=== PATIENT | male | born 1955 | race Caucasian/White ===

== ENCOUNTER 2016-08-18 16:07 | Inpatient (IN) | payer OTHER ==
[~2016-08-18] VITALS: Ht 177.8 cm; Wt 95.8 kg
[~2016-08-18 16:07] MED LIST: ASPCH81 PO; ATEN-175 PO; CTPTP3 TD; ENAL10TA88 PO; FELO10TA2 PO; GLC500 PO; GLCSUNK; POTA-335 PO; SERT-234 PO; SIMV20TA2 PO; SPIR25TA PO; VGR50 PO
[2016-08-18] MEDS ORDERED: ONDANSETRON INJ 2 MG/ML 2 ML VIAL IV STA (16:25)
[2016-08-18] MEDS ORDERED: SODIUM CHLORIDE 0.9% 1000ML 2,000 ML IV STA (16:25)
[2016-08-18] MEDS ORDERED: OPTIRAY 320 IV PRN (16:30)
[2016-08-18 16:31] LABS: HEMATOCRIT 41.2 % (42-52); MEAN CELL VOLUME 88.8 fL (80-100); MEAN CORPUSCULAR HEMOGLOBIN 30.4 pg (25-34); MEAN CORPUSCULAR HGB CONC 34.2 g/dl (32-36); MEAN PLATELET VOLUME 9.5 fL (7.4-10.4); PLATELET COUNT 414 K/uL (130-400); RED BLOOD COUNT 4.64 M/uL (4.7-6.1); WHITE BLOOD COUNT 9.11 K/uL (4.8-10.8)
[2016-08-18] MEDS ORDERED: CLON0.3D4 TD (17:06)
[2016-08-18] MEDS ORDERED: MISC1TAB85 PO (17:07)
[2016-08-18] MEDS ORDERED: MCRK20 PO (17:07)
[2016-08-18] MEDS ORDERED: ASPI-461 PO (17:07)
[2016-08-18] MEDS ORDERED: HYG/25 PO (17:07)
[2016-08-18] MEDS ORDERED: MISCTAB29 PO (17:07)
[2016-08-18] MEDS ORDERED: ATOR-24 PO (17:07)
[2016-08-18] MEDS ORDERED: GLIM1TAB2 PO (17:07)
[2016-08-18] MEDS ORDERED: ADAL1KIT SC (17:07)
[2016-08-18] MEDS ORDERED: METF500T PO (17:07)
[2016-08-18] MEDS ORDERED: MESA1.2T PO (17:07)
[2016-08-18 17:13] LABS: URINE APPEARANCE CLOUDY (CLEAR); URINE COLOR DK YELLOW; URINE EPITHELIAL CELL AUTO >30 /lpf (0-5); URINE NITRITE NEG (NEG); URINE PH 5.5 (4.5-7.5); URINE SPECIFIC GRAVITY 1.031 (1.000-1.030); UROBILINOGEN NEG (NEG); ZZUR CULT IF INDIC CLEAN CATCH NO
--- NOTE | 2016-08-18 17:13 | EMERGENCY ROOM VISIT NOTE ---
History Report prepared by Gumaro: Jvaier Morrison Under the Supervision of: Dr. Dangelo Lee D.O. First contact with patient: 16:25 Chief Complaint: DEHYDRATION Stated Complaint: DEHYDRATION;DOC SENT TO ER Nursing Triage Summary: triage note; pt reports "dr rodriguez told me to come to the ed because i am dehydrated." pt reports diarrhea for "a couple weeks it started after taking antibiotics for my diverticulties the end of july." pt denies any nausea and vomitting. History of Present Illness The patient is a 61 year old male who presents to the Emergency Room with complaints of constant lower abdominal pain beginning three weeks ago. The patient states that he was treated for diverticulitis three weeks ago. He reports that he finished his antibiotics and still has pain and diarrhea. He notes that he has lost his appetite and does not want to drink anything, he has headaches, and intermittent blood in his stool because of a hemorrhoid. The patient states he was at Dr. Rodriguez's office this morning ans was told to come to the ER because of his low blood pressure. The patient states that the this morning was the last time his stool had blood in it. He reports that his normal creatine is 1.0-1.2, last time it was measured it was 1.5. The patient notes that he also has a history of Crohn's disease. Pt denies headache, change in vision, fevers, chest pain, shortness of breath, nausea, vomiting, pain with urination, melena, backpacking, recent travel, and drinking from streams. Source of History: patient Onset: three weeks ago Position: abdomen (lower) Timing: constant Associated Symptoms: + headache, + diarrhea Note: Associated symptoms: decreased appetite Review of Systems See HPI for pertinent positives & negatives. A total of 10 systems reviewed and were otherwise negative. Past Medical & Surgical Medical Problems: (1) SIERRA (acute kidney injury) (2) Diabetes mellitus (3) HTN (hypertension) (4) Pancolitis Family History Diabetes mellitus FH: heart disease Hypertension Social History Smoking Status: Never Smoker Smokeless Tobacco Use: No Alcohol Use: none Marital Status: Housing Status: lives with significant other Occupation Status: employed Current/Historical Medications Scheduled Adalimumab (Humira), 40 MG SC EVERY OTHER WEEK Aspirin (Aspirin), 81 MG PO QAM Atenolol (Tenormin), 100 MG PO DAILY Atorvastatin (Lipitor), 40 MG PO HS Chlorthalidone (Hygroton), 25 MG PO QAM Clonidine Hcl (Gxhebxwk-Pzz-1), 1 PATCH TD WK Enalapril (Vasotec), 20 MG PO BID Felodipine (Plendil), 10 MG PO DAILY Glimepiride (Glimepiride), 1 TAB PO DAILY Mesalamine (Lialda), 2 TAB PO DAILY Metformin Hcl (Glucophage), 500 MG PO BID Misc Natural Products (Glucosamine Chondroitin T), 1 TAB PO BID Misc Natural Products (Osteo Bi-Flex Advanced Tr), 1 TAB PO BID Potassium Chloride (Klor-Con M20), 20 MEQ PO BID Spironolactone (Aldactone), 25 MG PO QAM Allergies Coded Allergies: No Known Allergies (Unverified , 08/18/16) Physical Exam Vital Signs Date Time Temp Pulse Resp B/P (MAP) Pulse Ox O2 Delivery O2 Flow Rate FiO2 08/18/16 18:08 66 16 103/59 100 08/18/16 16:12 36.8 64 18 101/69 98 Room Air Physical Exam GENERAL: Sitting up in bed, disheveled, non-toxic EYE EXAM: normal conjunctiva OROPHARYNX: no exudate, no erythema, lips, buccal mucosa, and tongue normal and mucous membranes are moist NECK: supple, no nuchal rigidity, no adenopathy, non-tender LUNGS: Clear to auscultation. Normal chest wall mechanics HEART: no murmurs, S1 normal and S2 normal ABDOMEN: abdomen soft, non-tender, normo-active bowel sounds, no masses, no rebound or guarding. BACK: Back is symmetrical on inspection and there is no deformity, no midline tenderness, no CVA tenderness. SKIN: no rashes and no bruising UPPER EXTREMITIES: upper extremities are grossly normal. LOWER EXTREMITIES: No pitting edema. NEURO EXAM: Normal sensorium, cranial nerves II-XII intact, normal speech, no weakness of arms, no weakness of legs. Medical Decision & Procedures ER Provider Diagnostic Interpretation: CT:Per my review, radiologist interpretation. ABDOMEN AND PELVIS CT WITHOUT CONTRAST CT DOSE: 830.24 mGy.cm HISTORY: abd pain and diarrhea TECHNIQUE: Multiaxial CT images of the abdomen and pelvis were performed without contrast. COMPARISON STUDY: None. FINDINGS: The lung bases are clear. No pneumoperitoneum. No pneumatosis. Small stone within the gallbladder. The unenhanced liver, spleen, adrenal glands, and pancreas are unremarkable. No renal stones or hydronephrosis. Bladder is not well-distended. Mild thickening and mild pericolonic fat stranding throughout the colon. There are multiple tiny pericolonic lymph nodes also seen throughout the colon. These measure subcentimeter in short axis diameter with the largest lymph node measuring up to 6 mm. Normal appendix. No dilated loops of bowel to suggest obstruction. A few colonic diverticula. No retroperitoneal lymphadenopathy. IMPRESSION: 1. Mild thickening and pericolonic fat stranding seen throughout the colon. This is consistent with a pancolitis. This is likely due to an infectious or inflammatory process. 2. There are also multiple subcentimeter pericolonic lymph nodes which are likely reactive. However, recommend 2-3 month abdomen and pelvis CT follow-up to ensure resolution. 3. Colonic diverticulosis. 4. Cholelithiasis. Electronically signed by: Minor Garcia M.D. 08/18/2016 6:09 PM Dictated Date/Time: 08/18/2016 6:04 PM Laboratory Results 08/18/16 16:22 Red Blood Count 4.64, Mean Corpuscular Volume 88.8, Mean Corpuscular Hemoglobin 30.4, Mean Corpuscular Hemoglobin Concent 34.2, Mean Platelet Volume 9.5, Neutrophils (%) (Auto) 55.8, Lymphocytes (%) (Auto) 22.5, Monocytes (%) (Auto) 17.9, Eosinophils (%) (Auto) 3.2, Basophils (%) (Auto) 0.3, Neutrophils # (Auto ) 5.08, Lymphocytes # (Auto) 2.05, Monocytes # (Auto) 1.63, Eosinophils # (Auto ) 0.29, Basophils # (Auto) 0.03 08/18/16 16:22 08/18/16 17:37 Test 08/18/16 16:22 08/18/16 16:45 08/18/16 17:37 White Blood Count 9.11 K/uL (4.8-10.8) Red Blood Count 4.64 M/uL (4.7-6.1) Hemoglobin 14.1 g/dL (14.0-18.0) Hematocrit 41.2 % (42-52) Mean Corpuscular Volume 88.8 fL (80-100) Mean Corpuscular Hemoglobin 30.4 pg (25-34) Mean Corpuscular Hemoglobin Concent 34.2 g/dl (32-36) Platelet Count 414 K/uL (130-400) Mean Platelet Volume 9.5 fL (7.4-10.4) Neutrophils (%) (Auto) 55.8 % Lymphocytes (%) (Auto) 22.5 % Monocytes (%) (Auto) 17.9 % Eosinophils (%) (Auto) 3.2 % Basophils (%) (Auto) 0.3 % Neutrophils # (Auto) 5.08 K/uL (1.4-6.5) Lymphocytes # (Auto) 2.05 K/uL (1.2-3.4) Monocytes # (Auto) 1.63 K/uL (0.11-0.59) Eosinophils # (Auto) 0.29 K/uL (0-0.5) Basophils # (Auto) 0.03 K/uL (0-0.2) RDW Standard Deviation 45.6 fL (36.4-46.3) RDW Coefficient of Variation 13.9 % (11.5-14.5) Immature Granulocyte % (Auto) 0.3 % Immature Granulocyte # (Auto) 0.03 K/uL (0.00-0.02) Anion Gap 9.0 mmol/L (3-11) Est Creatinine Clear Calc Drug Dose 37.5 ml/min Estimated GFR () 32.5 Estimated GFR (Non- 28.1 BUN/Creatinine Ratio 10.9 (10-20) Calcium Level 9.0 mg/dl (8.5-10.1) Total Bilirubin 0.4 mg/dl (0.2-1) Alanine Aminotransferase (ALT/SGPT) 22 U/L (12-78) Alkaline Phosphatase 62 U/L (45-117) Total Protein 7.4 gm/dl (6.4-8.2) Albumin 3.2 gm/dl (3.4-5.0) Lipase 1097 U/L (73-393) Urine Color DK YELLOW Urine Appearance CLOUDY (CLEAR) Urine pH 5.5 (4.5-7.5) Urine Specific [place] 1.031 (1.000-1.030) Urine Protein 2+ (NEG) Urine Glucose (UA) NEG (NEG) Urine Ketones TRACE (NEG) Urine Occult Blood NEG (NEG) Urine Nitrite NEG (NEG) Urine Bilirubin NEG (NEG) Urine Urobilinogen NEG (NEG) Urine Leukocyte Esterase TRACE (NEG) Urine WBC (Auto) 1-5 /hpf (0-5) Urine RBC (Auto) 0-4 /hpf (0-4) Urine Hyaline Casts (Auto) 10-30 /lpf (0-5) Urine Epithelial Cells (Auto) >30 /lpf (0-5) Urine Bacteria (Auto) NEG (NEG) Urine Renal Epithelial Cells /lpf (0-5) Urine Pathogenic Casts 1-5 GRANULAR CASTS /lpf (0) Direct Bilirubin < 0.1 mg/dl (0-0.2) Aspartate Amino Transf (AST/SGOT) 8 U/L (15-37) Date/Time Source Procedure Growth Status 08/18/16 16:45 Stool C.difficile Toxin B Gene (PCR) - Final No C. difficile toxin B gene detected Complete Laboratory results per my review. Medications Administered Medications (Trade) Dose Ordered Sig/Nakul Route Start Time Stop Time Status Last Admin Dose Admin Sodium Chloride 2,000 ml @ 999 mls/hr Q2H1M STAT IV 08/18/16 16:25 08/18/16 18:25 DC 08/18/16 16:32 999 MLS/HR ED Course ED COURSE: Vital signs were reviewed and showed normal signs. The patients medical record was reviewed The above diagnostic studies were performed and reviewed. ED treatments and interventions as stated above. 1625: Ordered Sodium Chloride 2000 ml @ 999 mls/hr IV 1638: The patient was evaluated in room C07. A complete history and physical examination was performed. 1810: Upon reevaluation, the patient is resting.I discussed my findings with the patient and he understands and agrees with the treatment plan. 1823: I discussed the patient's case with Dr. Espinosa, [facility] Hospitalist. The patient will be evaluated for further treatment. Based on the patients age, coexisting illnesses, exam and lab findings the decision to treat as an inpatient was made. The patient remained stable while under my care. The patient will be evaluated for further management. Medical Decision Differential Diagnosis includes but is not limited to dehydration, stroke, anemia, hypoglycemia, hyponatremia, hypernatremia, urinary tract infection, pneumonia, bronchitis, sepsis, gastroenteritis, additional abdominal pathology, metabolic abnormalities and infections. Medication Reconciliation: I attest that I have personally reviewed the patient' s current medication list. Blood pressure screening: Patient was found to have normal blood pressure on screening and does not require follow-up. Patient is a 61-year-old male who presents the ER referred in by GI. He was recently treated for diverticulitis with antibiotics which ended around August 08. He saw GI today. He was found to be slightly hypotensive and referred in. He has had persistent diarrhea. GI recommended a CT of the abdomen and pelvis for evaluation of his Crohn's disease which showed a diffuse pancolitis. Creatinine has doubled from a baseline of 1.1-1.2 to 2.4. Lipase is elevated at 1000. CT was unremarkable with the exception of the pancolitis. Patient rest comfortably in the ER. He was given 2 L normal saline as I believe his SIERRA is secondary to prerenal. He was admitted to internal medicine for further workup of his SIERRA which is likely secondary to dehydration with the elevated BUN. C. difficile was negative. Consults Time Called: 1818 Consulting Physician: Natividad Marie Hospitalist Returned Call: 1822 I discussed the [facility] The patient will be evaluated for further treatment. Impression Primary Impression: SIERRA (acute kidney injury) Additional Impressions: Pancreatitis Colitis Scribe Attestation The scribe's documentation has been prepared under my direction and personally reviewed by me in its entirety. I confirm that the note above accurately reflects all work, treatment, procedures, and medical decision making performed by me. Departure Information Dispostion Being Evaluated By Hospitalist Referrals Ruben Cardenas M.D. (PCP) Patient Instructions My [facility] Problem Qualifiers Additional Impressions: Pancreatitis Chronicity: acute Pancreatitis type: unspecified pancreatitis type Acute pancreatitis complication: unspecified Qualified Codes: K85.90 - Acute pancreatitis without necrosis or infection, unspecified
[2016-08-18 17:14] LABS: ALKALINE PHOSPHATASE 62 U/L (45-117); ALT/SGPT 22 U/L (12-78); BLOOD UREA NITROGEN 26 mg/dl (7-18); BUN/CREATININE RATIO 10.9 (10-20); CARBON DIOXIDE 14 mmol/L (21-32); CHLORIDE 116 mmol/L (98-107); GLUCOSE 86 mg/dl (70-99); SODIUM 139 mmol/L (136-145)
[2016-08-18 17:15] LABS: MANUAL MICROSCOPIC REQUIRED? NO; REVIEW REQ? YES
[2016-08-18 17:16] LABS: URINE BILIRUBIN NEG (NEG)
[2016-08-18 17:25] LABS: BASO % 0.3 %; BASO ABS # 0.03 K/uL (0-0.2); COMPLETE YES; EOS % 3.2 %; IG% 0.3 %; LYMPH % 22.5 %; LYMPH ABS # 2.05 K/uL (1.2-3.4); MONO % 17.9 %; NEUT % 55.8 %
[2016-08-18 17:34] LABS: URINE PATH CASTS 1-5 GRANULAR CASTS /lpf (0)
[2016-08-18 17:57] LABS: POTASSIUM 4.3 mmol/L (3.5-5.1)
[2016-08-18 18:02] LABS: AST/SGOT 8 U/L (15-37)
[2016-08-18 18:08] VITALS: O2SAT 100
--- NOTE | 2016-08-18 18:10 | DIAGNOSTIC IMAGING REPORT ---
ABDOMEN AND PELVIS CT WITHOUT CONTRAST CT DOSE: 830.24 mGy.cm HISTORY: abd pain and diarrhea TECHNIQUE: Multiaxial CT images of the abdomen and pelvis were performed without contrast. COMPARISON STUDY: None. FINDINGS: The lung bases are clear. No pneumoperitoneum. No pneumatosis. Small stone within the gallbladder. The unenhanced liver, spleen, adrenal glands, and pancreas are unremarkable. No renal stones or hydronephrosis. Bladder is not well-distended. Mild thickening and mild pericolonic fat stranding throughout the colon. There are multiple tiny pericolonic lymph nodes also seen throughout the colon. These measure subcentimeter in short axis diameter with the largest lymph node measuring up to 6 mm. Normal appendix. No dilated loops of bowel to suggest obstruction. A few colonic diverticula. No retroperitoneal lymphadenopathy. IMPRESSION: 1. Mild thickening and pericolonic fat stranding seen throughout the colon. This is consistent with a pancolitis. This is likely due to an infectious or inflammatory process. 2. There are also multiple subcentimeter pericolonic lymph nodes which are likely reactive. However, recommend 2-3 month abdomen and pelvis CT follow-up to ensure resolution. 3. Colonic diverticulosis. 4. Cholelithiasis. Electronically signed by: Minor Garcia M.D. 08/18/2016 6:09 PM Dictated Date/Time: 08/18/2016 6:04 PM
[2016-08-18] MEDS ORDERED: CIPROFLOXACIN / D5W 400 MG in PREMIXED IN D5W 200 ML IV ONE (18:59)
[2016-08-18] MEDS ORDERED: ONDANSETRON INJ 2 MG/ML 2 ML VIAL IV PRN (19:00)
[2016-08-18] MEDS ORDERED: HYDROmorphone INJ 0.5 MG/0.5 ML SYR IV PRN (19:15)
--- NOTE | 2016-08-18 19:42 | HISTORY & PHYSICAL EXAMINATION ---
DATE OF ADMISSION: 08/18/2016 PRIMARY CARE PHYSICIAN: Dr. Cardenas. CHIEF COMPLAINT: Abdominal pain with diarrhea since of this month. HISTORY OF PRESENT COMPLAINT: He is a 61-year-old male with significant past medical history including diabetes type 2, Crohn's disease of both small and large intestine without complications, hyperlipidemia and hypertension, apparently has had colitis on and got Cipro, Flagyl, which he finished on of this month. Since then, he has been having diarrhea off and on and this morning from -, he had 5 times of diarrhea. He is getting weak and tired and he saw Dr. Rodriguez who sent the patient to the hospital. He denies to have any fever, chills or rigors. He denies to have any nausea, no vomiting and no abdominal distention and no problem with urine. He does not have any other extra intestinal features of the disease. PAST MEDICAL HISTORY: Significant for type 2 diabetes, Crohn's disease involving both small and large intestine without complications, hypertension, hyperlipidemia, adjustment disorder and depression. PAST SURGICAL HISTORY: Significant for colonoscopy with a biopsy. FAMILY HISTORY: Significant in that mother had diabetes. Father had heart disease, and hypertension and mother had high blood pressure too. SOCIAL HISTORY: He is . He quit smoking in 1997. He has couple of drinks a day. ALLERGIES: NKDA. MEDICATIONS: He has been on aspirin 81 mg daily, atenolol 100 mg daily, Lipitor 40 mg daily, Hygroton 25 mg daily, clonidine 0.3 mg one patch every week, enalapril 20 mg twice daily, felodipine 10 mg daily, metformin 500 twice a day, potassium chloride 20 mEq b.i.d., spironolactone 25 mg daily, Humira 40 mg subQ every other week, glimepiride 1 mg daily, Lialda 1.2 gram tablet two tab p.o. daily, glucosamine 1 tablet b.i.d. and Osteo Bi-Flex 1 tablet b.i.d. REVIEW OF SYSTEMS: Total 10 point review of systems with pertinent negatives, positives as in history of present complaint. PHYSICAL EXAMINATION: GENERAL: On examination in the Emergency Room, he was not having any acute distress. VITAL SIGNS: Temperature 36.8, pulse of 62, blood pressure 103/59, saturation 100% on room air. HEENT: Unremarkable. NECK: Supple. No JVD, no bruit. CHEST: Clear to auscultate bilaterally. HEART: S1, S2 regular. ABDOMEN: Soft, benign, mildly tender in the lower quadrant. No guarding, rigidity. Bowel sounds present. EXTREMITIES: Negative for any edema. MUSCULOSKELETAL: Did not show any acute arthritis involving any joint. CENTRAL NERVOUS SYSTEM: He was alert, awake, oriented x3. No focal sensory and/or motor deficit appreciated. LABORATORY DATA: Noted today white count was 9.11, H&H 14.41/41.2, platelet was 414. Sodium 139, potassium 4.3, chloride 116, carbon dioxide 14, BUN is 26, creatinine 2.40. There is significant change in creatinine compared with before. Lipase was 1097. UA examination unremarkable. IMAGING DATA: CT of the abdomen and pelvis did show mild thickening and pericolonic fat stranding throughout the colon consistent with pancolitis. There are also multiple subcentimeter pericolonic lymph nodes which are likely reactive; however, recommend 2-3 months abdomen and pelvis CT followup. Colonic diverticulosis and he has cholelithiasis. IMPRESSION AND PLAN: 1. Abdominal pain with diarrhea, likely secondary to pancolitis. Negative for any C. diff, even though he had antibiotic for diverticulitis finished on 6th of this month. We will start with Cipro, Flagyl and also a small dose of steroid for probable Crohn's flareup. A gastroenterology consultation while in the hospital. Continue with his other medications. 2. Acute kidney injury, most likely secondary to dehydration from diarrhea and not been eating or drinking. We will give IV fluids and monitor kidney function while in the hospital. 3. Hypertension. Blood pressure was stable. Continue current medications. Hold diuretics for now. 4. Diabetes type 2. Hold metformin, continue the other medications and we will put him on sliding scale coverage while in the hospital. 5. Hyperlipidemia. Continue with statin. 6. GI prophylaxis with proton pump inhibitor. 7. Deep vein thrombosis prophylaxis with SCDs. He has bleeding per rectum. We will not give any pharmacological anticoagulation. 8. Code status. He will be a full code. In my clinical judgment, the beneficiary meets criteria as per CMS for 2 midnight stay in the hospital. MEGHNA
[2016-08-18 20:09] VITALS: BP 117/77; PULSE 66; TEMP 36.4; Ht 177.8 cm; Wt 95.8 kg
[2016-08-18] MEDS ORDERED: NON-FORMULARY MEDICATION (Misc Natural Products (Osteo Bi-Flex Advanced Tr) 1 TAB) PO SCH (21:00)
[2016-08-18] MEDS: SODIUM CHLORIDE 0.9% 1000ML 1,000 ML IV SCH (21:05)
[2016-08-18] MEDS: CIPROFLOXACIN / D5W 400 MG in PREMIXED IN D5W 200 ML IV SCH (21:06)
[2016-08-18] MEDS: METHYLPREDNISOLONE IV 20 MG in SYRINGE 0 ML IV SCH (22:55)
[2016-08-18] MEDS: METRONIDAZOLE / NSS 500 MG in PREMIXED NSS 100 ML IV SCH (22:55)
[2016-08-18 23:29] VITALS: BP 124/79; PULSE 69; TEMP 36.7; O2SAT 98
[2016-08-19] MEDS: CHECK CLONIDINE PATCH PLACEMENT SCH ×4 (00:09→23:02)
[2016-08-19] MEDS: SODIUM CHLORIDE 0.9% 1000ML 1,000 ML IV SCH ×4 (04:11→23:02)
[2016-08-19] MEDS: METRONIDAZOLE / NSS 500 MG in PREMIXED NSS 100 ML IV SCH ×3 (06:04→21:49)
[2016-08-19] MEDS: METHYLPREDNISOLONE IV 20 MG in SYRINGE 0 ML IV SCH ×3 (06:04→21:04)
[2016-08-19 06:37] LABS: MEAN CELL VOLUME 88.8 fL (80-100); MEAN CORPUSCULAR HEMOGLOBIN 29.5 pg (25-34); MEAN CORPUSCULAR HGB CONC 33.2 g/dl (32-36); MEAN PLATELET VOLUME 9.1 fL (7.4-10.4); PLATELET COUNT 323 K/uL (130-400); RED BLOOD COUNT 3.83 M/uL (4.7-6.1); WHITE BLOOD COUNT 5.28 K/uL (4.8-10.8)
[2016-08-19 07:24] LABS: ALKALINE PHOSPHATASE 56 U/L (45-117); ALT/SGPT 17 U/L (12-78); AST/SGOT 9 U/L (15-37); BLOOD UREA NITROGEN 22 mg/dl (7-18); BUN/CREATININE RATIO 14.8 (10-20); CARBON DIOXIDE 14 mmol/L (21-32); CHLORIDE 118 mmol/L (98-107); GLUCOSE 127 mg/dl (70-99); MAGNESIUM 1.5 mg/dl (1.8-2.4); PHOSPHORUS 3.1 mg/dl (2.5-4.9); POTASSIUM 4.7 mmol/L (3.5-5.1); SODIUM 141 mmol/L (136-145)
[2016-08-19 08:01] VITALS: BP 111/67; PULSE 72
[2016-08-19] MEDS: ASPIRIN 81 MG ECTAB PO SCH (08:03)
[2016-08-19] MEDS: GLIMEPIRIDE 2 MG TAB PO SCH (08:03)
[2016-08-19] MEDS: FELODIPINE 5 MG TABCR PO SCH (08:03)
[2016-08-19 08:21] VITALS: BP 117/73; PULSE 72; TEMP 36.7; O2SAT 99
[2016-08-19] MEDS ORDERED: MAGNESIUM SULFATE 1GM / D5W 1 GM in PREMIXED IN D5W 100 ML IV ONE (09:00)
[2016-08-19] MEDS: CIPROFLOXACIN / D5W 400 MG in PREMIXED IN D5W 200 ML IV SCH ×2 (10:03→21:04)
--- NOTE | 2016-08-19 12:46 | Progress Note ---
Internal Med Progress Note Date of Service: Aug 19, 2016. Provider Documentation: SUBJECTIVE: The patient was seen and examined Symptomatically much better Abdominal pain and diarrhea improved No fever,chills OBJECTIVE: Vital Signs-as noted below Exam: General-No distress at rest Eyes-normal ENT-Normal Neck-Supple Lungs-Clear to ausucltate bilaterally Heart-Regular,no murmur Abdomen-Benign,nontender,bowel sound present Extremities-No edema Neuro-AAox3 Lab data as noted below. ASSESSMENT & PLAN: Pancolitis -infective versus Crohns flare up Presented with Abdominal pain with diarrhea, likely secondary to pancolitis. Negative for any C. diff, even though he had antibiotic for diverticulitis finished on 6th of this month. Started on Cipro, Flagyl and a small dose of steroid for probable Crohn's flareup. GI consulted Clinically better Acute kidney injury, Most likely secondary to dehydration from diarrhea and not been eating or drinking. IVF and increase oral intake Renal function is better Hypertension. Blood pressure was stable. Continue current medications. Hold diuretics for now. Diabetes type 2. Hold metformin, continue the other medications and we will put him on sliding scale coverage while in the hospital. Hyperlipidemia. Continue with statin. GI prophylaxis with proton pump inhibitor. Deep vein thrombosis prophylaxis with SCDs. He has bleeding per rectum. We will not give any pharmacological anticoagulation. Code status. He will be a full code. DISPOSITION Awaited Vital Signs: Date Time Temp Pulse Resp B/P (MAP) Pulse Ox O2 Delivery O2 Flow Rate FiO2 08/19/16 08:21 36.7 72 16 117/73 (88) 99 08/19/16 08:01 72 111/67 (82) 08/19/16 08:00 Room Air 08/18/16 23:29 36.7 69 18 124/79 (94) 98 Room Air 08/18/16 20:09 36.4 66 16 117/77 Room Air 100 08/18/16 18:08 66 16 103/59 100 08/18/16 16:12 36.8 64 18 101/69 98 Room Air Lab Results: Results Past 24 Hours Test 08/18/16 16:22 08/18/16 16:45 08/18/16 17:37 08/19/16 06:10 Range/Units White Blood Count 9.11 5.28 4.8-10.8 K/uL Red Blood Count 4.64 3.83 4.7-6.1 M/uL Hemoglobin 14.1 11.3 14.0-18.0 g/dL Hematocrit 41.2 34.0 42-52 % Mean Corpuscular Volume 88.8 88.8 80-100 fL Mean Corpuscular Hemoglobin 30.4 29.5 25-34 pg Mean Corpuscular Hemoglobin Concent 34.2 33.2 32-36 g/dl Platelet Count 414 323 130-400 K/uL Mean Platelet Volume 9.5 9.1 7.4-10.4 fL Neutrophils (%) (Auto) 55.8 % Lymphocytes (%) (Auto) 22.5 % Monocytes (%) (Auto) 17.9 % Eosinophils (%) (Auto) 3.2 % Basophils (%) (Auto) 0.3 % Neutrophils # (Auto) 5.08 1.4-6.5 K/uL Lymphocytes # (Auto) 2.05 1.2-3.4 K/uL Monocytes # (Auto) 1.63 0.11-0.59 K/uL Eosinophils # (Auto) 0.29 0-0.5 K/uL Basophils # (Auto) 0.03 0-0.2 K/uL RDW Standard Deviation 45.6 45.0 36.4-46.3 fL RDW Coefficient of Variation 13.9 13.8 11.5-14.5 % Immature Granulocyte % (Auto) 0.3 % Immature Granulocyte # (Auto) 0.03 0.00-0.02 K/uL Blood Smear Review Sodium Level 139 141 136-145 mmol/L Potassium Level 4.3 4.7 3.5-5.1 mmol/L Chloride Level 116 118 98-107 mmol/L Carbon Dioxide Level 14 14 21-32 mmol/L Anion Gap 9.0 9.0 3-11 mmol/L Blood Urea Nitrogen 26 22 7-18 mg/dl Creatinine 2.40 1.50 0.60-1.40 mg/dl Est Creatinine Clear Calc Drug Dose 37.5 60.1 ml/min Estimated GFR () 32.5 57.4 Estimated GFR (Non- 28.1 49.5 BUN/Creatinine Ratio 10.9 14.8 10-20 Random Glucose 86 127 70-99 mg/dl Calcium Level 9.0 8.0 8.5-10.1 mg/dl Total Bilirubin 0.4 0.5 0.2-1 mg/dl Direct Bilirubin < 0.1 < 0.1 0-0.2 mg/dl Aspartate Amino Transf (AST/SGOT) 8 9 15-37 U/L Alanine Aminotransferase (ALT/SGPT) 22 17 12-78 U/L Alkaline Phosphatase 62 56 45-117 U/L Total Protein 7.4 5.7 6.4-8.2 gm/dl Albumin 3.2 2.6 3.4-5.0 gm/dl Lipase 1097 73-393 U/L Urine Color DK YELLOW Urine Appearance CLOUDY CLEAR Urine pH 5.5 4.5-7.5 Urine Specific [place] 1.031 1.000-1.030 Urine Protein 2+ NEG Urine Glucose (UA) NEG NEG Urine Ketones TRACE NEG Urine Occult Blood NEG NEG Urine Nitrite NEG NEG Urine Bilirubin NEG NEG Urine Urobilinogen NEG NEG Urine Leukocyte Esterase TRACE NEG Urine WBC (Auto) 1-5 0-5 /hpf Urine RBC (Auto) 0-4 0-4 /hpf Urine Hyaline Casts (Auto) 10-30 0-5 /lpf Urine Epithelial Cells (Auto) >30 0-5 /lpf Urine Bacteria (Auto) NEG NEG Urine Renal Epithelial Cells 0-5 /lpf Urine Pathogenic Casts 1-5 GRANULAR CASTS 0 /lpf Phosphorus Level 3.1 2.5-4.9 mg/dl Magnesium Level 1.5 1.8-2.4 mg/dl Test 08/19/16 07:26 08/19/16 11:33 Range/Units Bedside Glucose 113 204 70-99 mg/dl Microbiology Results 08/18/16 C.difficile Toxin B Gene (PCR) - Final, Complete No C. difficile toxin B gene detected 08/18/16 Shiga Toxin Test, Received Pending 08/18/16 Stool Culture, Received Pending
--- NOTE | 2016-08-19 13:48 | Gastrointestinal Consultation ---
Gastrointestinal Consultation Date of Consultation: Aug 19, 2016 Attending Physician: Dr. Espinosa Consulting Physician: Dr. Serrato Reason for Consultation: abd pain and diarrhea; ?Crohns flare History of Present Illness Patient is a 61 year old male who was diagnosed wqith IBD approx [address] Rodriguez when he presented for a colonoscopy for diarrhea. He was initially managed with oral mesalamine, however, a colonoscopy 6 months ago revealed on-going active inflammation and he was started on humira in April. Pravin tells me that once he started the Humira his diarrhea did improve for a few months. Over weekend he started to have worsening LLQ abdominal pain and was having copious watery diarrhea. He was seen by his PCP and started on a course of cipro and flagyl for presumed diverticulitis. He does not think he had a CT scan done. His pain completely resolved and the diarrhea improved somewhat. He finished the antibiotics on 08/08 and shortly thereafter started to have worsening diarrhea. No blood or mucus. He was seen urgently in the office by Dr. Bhatt on Sunday and sent to the ER secondary to concern for dehydration. Labs in the ER were significant for evidence of hemoconcentration and acute kidney injury. Lipase was noted to be 1000. No nausea or vomiting. No prior history of pancreatitis. He was restarted on Cipro and Flagyl and given IVF hydration. He was also started on IV steroids. He does not think he has ever been on prednisone in the past. Today, he is feeling much better. His renal function is improving nicely. He is tolerating a regular diet. He reports 3 loose stools since 3AM - not as watery as prior to admission. C diff testing is negative. CT showed mild diffuse colonic wall thickening and fat stranding as well as diverticulosis, no evidence of diverticulitis. Past Medical/Surgical History Medical Problems: (1) Colitis Status: Acute (2) Pancreatitis Status: Acute Past Medical History: Crohn's disease Past Surgical History: none Family History Diabetes mellitus FH: heart disease Hypertension non-contributory Social History Smoking Status: Former Smoker Alcohol Use: none Drug Use: none Marital Status: Housing Status: lives with significant other Occupation Status: employed Allergies Coded Allergies: No Known Allergies (Unverified , 08/18/16) Current Medications Home Meds and Scripts Medications Dose Route/Sig Max Daily Dose Days Date Category Dose Instructions Hygroton (Chlorthalidone) 25 Mg Tab 25 Mg PO QAM 08/18/16 Reported Osteo Bi-Flex Advanced Tr ([facility] [facility]) 1 Tab Tab 1 Tab PO BID 08/18/16 Reported Lialda (Mesalamine) 1.2 Gm Tab 2 Tab PO DAILY 90 08/18/16 Reported Glimepiride 1 Mg Tab 1 Tab PO DAILY 90 08/18/16 Reported Humira (Adalimumab) 40 Mg/0.8 Ml Kit 40 Mg SC EVERY OTHER WEEK 08/18/16 Reported Lipitor (Atorvastatin Calcium) 40 Mg Tab 40 Mg PO HS 08/18/16 Reported Klor-Con M20 (Potassium Chloride) 20 Meq Tabcr 20 Meq PO BID 08/18/16 Reported Aspirin 81 Mg Tab 81 Mg PO QAM 08/18/16 Reported Glucosamine Chondroitin T ([facility] [facility]) 1 Tab Tab 1 Tab PO BID 08/18/16 Reported Glucophage (Metformin Hcl) 500 Mg Tab 500 Mg PO BID 08/18/16 Reported Gewbucnw-[id number]-9 (Clonidine Hcl) 0.3 Mg/24 Hr Dis 1 Patch TD WK 08/18/16 Reported CHANGE ON SUNDAYS. Aldactone (Spironolactone) 25 Mg Tab 25 Mg PO QAM 03/16/10 Reported Vasotec (Enalapril Maleate) 10 Mg Tab 20 Mg PO BID 03/14/10 Reported Plendil (Felodipine) 10 Mg Tabcr 10 Mg PO DAILY 03/14/10 Reported Tenormin (Atenolol) 100 Mg Tab 100 Mg PO DAILY 03/14/10 Reported Review of Systems 12 systems reviewed and negative except as noted Physical Exam Date Time Temp Pulse Resp B/P (MAP) Pulse Ox O2 Delivery O2 Flow Rate FiO2 08/19/16 08:21 36.7 72 16 117/73 (88) 99 08/19/16 08:01 72 111/67 (82) 08/19/16 08:00 Room Air 08/18/16 23:29 36.7 69 18 124/79 (94) 98 Room Air 08/18/16 20:09 36.4 66 16 117/77 Room Air 100 08/18/16 18:08 66 16 103/59 100 08/18/16 16:12 36.8 64 18 101/69 98 Room Air General Appearance: WD/WN, no apparent distress Eyes: normal inspection, PERRL, EOMI ENT: normal ENT inspection, hearing grossly normal, pharynx normal Neck: supple, no adenopathy, no JVD Respiratory/Chest: chest non-tender, lungs clear, normal breath sounds, no accessory muscle use Cardiovascular: regular rate, rhythm, no murmur Abdomen: normal bowel sounds, non tender, soft Extremities: normal range of motion, non-tender, normal inspection, no pedal edema, no calf tenderness 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, no motor/sensory deficits, alert, oriented x 3 Skin: normal color, no jaundice, warm/dry, no rash Laboratory Results Last 24 Hours Test 08/18/16 16:22 08/18/16 16:45 08/18/16 17:37 08/19/16 06:10 White Blood Count 9.11 K/uL 5.28 K/uL Red Blood Count 4.64 M/uL 3.83 M/uL Hemoglobin 14.1 g/dL 11.3 g/dL Hematocrit 41.2 % 34.0 % Mean Corpuscular Volume 88.8 fL 88.8 fL Mean Corpuscular Hemoglobin 30.4 pg 29.5 pg Mean Corpuscular Hemoglobin Concent 34.2 g/dl 33.2 g/dl Platelet Count 414 K/uL 323 K/uL Mean Platelet Volume 9.5 fL 9.1 fL Neutrophils (%) (Auto) 55.8 % Lymphocytes (%) (Auto) 22.5 % Monocytes (%) (Auto) 17.9 % Eosinophils (%) (Auto) 3.2 % Basophils (%) (Auto) 0.3 % Neutrophils # (Auto) 5.08 K/uL Lymphocytes # (Auto) 2.05 K/uL Monocytes # (Auto) 1.63 K/uL Eosinophils # (Auto) 0.29 K/uL Basophils # (Auto) 0.03 K/uL RDW Standard Deviation 45.6 fL 45.0 fL RDW Coefficient of Variation 13.9 % 13.8 % Immature Granulocyte % (Auto) 0.3 % Immature Granulocyte # (Auto) 0.03 K/uL Blood Smear Review Sodium Level 139 mmol/L 141 mmol/L Potassium Level mmol/L 4.3 mmol/L 4.7 mmol/L Chloride Level 116 mmol/L 118 mmol/L Carbon Dioxide Level 14 mmol/L 14 mmol/L Anion Gap 9.0 mmol/L 9.0 mmol/L Blood Urea Nitrogen 26 mg/dl 22 mg/dl Creatinine 2.40 mg/dl 1.50 mg/dl Est Creatinine Clear Calc Drug Dose 37.5 ml/min 60.1 ml/min Estimated GFR () 32.5 57.4 Estimated GFR (Non- 28.1 49.5 BUN/Creatinine Ratio 10.9 14.8 Random Glucose 86 mg/dl 127 mg/dl Calcium Level 9.0 mg/dl 8.0 mg/dl Total Bilirubin 0.4 mg/dl 0.5 mg/dl Direct Bilirubin mg/dl < 0.1 mg/dl < 0.1 mg/dl Aspartate Amino Transf (AST/SGOT) U/L 8 U/L 9 U/L Alanine Aminotransferase (ALT/SGPT) 22 U/L 17 U/L Alkaline Phosphatase 62 U/L 56 U/L Total Protein 7.4 gm/dl 5.7 gm/dl Albumin 3.2 gm/dl 2.6 gm/dl Lipase 1097 U/L Urine Color DK YELLOW Urine Appearance CLOUDY Urine pH 5.5 Urine Specific [place] 1.031 Urine Protein 2+ Urine Glucose (UA) NEG Urine Ketones TRACE Urine Occult Blood NEG Urine Nitrite NEG Urine Bilirubin NEG Urine Urobilinogen NEG Urine Leukocyte Esterase TRACE Urine WBC (Auto) 1-5 /hpf Urine RBC (Auto) 0-4 /hpf Urine Hyaline Casts (Auto) 10-30 /lpf Urine Epithelial Cells (Auto) >30 /lpf Urine Bacteria (Auto) NEG Urine Renal Epithelial Cells /lpf Urine Pathogenic Casts 1-5 GRANULAR CASTS /lpf Phosphorus Level 3.1 mg/dl Magnesium Level 1.5 mg/dl Test 08/19/16 07:26 08/19/16 11:33 Bedside Glucose 113 mg/dl 204 mg/dl Impression Patient is a 61 year old male with inflammatory Crohn;s disease managed on Humira and mesalamine admitted with worsening diarrhea and dehydration. Imaging suggestive of on-going colonic inflammation. C diff is negative (in the setting of recent abx for ??diverticulitis). His presentation are consistent with a Crohn's flare. Plan - Agree with IVF hydration. - IV steroids. Would transition to an oral steroid taper at the time of discharge (pred 40 mg x 1 week, 30 mg x 1 week, 20 mg x 1 week then 10mg x 1 week then stop). OK to finish course of antibiotics. - He will need outpatient follow up with Dr. Rodriguez 2-3 weeks after discharge. - Check comp stool culture and giardia please.
[2016-08-19 15:10] VITALS: BP 124/77; PULSE 66; TEMP 36.8; O2SAT 99
[2016-08-19] MEDS ORDERED: ATORVASTATIN 20 MG TAB PO SCH (21:00)
[2016-08-19 23:08] VITALS: BP 121/71; PULSE 74; TEMP 36.2; O2SAT 96
[2016-08-20] MEDS: METHYLPREDNISOLONE IV 20 MG in SYRINGE 0 ML IV SCH ×2 (05:24→14:02)
[2016-08-20] MEDS: SODIUM CHLORIDE 0.9% 1000ML 1,000 ML IV SCH ×2 (05:24→12:19)
[2016-08-20] MEDS: METRONIDAZOLE / NSS 500 MG in PREMIXED NSS 100 ML IV SCH (05:24)
[2016-08-20 06:46] VITALS: BP 130/76; PULSE 58; TEMP 36.3; O2SAT 96
[2016-08-20 06:54] LABS: MEAN CELL VOLUME 86.8 fL (80-100); MEAN CORPUSCULAR HEMOGLOBIN 28.9 pg (25-34); MEAN CORPUSCULAR HGB CONC 33.3 g/dl (32-36); MEAN PLATELET VOLUME 9.4 fL (7.4-10.4); PLATELET COUNT 332 K/uL (130-400); WHITE BLOOD COUNT 6.75 K/uL (4.8-10.8)
[2016-08-20 07:30] LABS: BUN/CREATININE RATIO 12.7 (10-20); CALCIUM 7.6 mg/dl (8.5-10.1); CREATININE 1.3 mg/dl (0.60-1.40); MAGNESIUM 1.8 mg/dl (1.8-2.4)
[2016-08-20 07:31] LABS: PHOSPHORUS 2.1 mg/dl (2.5-4.9)
[2016-08-20 07:58] VITALS: BP 158/88; PULSE 64; PULSE 88; O2SAT 96
[2016-08-20] MEDS: CIPROFLOXACIN / D5W 400 MG in PREMIXED IN D5W 200 ML IV SCH (07:59)
[2016-08-20] MEDS: ASPIRIN 81 MG ECTAB PO SCH (08:00)
[2016-08-20] MEDS: CHECK CLONIDINE PATCH PLACEMENT SCH (08:00)
[2016-08-20] MEDS: FELODIPINE 5 MG TABCR PO SCH (08:01)
[2016-08-20] MEDS: GLIMEPIRIDE 2 MG TAB PO SCH (08:02)
[2016-08-20] MEDS ORDERED: SODIUM PHOSPHATE 3 MMOL/1 ML INFUSION IV STA (08:30)
[2016-08-20] MEDS ORDERED: CLONIDINE HCL 0.3 MG/24 HR TRANSDERM SYS TD SCH (09:00)
[2016-08-20] MEDS ORDERED: SODIUM PHOSPHATE INJ 24 MMOL in SODIUM CHLORIDE 0.9% 500ML 500 ML IV ONE ×2 (09:00→10:00)
--- NOTE | 2016-08-20 10:46 | Progress Note ---
Internal Med Progress Note Date of Service: Aug 20, 2016. Provider Documentation: SUBJECTIVE: The patient was seen and examined Symptomatically much better Abdominal pain and diarrhea improved No fever,chills No more diarrhea and or abdominal p[ain OBJECTIVE: Vital Signs-as noted below Exam: General-No distress at rest Eyes-normal ENT-Normal Neck-Supple Lungs-Clear to ausucltate bilaterally Heart-Regular,no murmur Abdomen-Benign,nontender,bowel sound present Extremities-No edema Neuro-AAox3 Lab data as noted below. ASSESSMENT & PLAN: Pancolitis -infective versus Crohns flare up Presented with Abdominal pain with diarrhea, likely secondary to pancolitis. Negative for any C. diff, even though he had antibiotic for diverticulitis finished on of this month. Started on Cipro, Flagyl and a small dose of steroid for probable Crohn's flareup. GI consulted-appreciate Input Clinically much better Tapering dose of Steroid and Antibiotics Acute kidney injury, Most likely secondary to dehydration from diarrhea and not been eating or drinking. IVF and increase oral intake Renal function is better Resolved Hypertension. Blood pressure was stable. Continue current medications. Hold diuretics for now. Diabetes type 2. Hold metformin, continue the other medications and we will put him on sliding scale coverage while in the hospital. Metformin stopped Hyperlipidemia. Continue with statin. GI prophylaxis with proton pump inhibitor. Deep vein thrombosis prophylaxis with SCDs. He has bleeding per rectum. We will not give any pharmacological anticoagulation. Code status. He will be a full code. DISPOSITION Discharge home today Vital Signs: Date Time Temp Pulse Resp B/P (MAP) Pulse Ox O2 Delivery O2 Flow Rate FiO2 08/20/16 11:02 36.3 64 18 96 Room Air 08/20/16 08:00 Room Air 08/20/16 07:58 64 158/88 (111) 96 Room Air 08/20/16 06:46 36.3 58 18 130/76 (94) 96 Room Air 08/20/16 00:00 Room Air 08/19/16 23:08 36.2 74 18 121/71 (88) 96 Room Air 08/19/16 20:00 Room Air 08/19/16 16:00 Room Air 08/19/16 15:10 36.8 66 16 124/77 (93) 99 Lab Results: Results Past 24 Hours Test 08/19/16 16:40 08/20/16 06:20 08/20/16 07:56 Range/Units Bedside Glucose 120 132 70-99 mg/dl White Blood Count 6.75 4.8-10.8 K/uL Red Blood Count 3.80 4.7-6.1 M/uL Hemoglobin 11.0 14.0-18.0 g/dL Hematocrit 33.0 42-52 % Mean Corpuscular Volume 86.8 80-100 fL Mean Corpuscular Hemoglobin 28.9 25-34 pg Mean Corpuscular Hemoglobin Concent 33.3 32-36 g/dl RDW Standard Deviation 43.5 36.4-46.3 fL RDW Coefficient of Variation 13.6 11.5-14.5 % Platelet Count 332 130-400 K/uL Mean Platelet Volume 9.4 7.4-10.4 fL Sodium Level 143 136-145 mmol/L Potassium Level 4.0 3.5-5.1 mmol/L Chloride Level 118 98-107 mmol/L Carbon Dioxide Level 17 21-32 mmol/L Anion Gap 8.0 3-11 mmol/L Blood Urea Nitrogen 17 7-18 mg/dl Creatinine 1.30 0.60-1.40 mg/dl Est Creatinine Clear Calc Drug Dose 69.3 ml/min Estimated GFR () 68.3 Estimated GFR (Non- 58.9 BUN/Creatinine Ratio 12.7 10-20 Random Glucose 159 70-99 mg/dl Calcium Level 7.6 8.5-10.1 mg/dl Phosphorus Level 2.1 2.5-4.9 mg/dl Magnesium Level 1.8 1.8-2.4 mg/dl
[2016-08-20] MEDS ORDERED: METR-163 PO (10:53)
[2016-08-20] MEDS ORDERED: LCTX PO (10:53)
[2016-08-20] MEDS ORDERED: CPR500 PO (10:53)
[2016-08-20] MEDS ORDERED: PRD10 PO (10:53)
--- NOTE | 2016-08-20 10:55 | Discharge Instructions ---
Discharge Instructions Date of Service Aug 20, 2016. Admission Reason for Admission: Jesse (Acute Kidney Injury), Pancolitis Discharge Discharge Diagnosis / Problem: Crohn's Flare,Pancolitis Discharge Goals Goal(s): Prevent Disease Progression Activity Recommendations Activity Limitations: resume your previous activity . Instructions / Follow-Up Instructions / Follow-Up Dr Cardenas on 08/22/16 at 12:45 PM Current Hospital Diet Patient's current hospital diet: Diabetes Type 2 Diet Discharge Diet Recommended Diet: Diabetes Type 2 Diet Pending Studies Studies pending at discharge: no Medical Emergencies . Who to Call and When: Medical Emergencies: If at any time you feel your situation is an emergency, please call 911 immediately. . Non-Emergent Contact Non-Emergency issues call your: Primary Care Provider . Past History Medical & Surgical History: (1) Crohn's disease (regional enteritis) (2) Pancolitis (3) HTN (hypertension) (4) Diabetes mellitus (5) JESSE (acute kidney injury) . "Provider Documentation" section prepared by Toi Espinosa. . VTE Core Measure Inpt VTE Proph given/why not?: SCD's
[2016-08-20 11:02] VITALS: BP 158/88; PULSE 64; TEMP 36.3; O2SAT 96
--- NOTE | 2016-08-21 07:42 | Discharge Summary ---
Discharge Summary Date of Service Aug 21, 2016. Discharge Summary Admission Date: Aug 18, 2016 at 18:58 Discharge Date: Aug 20, 2016 Discharge Disposition: Home Principal Diagnosis: Crohn's Flare,Pancolitis Secondary Diagnoses/Problems: Please see H&P and Hospital Progress note Consultations: GI Medication Reconciliation New Medications: Ciprofloxacin (Ciprofloxacin HCl) 500 Mg Tab 500 MG PO BID, #10 Lactobacillus Acidophilus (Lactinex) Tab 2 TAB PO BID, #30 TAB Metronidazole (Flagyl) 500 Mg Tab 500 MG PO BID, #10 TAB Prednisone (Prednisone) 10 Mg Tab 10 MG PO UD for 28 Days, #70 4 tabs PO daily for 7 days,3 tabs PO daily for 7 days,2 PO daily for 17 days and then 1 po daily for 1 week. Continued Medications: Adalimumab (Humira) 40 Mg/0.8 Ml Kit 40 MG SC EVERY OTHER WEEK Aspirin (Aspirin) 81 Mg Tab 81 MG PO QAM Atenolol (Tenormin) 100 Mg Tab 100 MG PO DAILY, 0 Refills Atorvastatin (Lipitor) 40 Mg Tab 40 MG PO HS, TAB Chlorthalidone (Hygroton) 25 Mg Tab 25 MG PO QAM, TAB Clonidine Hcl (Nkpwmjdi-Ixn-5) 0.3 Mg/24 Hr Dis 1 PATCH TD WK CHANGE ON SUNDAYS. Enalapril (Vasotec) 10 Mg Tab 20 MG PO BID, 0 Refills Felodipine (Plendil) 10 Mg Tabcr 10 MG PO DAILY, 0 Refills Glimepiride (Glimepiride) 1 Mg Tab 1 TAB PO DAILY for 90 Days, #90 TAB 3 Refills Mesalamine (Lialda) 1.2 Gm Tab 2 TAB PO DAILY for 90 Days, #180 TAB 3 Refills Metformin Hcl (Glucophage) 500 Mg Tab 500 MG PO BID, TAB Misc Natural Products (Glucosamine Chondroitin T) 1 Tab Tab 1 TAB PO BID Misc Natural Products (Osteo Bi-Flex Advanced Tr) 1 Tab Tab 1 TAB PO BID Potassium Chloride (Klor-Con M20) 20 Meq Tabcr 20 MEQ PO BID Spironolactone (Aldactone) 25 Mg Tab 25 MG PO QAM Admission Information HPI (per Admitting provider): DATE OF ADMISSION: 08/18/2016 PRIMARY CARE PHYSICIAN: Dr. Cardenas. CHIEF COMPLAINT: Abdominal pain with diarrhea since 6th of this month. HISTORY OF PRESENT COMPLAINT: He is a 61-year-old male with significant past medical history including diabetes type 2, Crohn's disease of both small and large intestine without complications, hyperlipidemia and hypertension, apparently has had colitis on and got Cipro, Flagyl, which he finished on of this month. Since then, he has been having diarrhea off and on and this morning from 6-8, he had 5 times of diarrhea. He is getting weak and tired and he saw Dr. Rodriguez who sent the patient to the hospital. He denies to have any fever, chills or rigors. He denies to have any nausea, no vomiting and no abdominal distention and no problem with urine. He does not have any other extra intestinal features of the disease. PAST MEDICAL HISTORY: Significant for type 2 diabetes, Crohn's disease involving both small and large intestine without complications, hypertension, hyperlipidemia, adjustment disorder and depression. PAST SURGICAL HISTORY: Significant for colonoscopy with a biopsy. FAMILY HISTORY: Significant in that mother had diabetes. Father had heart disease, and hypertension and mother had high blood pressure too. SOCIAL HISTORY: He is . He quit smoking in 1997. He has couple of drinks a day. ALLERGIES: NKDA. MEDICATIONS: He has been on aspirin 81 mg daily, atenolol 100 mg daily, Lipitor 40 mg daily, Hygroton 25 mg daily, clonidine 0.3 mg one patch every week, enalapril 20 mg twice daily, felodipine 10 mg daily, metformin 500 twice a day, potassium chloride 20 mEq b.i.d., spironolactone 25 mg daily, Humira 40 mg subQ every other week, glimepiride 1 mg daily, Lialda 1.2 gram tablet two tab p.o. daily, glucosamine 1 tablet b.i.d. and Osteo Bi-Flex 1 tablet b.i.d. REVIEW OF SYSTEMS: Total 10 point review of systems with pertinent negatives, positives as in history of present complaint. PHYSICAL EXAMINATION: GENERAL: On examination in the Emergency Room, he was not having any acute distress. VITAL SIGNS: Temperature 36.8, pulse of 62, blood pressure 103/59, saturation 100% on room air. HEENT: Unremarkable. NECK: Supple. No JVD, no bruit. CHEST: Clear to auscultate bilaterally. HEART: S1, S2 regular. ABDOMEN: Soft, benign, mildly tender in the lower quadrant. No guarding, rigidity. Bowel sounds present. EXTREMITIES: Negative for any edema. MUSCULOSKELETAL: Did not show any acute arthritis involving any joint. CENTRAL NERVOUS SYSTEM: He was alert, awake, oriented x3. No focal sensory and/or motor deficit appreciated. LABORATORY DATA: Noted today white count was 9.11, H&H 14.41/41.2, platelet was 414. Sodium 139, potassium 4.3, chloride 116, carbon dioxide 14, BUN is 26, creatinine 2.40. There is significant change in creatinine compared with before. Lipase was 1097. UA examination unremarkable. IMAGING DATA: CT of the abdomen and pelvis did show mild thickening and pericolonic fat stranding throughout the colon consistent with pancolitis. There are also multiple subcentimeter pericolonic lymph nodes which are likely reactive; however, recommend 2-3 months abdomen and pelvis CT followup. Colonic diverticulosis and he has cholelithiasis. IMPRESSION AND PLAN: 1. Abdominal pain with diarrhea, likely secondary to pancolitis. Negative for any C. diff, even though he had antibiotic for diverticulitis finished on of this month. We will start with Cipro, Flagyl and also a small dose of steroid for probable Crohn's flareup. A gastroenterology consultation while in the hospital. Continue with his other medications. 2. Acute kidney injury, most likely secondary to dehydration from diarrhea and not been eating or drinking. We will give IV fluids and monitor kidney function while in the hospital. 3. Hypertension. Blood pressure was stable. Continue current medications. Hold diuretics for now. 4. Diabetes type 2. Hold metformin, continue the other medications and we will put him on sliding scale coverage while in the hospital. 5. Hyperlipidemia. Continue with statin. 6. GI prophylaxis with proton pump inhibitor. 7. Deep vein thrombosis prophylaxis with SCDs. He has bleeding per rectum. We will not give any pharmacological anticoagulation. 8. Code status. He will be a full code. In my clinical judgment, the beneficiary meets criteria as per CMS for 2 midnight stay in the hospital. Hospital Course Pancolitis -infective versus Crohns flare up Presented with Abdominal pain with diarrhea, likely secondary to pancolitis. Negative for any C. diff, even though he had antibiotic for diverticulitis finished on of this month. Started on Cipro, Flagyl and a small dose of steroid for probable Crohn's flareup. GI consulted-appreciate Input Clinically much better Tapering dose of Steroid and Antibiotics Acute kidney injury, Most likely secondary to dehydration from diarrhea and not been eating or drinking. IVF and increase oral intake Renal function is better Resolved Hypertension. Blood pressure was stable. Continue current medications. Hold diuretics for now. Diabetes type 2. Hold metformin, continue the other medications and we will put him on sliding scale coverage while in the hospital. Metformin stopped Hyperlipidemia. Continue with statin. GI prophylaxis with proton pump inhibitor. Deep vein thrombosis prophylaxis with SCDs. He has bleeding per rectum. We will not give any pharmacological anticoagulation. Code status. He will be a full code. DISPOSITION Discharge home today Total time spent on discharge = 35 minutes This includes examination of the patient, discharge planning, medication reconciliation, and communication with other providers. Discharge Instructions Date of Service Aug 20, 2016. Admission Reason for Admission: Jesse (Acute Kidney Injury), Pancolitis Discharge Discharge Diagnosis / Problem: Crohn's Flare,Pancolitis Discharge Goals Goal(s): Prevent Disease Progression Activity Recommendations Activity Limitations: resume your previous activity . Instructions / Follow-Up Instructions / Follow-Up Dr Cardenas on 08/22/16 at 12:45 PM Current Hospital Diet Patient's current hospital diet: Diabetes Type 2 Diet Discharge Diet Recommended Diet: Diabetes Type 2 Diet Pending Studies Studies pending at discharge: no Medical Emergencies . Who to Call and When: Medical Emergencies: If at any time you feel your situation is an emergency, please call 911 immediately. . Non-Emergent Contact Non-Emergency issues call your: Primary Care Provider . Past History Medical & Surgical History: (1) Crohn's disease (regional enteritis) (2) Pancolitis (3) HTN (hypertension) (4) Diabetes mellitus (5) JESSE (acute kidney injury) . "Provider Documentation" section prepared by Toi Espinosa. . VTE Core Measure Inpt VTE Proph given/why not?: SCD's <Electronically signed by Toi Espinosa M.D.> Additional Copies To Ruben Cardenas M.D.
== END 2016-08-20 14:39 | disposition home or self-care (01) | DRG 386 ==
LOC: C.EDB 16:09 → C.MED 18:58 → ENRESERV 19:22
PROVIDERS: ADMIT Internal Medicine; ATTEND Internal Medicine
DX: K50.80 Crohn's disease of both small and large intestine without complications (principal); N17.9 Acute kidney failure, unspecified; E11.9 Type 2 diabetes mellitus without complications; E86.0 Dehydration; I10 Essential (primary) hypertension; Z83.3 Family history of diabetes mellitus; E78.5 Hyperlipidemia, unspecified; F43.21 Adjustment disorder with depressed mood; Z87.891 Personal history of nicotine dependence

== ENCOUNTER 2024-04-26 14:23 | Inpatient (IN) ==
--- OUTSIDE RECORDS SUMMARY | 2024-04-26 14:31 | External Medical Summary | Summary of Care ---
Author Name Unknown Organization [facility] Address [address] [place] [address] Phone [phone] Care Team Providers Care University Administrator Name Role Phone Joy Hope MD Primary Care Provider + Reason for Visit * Reason Onset Date Comments Order Request 04/04/2024 Encounter Details Date Type Department Care Team (Late st Contact Info) Description 04/04/2024 Telephone Hematology/Oncology Treatment, [place] [address] [place] [phone] Chauncey Rodriguez MD [address] [place] [address] Order Request Allergies No known active allergiesdocumented as of this encounter (statuses as of 04/08/2024) Medications ASPIRIN 81 MG PO TABSIndications:ta kes in the evening Take by mouth. Indications: takes in the evening 34 5 6 Active GLUCOSAMINE COMPLEX PO TABS Take 1 Tablet by mouth 2 times a day. Active Cholecalciferol (VITAMIN D) 1000 units TabletIndications: takes in the evening Take 2 Tablets by mouth in the morning. 8 Active omeprazole (PRILOSEC) 20 MG CPDR Take 1 Cap by mouth daily. 90 Cap 1 8 Active Vedolizumab 300 MG Intravenous Solution Reconstituted (Entyvio) 300 mg every month 1 Each 12 1 Active Ferrous Sulfate 325 (65 Fe) MG Oral Tablet Take 1 Tablet by mouth every other day. Active Terazosin HCl 10 MG Oral CapsuleIndications :HTN, goal below 140/90 TAKE ONE CAPSULE BY MOUTH AT BEDTIME 90 Capsule 3 01/15/2024 6:29 PM EST 4 07/25/19 25 Active Chlorthalidone 25 MG Oral Tablet (Hygroton)Indicati ons:HTN, goal below 140/90 TAKE ONE-HALF TABLET BY MOUTH DAILY 45 Tablet 3 02/13/2024 7:53 AM EST 4 08/21/19 25 Active Atenolol 100 MG Oral Tablet (Tenormin)Indicati ons:HTN, goal below 140/90 Take 1 Tablet by mouth in the morning. 90 Tablet 3 02/26/2024 12:11 PM EST 4 Active Atorvastatin Calcium 40 MG Oral Tablet (Lipitor)Indicatio ns:Dyslipidemia, goal LDL below 100 Take 1 Tablet by mouth every evening. 90 Tablet 3 02/26/2024 12:11 PM EST 4 Active Felodipine ER 10 MG Oral Tablet Extended Release 24 Hour (Plendil)Indicatio ns:HTN, goal below 140/90 Take 1 Tablet by mouth in the morning. 90 Tablet 3 03/12/2024 9:22 AM EST 4 Active Furosemide 40 MG Oral Tablet (Lasix)Indications :Generalized edema TAKE ONE TABLET BY MOUTH DAILY NEEDED FOR FLUID RETENTION. 90 Tablet 3 09/27/2023 2:27 PM EDT 4 Active Potassium Chloride Eulalia ER 20 MEQ Oral Tablet Extended ReleaseIndications :HTN, goal below 140/90 Take 1 Tablet by mouth in the morning and 1 Tablet at noon and 1 Tablet in the evening. 270 Tablet 3 03/12/2024 9:22 AM EST 4 Active glipiZIDE 5 MG Oral Tablet (Glucotrol)Indicat ions:Type 2 diabetes mellitus with hemoglobin A1c goal of less than 7.0% (HCC) TAKE ONE TABLET BY MOUTH IN THE MORNING 30 MINUTES BEFORE A MEAL. 90 Tablet 3 02/26/2024 12:11 PM EST 4 11/28/19 25 Active Spironolactone 25 MG Oral Tablet (Aldactone)Indicat ions:HTN, goal below 140/90 TAKE TWO TABLETS BY MOUTH EVERY DAY 180 Tablet 1 04/02/2024 5:10 PM EST 4 Active metFORMIN HCl 500 MG Oral Tablet (Glucophage)Indica tions:Type 2 diabetes mellitus with hemoglobin A1c goal of less than 7.0% (HCC) TAKE TWO TABLETS BY MOUTH TWICE A DAY WITH MORNING AND EVENING MEALS. 400 Tablet 1 03/27/2024 11:34 AM EST 5 Active Enalapril Maleate 20 MG Oral Tablet (Vasotec)Indicatio ns:HTN, goal below 140/90 Take 1 Tablet by mouth in the morning and 1 Tablet before bedtime. 180 Tablet 3 5 Active OneTouch Ultra In Vitro Strip (Glucose Blood)Indications: Type 2 diabetes mellitus with hemoglobin A1c goal of less than 7.0% (HCC) USE UP TO 4 TIMES DAILY FOR TESTING BLOOD SUGAR 100 Strip 5 04/07/2024 11:59 AM EST 5 04/04/19 26 Active documented as of this encounter (statuses as of 04/08/2024) Active Problems Problem Noted Date Diagnosed Date Gastroesophageal reflux disease without esophagi tis 09/20/2022 Type 2 diabetes mellitus with diabetic polyneuro dipak 03/23/2022 Type 2 diabetes mellitus wit h diabetic peripheral angiopathy without gangrene 03/23/2022 Crohn's disease of both smal l and large intestine without complication 10/21/2015 HTN, goal below 140/90 05/10/2015 Overview: Per HTN Protocol #27. Severe obesity with body mas s index (BMI) of 35.0 to 39.9 with serious comorbidity 05/31/2009 Overview (12/19/2017): Per Obesity Taxonomy ICD-10 update of inactive diagnosis DYSLIPIDEMIA, GOAL LDL BELOW 100 02/15/2009 Overview (02/15/2009): Per Lipid Taxonomy. Type 2 diabetes mellitus wit h hemoglobin A1c goal of less than 7.0% 12/31/2008 Overview (06/29/2015): Per Diabetes Taxonomy. ICD-10 update of inactive term Adjustment disorder with depressed mood 04/02/19 09 documented as of this encounter (statuses as of 04/08/2024) Resolved Problems Problem Noted Date Diagnosed Date Resolved Date Edema 11/07/2011 01/05/2017 HTN, GOAL BELOW 140/80 10/23/201106/09 Overview: Per HTN Protocol #27. Acute sinusitis 12/18/2010 08/01/2011 Cellulitis of leg 07/27/2010 08/01/2011 Cellulitis of leg 07/25/2010 08/01/2011 HTN, GOAL BELOW 130/80 03/31/200910/25 Overview (03/31/2009): Per HTN Taxonomy. Type 2 diabetes mellitus wit h hemoglobin A1c goal of less than 7.0% 01/09/2008 04/02/2008 Overview (06/29/2015): Resolved per Duplicate Protocol #2. ICD-10 update of inactive term ADVANCE DIRECTIVE INFORMATION 10/05/2007 01/05/2017 Overview (12/20/2006): Pt declines booklet. States he has one, will need to provide copy Type 2 diabetes mellitus wit h hemoglobin A1c goal of less than 7.0% 03/13/2007 12/31/2008 Overview (06/29/2015): Per Diabetes Taxonomy. ICD-10 update of inactive term Benign neoplasm of colon 04/13/2006 Overview (04/17/2006): Dx on colonoscopy Bx-repeat colonoscopy in 3 years Benign neoplasm of colon 04/13/200605/2016 Overview (04/17/2006): Dx on colonoscopy Bx-repeat colonoscopy in 3 years OBESITY, UNSPECIFIED 04/15/2004 010 Overview (05/31/2009): Per Obesity Taxonomy HTN, goal below 140/90 01/13/199903/31 Overview (03/31/2009): Per HTN Taxonomy. PURE HYPERCHOLESTEROLEM 01/13/199902/02 Overview (02/15/2009): Per Lipid Taxonomy. documented as of this encounter (statuses as of 04/08/2024) Immunizations Name Administration Dates Next Due COVID-19 mRNA, LNP-s, No Pre serve, 2-Dose Series (FetchBack) 01/14/2021,05/17/2020,04/19/2020 COVID-19, LNP-s, No Preserve , Dylan-sucrose, Ages 12+ (FetchBack) 09/27/2021 COVID-19, MRNA-LNP, 24-25, P R, 30MCG/0.3ML, IM, 12YRS AND ABOVE (SysomosKG Funding) 01/02/2024 COVID-19, MRNA-LNP, PF, 30 M CG/0.3 mL, 12 YRS AND ABOVE, IM (MyQuoteApp) 01/30/2023 Covid-19, Mrna, Lnp-s, Pf, B ivalent, 30 Mcg, IM, 12 yrs and above (FetchBack) 01/17/2022 Diptheria/Tetanus (Adult) 06/15/1998,03/05/1989 06/15/2008 Hepatitis B, 20+ yrs 09/04/2016,05/13/2016,04/14 PPD 04/07/2016 Pneumococcal Conjugate Vacc, 13 Valent (Prevnar) 07/27/2016 Pneumococcal Conjugate Vacci ne, 20-valent ([id number]) 09/25/2023 Pneumococcal Polysaccharide PPV23 (Pneumovax) 07/18/2018,05/26/2008,04/02/2008(Defe rred: Patient Refused) RSV Vac., Bivalent, Perfusio n F, Pf,0.5 Ml (Abrysvo) 01/30/2023 Seasonal Influenza Vac., MDV , IM, 0.5 mL (Fluzone) 12/12/2013,02/06/2013,11/07/2011,01/04,12/31/2009,12/10/2008,01/09/20,01/31/2007,01/13/2006,01/19/2005,1 03/15/2002,12/24/2001,01/03/2001,01/1301/14/2004 Seasonal Influenza, High Dos e, Trivalent, PF, IM (Fluzone HD) 12/31/2023 Seasonal Influenza, PF, 6 M & above, IM , (FluLaval or Fluzone) 12/05/2019,11/28/2018,12/08/2017,12/03 Seasonal Influenza, Quadriva lent Hd (Fluzone Hd) 12/31/2023,01/02/2023,12/20/2021,11/04 Seasonal Influenza, Quadriva lent, No Preserve, IM 12/17/2015,12/22/2014 TD, Preservative Free 01/18/2018 TDAP, Age 7 and older, IM (Adacel) 01/09/2008 Varicella Zoster Vaccine (Adult) 10/21/2015 Zoster Vaccine Recombinant (Shingrix) 10/24/2019 ,07/18/2019 documented as of this encounter Social History Tobacco Use Types Packs/Day Years Used Date Smoking Tobacco: Former Cigars Smokeless Tobacco: Never Alcohol Use Standard Drinks/Week Comments Yes 0 (1 standard drink = 0.6 oz pur e alcohol) social PHQ-2 Answer Date Recorded PHQ Adult Total Score 0 04/03/2024 Hunger Vital Sign Answer Date Recorded Worried About Running Out of Food in the Last Ye ar Never true 08/01/2019 Ran Out of Food in the Last Year Never true 08/01/2019 Sex and Gender Information Value Date Recorded Sex Assigned at Male 07/18/2018 8:49 AM EDT Legal Sex Male 4:59 AM EST Gender Identity Male 07/18/2018 8:49 AM EDT Sexual Orientation Straight 07/18/2018 8: 49 AM EDT 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 * Addendum Note - Nolan Castillo RP - 04/07/2024 11:49 AM ESTAddended by: NOLAN CASTILLO on: 04/07/2024 11:49 AM Modules accepted: Orders * Telephone Encounter - Nolan Castillo RP - 04/07/2024 11:48 AM EST Per provider visit, "Cont monthly Entyvio." The latest alteration of treatment plan has also specifically requested monthly. SCP placed. * Telephone Encounter - Tova Resendez RN - 04/04/2024 4:04 PM EST Patient currently receives entyvio 300mg every 4 weeks. Next infusion schedule 04/24/24. Gastro: please place new order for continuation of infusions. Thanks! documented in this encounter Plan of Treatment Upcoming Encounters Date Type Department Care Team (Latest Contact Info) Description 04/08/2024 9:30 AM EST [facility] [place] [address] Batsheva Rutledge CRNP [address] [facility] [place] [address] 04/24/2024 8:45 AM EST Hem/Onc Treatment Hematology[address] [phone] Kimberley Chair 2 Hem Onc [facility] [place] [address] 05/21/2024 8:45 AM EDT Hem/Onc Treatment Hematology/[address], [address] [phone] Kimberley, Chair 2 Hem Onc [address] [place] [address] 07/23/2024 3:20 PM EDT Office Visit Gastroenterology, [facility] [address] [place] [address] Chauncey Rodriguez MD [address] [place] [address] 09/03/2024 9:30 AM EDT Hospital Encounter ENDO OSSC, Endoscopy Room [facility] [address] [place] [phone] Chauncey Rodriguez MD [address] [place] [address] 09/03/2024 9:30 AM EDT - 09/03/2024 10:00 AM EDT Surgery ENDO OSSC, Endoscopy Room [facility] [address] [place] [phone] Chauncey Rodriguez MD [address] [place] [address] COLONOSCOPY FLEXIBLE PROXIMAL DIAGNOSTIC 10/22/2024 8:00 AM EDT Office Visit General Internal Medicine [facility] [address] [place] [address] Joy Hope MD [address] [place] [address] Scheduled Procedures Name Priority Associated Diagnoses Date/Ti me COLONOSCOPY FLEXIBLE PROXIMAL DIAGNOSTIC Recall IBD (inflammatory bowel disease) 09/03/2024 9:30 AM EDT Health Maintenance Due Date Last Done Comments Cologuard 06/30/2000 Fecal Occult Blood Test 06/30/2000 Sigmoidoscopy 06/30/2000 Adult Wellness Visit 06/30/2021 COVID-19 Vaccine ( season) 2024 01/02/2024, 01/30/2023, 01/17/2022, Additional history exists Diabetic Foot Exam 05/02/2024 03/27/2023, 0 03/23/2022, 03/22/2021, Additional history exists Postponed from 03/27/2024 (Other) Colonoscopy 08/21/2024 08/22/2023, 08/03, 07/14/2022, Additional history exists Colorectal Cancer Screening 08/21/2024 Albumin/Creatinine Ratio 09/12/2024 024, 07/11/2022, 03/22/2021, Additional history exists B-12 09/12/2024 09/13/2023, 03/05, 03/22/2021, Additional history exists HbA1c 10/01/2024 04/03/2024, 09/02, 03/08/2023, Additional history exists Diabetic Eye Exam 01/06/2025 01/07/2024, , 01/07/2024, Additional history exists Depression Screening 04/03/2025 04/03/2024 GFR 04/03/2025 04/03/2024, 09/02, 03/08/2023, Additional history exists DTap/Tdap Vaccines (3 - Td or Tdap) 01/19/2028 01/18/2018, 01/09/2008, 06/15/1998, Additional history exists Lipid Panel 09/12/2028 09/13/2023, 0511/2022, 09/20/2021, Additional history exists Hepatitis B Vaccine Completed 09/04/2016, 05/13/2016, 04/14/2016 Zoster Vaccines Completed 10/24/2019, 07/03, 10/21/2015 AAA Screening Completed 08/16/2020 RETIRED - COLONOSCOPY-EVERY 5 YRS AGES 18-100 Discontinued 08/22/2023, 08/22/2023, 07/14/2022, Additional history exists Pneumococcal Vaccine: 50+ Years Completed 09/25/2023, 07/18/2018, 07/27/2016, Additional history exists Influenza Vaccine (FLU shot) Completed 12/31/2023, 12/31/2023, 01/02/2023, Additional history exists HPV (Gardasil) Vaccine Aged Out No lo nger eligible based on patient's age to complete this topic MENINGOCOCCAL (MENACTRA/MENVEO) Aged Out No longer eligible based on patient's age to complete this topic documented as of this encounter Medical Devices Implanted Type Area Wood Tile Installation Helper Device Identifier Shelf Expiration Date Model / Serial / Lot Clip Quick 2.8mm 230cm - [id number] Implanted:Qty: 1 on 02/23/2020 by Chauncey Rodriguez MD at ENDOSCOPY [facility] Colon [employer] [id number] / / documented as of this encounter Visit Diagnoses Diagnosis Crohn's disease of both small and large intestine without complication (HCC)- Primary Regional enteritis of small intestine with large intestine HTN, goal below 140/90- Primary Unspecified essential hypertension DYSLIPIDEMIA, GOAL LDL BELOW 100 Other and unspecified hyperlipidemia IBD (inflammatory bowel disease) Other and unspecified noninfectious gastroenteritis and colitis documented in this encounter Care Teams University Administrator Relationship Specialty Start Date End Date Joy Hope MD [address] [place] [address] PCP - General Internal Medicine 01/05/17 documented as of this encounter
--- OUTSIDE RECORDS SUMMARY | 2024-04-26 14:31 | External Medical Summary | Summary of Care ---
Author Name Unknown Organization [facility] Address [address] [place] [address] Phone [phone] Care Team Providers Care Hog Sticker Name Role Phone Joy Hope MD Primary Care Provider + Reason for Visit * Reason Comments IV Therapy Entyvio * Episode Based Medications (Routine) - Authorized Specialty Diagnoses / Procedures Referred By Rasheed husain Referred To Contact Diagnoses Crohn's disease of both small and large intestine without complication (HCC) Procedures VEDOLIZUMAB, PER 1 MG, INJ Chauncey Rodriguez MD [address] [place] [address] Phone: tel: fax: Hematology/Oncology Treatment, [place] DEPT CLOSED - 01/16/23 [address] [place] [phone] Phone: tel: fax: Referral ID Status Reason Start Date Expiration Date V isits Requested Visits Authorized [id number] Authorized 03/27/2024 03/27/2025 99 99 Encounter Details Date Type Department Care Team (Latest Contact Info) Description 04/24/2024 12:30 PM EST Hem/Onc Treatment Hematology/Oncology Treatment, [place] [address] [place] [phone] Kimberley, Chair 8 Hem Onc [facility] [address] [place] [address] Crohn's disease of both small and large intestine without complication (HCC)* Allergies No known active allergiesdocumented as of this encounter (statuses as of 04/25/2024) Medications ASPIRIN 81 MG PO TABSIndications:ta kes [...] 1 Tablet by mouth every other day. 45mg 3 times per week Active Terazosin HCl 10 MG Oral CapsuleIndications :HTN, goal below 140/90 TAKE ONE CAPSULE BY MOUTH AT BEDTIME 90 Capsule 3 04/16/2024 11:05 AM EST 4 07/25/19 25 Active Chlorthalidone 25 [...] 11:59 AM EST 5 04/04/19 26 Active Vitamin D (Ergocalciferol) 1.25 MG (48706 UT) Oral Capsule (Drisdol) Take 1 Capsule by mouth once a week. 12 Capsule 04/08/2024 9:50 AM EST 02/03/202 5 Active Vitamin B-12 500 MCG Oral Tablet (vitamin B-12) Take 1 Tablet by mouth once a week. 3 times per week Active documented as of this encounter (statuses as of 04/25/2024) Active Problems Problem Noted Date Diagnosed Date [...] as of this encounter (statuses as of 04/25/2024) Resolved Problems Problem Noted Date Diagnosed Date [...] as of this encounter (statuses as of 04/25/2024) Immunizations Name Administration Dates Next Due COVID-19 mRNA, LNP-s, No Pre serve, 2-Dose Series (Moxsie) 01/14/2021,05/17/2020,04/19/2020 COVID-19, LNP-s, No Preserve , Dylan-sucrose, Ages 12+ (Pfizer) 09/27/2021 COVID-19, MRNA-LNP, 24-25, P R, 30MCG/0.3ML, IM, 12YRS AND ABOVE ([facility] 01/02/2024 COVID-19, MRNA-LNP, PF, 30 M CG/0.3 mL, 12 YRS AND ABOVE, IM (PFIZER-Comirnaty) 01/30/2023 Covid-19, Mrna, Lnp-s, Pf, B ivalent, 30 Mcg, IM, 12 yrs and above (Pfizer) 01/17/2022 Hepatitis B, 20+ yrs 09/04/2016,05/13/2016,04/14 PPD 04/07/2016 Pneumococcal Conjugate Vacc, 13 Valent (Prevnar) 07/27/2016 Pneumococcal Conjugate Vacci ne, 20-valent ([id number]) 09/25/2023 Pneumococcal Polysaccharide PPV23 (Pneumovax) 07/18/2018,05/26/2008 RSV Vac., Bivalent, Perfusio n F, Pf,0.5 Ml (Abrysvo) 01/30/2023 Seasonal Influenza Vac., MDV , IM, 0.5 mL (Fluzone) 12/12/2013,02/06/2013,11/07/2011,01/31,12/31/2009,12/10/2008,01/09/2008 ,01/31/2007,01/13/2006 Seasonal Influenza, High Dos e, Trivalent, PF, IM (Fluzone HD) 12/31/2023 Seasonal Influenza, PF, 6 M & above, IM , (FluLaval or Fluzone) 12/05/2019,11/28/2018,12/08/2017,12/19 Seasonal Influenza, Quadriva lent Hd (Fluzone Hd) 12/31/2023,01/02/2023,12/20/2021,11/26 Seasonal Influenza, Quadriva lent, No Preserve, IM [...] 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 Not on file Not on file documented as of this encounter Last Filed Vital Signs Vital Sign Reading Time Taken Comments Blood Pressure 134/89 04/24/2024 12:40 PM EST Pulse 75 04/24/2024 12:40 PM EST Temperature 36.9 C (98.4 F) 04/24/2024 1 2:40 PM EST Respiratory Rate 16 04/24/2024 12:4 0 PM EST Oxygen Saturation 96% 04/24/2024 12: 40 PM EST Inhaled Oxygen Concentration - - Weight 117.3 kg (258 lb 9.6 oz) 025 12:40 PM EST Height - - Body Mass Index 37.11 04/03/2024 9:27 AM EST documented in this encounter Nursing Notes * Ela Cartagena LPN - 04/24/2024 12:37 PM EST Patient arrived Chair 6 for IV therapy [facility]. Vital signs are stable. IV access successful at theright metacarpal vein; positive blood return; IV line flushed with ease; IV fluids connected and infusing. Call gonzalez within reach. Patient instructed on use of heat and massage functions where applicable. Patient shown how to operate the heat function of the chair and to alert nursing staff if the chair feels too warm. Patient instructed on the risk of potential savage while using the heat function. 1350 Patient completed IV therapy. IV access discontinued; site cleaned and bandaged. Patient instructed to remove Coban wrap after 20-30 minutes. Patient understood and agreed. Patient discharged instable condition and will return in 1 month. documented in this encounter Plan of Treatment Upcoming Encounters Date Type Department Care Team (Latest Contact Info) Description 05/21/2024 8:45 AM EDT Hem/Onc Treatment Hematology/Oncolog y Treatment, [place] [address] [place] [phone] Kimberley, Chair 2 Hem Onc Scen[address] [place] [address] 07/02/2024 9:00 AM EDT Laboratory Laboratory [facility] [place] [address] [place] [phone] Kimberley, Lab Scenery [address] [facility] [place] [address] 07/23/2024 3:20 PM EDT Office Visit Gastroenterology, [facility] [address] [address] Chauncey Rodriguez MD [address] [place] [address] 09/03/2024 9:30 AM EDT Hospital Encounter ENDO OSSC, Endoscopy Room [facility] [address] [place] [phone] Chaunecy Rodriguez MD [address] [place] [address] 09/03/2024 9:30 AM EDT - 09/03/2024 10:00 AM EDT Surgery ENDO OSSC, Endoscopy Room [facility] [address] [place] [phone] Chauncey Rodriguez MD [address] [place] [address] COLONOSCOPY FLEXIBLE PROXIMAL DIAGNOSTIC 10/07/2024 9:30 AM EDT Office Visit Cardiology, [facility] [address] [place] [address] Batsheva Rutledge CRNP [address] [place] [address] 10/22/2024 8:00 AM EDT Office Visit General Internal Medicine [place] [address] [place] [address] Joy Hope MD [address] [facility] [place] [address] Scheduled Procedures Name Priority Associated Diagnoses Date/Ti [...] exists Colorectal Cancer Screening 08/21/2024 Albumin/Creatinine Ratio 09/12/20242 024, 07/11/2022, 03/22/2021, Additional history exists B-12 [...] on patient's age to complete this topic Meningitis B Vaccine (Bexsero/Trumemba) Aged Out No longer eligible based on patient's age to complete this topic documented as of this encounter Medical Devices Implanted Type Area Fashion Styling Intern Device Identifier Shelf Expiration Date Model / Serial / Lot Clip Quick 2.8mm 230cm - [id number] Implanted:Qty: 1 on 02/23/2020 by Chauncey Rodriguez MD at ENDOSCOPY [facility] [employer] [facility] [id number] / / documented as of this encounter Visit Diagnoses Diagnosis Crohn's disease of both small and large intestine without complication (HCC)- Primary Regional enteritis of small intestine with large intestine IBD (inflammatory bowel disease) Other and unspecified noninfectious gastroenteritis and colitis documented in this encounter Administered Medications Inactive Administered Medications - up to 3 most recent administrations Medication Order MAR Action Action Date Dose Rate Site NSS infusion 500 mL, Intravenous, at 50 mL/hr, CONTINUOUS, Starting on Virginie 04/24/24 at 1330, Until Virginie 04/24/24 at 1754Indications:Crohn's disease of both small and large intestine without complication (HCC) Start Infusion 04/24/2024 12:34 PM EST 500 mL 50 mL/hr Vedolizumab (Entyvio) 300 mg in NSS 250 mL infusion 300 mg, IV Piggyback, ONCE, 1 dose, On Virginie 04/24/24 at 1400, Administer over 30 Minutes, Flush with 30 mL of NSS after infusion.Indications:Crohn' s disease of both small and large intestine without complication (HCC) Start Infusion 04/24/2024 1:14 PM EST 300 mg 520 mL/hr documented in this encounter Care Teams [place] Sticker Relationship Specialty Start Date End Date Joy Hope MD [address] [place] [address] PCP - General Internal Medicine 01/05/17 documented as of this encounter
--- OUTSIDE RECORDS SUMMARY | 2024-04-26 14:31 | External Medical Summary | Summary of Care ---
Author Name Unknown Organization [facility] Address [address] [place] [address] Phone [phone] Care Team Providers Care Auditing Control Clerk Name Role Phone Joy Hope MD Primary Care Provider + Reason for Visit * Reason Comments Infusion Entyvio * Episode Based Medications (Routine) - Authorized Specialty Diagnoses / Procedures Referred By Rasheed t Referred To Contact Diagnoses Crohn's disease of both small and large intestine without complication (HCC) Procedures VEDOLIZUMAB, PER 1 MG, INJ Chauncey Rodriguez MD [address] [place] [address] Phone: tel: fax: Hematology/Oncology Treatment, [place] DEPT CLOSED - 01/16/23 [address] [place] [address] Phone: tel: fax: Referral ID Status Reason Start Date Expiration Date V isits Requested Visits Authorized [id number] Authorized 03/27/2024 03/27/2025 99 99 Encounter Details Date Type Department Care Team (Latest Contact Info) Description 03/26/2024 8:45 AM EST Hem/Onc Treatment Hematology/Oncology Treatment, [place] [address] [place] [address] Kimberley, Chair 2 Hem Onc Scenery [address] [place] [address] Crohn's disease of both small and large intestine without complication (HCC)* Allergies No known active allergiesdocumented as of this encounter (statuses as of 04/13/2024) Medications ASPIRIN 81 MG PO TABSIndications:t akes in the evening Take by mouth. Indications : takes in the evening 34 5 6 Active GLUCOSAMINE COMPLEX PO TABS Take 1 Tablet by mouth 2 times a day. Active Cholecalciferol (VITAMIN D) 1000 units TabletIndications :takes in the evening Take 2 Tablets by [...] week Active Terazosin HCl 10 MG Oral CapsuleIndication s:HTN, goal below 140/90 TAKE ONE CAPSULE BY MOUTH AT BEDTIME 90 Capsule 3 01/15/2024 6:29 PM EST 4 07/25/19 25 Active Chlorthalidone 25 MG Oral Tablet (Hygroton)Indicat ions:HTN, goal below 140/90 TAKE ONE-HALF TABLET BY MOUTH DAILY 45 Tablet 3 02/13/2024 7:53 AM EST 4 08/21/19 25 Active Atenolol 100 MG Oral Tablet (Tenormin)Indicat ions:HTN, goal below 140/90 Take 1 Tablet by mouth in the morning. 90 Tablet 3 02/26/2024 12:11 PM EST 4 Active Atorvastatin Calcium 40 MG Oral Tablet (Lipitor)Indicati ons:Dyslipidemia, goal LDL below 100 Take 1 Tablet by mouth every evening. 90 Tablet 3 02/26/2024 12:11 PM EST 4 Active Felodipine ER 10 MG Oral Tablet Extended Release 24 Hour (Plendil)Indicati ons:HTN, goal below 140/90 Take 1 Tablet by mouth in the morning. 90 Tablet 3 03/12/2024 9:22 AM EST 4 Active Furosemide 40 MG Oral Tablet (Lasix)Indication s:Generalized edema TAKE ONE TABLET BY MOUTH DAILY NEEDED FOR FLUID RETENTION. 90 Tablet 3 09/27/2023 2:27 PM EDT 4 Active Potassium Chloride Eulalia ER 20 MEQ Oral Tablet Extended ReleaseIndication s:HTN, goal below 140/90 Take 1 Tablet by mouth in the morning and 1 Tablet at noon and 1 Tablet in the evening. 270 Tablet 3 03/12/2024 9:22 AM EST 4 Active glipiZIDE 5 MG Oral Tablet (Glucotrol)Indica tions:Type 2 diabetes mellitus with hemoglobin A1c goal of less than 7.0% (HCC) TAKE ONE TABLET BY MOUTH IN THE MORNING 30 MINUTES BEFORE A MEAL. 90 Tablet 3 02/26/2024 12:11 PM EST 4 11/28/19 25 Active Spironolactone 25 MG Oral Tablet (Aldactone)Indica tions:HTN, goal below 140/90 TAKE TWO TABLETS BY MOUTH EVERY DAY 180 Tablet 1 04/02/2024 5:10 PM EST 4 Active OneTouch Ultra In Vitro Strip (Glucose Blood)Indications :Type 2 diabetes mellitus with hemoglobin A1c goal of less than 7.0% (HCC) USE UP TO 4 TIMES DAILY FOR TESTING BLOOD SUGAR 100 Strip 5 10/26/2022 11:41 AM EDT 3 04/04/19 25 Discontinu ed(Refill) documented as of this encounter (statuses as of 04/13/2024) Active Problems Problem Noted Date Diagnosed Date [...] as of this encounter (statuses as of 04/13/2024) Resolved Problems Problem Noted Date Diagnosed Date [...] as of this encounter (statuses as of 04/13/2024) Immunizations Name Administration Dates Next Due COVID-19 mRNA, LNP-s, No Pre serve, 2-Dose Series ([employer]) 01/14/2021,05/17/2020,04/19/2020 COVID-19, LNP-s, No Preserve , Dylan-sucrose, Ages 12+ (Pfizer) 09/27/2021 COVID-19, MRNA-LNP, 24-25, P R, 30MCG/0.3ML, IM, 12YRS AND ABOVE ([employer]-Zenith Epigeneticsirnatcrossvertise) 01/02/2024 COVID-19, MRNA-LNP, PF, 30 M CG/0.3 mL, 12 YRS AND ABOVE, IM (DivvyHQ-Zenith Epigeneticsirnatcrossvertise) 01/30/2023 Covid-19, Mrna, Lnp-s, Pf, B ivalent, 30 Mcg, IM, 12 yrs and above ([employer]) 01/17/2022 Hepatitis B, 20+ yrs 09/04/2016,05/13/2016,04/14 PPD 04/07/2016 Pneumococcal Conjugate Vacc, 13 Valent (Prevnar) 07/27/2016 Pneumococcal Conjugate Vacci ne, 20-valent ([id number]) 09/25/2023 Pneumococcal Polysaccharide PPV23 (Pneumovax) 07/18/2018,05/26/2008 RSV [...] Tobacco: Never Alcohol Use Standard Drinks/Week Comments No 0 (1 standard drink = 0.6 oz pur e alcohol) no drinks in 6 months PHQ-2 Answer Date Recorded PHQ Adult Total Score 0 03/23/2022 Hunger Vital Sign Answer Date Recorded Worried [...] 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 PIV removed intact. Pt to return in 4 weeks. Discharged in stable condition. * Haleigh Ann LPN - 03/26/2024 8:46 AM EST 0840: Pt arrived for Entyvio infusion. PIV in L metacarpal. Pt tolerated well. VSS. Pt has no complaints at this time. Patient instructed on use of heat and massage functions where applicable. Patient shown how to operate the heat function of the chair and to alert nursing staff if the chair feels too warm. Patient instructed on the risk of potential savage while using the heat function. documented in this encounter Plan of Treatment Upcoming Encounters Date Type Department Care Team (Latest Contact Info) Description 04/24/2024 8:45 AM EST Hem/Onc Treatment Hematology/[address]olog [address], [address] [phone] Kimberley Chair 2 Hem On[address] [place] [address] 05/21/2024 8:45 AM EDT Hem/Onc Treatment Hematology/Oncolog y Treatment, [address] [phone] Kimberley Chair 2 Hem Onc [facility] [address] [place] [address] [place] [address] 07/02/2024 9:00 AM EDT Laboratory Laboratory [facility] [address] [place], [place] [address] [facility] Scene [address] [facility] [place] [address] 07/23/2024 3:20 PM EDT Office Visit Gastroenterology, [facility] [address] [place] [address] Chauncey Rodriguez MD [address] [place] [address] 09/03/2024 9:30 AM EDT Hospital Encounter ENDO OSSC, Endoscopy Room [facility] [address] [place] [phone] Chauncey Rodriguez MD [address] [place] [address] 09/03/2024 9:30 AM EDT - 09/03/2024 10:00 AM EDT Surgery ENDO [facility], Endoscopy Room [facility] [address] [place] [phone] Chauncey Rodriguez MD [address] [place] [address] COLONOSCOPY FLEXIBLE PROXIMAL DIAGNOSTIC 10/07/2024 9:30 AM EDT Office Visit Cardiology, [facility] [address] [place] [address] Batsheva Rutledge CRNP [address] [place] [address] 10/22/2024 8:00 AM EDT Office Visit General Internal Medicine [facility] [address] [place] [address] Joy Hope MD [address] [place] [address] Scheduled Procedures Name Priority Associated Diagnoses Date/Ti [...] this encounter Medical Devices Implanted Type Area Custodial Engineer Device Identifier Shelf Expiration Date Model / Serial / Lot Clip Quick 2.8mm 230cm - [id number] Implanted:Qty: 1 on 02/23/2020 by Chauncey Rodriguez MD at ENDOSCOPY [facility] Colon [email or web address] [id number] / / documented as of [...] Intravenous, at 50 mL/hr, CONTINUOUS, Starting on Sun03/26/24 at 0930, Until Sun03/26/24 at 1408Indications:Crohn's disease of both small and large intestine without complication (HCC) Start Infusion 03/26/2024 8:42 AM EST 500 mL 50 mL/hr Vedolizumab (Entyvio) 300 mg in NSS 250 mL infusion 300 mg, IV Piggyback, ONCE, 1 dose, On Sun03/26/24 at 0915, Administer over 30 Minutes, Flush with 30 mL of NSS after infusion.Indications:Crohn' s disease of both small and large intestine without complication (HCC) Start Infusion 03/26/2024 9:02 AM EST 300 mg 520 mL/hr documented in this encounter Care Teams Auditing Control Clerk Relationship Specialty Start Date End Date Joy Hope MD 200 [facility] [place] [address] PCP - General Internal Medicine 01/05/17 documented as of this encounter
--- OUTSIDE RECORDS SUMMARY | 2024-04-26 14:31 | External Medical Summary | Summary of Care ---
Author Name Unknown Organization [facility] Address [address] [place] [address] Phone [phone] Care Team Providers Care Health Care Marketing Specialist Name Role Phone Joy Hope MD Primary Care Provider + Reason for Visit * Reason Onset Date Comments Order Request 04/04/2024 Encounter Details Date Type Department Care Team (Late st Contact Info) Description 04/04/2024 Telephone Hematology/Oncology Treatment, [place] [address] [place] [phone] Chauncey Rodriguez MD [address] [place] [address] Order Request Allergies No known active allergiesdocumented as of this encounter (statuses as of 04/07/2024) Medications ASPIRIN 81 MG PO TABSIndications:ta kes [...] as of this encounter (statuses as of 04/07/2024) Active Problems Problem Noted Date Diagnosed Date [...] as of this encounter (statuses as of 04/07/2024) Resolved Problems Problem Noted Date Diagnosed Date [...] as of this encounter (statuses as of 04/07/2024) Immunizations Name Administration Dates Next Due COVID-19 mRNA, LNP-s, No Pre serve, 2-Dose Series ([employer]) 01/14/2021,05/17/2020,04/19/2020 COVID-19, LNP-s, No Preserve , Dylan-sucrose, Ages 12+ ([employer]) 09/27/2021 COVID-19, MRNA-LNP, 24-25, P R, 30MCG/0.3ML, IM, 12YRS AND ABOVE ([employer] N[employer] Song[employer]day) 01/02/2024 COVID-19, MRNA-LNP, PF, 30 M CG/0.3 mL, 12 YRS AND ABOVE, IM (BO.LT) 01/30/2023 Covid-19, Mrna, Lnp-s, Pf, B ivalent, 30 Mcg, IM, 12 yrs and above ([employer]) 01/17/2022 Diptheria/Tetanus (Adult) 06/15/1998,03/05/1989 06/15/2008 Hepatitis B, 20+ yrs 09/04/2016,05/13/2016,04/14 PPD 04/07/2016 Pneumococcal Conjugate Vacc, 13 Valent (Prevnar) 07/27/2016 Pneumococcal Conjugate Vacci ne, 20-valent ([id number]) 09/25/2023 Pneumococcal Polysaccharide PPV23 (Pneumovax) 07/18/2018,05/26/2008,04/02/2008(Defe rred: [...] 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 * Addendum Note - Nolan Castillo [...] 04/08/2024 9:30 AM EST Office Visit Cardiology, [facility] [place] [address] Batsheva Rutledge CRNP 132 [facility] [place] [address] 04/24/2024 8:45 AM EST Hem/Onc Treatment Hematology/[address], [address] [phone] Kimberley Chair 2 Hem Onc [facility] [place] [address] 05/21/2024 8:45 AM EDT Hem/Onc Treatment Hematology/Oncology [address], [address] [phone] Kimberley, Chair 2 Hem Onc [address] [place] [address] 07/23/2024 3:20 PM EDT Office Visit Gastroenterology, [facility] [address] [place] [address] Chauncey Rodriguez MD [address] [place] [address] 09/03/2024 9:30 AM EDT Hospital Encounter ENDO OSSC, Endoscopy Room [facility] [address] [place] [phone] Chauncey Rodriguez MD [address] [place] [address] 09/03/2024 9:30 AM EDT - 09/03/2024 10:00 AM EDT Surgery ENDO [facility], Endoscopy Room [facility] [address] [place] [phone] Chauncey Rodriguez MD [address] [place] [address] COLONOSCOPY FLEXIBLE PROXIMAL DIAGNOSTIC 10/22/2024 8:00 AM EDT Office Visit General Internal Medicine [facility] [address] [place] [address] Joy Hope MD [address] [place] [address] Scheduled Procedures Name Priority Associated Diagnoses Date/Ti [...] this encounter Medical Devices Implanted Type Area Dictating Machine Mechanic Device Identifier Shelf Expiration Date Model / Serial / Lot Clip Quick 2.8mm 230cm - [id number] Implanted:Qty: 1 on 02/23/2020 by Chauncey Rodriguez MD at ENDOSCOPY [facility] Colon [employer] [id number] / / documented as of [...] colitis documented in this encounter Care Teams Health Care Marketing Specialist Relationship Specialty Start Date End Date Joy Hope MD 200 [facility] [place] [address] PCP - General Internal Medicine 01/05/17 documented as of this encounter
--- OUTSIDE RECORDS SUMMARY | 2024-04-26 14:31 | External Medical Summary | Summary of Care ---
Author Name Unknown Organization [facility] Address [address] [place] [address] Phone [phone] Care Team Providers Care Die Caster Name Role Phone Joy Hope MD Primary Care Provider + Encounter Details Date Type Department Care Team (Late st Contact Info) Description 04/21/2024 Orders Only Gastroenterology, [facility] [address] [place] [address] Chauncey Rodriguez MD 132 [facility] [place] [address] Allergies No known active allergiesdocumented as of this encounter (statuses as of 04/22/2024) Medications ASPIRIN 81 MG PO TABSIndications:ta kes [...] 26 Active Vitamin D (Ergocalciferol) 1.25 MG (01154 UT) Oral Capsule (Drisdol) Take 1 Capsule by mouth once a week. 12 Capsule 04/08/2024 9:50 AM EST 5 Active Vitamin B-12 500 MCG Oral Tablet (vitamin B-12) Take 1 Tablet by mouth once a week. 3 times per week Active documented as of this encounter (statuses as of 04/22/2024) Active Problems Problem Noted Date Diagnosed Date [...] as of this encounter (statuses as of 04/22/2024) Resolved Problems Problem Noted Date Diagnosed Date [...] as of this encounter (statuses as of 04/22/2024) Immunizations Name Administration Dates Next Due COVID-19 mRNA, LNP-s, No Pre serve, 2-Dose Series ([employer]) 01/14/2021,05/17/2020,04/19/2020 COVID-19, LNP-s, No Preserve , Dylan-sucrose, Ages 12+ ([employer]) 09/27/2021 COVID-19, MRNA-LNP, 24-25, P R, 30MCG/0.3ML, IM, 12YRS AND ABOVE ([employer]-ComirnatCloudBees) 01/02/2024 COVID-19, MRNA-LNP, PF, 30 M CG/0.3 mL, 12 YRS AND ABOVE, IM (Diurnal-ComirnatCloudBees) 01/30/2023 Covid-19, Mrna, Lnp-s, Pf, B ivalent, 30 Mcg, IM, 12 yrs and above ([employer]) 01/17/2022 Hepatitis B, 20+ yrs 09/04/2016,05/13/2016,04/14 PPD 04/07/2016 Pneumococcal Conjugate Vacc, 13 Valent (Prevnar) 07/27/2016 Pneumococcal Conjugate Vacci ne, 20-valent ([id number]) 09/25/2023 Pneumococcal Polysaccharide PPV23 (Pneumovax) 07/18/2018,05/26/2008 RSV [...] 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 on file Not on file documented as of this encounter Plan of Treatment Upcoming Encounters Date Type Department Care Team (Latest Contact Info) Description 04/24/2024 11:30 AM EST Hem/Onc Treatment Hematology/Oncolog y Treatment, [place] [address] [place] [address] Kimberley, Chair 10 Hem Onc [place] [address] [place] [address] 05/21/2024 8:45 AM EDT Hem/Onc Treatment Hematology/Oncolog y Treatment, [place] [address] [place], [place] [phone] Kimberley, Chair 2 Hem Onc [address] [place], [place] [address] 07/02/2024 9:00 AM EDT Laboratory Laboratory Scenery [place] [address] [place] [phone] Kimberley, Lab Scenery [address] [facility] [place] [place] [address] 07/23/2024 3:20 PM EDT Office Visit Gastroenterology, [facility] [address] [place] [address] Chauncey Rodriguez MD [address] [place] [address] 09/03/2024 9:30 AM EDT Hospital Encounter ENDO OSSC, Endoscopy Room [facility] [address] [place] [phone] Chauncey Rodriguez MD [address] [place] [address] 09/03/2024 9:30 AM EDT - 09/03/2024 10:00 AM EDT Surgery ENDO [facility], Endoscopy Room [facility] [address] [place] [phone] Chauncey Rodriguez MD [address] [place] [address] COLONOSCOPY FLEXIBLE PROXIMAL DIAGNOSTIC 10/07/2024 9:30 AM EDT Office Visit Cardiology, [facility] [address] [place] [address] Batsheva Rutledge CRNP [address] [place] [address] 10/22/2024 8:00 AM EDT Office Visit General Internal Medicine [place] [address] [place] [address] Joy Hope MD 200 [facility] [place] [address] Scheduled Procedures Name Priority Associated Diagnoses Date/Ti [...] Additional history exists Lipid Panel 09/12/2028 09/13/2023, 11/2022, 09/20/2021, Additional history exists Hepatitis B Vaccine [...] this encounter Medical Devices Implanted Type Area Electrical Sign Wirer Device Identifier Shelf Expiration Date Model / Serial / Lot Clip Quick 2.8mm 230cm - [id number] Implanted:Qty: 1 on 02/23/2020 by Chauncey Rodriguez MD at ENDOSCOPY [facility] Colon [employer] [id number] / / documented as of this encounter Care Teams Die Caster Relationship Specialty Start Date End Date Joy Hope MD [address] [place] [address], [place] [address] PCP - General Internal Medicine 01/05/17 documented as of this encounter
--- OUTSIDE RECORDS SUMMARY | 2024-04-26 14:31 | External Medical Summary | Summary of Care ---
Author Name Unknown Organization [facility] Address [address] [place] [address] Phone [phone] Care Team Providers Care Power Generation Turbine Room Operator Name Role Phone Joy Hope MD Primary Care Provider + Encounter Details Date Type Department Care Team (Late st Contact Info) Description 04/09/2024 Orders Only PATIENT PORTAL DO NOT DELETE THIS DEPT USED BY [place] [address] Allergies No known active allergiesdocumented as of this encounter (statuses as of 04/09/2024) Medications ASPIRIN 81 MG PO TABSIndications:ta kes [...] 26 Active Vitamin D (Ergocalciferol) 1.25 MG (98767 UT) Oral Capsule (Drisdol) Take 1 Capsule by mouth once a week. 12 Capsule 04/08/2024 9:50 AM EST 5 Active Vitamin B-12 500 MCG Oral Tablet (vitamin B-12) Take 1 Tablet by mouth once a week. 3 times per week Active documented as of this encounter (statuses as of 04/09/2024) Active Problems Problem Noted Date Diagnosed Date [...] as of this encounter (statuses as of 04/09/2024) Resolved Problems Problem Noted Date Diagnosed Date [...] as of this encounter (statuses as of 04/09/2024) Immunizations Name Administration Dates Next Due COVID-19 mRNA, LNP-s, No Pre serve, 2-Dose Series (Cards Off) 01/14/2021,05/17/2020,04/19/2020 COVID-19, LNP-s, No Preserve , Dylan-sucrose, Ages 12+ (Cards Off) 09/27/2021 COVID-19, MRNA-LNP, 24-25, P R, 30MCG/0.3ML, IM, 12YRS AND ABOVE (TierPMirVigilix) 01/02/2024 COVID-19, MRNA-LNP, PF, 30 M CG/0.3 mL, 12 YRS AND ABOVE, IM (DropletirnatCodarica) 01/30/2023 Covid-19, Mrna, Lnp-s, Pf, B ivalent, 30 Mcg, IM, 12 yrs and above (Cards Off) 01/17/2022 Hepatitis B, 20+ yrs 09/04/2016,05/13/2016,04/14 PPD 04/07/2016 Pneumococcal Conjugate Vacc, 13 Valent (Prevnar) 07/27/2016 Pneumococcal Conjugate Vacci ne, 20-valent ([id number]) 09/25/2023 Pneumococcal Polysaccharide PPV23 (Pneumovax) 07/18/2018,05/26/2008 RSV [...] 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 file Not on file documented as of this encounter Plan of Treatment Upcoming Encounters Date Type Department Care Team (Latest Contact Info) Description 04/24/2024 8:45 AM EST Hem/Onc Treatment Hematology/Oncology Treatment, [address] [place] [phone] Kimberley, Chair 2 Hem Onc [address] [address] 05/21/2024 8:45 AM EDT Hem/Onc Treatment Hematology/Oncology Treatment, [address] [place] [phone] Kimberley, Chair 2 Hem Onc [address]en[address] [place] [address] 07/23/2024 3:20 PM EDT Office Visit Gastroenterology, [facility] [address] [place] [address] Chauncey Rodriguez MD [address] [place] [address] 09/03/2024 9:30 AM EDT Hospital Encounter ENDO OSSC, Endoscopy Room [facility] [address] [place] [phone] Chauncey Rodriguez MD [address] [place] [address] 09/03/2024 9:30 AM EDT - 09/03/2024 10:00 AM EDT Surgery ENDO [facility], Endoscopy Room [facility] [address] [place] [phone] Chauncey Rodriguez MD [address] [place] [address] COLONOSCOPY FLEXIBLE PROXIMAL DIAGNOSTIC 10/07/2024 9:30 AM EDT Office Visit Cardiology, [facility] [address] [place] [address] Batsheva Rutledge CRNP [address] [place] [address] 10/22/2024 8:00 AM EDT Office Visit General Internal Medicine [facility] [address] [place] [address] Joy Hope MD [address] [place] [address] Scheduled Procedures Name Priority Associated Diagnoses Date/Ti [...] this encounter Medical Devices Implanted Type Area Composing Room Machinist Apprentice Device Identifier Shelf Expiration Date Model / Serial / Lot Clip Quick 2.8mm 230cm - [id number] Implanted:Qty: 1 on 02/23/2020 by Chauncey Rodriguez MD at ENDOSCOPY [facility] [employer] [facility]-202.A / / documented as of this encounter Care Teams Power Generation Turbine Room Operator Relationship Specialty Start Date End Date Joy Hope MD 200 [facility] [place] [address] PCP - General Internal Medicine 01/05/17 documented as of this encounter
--- OUTSIDE RECORDS SUMMARY | 2024-04-26 14:31 | External Medical Summary | Summary of Care ---
Author Name Unknown Organization [facility] Address [address] [place] [address] Phone [phone] Care Team Providers Care Agricultural Engineering Teacher Name Role Phone Joy Hope MD Primary Care Provider + Reason for Visit * Reason Comments Follow Up Encounter Details Date Type Department Care Team (Late st Contact Info) Description 04/08/2024 9:30 AM EST [facility] Visit [facility] [address] Batsheva Rutledge CRNP [address] [facility] [place] [address] HTN, goal below 140/90*; DYSLIPIDEMIA, GOAL LDL BELOW 100 Allergies No known active allergiesdocumented as of [...] 26 Active Vitamin D (Ergocalciferol) 1.25 MG (62018 UT) Oral Capsule (Drisdol) Take 1 Capsule [...] mRNA, LNP-s, No Pre serve, 2-Dose Series (NephroPlus) 01/14/2021,05/17/2020,04/19/2020 COVID-19, LNP-s, No Preserve , Dylan-sucrose, Ages 12+ (NephroPlus) 09/27/2021 COVID-19, MRNA-LNP, 24-25, P R, 30MCG/0.3ML, IM, 12YRS AND ABOVE ([employer]) 01/02/2024 COVID-19, MRNA-LNP, PF, 30 M CG/0.3 mL, 12 YRS AND ABOVE, IM (Ovonyx) 01/30/2023 Covid-19, Mrna, Lnp-s, Pf, B ivalent, 30 Mcg, IM, 12 yrs and above (NephroPlus) 01/17/2022 Hepatitis B, 20+ yrs 09/04/2016,05/13/2016,04/14 PPD 04/07/2016 Pneumococcal Conjugate Vacc, 13 Valent (Prevnar) 07/27/2016 Pneumococcal Conjugate Vacci ne, 20-valent ([id number]) 09/25/2023 Pneumococcal Polysaccharide PPV23 (Pneumovax) 07/18/2018,05/26/2008 RSV [...] 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 Mujica/Luis Newman PA-c Cardiac Problems: 1. Essential hypertension. 2. Crohn disease. 3. Dyslipidemia. 4. Diabetes. 5. Recurrent C. diff infections HPI: Jesse Hill Sr. is a 68 year old male presents for routine cardiology follow up Last seen in our office by the undersigned 09/2023 doing well from a cardiac perspective. Presents today feeling well. Offers no acute cardiac concerns. Denies any change or decline in his functional capacity. No Chest pain, pressure or palpitations. No shortness of breath, no lower extremity edema. No pre-syncopal or syncopal symptoms. Patient's spouse has accompanied him to appointment today. Denies any acute concerns. He has his son and 3 grandsons residing with them, which has been good, but an adjustment. BP high end of target today. Compliant on all medication therapies with no untoward effects. REVIEW OF SYSTEMS: See HPI for pertinent positives. All others negative other than those noted in the HPI. CONSTITUTIONAL: No change in weight, No weakness, No fatigue and No fevers, No sweats or chills. PULMONARY: No cough, sputum, or hemoptysis, No wheezing, No shortness or breath and No recent change in breathing. CARDIOVASCULAR: No chest pain, No dyspnea on exertion, No edema, No palpitations and No syncope. GASTROINTESTINAL: No abdominal pain, No change in bowel habits, No significant heartburn, No nausea, No vomiting, No diarrhea, No constipation, No blood in stools or black tarry stools. No dysphagia. HEMATOLOGIC: No abnormal bleeding and No bruising. NEUROLOGICAL: Normal balance, No headaches and No weakness. Review of patient's allergies indicates: No Known Allergies Current Outpatient Medications Medication Sig Dispense Refill ASPIRIN 81 MG PO TABS Take by mouth. Indications: takes in the evening 34 5 GLUCOSAMINE COMPLEX PO TABS Take 1 Tablet by mouth 2 times a day. omeprazole (PRILOSEC) 20 MG CPDR Take 1 Cap by mouth daily. 90 Cap 1 Vedolizumab 300 MG Intravenous Solution Reconstituted (Entyvio) 300 mg every month 1 Each 12 Ferrous Sulfate 325 (65 Fe) MG Oral Tablet Take 1 Tablet by mouth every other day. 45mg 3 times perweek Terazosin HCl 10 MG Oral Capsule TAKE ONE CAPSULE BY MOUTH AT BEDTIME 90 Capsule 3 Chlorthalidone 25 MG Oral Tablet (Hygroton) TAKE ONE-HALF TABLET BY MOUTH DAILY 45 Tablet 3 Atenolol 100 MG Oral Tablet (Tenormin) Take 1 Tablet by mouth in the morning. 90 Tablet 3 Atorvastatin Calcium 40 MG Oral Tablet (Lipitor) Take 1 Tablet by mouth every evening. 90 Tablet 3 Felodipine ER 10 MG Oral Tablet Extended Release 24 Hour (Plendil) Take 1 Tablet by mouth in the morning. 90 Tablet 3 Furosemide 40 MG Oral Tablet (Lasix) TAKE ONE TABLET BY MOUTH DAILY NEEDED FOR FLUID RETENTION. 90 Tablet 3 Potassium Chloride Eulalia ER 20 MEQ Oral Tablet Extended Release Take 1 Tablet by mouth in the morning and 1 Tablet at noon and 1 Tablet in the evening. 270 Tablet 3 glipiZIDE 5 MG Oral Tablet (Glucotrol) TAKE ONE TABLET BY MOUTH IN THE MORNING 30 MINUTES BEFORE A MEAL. 90 Tablet 3 Spironolactone 25 MG Oral Tablet (Aldactone) TAKE TWO TABLETS BY MOUTH EVERY DAY 180 Tablet 1 metFORMIN HCl 500 MG Oral Tablet (Glucophage) TAKE TWO TABLETS BY MOUTH TWICE A DAY WITH MORNING AND EVENING MEALS. 400 Tablet 1 Enalapril Maleate 20 MG Oral Tablet (Vasotec) Take 1 Tablet by mouth in the morning and 1 Tablet before bedtime. 180 Tablet 3 OneTouch Ultra In Vitro Strip (Glucose Blood) USE UP TO 4 TIMES DAILY FOR TESTING BLOOD SUGAR 100 Strip 5 Vitamin D (Ergocalciferol) 1.25 MG (35047 UT) Oral Capsule (Drisdol) Take 1 Capsule by mouth once aweek. 12 Capsule 0 Vitamin B-12 500 MCG Oral Tablet (vitamin B-12) Take 1 Tablet by mouth once a week. 3 times per week Cholecalciferol (VITAMIN D) 1000 units Tablet Take 2 Tablets by mouth in the morning. (Patient not taking: Reported on 04/08/2024) COVID-19 mRNA Vac-Dylan(Pfizer) 30 MCG/0.3ML Intramuscular Suspension Prefilled Syringe (Instapage) Inject into a large muscle. 0.3 mL 0 No current facility-administered medications for this visit. 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 A+Ox3. HEENT: Normocephalic. Atraumatic. PERRL. EOMI. Conjunctiva and sclera clear. NECK: No carotid bruits. No JVD. Carotid upstrokes are brisk. Heart: RRR. S1 and S2 noted. No murmur. No rubs or gallops. PMI non displaced. Lungs: Clear to auscultation. No wheezes.No rhonchi. No rales. Abdomen: Normal bowel sounds. Soft. Nontender. No masses or organomegaly. No abdominal bruits. Extremities: No edema. No clubbing or cyanosis. Pulses: radial=2/4, posterior tibial=2/4, dorsalis pedis = 2/4. NEURO: No focal deficits. PSYCH: Appropriate affect and insight. DATA Labs & Imaging Reviewed Below: EKG 05/24/22 Sinus bradycardia T wave abnormality, consider inferior ischemia Abnormal ECG When compared with ECG of 20-MAR-2019 08:12, No significant change was found Ventricular Rate: 56 ASSESSMENT/PLAN: 68 year old year old male 1. HTN, goal below 140/90 -High end of target today. Known resistant HTN on multiple agents -Continue current medication regimen with Atenolol, Chlorthalidone, Enalapril, Felodipine, Furosemide, Spironolactone and Terazosin. -Continue to monitor closely. 2. DYSLIPIDEMIA, GOAL LDL BELOW 100 -Recommend yearly lipid panel -Continue Atorvastatin and ASA 81mg DISPOSITION: Follow up 6months or if symptoms worsen/fail to improve. All questions were answered to the patients satisfaction. Patient advised to report to ED with any and all emergencies. The patient agrees to the above plan and will call with additional questions or concerns. KENNY Melo Cardiology, [facility] [address] [facility] [address] I spent a total of 31 minutes on the date of service in preparation, delivery, and documentation ofthe care provided to Jesse Hill Sr. excluding any time spent in the performance of separately billed services. This chart was completed in part utilizing [employer] Speech Voice Recognition Software. Grammatical errors, random word insertions, pronoun errors, and incomplete sentences are an occasional consequence of this system due to software limitations, ambient noise, and hardware issues. Any formal questions or concerns about the content, text, or information contained within the body of this dictation should be directly addressed to the provider for clarification. documented in this encounter Nursing Notes * Dona Gurrola CMA - 04/08/2024 9:25 AM EST Examination Room: 4 Name: Jesse Hill Sr. Date of : (1955) Reason for Visit: 6m Interim Hospitalization(s): none Problems/Concerns: denied Chest Pain/SOB: denied My [facility] is a way you can talk to your provider online through e-mail. Would you like to sign up? I can activate it for you? ALREADY ACTIVE Patient was instructed to not get up on the exam table until directed and assisted by their provider; patient is to remain seated in the chair/ wheelchair/ exam table for fall prevention and safety reasons. Patient is aware to have assistance to step down off exam table with personnel. Patient voiced full comprehension of instructions. documented in this encounter Plan of Treatment Upcoming Encounters Date Type Department Care Team (Latest Contact Info) Description 04/24/2024 8:45 AM EST Hem/Onc Treatment Hematology/Oncology Treatment, [place] [address] [facility], [place] [phone] Kimberley, Chair 2 Hem Onc [address]en[address] [place] [address] 05/21/2024 8:45 AM EDT Hem/Onc Treatment Hematology/Oncology Treatment, [place] [address] [facility], [place] [phone] Kimberley, Chair 2 Hem Onc [facility] [address] [facility] [place] [address] 07/23/2024 3:20 PM EDT Office Visit Gastroenterology, [facility] [address] [place] [address] Chauncey Rodriguez MD [address] [place] [address] 09/03/2024 9:30 AM EDT Hospital Encounter ENDO OSSC, Endoscopy Room [facility] [address] [place] [phone] Chauncey Rodriguez MD [address] [place] [address] 09/03/2024 9:30 AM EDT - 09/03/2024 10:00 AM EDT Surgery ENDO OSSC, Endoscopy Room [facility] [address] [place] [phone] Chauncey Rodriguez MD [address] [place] [address] COLONOSCOPY FLEXIBLE PROXIMAL DIAGNOSTIC 10/07/2024 9:30 AM EDT Office Visit Cardiology, [facility] [address] [place] [address] Batsheva Rutledge CRNP [address] [place] [address] 10/22/2024 8:00 AM EDT Office Visit General Internal Medicine [facility] Kimberley [place] [address] [facility] [place] [address] Joy Hope MD [address] [facility] [place] [address] Scheduled Procedures Name Priority Associated Diagnoses Date/Ti [...] this encounter Medical Devices Implanted Type Area Reception Agent Device Identifier Shelf Expiration Date Model / Serial / Lot Clip Quick 2.8mm 230cm - [id number] Implanted:Qty: 1 on 02/23/2020 by Chauncey Rodriguez MD at ENDOSCOPY [facility] [employer] [facility] [id number] / / documented as of this encounter Visit Diagnoses Diagnosis HTN, goal below 140/90- Primary Unspecified essential hypertension DYSLIPIDEMIA, GOAL LDL BELOW 100 Other and unspecified hyperlipidemia IBD (inflammatory bowel disease) Other and unspecified noninfectious gastroenteritis and colitis documented in this encounter Care Teams Agricultural Engineering Teacher Relationship Specialty Start Date End Date Joy Hope MD [address] [facility] [place] [address] PCP - General Internal Medicine 01/05/17 documented as of this encounter"
--- OUTSIDE RECORDS SUMMARY | 2024-04-26 14:31 | External Medical Summary | Summary of Care ---
Author Name Unknown Organization [facility] Address [address] [place] [address] Phone [phone] Care Team Providers Care Membership Director Name Role Phone Joy Hope MD Primary Care Provider + Reason for Visit * Reason Comments IV Therapy Entyvio * Episode Based Medications (Routine) - Authorized Specialty Diagnoses / Procedures Referred By Rasheed husain Referred To Contact Diagnoses Crohn's disease of both small and large intestine without complication (HCC) Procedures VEDOLIZUMAB, PER 1 MG, INJ Chauncey Rodriguez MD [address] [place] [address] Phone: tel: fax: Hematology/Oncology Treatment, [place] DEPT CLOSED - 01/16/23 [address] [place] [address] Phone: tel: fax: Referral ID Status Reason Start Date Expiration Date V isits Requested Visits Authorized [id number] Authorized 03/27/2024 03/27/2025 99 99 Encounter Details Date Type Department Care Team (Latest Contact Info) Description 04/24/2024 12:30 PM EST Hem/Onc Treatment Hematology/Oncology Treatment, [place] [address] [place] [address] Kimberley, Chair 8 Hem Onc Scenery [address] [place] [address] Crohn's disease of both small and large intestine without complication (HCC)* Allergies No known active allergiesdocumented as of this encounter (statuses as of 04/24/2024) Medications ASPIRIN 81 MG PO TABSIndications:ta kes [...] 26 Active Vitamin D (Ergocalciferol) 1.25 MG (66980 UT) Oral Capsule (Drisdol) Take 1 Capsule by mouth once a week. 12 Capsule 04/08/2024 9:50 AM EST 02/03/202 5 Active Vitamin B-12 500 MCG Oral Tablet (vitamin B-12) Take 1 Tablet by mouth once a week. 3 times per week Active documented as of this encounter (statuses as of 04/24/2024) Active Problems Problem Noted Date Diagnosed Date [...] as of this encounter (statuses as of 04/24/2024) Resolved Problems Problem Noted Date Diagnosed Date [...] as of this encounter (statuses as of 04/24/2024) Immunizations Name Administration Dates Next Due COVID-19 mRNA, LNP-s, No Pre serve, 2-Dose Series (Mbite) 01/14/2021,05/17/2020,04/19/2020 COVID-19, LNP-s, No Preserve , Dylan-sucrose, Ages 12+ (Pfizer) 09/27/2021 COVID-19, MRNA-LNP, 24-25, P R, 30MCG/0.3ML, IM, 12YRS AND ABOVE ([facility]) 01/02/2024 COVID-19, MRNA-LNP, PF, 30 M CG/0.3 mL, 12 YRS AND ABOVE, IM (PFIZER-Comirnaty) 01/30/2023 Covid-19, Mrna, Lnp-s, Pf, B ivalent, 30 Mcg, IM, 12 yrs and above (Pfizer) 01/17/2022 Hepatitis B, 20+ yrs 09/04/2016,05/13/2016,04/14 PPD 04/07/2016 Pneumococcal Conjugate Vacc, 13 Valent (Prevnar) 07/27/2016 Pneumococcal Conjugate Vacci ne, 20-valent ([id number]) 09/25/2023 Pneumococcal Polysaccharide PPV23 (Pneumovax) 07/18/2018,05/26/2008 RSV [...] 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 Vital signs are stable. IV access successful [...] AM EDT Hem/Onc Treatment Hematology/Oncolog y Treatment, [place] [address] [place] [phone] Kimberley, Chair 2 Hem Onc Scenery [address] [place] [address] 07/02/2024 9:00 AM EDT Laboratory Laboratory [facility] Kimberley [place] [address] [place] [phone] Kimberley, Lab Scenery [address] [facility] [place] [address] 07/23/2024 3:20 PM EDT Office Visit Gastroenterology, [facility] [address] [place] [address] Chauncey Rodriguez MD [address] [place] [address] 09/03/2024 9:30 AM EDT Hospital Encounter ENDO OSSC, Endoscopy Room [facility] [address] [place] [phone] Chauncey Rodriguez MD [address] [place] [address] 09/03/2024 9:30 AM EDT - 09/03/2024 10:00 AM EDT Surgery ENDO OSSC, Endoscopy Room [facility] [address] [place] [phone] Chauncey Rodriguez MD [address] [place] [address] COLONOSCOPY FLEXIBLE PROXIMAL DIAGNOSTIC 10/07/2024 9:30 AM EDT Office Visit Cardiology, [facility] [address] [place] [address] Batsheva Rutledge CRNP [address] [place] [address] 10/22/2024 8:00 AM EDT Office Visit General Internal Medicine [place] [address] [place] [address] Joy Hope MD 200 [facility] [place] [address] Scheduled Procedures Name Priority Associated Diagnoses Date/Ti [...] this encounter Medical Devices Implanted Type Area Content Assistant Device Identifier Shelf Expiration Date Model / Serial / Lot Clip Quick 2.8mm 230cm - [id number] Implanted:Qty: 1 on 02/23/2020 by Chauncey Rodriguez MD at ENDOSCOPY [facility] [employer] [facility] [id number]-.[id number] / / documented as [...] mL/hr documented in this encounter Care Teams Membership Director Relationship Specialty Start Date End Date Jyo Hope MD [address] [place] [address] PCP - General Internal Medicine 01/05/17 documented as of this encounter
--- OUTSIDE RECORDS SUMMARY | 2024-04-26 14:31 | External Medical Summary | Summary of Care ---
Author Name Unknown Organization [facility] Address [address] [place] [address] Phone [phone] Care Team Providers Care Mold Maker Helper Name Role Phone Joy Hope MD Primary Care Provider + Encounter Details Date Type Department Care Team (Late st Contact Info) Description 04/21/2024 Orders Only Gastroenterology, [facility] [address] [place] [address] Chauncey Rodriguez MD 132 [facility] [place] [address] Allergies No known active allergiesdocumented as of [...] 26 Active Vitamin D (Ergocalciferol) 1.25 MG (76601 UT) Oral Capsule (Drisdol) Take 1 Capsule [...] mRNA, LNP-s, No Pre serve, 2-Dose Series (Arthena) 01/14/2021,05/17/2020,04/19/2020 COVID-19, LNP-s, No Preserve , Dylan-sucrose, Ages 12+ (Arthena) 09/27/2021 COVID-19, MRNA-LNP, 24-25, P R, 30MCG/0.3ML, IM, 12YRS AND ABOVE (Arthena-ComirnatVistaar) 01/02/2024 COVID-19, MRNA-LNP, PF, 30 M CG/0.3 mL, 12 YRS AND ABOVE, IM (Stratio-ComirnatVistaar) 01/30/2023 Covid-19, Mrna, Lnp-s, Pf, B ivalent, 30 Mcg, IM, 12 yrs and above (Arthena) 01/17/2022 Hepatitis B, 20+ yrs 09/04/2016,05/13/2016,04/14 PPD 04/07/2016 Pneumococcal Conjugate Vacc, 13 Valent (Prevnar) 07/27/2016 Pneumococcal Conjugate Vacci ne, 20-valent ([id number]) 09/25/2023 Pneumococcal Polysaccharide PPV23 (Pneumovax) 07/18/2018,05/26/2008 RSV [...] 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 Not on file documented as of this encounter Plan of Treatment Upcoming Encounters Date Type Department Care Team (Latest Contact Info) Description 04/24/2024 11:30 AM EST Hem/Onc Treatment Hematology/Oncolog y Treatment, [place] [address] [place] [address] Kimberley, Chair 10 Hem Onc Scenery [address] [place] [address] 05/21/2024 8:45 AM EDT Hem/Onc Treatment Hematology/Oncolog y Treatment, [place] [address] [place], [place] [phone] Kimberley, Chair 2 Hem Onc Scenery [address] [place], [place] [address] 07/02/2024 9:00 AM EDT Laboratory Laboratory Scenery [place] [address] [place] [phone] Kimberley, Lab Scenery [address] [facility] [place], [place] [address] 07/23/2024 3:20 PM EDT Office Visit Gastroenterology, [facility] [address] [place] [address] Chauncey Rodriguez MD [address] [place] [address] 09/03/2024 9:30 AM EDT Hospital Encounter ENDO OSSC, Endoscopy Room [facility] [address] [place] [phone] Chauncey Rodriguez MD [address] [place] [address] 09/03/2024 9:30 AM EDT - 09/03/2024 10:00 AM EDT Surgery ENDO OSSC, Endoscopy Room [facility] [address] [place] [phone] Chauncey Rodriguez MD [address] [place] [address] COLONOSCOPY FLEXIBLE PROXIMAL DIAGNOSTIC 10/07/2024 9:30 AM EDT Office Visit Cardiology, [facility] [address] [place] [address] Batsheva Rutledge CRNP [address] [place] [address] 10/22/2024 8:00 AM EDT Office Visit General Internal Medicine [place] [address] [place] [address] Joy Hope MD 200 [facility] [place] [address] Scheduled Procedures Name Priority Associated Diagnoses Date/Ti [...] this encounter Medical Devices Implanted Type Area Pot Fisher Device Identifier Shelf Expiration Date Model / Serial / Lot Clip Quick 2.8mm 230cm - [id number] Implanted:Qty: 1 on 02/23/2020 by Chauncey Rodriguez MD at ENDOSCOPY [facility] [employer] [id number] / / documented as of this encounter Care Teams Mold Maker Helper Relationship Specialty Start Date End Date Joy Hope MD [address] [place] [address], [place] [address] PCP - General Internal Medicine 01/05/17 documented as of this encounter
--- OUTSIDE RECORDS SUMMARY | 2024-04-26 14:32 | External Medical Summary | Summary of Care ---
Author Name Unknown Organization [facility] Address [address] [place] [address] Phone [phone] Care Team Providers Care Front Desk Name Role Phone Joy Hope MD Primary Care Provider + Reason for Visit * Reason Comments Outpatient Testing Encounter Details Date Type Department Care Team (Late st Contact Info) Description 04/03/2024 8:50 AM EST Laboratory Laboratory [facility] [place] [address] [place] [phone] [place], Lab Scenery [address] [place] [address] Crohn's disease of both small and large intestine without complication (HCC) Allergies No known active allergiesdocumented as of this encounter (statuses as of 04/03/2024) Medications ASPIRIN 81 MG PO TABSIndications:ta kes [...] Tablet by mouth every other day. Active OneTouch Ultra In Vitro Strip (Glucose Blood)Indications: Type 2 diabetes mellitus with hemoglobin A1c goal of less than 7.0% ([facility]) USE UP TO 4 TIMES DAILY FOR TESTING BLOOD SUGAR 100 Strip 5 10/26/2022 11:41 AM EDT 3 Active Terazosin HCl 10 MG Oral CapsuleIndications [...] before bedtime. 180 Tablet 3 5 Active documented as of this encounter (statuses as of 04/03/2024) Active Problems Problem Noted Date Diagnosed Date [...] as of this encounter (statuses as of 04/03/2024) Resolved Problems Problem Noted Date Diagnosed Date [...] as of this encounter (statuses as of 04/03/2024) Immunizations Name Administration Dates Next Due COVID-19 mRNA, LNP-s, No Pre serve, 2-Dose Series (Apontador) 01/14/2021,05/17/2020,04/19/2020 COVID-19, LNP-s, No Preserve , Dylan-sucrose, Ages 12+ (Pfizer) 09/27/2021 COVID-19, MRNA-LNP, 24-25, P R, 30MCG/0.3ML, IM, 12YRS AND ABOVE (Fast PCR [email or web address]) 01/02/2024 COVID-19, MRNA-LNP, PF, 30 M CG/0.3 mL, 12 YRS AND ABOVE, IM (Applied Identity) 01/30/2023 Covid-19, Mrna, Lnp-s, Pf, B ivalent, 30 Mcg, IM, 12 yrs and above (Apontador) 01/17/2022 Hepatitis B, 20+ yrs 09/04/2016,05/13/2016,04/14 PPD 04/07/2016 Pneumococcal Conjugate Vacc, 13 Valent (Prevnar) 07/27/2016 Pneumococcal Conjugate Vacci ne, 20-valent ([id number]) 09/25/2023 Pneumococcal Polysaccharide PPV23 (Pneumovax) 07/18/2018,05/26/2008 RSV [...] in the Last Year Never true 08/01/2019 Utilities Answer Date Recorded Do you have trouble paying y our heating, water, or electric bill? (Adult - for ages 18 years and over) Not on file 08/21/2023 Is your family able to pay t he heat, water, or electric bill? (Household - for ages 0-17 years) Not on file 08/21/2023 Does your family have access to good internet? (Household - for ages 0-17 years) Not on file 08/21/2023 Social Connections Answer Date Recorded How often do you feel lonely or isolated from those around you? 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 [address] 05/21/2024 8:45 AM EDT Hem/Onc Treatment Hematology/Oncology Treatment, [place] [address] [place] [phone] Kimberley, Chair 2 Hem Onc Scenery [address] [facility] [place] [address] 07/23/2024 3:20 PM EDT Office Visit Gastroenterology, [facility] [address] [place] [address] Chauncey Rodriguez MD [address] [place] [address] 09/03/2024 9:30 AM EDT Hospital Encounter ENDO OSSC, Endoscopy Room [facility] [address] [place] [phone] Chauncey Rodriguez MD [address] [place] [address] 09/03/2024 9:30 AM EDT - 09/03/2024 10:00 AM EDT Surgery ENDO OSSC, Endoscopy Room [facility] [address] [place] [phone] Chauncey Rodriguez MD [address] [place] [address] COLONOSCOPY FLEXIBLE PROXIMAL DIAGNOSTIC Pending Results Name Type Priority Associated Diagnoses Date /Time COMPREHENSIVE METABOLIC PANEL Lab Routine Crohn's disease of both small and large intestine without complication (HCC) 04/03/2024 8:38 AM EST 1,25-DIHYDROXY VITAMIN D Lab Routine Crohn's disease of both small and large intestine without complication (HCC) 04/03/2024 8:38 AM EST CRP (INFLAMMATORY MARKER) Lab Routine Crohn's disease of both small and large intestine without complication (HCC) 04/03/2024 8:38 AM EST FERRITIN Lab Routine Crohn's disease of both small and large intestine without complication (HCC) 04/03/2024 8:38 AM EST Scheduled Procedures Name Priority Associated Diagnoses Date/Ti co COLONOSCOPY FLEXIBLE PROXIMAL DIAGNOSTIC Recall IBD (inflammatory bowel disease) 09/03/2024 9:30 AM EDT Health Maintenance Due Date Last Done Comments Cologuard 06/30/2000 Fecal Occult Blood Test 06/30/2000 Sigmoidoscopy 06/30/2000 Adult Wellness Visit 06/30/2021 COVID-19 Vaccine ( season) 2024 01/02/2024, 01/30/2023, 01/17/2022, Additional history exists HbA1c 03/15/2024 09/13/2023, 0 06/2023, 07/11/2022, Additional history exists Diabetic Foot Exam 05/02/2024 03/27/2023, 0 03/23/2022, 03/22/2021, Additional history exists Postponed from 03/27/2024 (Other) Colonoscopy 08/21/2024 08/22/2023, 08/03, 07/14/2022, Additional history exists Colorectal Cancer Screening 08/21/2024 Albumin/Creatinine Ratio 09/12/2024 024, 07/11/2022, 03/22/2021, Additional history exists B-12 09/12/2024 09/13/2023, 03/05, 03/22/2021, Additional history exists GFR 09/12/2024 09/13/2023, 0 06/2023, 08/15/2022, Additional history exists Diabetic Eye Exam 01/06/2025 01/07/2024, , 01/07/2024, Additional history exists Depression Screening 04/03/2025 04/03/2024, 03/23/19 23 DTap/Tdap Vaccines (3 - Td or Tdap) 01/19/2028 01/18/2018, 01/09/2008, 06/15/1998, Additional history exists Lipid Panel 09/12/2028 09/13/2023, 05/0 11/2022, 09/20/2021, Additional history exists Hepatitis B [...] this encounter Medical Devices Implanted Type Area Cook Mayonnaise Device Identifier Shelf Expiration Date Model / Serial / Lot Clip Quick 2.8mm 230cm - [id number] Implanted:Qty: 1 on 02/23/2020 by Chauncey Rodriguez MD at ENDOSCOPY [facility] Colon Dropifi [facility] [id number] / / documented as of this encounter Procedures Procedure Name Priority Date/Time Associated Diagnosis Comments DIFFERENTIAL, AUTOMATED Routine 04/03/2024 8:38 AM EST Crohn's disease of both small and large intestine without complication (HCC) CBC Routine 04/03/2024 8:38 AM EST Crohn's disease of both small and large intestine without complication (HCC) CBC Routine 04/03/2024 8:38 AM EST Crohn's disease of both small and large intestine without complication (HCC) documented in this encounter Results * DIFFERENTIAL, AUTOMATED (04/03/2024 8:38 AM EST) WBC 9.50 4.00 - 10.80 K/uL 04/03/2024 8:51 AM EST [facility]02 Neutrophils % 56.1 40.0 - 75.0 % 04/03/2024 8:51 AM EST [facility]02 Lymphocytes % 32.2 18.0 - 42.0 % 04/03/2024 8:51 AM EST [facility] 56-02 Monocytes % 8.3 1.0 - 11.0 % 04/03/2024 8:51 AM EST [facility] 56[facility]02 Eosinophils % 3.1 0.0 - 6.0 % 04/03/2024 8:51 AM EST [facility] 56[facility]02 Basophils % 0.3 0.0 - 2.0 % 04/03/2024 8:51 AM EST [facility] 56-02 Absolute Neutrophils 5.33 1.80 - 7.70 K/uL 04/03/2024 8:51 AM EST [facility] 56-02 Absolute Lymphocytes 3.06 1.00 - 4.80 K/ul 04/03/2024 8:51 AM EST [facility] 56-02 Absolute Monocytes 0.79 0.00 - 1.10 K/uL 04/03/2024 8:51 AM EST [facility] 56-02 Absolute Eosinophils 0.29 0.00 - 0.70 K/uL 04/03/2024 8:51 AM EST [facility] 56-02 Absolute Basophils 0.03 0.00 - 0.20 K/uL 04/03/2024 8:51 AM EST [facility] 56-02 Blood Venous blood specimen / Unknown Venipuncture / Unknown 04/03/2024 8:38 AM EST 04/03/2024 8:38 AM EST us Chauncey Rodriguez MD LAB BLOOD ORDERABLES Fi nal Result [facility] [address] [place] [address] * (ABNORMAL) CBC (04/03/2024 8:38 AM EST) WBC 9.50 4.00 - 10.80 K/uL 04/03/2024 8:51 AM EST [facility] 56- RBC 4.61 4.50 - 5.25 M/uL 04/03/2024 8:51 AM EST [facility] 56- HGB 13.9(L) 14.0 - 16.8 g/dL 04/03/2024 8:51 AM EST [facility] 56- HCT 42.4 40.0 - 48.4 % 04/03/2024 8:51 AM EST [facility] 56- MCV 92.0 82.0 - 99.5 fL 04/03/2024 8:51 AM EST [facility] 56- MCH 30.2 27.0 - 34.0 pg 04/03/2024 8:51 AM EST [facility] 56- MCHC 32.8 32.0 - 36.0 g/dL 04/03/2024 8:51 AM [facility] 56- RDW 13.1 11.5 - 15.5 % 04/03/2024 8:51 AM EST [facility] 56-02 PLT 240 140 - 400 K/uL 04/03/2024 8:51 AM [facility] 56- MPV 11.1 6.6 - 11.1 fL 04/03/2024 8:51 AM [facility] 56- Blood Venous blood specimen / Unknown Venipuncture / Unknown 04/03/2024 8:38 AM EST 04/03/2024 8:38 AM EST Chauncey Rodriguez MD LAB BLOOD ORDERABLES nal Result [facility] [address] [place] [address] documented in this encounter Visit Diagnoses Diagnosis Crohn's disease of both small and large intestine without complication (HCC) Regional enteritis of small intestine with large intestine IBD (inflammatory bowel disease) Other and unspecified noninfectious gastroenteritis and colitis documented in this encounter Care Teams Front Desk Relationship Specialty Start Date End Date Joy Hope MD [address] [facility] [place] [address] PCP - General Internal Medicine 01/05/17 documented as of this encounter
--- OUTSIDE RECORDS SUMMARY | 2024-04-26 14:32 | External Medical Summary | Summary of Care ---
Author Name Unknown Organization [facility] Address [address] [place] [address] Phone [phone] Care Team Providers Care Penetration Tester Name Role Phone Joy Hope MD Primary Care Provider + Encounter Details Date Type Department Care Team (Late st Contact Info) Description 03/26/2024 Telephone Hematology/Oncology [facility] [address] [place] [address] Chauncey Rodriguez MD [address] [place] [address] Allergies No known active allergiesdocumented as of this encounter (statuses as of 03/26/2024) Medications ASPIRIN 81 MG PO TABSIndications:ta kes [...] hemoglobin A1c goal of less than 7.0% ([facility]) USE UP TO 4 [...] hemoglobin A1c goal of less than 7.0% ([facility]) TAKE ONE TABLET BY MOUTH IN THE MORNING 30 MINUTES BEFORE A MEAL. 90 Tablet 3 02/26/2024 12:11 PM EST 4 11/28/19 25 Active Spironolactone 25 MG Oral Tablet (Aldactone)Indicat ions:HTN, goal below 140/90 TAKE TWO TABLETS BY MOUTH EVERY DAY 180 Tablet 1 01/09/2024 6:38 PM EST 4 Active metFORMIN HCl 500 MG Oral Tablet (Glucophage)Indica tions:Type 2 diabetes mellitus with hemoglobin A1c goal of less than 7.0% (HCC) TAKE TWO TABLETS BY MOUTH TWICE A DAY WITH MORNING AND EVENING MEALS. 400 Tablet 1 5 Active Enalapril Maleate 20 MG Oral Tablet (Vasotec)Indicatio ns:HTN, goal below 140/90 Take 1 Tablet by mouth in the morning and 1 Tablet before bedtime. 180 Tablet 3 5 Active documented as of this encounter (statuses as of 03/26/2024) Active Problems Problem Noted Date Diagnosed Date [...] as of this encounter (statuses as of 03/26/2024) Resolved Problems Problem Noted Date Diagnosed Date [...] as of this encounter (statuses as of 03/26/2024) Immunizations Name Administration Dates Next Due COVID-19 mRNA, LNP-s, No Pre serve, 2-Dose Series (Codewars) 01/14/2021,05/17/2020,04/19/2020 COVID-19, LNP-s, No Preserve , Dylan-sucrose, Ages 12+ (Codewars) 09/27/2021 COVID-19, MRNA-LNP, 24-25, P R, 30MCG/0.3ML, IM, 12YRS AND ABOVE (BugglAccumulate) 01/02/2024 COVID-19, MRNA-LNP, PF, 30 M CG/0.3 mL, 12 YRS AND ABOVE, IM (FAD ? IO) 01/30/2023 Covid-19, Mrna, Lnp-s, Pf, B ivalent, 30 Mcg, IM, 12 yrs and above (Codewars) 01/17/2022 Diptheria/Tetanus (Adult) 06/15/1998,03/05/1989 06/15/2008 Hepatitis B, 20+ yrs 09/04/2016,05/13/2016,04/14 PPD 04/07/2016 Pneumococcal Conjugate Vacc, 13 Valent (Prevnar) 07/27/2016 Pneumococcal Conjugate Vacci ne, 20-valent ([id number]) 09/25/2023 Pneumococcal Polysaccharide PPV23 (Pneumovax) 07/18/2018,05/26/2008,04/02/2008(Defe rred: Patient Refused) RSV Vac., Bivalent, Perfusio n F, Pf,0.5 Ml (Abrysvo) 01/30/2023 Seasonal Influenza Vac., MDV , IM, 0.5 mL (Fluzone) 12/12/2013,02/06/2013,11/07/2011,01/04,12/31/2009,12/10/2008,01/09/20 08,01/31/2007,01/13/2006,01/19/2005,1 03/15/2002,12/24/2001,01/03/2001,01/1301/14/2004 Seasonal Influenza, High Dos e, Trivalent, PF, IM (Fluzone HD) 12/31/2023 Seasonal Influenza, PF, 6 M & above, IM , (FluLaval or Fluzone) 12/05/2019,11/28/2018,12/08/2017,12/03 Seasonal Influenza, Quadriva lent Hd (Fluzone Hd) 01/02/2023,12/20/2021,11/26/2020 Seasonal Influenza, Quadriva lent, No Preserve, IM [...] 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 Patient is not scheduled for follow up with your office until July. * Telephone Encounter - Bella Bacon LPN - 03/26/2024 10:13 AM EST Teodoro Castillo [facility] 03/24/24 1:42 PM Note The patient's next infusion is during the current valid auth dates. The pre-cert team works a queueand will work the re-authorization prior to the infusion due in April. * Telephone Encounter - Minor Bolaños RN - 03/26/2024 9:30 AM EST Gastro/Dr. Isaac SERRANO regarding Entyvio auth. "Patient has not been seen in over a year. We will need updated clinicals in order to obtain a new auth. Routing to ,[facility],Provider. " Pt is scheduled 04/24 for next Entyvio. documented in this encounter Plan of Treatment Upcoming Encounters Date Type Department Care Team (Late st Contact Info) Description 04/03/2024 9:20 AM EST Office Visit General Internal Medicine [facility] [place] [address] [place] [address] Joy Hope MD [address] [place] [address] 04/08/2024 9:30 AM EST Office Visit Cardiology, [facility] [address] [facility] [place] [address] Batsheva Rutledge CRNP [address] [place] [address] 04/24/2024 8:45 AM EST Hem/Onc Treatment Hematology/Oncology Treatment, [place] [address] [place], [place] [phone] Kimberley, Chair 2 Hem Onc [facility] [address] [facility] [place] [address] 05/21/2024 8:45 AM EDT Hem/Onc Treatment Hematology/Oncology Treatment, [place] [address] [facility] [phone] Kimber[place], Chair 2 Hem Onc [facility] [address] [facility] [place] [address] 07/23/2024 3:20 PM EDT Office Visit Gastroenterology, [facility] [address] [place] [address] Chauncey Rodriguez MD [address] [place] [address] Scheduled Procedures Name Priority Associated Diagnoses Date/Ti me COLONOSCOPY FLEXIBLE PROXIMA L DIAGNOSTIC Recall IBD (inflammatory bowel disease) Health Maintenance Due Date Last Done Comments Cologuard 06/30/2000 Fecal Occult Blood Test 06/30/2000 Sigmoidoscopy 06/30/2000 Adult Wellness Visit 06/30/2021 Depression Screening 03/23/2023 03/23/2022 COVID-19 Vaccine ( season) 2024 01/02/2024, 01/30/2023, 01/17/2022, Additional history exists HbA1c 03/15/2024 09/13/2023, 06/2023, 07/11/2022, Additional history exists Diabetic Foot Exam 03/27/2024 03/27/2023, 0 03/23/2022, 03/22/2021, Additional history exists Colonoscopy 08/21/2024 08/22/2023, 08/03, 07/14/2022, Additional history exists Colorectal Cancer Screening 08/21/2024 Albumin/Creatinine Ratio 09/12/2024 024, 07/11/2022, 03/22/2021, Additional history exists B-12 09/12/2024 09/13/2023, 03/05, 03/22/2021, Additional history exists GFR 09/12/2024 09/13/2023, 06/2023, 08/15/2022, Additional history exists Diabetic Eye Exam 01/06/2025 01/07/2024, , 01/07/2024, Additional history exists DTap/Tdap Vaccines (3 - [...] this encounter Medical Devices Implanted Type Area Community Engagement Representative Device Identifier Shelf Expiration Date Model / Serial / Lot Clip Quick 2.8mm 230cm - [id number] Implanted:Qty: 1 on 02/23/2020 by Chauncey Rodriguez MD at ENDOSCOPY [facility] Colon [employer] [id number] / / documented as of this encounter Care Teams Penetration Tester Relationship Specialty Start Date End Date Joy Hope MD [address] [place] [address] PCP - General Internal Medicine 01/05/17 documented as of this encounter
--- OUTSIDE RECORDS SUMMARY | 2024-04-26 14:32 | External Medical Summary ---
Author Name Unknown Address Unknown Organization K09:[facility] [place] [address] Laboratory Report Ordering Provider Test Date Status RICHARD OTERO 04/03/2024 08:38:51 Final Observation Date Value Abnormality Reference (Units ) Status WBC, Total 04/03/2024 08:38:51 9.50 4.00-10.8 0 (K/uL) Final RBC 04/03/2024 08:38:51 4.61 4.50-5.25 (M/uL) Final Hemoglobin 04/03/2024 08:38:51 13.9 Below low normal 14 .0-16.8 (g/dL) Final HCT 04/03/2024 08:38:51 42.4 40.0-48.4 (%) Final MCV 04/03/2024 08:38:51 92.0 82.0-99.5 (fL) Final MCH 04/03/2024 08:38:51 30.2 27.0-34.0 (pg) Final MCHC 04/03/2024 08:38:51 32.8 32.0-36.0 (g/dL) Final RDW 04/03/2024 08:38:51 13.1 11.5-15.5 (%) Final Platelets 04/03/2024 08:38:51 240 140-400 (K /uL) Final MPV 04/03/2024 08:38:51 11.1 6.6-11.1 ( fL) Final Performing Location [facility] [place] [address]
--- OUTSIDE RECORDS SUMMARY | 2024-04-26 14:32 | External Medical Summary | Summary of Care ---
Author Name Unknown Organization [facility] Address [address] [place] [address] Phone [phone] Care Team Providers Care Sports Commentator Name Role Phone Joy Hope MD Primary Care Provider + Reason for Visit * Reason Onset Date Comments Order Request 04/04/2024 Encounter Details Date Type Department Care Team (Late st Contact Info) Description 04/04/2024 Telephone Hematology/Oncology Treatment, [place] [address] [place] [phone] Chauncey Rodriguez MD [address] [place] [address] Order Request Allergies No known active allergiesdocumented [...] FOR TESTING BLOOD SUGAR 100 Strip 5 5 04/04/19 26 Active documented as of [...] mRNA, LNP-s, No Pre serve, 2-Dose Series (Flux) 01/14/2021,05/17/2020,04/19/2020 COVID-19, LNP-s, No Preserve , Dylan-sucrose, Ages 12+ (Flux) 09/27/2021 COVID-19, MRNA-LNP, 24-25, P R, 30MCG/0.3ML, IM, 12YRS AND ABOVE ([email or web address]) 01/02/2024 COVID-19, MRNA-LNP, PF, 30 M CG/0.3 mL, 12 YRS AND ABOVE, IM (Mailpile) 01/30/2023 Covid-19, Mrna, Lnp-s, Pf, B ivalent, 30 Mcg, IM, 12 yrs and above (Flux) 01/17/2022 Hepatitis B, 20+ yrs 09/04/2016,05/13/2016,04/14 PPD 04/07/2016 Pneumococcal Conjugate Vacc, 13 Valent (Prevnar) 07/27/2016 Pneumococcal Conjugate Vacci ne, 20-valent ([id number]) 09/25/2023 Pneumococcal Polysaccharide PPV23 (Pneumovax) 07/18/2018,05/26/2008 RSV [...] 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 [...] 04/08/2024 9:30 AM EST Office Visit Cardiology, [address] [place] [address] Batsheva Rutledge CRNP [address] [place] [address] 04/24/2024 8:45 AM EST Hem/Onc Treatment Hematology/Oncology Treatment, [place] [address] [place] [phone] [place], Chair 2 Hem Onc [address] [place], [place] [address] 05/21/2024 8:45 AM EDT Hem/Onc Treatment Hematology/Oncology Treatment, [place] [address] [place] [phone] Kimberley, Chair 2 Hem Onc [address] [facility] [place] [address] 07/23/2024 3:20 PM EDT Office Visit Gastroenterology, [facility] [address] [place] [address] Chauncey Rodriguez MD [address] [place] [address] 09/03/2024 9:30 AM EDT Hospital Encounter ENDO OSSC, Endoscopy Room [facility] [address] [place] [phone] Chauncey Rodriguez MD [address] [place] [address] 09/03/2024 9:30 AM EDT - 09/03/2024 10:00 AM EDT Surgery ENDO OSS, Endoscopy Room [facility] [address] [place] [phone] Chauncey Rodriguez MD [address] [place] [address] COLONOSCOPY FLEXIBLE PROXIMAL DIAGNOSTIC 10/22/2024 8:00 AM EDT Office Visit General Internal Medicine [facility] [place] [address] [place] [address] Joy Hope MD [address] [facility] [place] [address] Scheduled Procedures Name Priority Associated Diagnoses Date/Ti [...] this encounter Medical Devices Implanted Type Area Motor Vehicles Supervisor Device Identifier Shelf Expiration Date Model / Serial / Lot Clip Quick 2.8mm 230cm - [id number] Implanted:Qty: 1 on 02/23/2020 by Chauncey Rodriguez MD at ENDOSCOPY [facility] xAd [facility] [id number] / / documented as of this encounter Care Teams Sports Commentator Relationship Specialty Start Date End Date Joy Hope MD 200 [place] [address] PCP - General Internal Medicine 01/05/17 documented as of this encounter
--- OUTSIDE RECORDS SUMMARY | 2024-04-26 14:32 | External Medical Summary | Summary of Care ---
Author Name Unknown Organization [facility] Address [address] [place] [address] Phone [phone] Care Team Providers Care Slackman Name Role Phone Swapna Hope MD Primary Care Provider + Reason for Visit * Reason Comments Medication Refill Encounter Details Date Type Department Care Team (Late st Contact Info) Description 04/04/2024 Refill General Internal Medicine [facility] [place] [address] [facility] [place] [address] Swapna Hope MD [address] [place] [address] Type 2 diabetes mellitus with hemoglobin A1c goal of less than 7.0% ([facility]) Allergies No known active allergiesdocumented as of this encounter (statuses as of 04/04/2024) Medications ASPIRIN 81 MG PO TABSIndications:t akes [...] day. Active Terazosin HCl 10 MG Oral CapsuleIndication [...] Active metFORMIN HCl 500 MG Oral Tablet (Glucophage)Indic ations:Type 2 diabetes mellitus with hemoglobin A1c goal of less than 7.0% (HCC) TAKE TWO TABLETS BY MOUTH TWICE A DAY WITH MORNING AND EVENING MEALS. 400 Tablet 1 03/27/2024 11:34 AM EST 5 Active Enalapril Maleate 20 MG Oral Tablet (Vasotec)Indicati ons:HTN, goal below 140/90 Take 1 Tablet by mouth in the morning and 1 Tablet before bedtime. 180 Tablet 3 5 Active OneTouch Ultra In Vitro Strip (Glucose Blood)Indications :Type 2 diabetes mellitus with hemoglobin A1c goal of less than 7.0% (HCC) USE UP TO 4 TIMES DAILY FOR TESTING BLOOD SUGAR 100 Strip 5 5 04/04/19 26 Active OneTouch Ultra In Vitro Strip (Glucose Blood)Indications :Type 2 diabetes mellitus with hemoglobin A1c goal of less than 7.0% (HCC) USE UP TO 4 TIMES DAILY FOR TESTING BLOOD SUGAR 100 Strip 5 10/26/2022 11:41 AM EDT 3 04/04/19 25 Discontinu ed(Refill) documented as of this encounter (statuses as of 04/04/2024) Active Problems Problem Noted Date Diagnosed Date [...] as of this encounter (statuses as of 04/04/2024) Resolved Problems Problem Noted Date Diagnosed Date [...] as of this encounter (statuses as of 04/04/2024) Immunizations Name Administration Dates Next Due COVID-19 mRNA, LNP-s, No Pre serve, 2-Dose Series (KLab) 01/14/2021,05/17/2020,04/19/2020 COVID-19, LNP-s, No Preserve , Dylan-sucrose, Ages 12+ (KLab) 09/27/2021 COVID-19, MRNA-LNP, 24-25, P R, 30MCG/0.3ML, IM, 12YRS AND ABOVE (K[facility]-ComirnatENDYMION) 01/02/2024 COVID-19, MRNA-LNP, PF, 30 M CG/0.3 mL, 12 YRS AND ABOVE, IM (L[employer]-airpimirnatENDYMION) 01/30/2023 Covid-19, Mrna, Lnp-s, Pf, B ivalent, 30 Mcg, IM, 12 yrs and above (K[facility]) 01/17/2022 Hepatitis B, 20+ yrs 09/04/2016,05/13/2016,04/14 PPD 04/07/2016 Pneumococcal Conjugate Vacc, 13 Valent (Prevnar) 07/27/2016 Pneumococcal Conjugate Vacci ne, 20-valent ([id number]) 09/25/2023 Pneumococcal Polysaccharide PPV23 (Pneumovax) 07/18/2018,05/26/2008 RSV [...] 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 Not on file Not on file documented as of this encounter Miscellaneous Notes * Telephone Encounter - Gurjit Cuenca [facility] - 04/04/2024 2:40 PM ESTSigned Prescriptions: Disp Refills OneTouch Ultra In Vitro Strip (Glucose Blo*100 St*5 Sig: USE UP TO 4 TIMES DAILY FOR TESTING BLOOD SUGARAuthorizing Provider: SWAPNA HOPE User: GURJIT CUENCA documented in this encounter Plan of Treatment Upcoming Encounters Date Type Department Care Team (Latest Contact Info) Description 04/08/2024 9:30 AM EST Office Visit Cardiology, [facility] [address] [place] [address] Batsheva Rutledge CRNP [address] [place] [address] 04/24/2024 8:45 AM EST Hem/Onc Treatment Hematology/Oncology Treatment, [address] [place] [phone] Kimberley, Chair 2 Hem Onc [address] [place] [address] 05/21/2024 8:45 AM EDT Hem/Onc Treatment Hematology/Oncology Treatment, [address] [place] [phone] Kimberley, Chair 2 Hem Onc [facility] [place] [address] [place] [address], [place] [address] 07/23/2024 3:20 PM EDT Office Visit Gastroenterology, [facility] [address] [place] [address] Chauncey Rodriguez MD [address] [place] [address] 09/03/2024 9:30 AM EDT Hospital Encounter ENDO [facility], Endoscopy Room [facility] [address] [place] [phone] Chauncey Rodriguez MD [address] [place] [address] 09/03/2024 9:30 AM EDT - 09/03/2024 10:00 AM EDT Surgery ENDO [facility], Endoscopy Room [facility] [address] [place] [phone] Chauncey Rodriguez MD [address] [place] [address] COLONOSCOPY FLEXIBLE PROXIMAL DIAGNOSTIC 10/22/2024 8:00 AM EDT Office Visit General Internal Medicine [facility] [place] [address] [facility] [place] [address] Swapna Hope MD [address] [facility] [place] [address] Scheduled Procedures Name Priority Associated Diagnoses Date/Ti [...] this encounter Medical Devices Implanted Type Area Cradle Slide Maker Device Identifier Shelf Expiration Date Model / Serial / Lot Clip Quick 2.8mm 230cm - [id number] Implanted:Qty: 1 on 02/23/2020 by Chauncey Rodriguez MD at ENDOSCOPY [facility] [employer] [facility] [id number] / / documented as of this encounter Visit Diagnoses Diagnosis Type 2 diabetes mellitus with hemoglobin A1c goal of less than 7.0% (HCC) IBD (inflammatory bowel disease) Other and unspecified noninfectious gastroenteritis and colitis documented in this encounter Care Teams Slackman Relationship Specialty Start Date End Date Swapna Hope MD [address] [facility] [place] [address] PCP - General Internal Medicine 01/05/17 documented as of this encounter
--- OUTSIDE RECORDS SUMMARY | 2024-04-26 14:32 | External Medical Summary | Summary of Care ---
Author Name Unknown Organization [facility] Address [address] [place] [address] Phone [phone] Care Team Providers Care Child Care Nurse Name Role Phone Joy Hope MD Primary Care Provider + Reason for Visit * Reason Onset Date Comments Advice 03/26/2024 Encounter Details Date Type Department Care Team (Late st Contact Info) Description 03/26/2024 Telephone Hematology/Oncology [facility] 200 [facility] [place] [phone] Chauncey Rodriguez MD [address] [facility] [place] [address] Advice Allergies No known active allergiesdocumented as of [...] hemoglobin A1c goal of less than 7.0% ([facility]) USE UP TO 4 TIMES DAILY FOR [...] mRNA, LNP-s, No Pre serve, 2-Dose Series (CICCWORLD) 01/14/2021,05/17/2020,04/19/2020 COVID-19, LNP-s, No Preserve , Dylan-sucrose, Ages 12+ (CICCWORLD) 09/27/2021 COVID-19, MRNA-LNP, 24-25, P R, 30MCG/0.3ML, IM, 12YRS AND ABOVE (EvcarcoH.BLOOM) 01/02/2024 COVID-19, MRNA-LNP, PF, 30 M CG/0.3 mL, 12 YRS AND ABOVE, IM (FreshDigitalGroup) 01/30/2023 Covid-19, Mrna, Lnp-s, Pf, B ivalent, 30 Mcg, IM, 12 yrs and above (CICCWORLD) 01/17/2022 Diptheria/Tetanus (Adult) 06/15/1998,03/05/1989 06/15/2008 Hepatitis B, 20+ yrs 09/04/2016,05/13/2016,04/14 PPD 04/07/2016 Pneumococcal Conjugate Vacc, 13 Valent (Prevnar) 07/27/2016 Pneumococcal Conjugate Vacci ne, 20-valent ([id number]) 09/25/2023 Pneumococcal Polysaccharide PPV23 (Pneumovax) 07/18/2018,05/26/2008,04/02/2008(Defe rred: Patient Refused) RSV Vac., Bivalent, Perfusio n F, Pf,0.5 Ml (Abrysvo) 01/30/2023 Seasonal Influenza Vac., MDV , IM, 0.5 mL (Fluzone) 12/12/2013,02/06/2013,11/07/2011,01/04,12/31/2009,12/10/2008,01/09/20,01/31/2007,01/13/2006,01/19/2005,03/15/2002,12/24/2001,01/03/2001,01/1301/14/2004 Seasonal Influenza, High Dos e, Trivalent, PF, [...] 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 Bhatt at 2pm today. Confirmed with pt. * Telephone Encounter - Minor Bolaños RN - 03/26/2024 11:14 AM EST I understand that auth is valid for infusion today. Patient is not scheduled for follow up with your office until July. * Telephone Encounter - Bella Bacon LPN - 03/26/2024 10:13 AM EST Teodoro Castillo [facility] 03/24/24 1:42 PM Note The patient's next [...] to obtain a new auth. Routing to TOMMY,[facility],Provider. " Pt is scheduled 04/24 for next Entyvio. documented in this encounter Plan of Treatment Upcoming Encounters Date Type Department Care Team (Late st Contact Info) Description 04/03/2024 9:20 AM EST Office Visit General Internal Medicine [facility] 200 [facility] [place], [place] [address] Joy Hope MD 200 [facility] [place] [address] 04/08/2024 9:30 AM EST Office Visit Cardiology, [facility] [address] [place] [address] Batsheva Rutledge CRNP 132 [facility] [place] [address] 04/24/2024 8:45 AM EST Hem/Onc Treatment Hematology/Oncology Treatment, [place] 200 [facility], [place] [phone] Kimberley, Chair 2 Hem Onc [address] [place] [address] 05/21/2024 8:45 AM EDT Hem/Onc Treatment Hematology/Oncology Treatment, [address], [place] [phone] Kimberley, Chair 2 Hem Onc [address] [place] [address] 07/23/2024 3:20 PM EDT Office Visit Gastroenterology, [facility] [address] [place] [address] Chauncey Rodriguez MD 132 [facility] [place] [address] Scheduled Procedures Name Priority Associated Diagnoses Date/Ti [...] this encounter Medical Devices Implanted Type Area Concrete Buildings Assembler Device Identifier Shelf Expiration Date Model / Serial / Lot Clip Quick 2.8mm 230cm - [id number] Implanted:Qty: 1 on 02/23/2020 by Chauncey Rodriguez MD at ENDOSCOPY [facility] [employer] [facility] [id number] / / documented as of this encounter Care Teams Child Care Nurse Relationship Specialty Start Date End Date Joy Hope MD 200 [facility] [place], [place] [phone] PCP - General Internal Medicine 01/05/17 documented as of this encounter
--- OUTSIDE RECORDS SUMMARY | 2024-04-26 14:32 | External Medical Summary | Summary of Care ---
Author Name Unknown Organization [facility] Address [address] [place] [address] Phone [phone] Care Team Providers Care Salesperson [employer] Name Role Phone Joy Hope MD Primary Care Provider + Encounter Details Date Type Department Care Team (Late st Contact Info) Description 03/26/2024 2:45 PM EST Telemedicine Gastroenterology, [facility] [address] [place] [address] Chauncey Rodriguez MD [address] [facility] [address] Crohn's disease of both small and large [...] Cap by mouth daily. 90 Cap 1 05/11/201 8 Active Vedolizumab 300 MG Intravenous Solution Reconstituted (Entyvio) 300 mg every month 1 Each 12 1 Active Ferrous Sulfate 325 (65 Fe) MG Oral Tablet Take 1 Tablet by mouth every other day. Active OneTouch Ultra In Vitro Strip (Glucose Blood)Indications: Type 2 diabetes mellitus with hemoglobin A1c goal of less than 7.0% ([facility]) USE UP TO 4 TIMES DAILY [...] mRNA, LNP-s, No Pre serve, 2-Dose Series (CellTran) 01/14/2021,05/17/2020,04/19/2020 COVID-19, LNP-s, No Preserve , Dylan-sucrose, Ages 12+ (CellTran) 09/27/2021 COVID-19, MRNA-LNP, 24-25, P R, 30MCG/0.3ML, IM, 12YRS AND ABOVE ([facility]) 01/02/2024 COVID-19, MRNA-LNP, PF, 30 M CG/0.3 mL, 12 YRS AND ABOVE, IM (Superbac) 01/30/2023 Covid-19, Mrna, Lnp-s, Pf, B ivalent, 30 Mcg, IM, 12 yrs and above (CellTran) 01/17/2022 Hepatitis B, 20+ yrs 09/04/2016,05/13/2016,04/14 PPD 04/07/2016 Pneumococcal Conjugate Vacc, 13 Valent (Prevnar) 07/27/2016 Pneumococcal Conjugate Vacci ne, 20-valent ([id number]) 09/25/2023 Pneumococcal Polysaccharide PPV23 (Pneumovax) 07/18/2018,05/26/2008 RSV [...] 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 The patient was informed this was a phone call only visit and was identified by name and date of . The patient agreed to participate. Total call duration was 15 minutes. HPI: IBD Face Sheet Diagnosis: Crohn's disease Age at Diagnosis: 60 Hospitalizations: None Disease Location: [place] colonic, senait anal IBD surgical history: none Extra-Intestinal manifestations: NOne Current meds specific for IBD: Lialda since 03/2015; Current Biologic meds: Humira 04/2016 to present with adequate levels/no ab in Nov 2016, d/c'd Dec 2016. Began Entyvio 01/2017, increased to monthly in 02/2019 due to low levels and mild/mod endoscopic recurrence Last Pred use: september 2016; Dec 2016 Currently smoking? No TPMT activity level: Hep B status: Immune Pneumovax: YES Vaccination: Hep B completed 2016; VZV completed 2015 DEXA scan: 04/2017 Cscopy 01/2019 show mild focal patchy granularity, bx = mild/mod colitis. Vedo level 7.6 with undetectable ab; dosing increased To monthly in February 2019. Cscopy 02/21 No evidence of active disease, mult HP polyps. Cscopy 07/24 No evidence of active disease, mult HP plyps. Cscopy 07/25 No evdience of disease, mult HP polyps. Cscopy 08/26 - no evidence of disease by histology/endoscopy, HP polyp x6 Over the past year, he has been doing well - denies abd pain, has 1 formed BM's daily. Past Medical History: Past Medical History: Diagnosis Date Crohn disease (HCC) DM type 2, goal A1c below 7 Diabetes Type II, Controlled Dyslipidemia, goal LDL below 160 Hypercholesterolemia HTN, goal below 140/90 Hypertension, benign Past Surgical History: Past Surgical History: Procedure Laterality Date COLONOSCOPY THRU STOMA, W/BIOPSY 04/13/2006 path-adenomatous tissue - repeat 3y COLONOSCOPY, DIAGNOSTIC (RECTUM) 03/19/2015 bx show IBD/COLONOSCOPY FLEXIBLE PROXIMAL DIAGNOSTIC performed by Chauncey Rodriguez MD at ENDOSCOPY [facility] COLONOSCOPY, DIAGNOSTIC (RECTUM) 03/31/2016 pancolitis/COLONOSCOPY FLEXIBLE PROXIMAL DIAGNOSTIC performed by Chauncey Rodriguez MD at ENDOSCOPY [facility] COLONOSCOPY, DIAGNOSTIC (RECTUM) 12/05/2016 active inflammation, + Cdiff/COLONOSCOPY FLEXIBLE PROXIMAL DIAGNOSTIC performed by Chauncey Rodriguez MD at ENDOSCOPY [facility] COLONOSCOPY, DIAGNOSTIC (RECTUM) 02/22/2018 diverticulosis, fair prep, repeat 1-2 yrs/COLONOSCOPY FLEXIBLE PROXIMAL DIAGNOSTIC performed by Chauncey Rodriguez MD at ENDOSCOPY [facility] COLONOSCOPY, DIAGNOSTIC (RECTUM) 02/21/2019 Crohns, benign polyps/COLONOSCOPY FLEXIBLE PROXIMAL DIAGNOSTIC performed by Chauncey Rodriguez MD at ENDOSCOPY [facility] COLONOSCOPY, DIAGNOSTIC (RECTUM) 02/23/2020 hyperplastic polyps, diverticulosis / COLONOSCOPY FLEXIBLE PROXIMAL DIAGNOSTIC performed by Chaucney Rodriguez MD at ENDOSCOPY [facility] COLONOSCOPY, DIAGNOSTIC (RECTUM) 07/05/2021 hyperplastic polyps, diverticulosis, fair prep / COLONOSCOPY FLEXIBLE PROXIMAL DIAGNOSTIC performedby Chauncey Rodriguez MD at ENDOSCOPY [facility] COLONOSCOPY, DIAGNOSTIC (RECTUM) 07/14/2022 large elephant ear hemorrhoids/multiple polyps/biopsies show polypoid colonic mucosa/COLONOSCOPY FLEXIBLE PROXIMAL DIAGNOSTIC performed by Chauncey Rodriguez MD at ENDOSCOPY [facility] COLONOSCOPY, DIAGNOSTIC (RECTUM) N/A 08/22/2023 biopsies normal/recall 1 year/COLONOSCOPY FLEXIBLE PROXIMAL DIAGNOSTIC performed by Chauncey Rodriguez MD at [facility] COLORECTAL CANCER SCREEN; COLON 08/09/2009 done non thrombosed external hemorrhoids, diverticulosis,repeat in 5 years fair prep EGD, FLEXIBLE, DIAGNOSTIC 07/14/2022 biopsies show mild reactive changes/ESOPHAGOGASTRODUODENOSCOPY (EGD), FLEXIBLE, TRANSORAL, DIAGNOSTIC performed by Chauncey Rodriguez MD at ENDOSCOPY [facility] Current Med List: Current Outpatient Medications Medication Sig Dispense Refill ASPIRIN 81 MG PO TABS Take by mouth. Indications: takes in the evening 34 5 GLUCOSAMINE COMPLEX PO TABS Take 1 Tablet by mouth 2 times a day. Cholecalciferol (VITAMIN D) 1000 units Tablet Take 2 Tablets by mouth in the morning. omeprazole (PRILOSEC) 20 MG CPDR Take 1 Cap by mouth daily. 90 Cap 1 Vedolizumab 300 MG Intravenous Solution Reconstituted (Entyvio) 300 mg every month 1 Each 12 Ferrous Sulfate 325 (65 Fe) MG Oral Tablet Take 1 Tablet by mouth every other day. xaitmentuch Ultra In Vitro Strip (Glucose Blood) USE UP TO 4 TIMES DAILY FOR TESTING BLOOD SUGAR 100 Strip 5 Terazosin HCl 10 MG Oral Capsule TAKE [...] MINUTES BEFORE A MEAL. 90 Tablet 3 COVID-19 mRNA Vac-Dylan(CellTran) 30 MCG/0.3ML Intramuscular Suspension Prefilled Syringe (Paddle (Mobile Payments)) Inject into a large muscle. 0.3 mL 0 Spironolactone 25 MG Oral Tablet (Aldactone) TAKE TWO TABLETS BY MOUTH EVERY DAY 180 Tablet 1 metFORMIN HCl 500 MG Oral Tablet (Glucophage) TAKE TWO TABLETS BY MOUTH TWICE A DAY WITH MORNING AND EVENING MEALS. 400 Tablet 1 Enalapril Maleate 20 MG Oral Tablet (Vasotec) Take 1 Tablet by mouth in the morning and 1 Tablet before bedtime. 180 Tablet 3 No current facility-administered medications for this visit. ROS: Constitutional: No report of fever, chills, night sweats. There have been no non-intentional weightchanges. GI: Per HPI, otherwise negative. Physical Exam: Constitutional: There were no vitals taken for this visit. CV: Heart is regular without murmur, rub or gallop. Pulm: Clear to percussion and auscultation. GI: Abdomen is soft, non-tender, with normo-active bowel sounds in all four quadrants. No hepatosplenomegaly is appreciated. No masses are palpated. No guarding or rebound is noted. Mohit Orta Index: (Score these items for previous day's symptoms) General wellbeing: (0) very well Abdominal pain: (0) none No. Liquid stools/day: 0 Abdominal mass: (0) none Complications (score 1 per item): (0) none Total Score: 0 (Remission = score less than 5) Patient Response to Therapy: How is the patient doing on the current therapy? Well. Has the patient had a flare or hospitalization for IBD since the last visit? No Steroid Use: How many weeks has the patient required steroids in the last 12 months? Has not required steroids in the last 12 months. Health Maintenance: Does the patient have chronic colitis? No Is the patient immunocompromised? No, patient is not immunocompromised. Vaccination: Immunization History Administered Date(s) Administered Diptheria/Tetanus (Adult) 03/05/1989, 06/15/1998 Hepatitis B, 20+ yrs 04/14/2016, 05/13/2016, 09/04/2016 PPD 04/07/2016 Pneumococcal Conjugate Vacc, 13 Valent (Prevnar) 07/27/2016 Pneumococcal Polysaccharide PPV23 (Pneumovax) 05/26/2008, 07/18/2018 Seasonal Influenza, Quadrivalent, No Preserve, 6 Mons & Above, IM 12/19/2016, 12/08/2017, 11/28/2018 Seasonal Influenza, Quadrivalent, No Preserve, IM 12/22/2014, 12/17/2015 Seasonal Influenza, Trivalent, with Preserve, 3yr & Above, Split 01/13/1999, 01/03/2001, 12/24/2001, 01/13/2003, 01/19/2005, 01/13/2006, 01/31/2007, 01/09/2008, 12/10/2008, 12/31/2009, 01/31/2011, 11/07/2011, 02/06/2013, 12/12/2013 TD, Preservative Free 01/18/2018 TDAP (age 11 and older)(Adacel) 01/09/2008 Varicella Zoster Vaccine (Adult) 10/21/2015 DEXA scan required and ordered? no Provider's interpretation or documentation of mucosal healing 9 to 12 months after starting immunosuppressant and/or biologic therapy: Remission (inactive) Labs - recent labs reviewed Assessment: Crohn's disease Iron deficiency anemia Treatment Plan: He is currently in symptomatic and endoscopic/histologic remission. Cont monthly Entyvio. Defer checking Entyvio levels unless disease recurrence. Labs now - CRP, CBC, ferritin B12, LFT Cscopy JUune Follow iron levels periodically; d/c ferritin If hgb ok. RTC 12 nmos documented in this encounter Plan of Treatment Upcoming Encounters Date Type Department Care Team (Late st Contact Info) Description 04/03/2024 9:20 AM EST Office Visit General Internal Medicine [facility] [place] 200 [facility] [place] [address] Joy Hope MD 200 [facility] [place] [address] 04/08/2024 9:30 AM EST Office Visit Cardiology, [facility] [address] [place] [address] Batsheva Rutledge CRNP 132 [facility] [place] [address] 04/24/2024 8:45 AM EST Hem/Onc Treatment Hematology/Oncology Treatment, [place] 200 [facility], [place] [phone] Kimberley, Chair 2 Hem Onc [address] [place], [place] [address] 05/21/2024 8:45 AM EDT Hem/Onc Treatment Hematology/Oncology Treatment, [address], [place] [phone] Kimberley, Chair 2 Hem Onc [address] [place] [address] 07/23/2024 3:20 PM EDT Office Visit Gastroenterology, [facility] [address] [place] [address] Chauncey Rodriguez MD [address] [place] [address] Scheduled Orders Name Type Priority Associated Diagnoses Orde r Schedule COMPREHENSIVE METABOLIC PANEL Lab Routine Crohn's disease of both small and large intestine without complication (HCC) Expected: 03/26/2024, Expires: 03/26/2025 CBC WITH WBC DIFFERENTIAL Lab Routine Crohn's disease of both small and large intestine without complication (HCC) Expected: 03/26/2024, Expires: 03/26/2025 1,25-DIHYDROXY VITAMIN D Lab Routine Crohn's disease of both small and large intestine without complication (HCC) Expected: 03/26/2024, Expires: 03/26/2025 CRP (INFLAMMATORY MARKER) Lab Routine Crohn's disease of both small and large intestine without complication (HCC) Expected: 03/26/2024, Expires: 03/26/2025 COLONOSCOPY Gastro Lower Routine Crohn's disease of both small and large intestine without complication (HCC) Ordered: 03/26/2024 FERRITIN Lab Routine Crohn's disease of both small and large intestine without complication (HCC) Expected: 03/26/2024, Expires: 03/26/2025 Scheduled Procedures Name Priority Associated Diagnoses Date/Ti [...] Colorectal Cancer Screening 08/21/2024 Albumin/Creatinine Ratio 09/12/2024 072 024, 07/11/2022, 03/22/2021, Additional history exists B-12 [...] this encounter Medical Devices Implanted Type Area Silvering Department Supervisor Device Identifier Shelf Expiration Date Model / Serial / Lot Clip Quick 2.8mm 230cm - [id number] Implanted:Qty: 1 on 02/23/2020 by Chauncey Rodriguez MD at ENDOSCOPY [facility] [employer] [id number] / / documented as of this encounter Visit Diagnoses Diagnosis Crohn's disease of both small and large intestine without complication (HCC)- Primary Regional enteritis of small intestine with large intestine documented in this encounter Care Teams Salesperson [employer] Accessories Relationship Specialty Start Date End Date Joy Hope MD [address] [place] [address] PCP - General Internal Medicine 01/05/17 documented as of this encounter
--- OUTSIDE RECORDS SUMMARY | 2024-04-26 14:32 | External Medical Summary ---
Author Name Unknown Address Unknown Organization K01:LABORATORY [facility] - [address] [facility] [address] [place] [address] Laboratory Report Ordering Provider Test Date Status RICHARD OTERO 04/03/2024 08:38:51 Final Observation Date Value Abnormality Reference (Units ) Status Ferritin 04/03/2024 08:38:51 52 30-400 (ng /mL) Final Performing Location [facility] - [address] [facility] [address] [place] [address]
--- OUTSIDE RECORDS SUMMARY | 2024-04-26 14:32 | External Medical Summary | Summary of Care ---
Author Name Unknown Organization [facility] Address [address] [place] [address] Phone [phone] Care Team Providers Care Scrap Piler Name Role Phone Joy Hope MD Primary Care Provider + Reason for Visit * Reason Onset Date Comments Order Request 04/04/2024 Encounter Details Date Type Department Care Team (Late st Contact Info) Description 04/04/2024 Telephone Hematology/Oncology Treatment, [place] [address] [place] [phone] Chauncey Rodriguez MD [address] [place] [address] Order Request Allergies No known active allergiesdocumented as of this encounter (statuses as of 04/04/2024) Medications ASPIRIN 81 MG PO TABSIndications:ta kes [...] mRNA, LNP-s, No Pre serve, 2-Dose Series ([employer]) 01/14/2021,05/17/2020,04/19/2020 COVID-19, LNP-s, No Preserve , Dylan-sucrose, Ages 12+ ([employer]) 09/27/2021 COVID-19, MRNA-LNP, 24-25, P R, 30MCG/0.3ML, IM, 12YRS AND ABOVE ([employer]) 01/02/2024 COVID-19, MRNA-LNP, PF, 30 M CG/0.3 mL, 12 YRS AND ABOVE, IM ([email or web address]) 01/30/2023 Covid-19, Mrna, Lnp-s, Pf, B ivalent, 30 Mcg, IM, 12 yrs and above ([employer]) 01/17/2022 Hepatitis B, 20+ yrs 09/04/2016,05/13/2016,04/14 PPD 04/07/2016 Pneumococcal Conjugate Vacc, 13 Valent (Prevnar) 07/27/2016 Pneumococcal Conjugate Vacci ne, 20-valent ([id number]) 09/25/2023 Pneumococcal Polysaccharide PPV23 (Pneumovax) 07/18/2018,05/26/2008 RSV [...] 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 on file Not on file Not [...] 04/08/2024 9:30 AM EST Office Visit Cardiology, [address] [place] [address] Batsheva Rutledge CRNP [address] [place] [address] 04/24/2024 8:45 AM EST Hem/Onc Treatment Hematology/Oncology Treatment, [place] [address] [place] [phone] Park, Chair 2 Hem Onc Scenery [address] [place], [place] [address] 05/21/2024 8:45 AM EDT Hem/Onc Treatment Hematology/Oncology Treatment, [place] [address] [place] [phone] Kimberley, Chair 2 Hem Onc Scenery 200 [facility] [place] [address] 07/23/2024 3:20 PM EDT Office Visit Gastroenterology, [facility] [address] [place] [address] Chauncey Rodriguez MD [address] [place] [address] 09/03/2024 9:30 AM EDT Hospital Encounter ENDO OSSC, Endoscopy Room [facility] [address] [place] [phone] Chauncey Rodriguez MD [address] [place] [address] 09/03/2024 9:30 AM EDT - 09/03/2024 10:00 AM EDT Surgery ENDO OSS, Endoscopy Room [facility] [address] [place] [phone] Chauncey Rodriguez MD [address] [place] [address] COLONOSCOPY FLEXIBLE PROXIMAL DIAGNOSTIC 10/22/2024 8:00 AM EDT Office Visit General Internal Medicine [place] [address] [place] [address] Joy Hope MD [address] [facility] [place] [address] Scheduled Procedures Name Priority Associated Diagnoses Date/Ti [...] this encounter Medical Devices Implanted Type Area Heater Operator Device Identifier Shelf Expiration Date Model / Serial / Lot Clip Quick 2.8mm 230cm - [id number] Implanted:Qty: 1 on 02/23/2020 by Chauncey Rodriguez MD at ENDOSCOPY [facility] [employer] [facility] [id number] / / documented as of this encounter Care Teams Scrap Piler Relationship Specialty Start Date End Date Joy Hope MD [address] [place] [address] PCP - General Internal Medicine 01/05/17 documented as of this encounter
--- OUTSIDE RECORDS SUMMARY | 2024-04-26 14:32 | External Medical Summary ---
Author Name Unknown Address Unknown Organization : Laboratory Report Ordering Provider Test Date Status RICHARD OTERO 04/03/2024 08:38:51 Final Observation Date Value Abnormality Reference (Units ) Status 1,25-Dihydroxyvitamin D [Mass/volume] in Serum or Plasma 04/03/2024 08:38:51 19 18-72 (pg/mL) Final Calcitriol [Mass/volume] in Serum or Plasma 04/03/2024 08:38:51 19 (pg/mL) Final 1,25-Dihydroxyvitamin D2 [Mass/volume] in Serum or Plasma 04/03/2024 08:38:51 <8 (pg/mL) Final Vitamin D3, 1,25(OH)2 indica jolene both endogenous
production and supplementation. Vitamin D2, 1,25(OH)2
is an indicator of exogenous sources, such as diet or
supplementation. Interpretation and therapy are based
on measurement of Vitamin D,1,25(OH)2, Total.
This test was developed and its analytical
performance characteristics have been determined
by [facility], [place], [place].
It has not been cleared or approved by the FDA. This
assay has been validated pursuant to the CLIA
regulations and is used for clinical purposes.

Test Performed at:
[facility]
[address] [facility] [place] [address]
Minor Romero M.D., Ph.D.,Director of Laboratories Performing Location
--- OUTSIDE RECORDS SUMMARY | 2024-04-26 14:32 | External Medical Summary | Summary of Care ---
Author Name Unknown Organization [facility] Address [address] [place] [address] Phone [phone] Care Team Providers Care Caustic Strength Inspector Name Role Phone Joy Hope MD Primary Care Provider + Reason for Visit * Reason Comments Re-Check Encounter Details Date Type Department Care Team (Late st Contact Info) Description 04/03/2024 9:20 AM EST Office Visit General Internal Medicine [facility] Kimberley Wagoner [address] [place] [address] Joy Hope MD 200 [facility] [place] [address] Type 2 diabetes mellitus with hemoglobin A1c goal of less than 7.0% (HCC)*; Screening for depression; Severe obesity with body mass index (BMI) of 35.0 to 39.9 with serious comorbidity (HCC); Type 2 diabetes mellitus with diabetic polyneuropathy, without long-term current use of insulin (HCC); Adjustment disorder with depressed mood; HTN, goal below 140/90; Dyslipidemia, goal LDL below 100; Crohn's disease of both small and large [...] hemoglobin A1c goal of less than 7.0% ([facility]) USE UP TO 4 TIMES DAILY FOR [...] mRNA, LNP-s, No Pre serve, 2-Dose Series ([employer]) 01/14/2021,05/17/2020,04/19/2020 COVID-19, LNP-s, No Preserve , Dylan-sucrose, Ages 12+ ([employer]) 09/27/2021 COVID-19, MRNA-LNP, 24-25, P R, 30MCG/0.3ML, IM, 12YRS AND ABOVE ([employer]) 01/02/2024 COVID-19, MRNA-LNP, PF, 30 M CG/0.3 mL, 12 YRS AND ABOVE, IM ([employer]) 01/30/2023 Covid-19, Mrna, Lnp-s, Pf, B ivalent, 30 Mcg, IM, 12 yrs and above ([employer]) 01/17/2022 Hepatitis B, 20+ yrs 09/04/2016,05/13/2016,04/14 PPD 04/07/2016 Pneumococcal Conjugate Vacc, 13 Valent (Prevnar) 07/27/2016 Pneumococcal Conjugate Vacci ne, 20-valent ([id number]) 09/25/2023 Pneumococcal Polysaccharide PPV23 (Pneumovax) 07/18/2018,05/26/2008 RSV [...] 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 on file Not on file Not on file documented as of this encounter Last Filed Vital Signs Vital Sign Reading Time Taken Comments Blood Pressure 132/74 04/03/2024 9:27 AM EST Pulse 49 04/03/2024 9:27 AM EST Temperature 36 C (96.8 F) 04/03/2024 9:27 AM EST Respiratory Rate - - Oxygen Saturation 96% 04/03/2024 9:27 AM EST Inhaled Oxygen Concentration - - Weight 115.8 kg (255 lb 3.2 oz) 04/03/2024 9:27 AM EST Height 177.8 cm (5' 10") 04/03/2024 9:27 AM EST Body Mass Index 36.62 04/03/2024 9:27 AM EST documented in this encounter Progress Notes * Joy Hope MD - 04/03/2024 9:32 AM EST HPI: Pravin Hill Sr. is a 68 year old male with a history of type 2 diabetes mellitus, hyperlipidemia,Crohn's disease, essential hypertension, recurrent C diff infections, follows with GI and Cardiology regularly, history of depression, overall clinically stable at this time, who presents with: Chief Complaint Patient presents with Re-Check Patient is here for the recheck. Chart reviewed with the patient including current meds, last labs and HM. No acute event since we saw patient last time including no recent fall or injuries. Hemoglobin AIC Results: Lab Results Component Value Date/Time HEMOGLOBIN A1C - [facility] 6.3 (H) 09/13/2023 09:50 AM HEMOGLOBIN A1C - [facility] 6.5 (H) 03/08/2023 11:32 AM HEMOGLOBIN A1C - [facility] 6.2 (H) 07/11/2022 10:30 AM HEMOGLOBIN A1C - [facility] 8.1 (H) 02/03/2020 09:01 AM HEMOGLOBIN A1C - [facility] 6.4 (H) 08/01/2019 10:22 AM HEMOGLOBIN A1C - [facility] 6.2 (H) 07/18/2018 09:41 AM Reviewed recent GI note. Overall stable GI point of view while on Entyvio. No GI s/s at this time. Denies any chestpain/sob/palpitation/swealling in the legs. Follows with cardiology. Patient states he feels fine emotionally at this time. Patient Active Problem List Diagnosis Adjustment disorder with depressed mood Type 2 diabetes mellitus with hemoglobin A1c goal of less than 7.0% (HCC) DYSLIPIDEMIA, GOAL LDL BELOW 100 Severe obesity with body mass index (BMI) of 35.0 to 39.9 with serious comorbidity (HCC) HTN, goal below 140/90 Crohn's disease of both small and large intestine without complication (HCC) Type 2 diabetes mellitus with diabetic polyneuropathy (HCC) Type 2 diabetes mellitus with diabetic peripheral angiopathy without gangrene (HCC) Gastroesophageal reflux disease without esophagitis Current Outpatient Medications Medication Sig Dispense Refill [...] 1 Tablet by mouth every other day. Terazosin HCl 10 MG Oral Capsule TAKE [...] 1 Tablet before bedtime. 180 Tablet 3 [employer]end[employer] Ultra In Vitro Strip (Glucose Blood) USE UP TO 4 TIMES DAILY FOR TESTING BLOOD SUGAR 100 Strip 5 COVID-19 mRNA Vac-Dylan([employer]) 30 MCG/0.3ML Intramuscular Suspension Prefilled Syringe ([email or web address]) Inject into a large muscle. 0.3 mL 0 No current facility-administered medications for this visit. The patient's medication list was reviewed and updated as needed. 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 OBJECTIVE: BP 132/74 (BP Site: Left Arm, BP Position: Sitting, BP Cuff Size: Regular) | Pulse 49 | Temp 96.8 F (36 C) (Tympanic) | Ht 5' 10" (1.778 m) | Wt 255 lb 3.2 oz (115.8 kg) | SpO2 96% | BMI 36.62 kg/m | BSA 2.39 m PHYSICAL EXAM: HEENT: PERRLA, EOMI, anicteric sclera, b/l tympanic membrane is pearly white, no erythema, no pharyngeal erythema, no lymphadenopathy, neck supple CVS: RRR, no murmurs, rubs or gallops, s1 s 2normal. RESP: clear to auscultation, no wheezing or crackles ABD: soft, NT/ND EXT: no edema, cyanosis, peripheral pulses palpable bilaterally No large joint swelling, no redness, range of motion normal. Skin normal. Gait normal. Mood stable No focal weakness ASSESSMENT AND PLAN: Type 2 diabetes mellitus with hemoglobin A1c goal of less than 7.0% ([facility]) (Primary) - HEMOGLOBIN A1C; Future; Expected date: 04/03/2024 Continue current medications including metformin. Advised B12 1 mg orally once a day. Screening for depression - DEPRESSION SCREENING PERFORMED Severe obesity with body mass index (BMI) of 35.0 to 39.9 with serious comorbidity (HCC) Type 2 diabetes mellitus with diabetic polyneuropathy, without long-term current use of insulin (HCC) Adjustment disorder with depressed mood Stable and off any medications. HTN, goal below 140/90 Continue current dose of atenolol, chlorthalidone, enalapril, felodipine, Aldactone, terazosin. Dyslipidemia, goal LDL below 100 Continue current dose of statin. Last LDL in September of 2023 was well controlled under 70. Crohn's disease of both small and large intestine without complication (HCC) GI symptoms well controlled. Reviewed recent GI note. Continue Entyvio once a month current dosage. Joy Hope MD documented in this encounter Nursing Notes * Loren Gomez CMA - 04/03/2024 9:27 AM EST Pravin Hill Sr. presents for 6 month recheck. He denies any new concerns at this time. Medications & HM reviewed. documented in this encounter Plan of Treatment Upcoming Encounters Date Type Department Care Team (Latest Contact Info) Description 04/08/2024 9:30 AM EST Office Visit Cardiology, [facility] [address] [place] [address] Batsheva Rutledge CRNP [address] [place] [address] 04/24/2024 8:45 AM EST Hem/Onc Treatment Hematology/[address], [address] [phone] Kimberley, Chair 2 Hem [address] [address] 05/21/2024 8:45 AM EDT Hem/Onc Treatment Hematology/Oncology Treatment, [address] [place], [place] [address] Kimberley, Chair 2 Hem Onc [facility] [address] [facility] [place] [address] 07/23/2024 3:20 PM EDT Office Visit Gastroenterology, [facility] [address] [place] [address] Chauncey Rodriguez MD [address] [place] [address] 09/03/2024 9:30 AM EDT Hospital Encounter ENDO OSSC, Endoscopy Room [facility] [address] [place] [phone] Chauncey Rodriguez MD [address] [place] [address] 09/03/2024 9:30 AM EDT - 09/03/2024 10:00 AM EDT Surgery ENDO OSSC, Endoscopy Room [facility] [address] [place] [phone] Chauncey Rodriguez MD [address] [place] [address] COLONOSCOPY FLEXIBLE PROXIMAL DIAGNOSTIC 10/22/2024 8:00 AM EDT Office Visit General Internal Medicine [facility] Kimberley [place]er [address] [place] [address] Joy Hope MD [address] [facility] [place] [address] Pending Results Name Type Priority Associated Diagnoses Date /Time HEMOGLOBIN A1C Lab Routine Type 2 diabetes mellitus with hemoglobin A1c goal of less than 7.0% (HCC) 04/03/2024 8:38 AM EST Scheduled Orders Name Type Priority Associated Diagnoses Orde r Schedule HEMOGLOBIN A1C Lab Routine Type 2 diabetes mellitus with hemoglobin A1c goal of less than 7.0% (HCC) Expected: 04/03/2024 (Approximate), Expires: 05/02/2025 Scheduled Procedures Name Priority Associated Diagnoses Date/Ti [...] 09/12/2024 09/13/2023, 03/05, 03/22/2021, Additional history exists Diabetic Eye Exam 01/06/2025 [...] this encounter Medical Devices Implanted Type Area Engineering Secretary Device Identifier Shelf Expiration Date Model / Serial / Lot Clip Quick 2.8mm 230cm - [id number] Implanted:Qty: 1 on 02/23/2020 by Chauncey Rodriguez MD at ENDOSCOPY [facility] Colon [employer] [id number] / / documented as of this encounter Visit Diagnoses Diagnosis Type 2 diabetes mellitus with hemoglobin A1c goal of less than 7.0% (HCC)- Primary Screening for depression Severe obesity with body mass index (BMI) of 35.0 to 39.9 with serious comorbidity (HCC) Type 2 diabetes mellitus with diabetic polyneuropathy, without long-term current use of insulin (HCC) Adjustment disorder with depressed mood HTN, goal below 140/90 Unspecified essential hypertension Dyslipidemia, goal LDL below 100 Other and unspecified hyperlipidemia Crohn's disease of both small and large intestine without complication (HCC) Regional enteritis of small intestine with large intestine IBD (inflammatory bowel disease) Other and unspecified noninfectious gastroenteritis and colitis documented in this encounter Care Teams Caustic Strength Inspector Relationship Specialty Start Date End Date Joy Hope MD 200 [place] [address] PCP - General Internal Medicine 01/05/17 documented as of this encounter
--- OUTSIDE RECORDS SUMMARY | 2024-04-26 14:32 | External Medical Summary ---
Author Name Unknown Address Unknown Organization K09:[facility] [place] [address] Laboratory Report Ordering Provider Test Date Status RICHARD OTERO 04/03/2024 08:38:51 Final Observation Date Value Abnormality Reference (Units ) Status SYNC LEUKOCYTES IN BLOOD BY AUTOMATED COUNT 04/03/2024 08:38:51 9.50 4.00-10.80 (K/uL) Final Segs 04/03/2024 08:38:51 56.1 40.0-75.0 (%) Final Lymphs % 04/03/2024 08:38:51 32.2 18.0-42.0 (%) Final Monos 04/03/2024 08:38:51 8.3 1.0-11.0 (%) Final Eosinophils 04/03/2024 08:38:51 3.1 0.0-6.0 (%) Final Basos 04/03/2024 08:38:51 0.3 0.0-2.0 (%) Final Absolute Segs 04/03/2024 08:38:51 5.33 1.80-7.70 (K/uL) Final Lymphs, absolute 04/03/2024 08:38:51 3.06 1.00-4.80 (K/ul) Final Monos, Abs 04/03/2024 08:38:51 0.79 0.00-1.10 (K/uL) Final Eos, Abs 04/03/2024 08:38:51 0.29 0.00-0.70 (K/uL) Final Basos, Abs 04/03/2024 08:38:51 0.03 0.00-0.20 (K/uL) Final Performing Location [facility] [place] [address]
--- OUTSIDE RECORDS SUMMARY | 2024-04-26 14:32 | External Medical Summary ---
Author Name Unknown Address Unknown Organization K09:[facility] [address] [place] [address] Laboratory Report Ordering Provider Test Date Status RICHARD OTERO 04/03/2024 08:38:51 Final Observation Date Value Abnormality Reference (Units ) Status BUN 04/03/2024 08:38:51 23 Above high normal 6-20 (mg/dL) Final Creatinine 04/03/2024 08:38:51 1.4 Above high normal 0.6-1.2 (mg/dL) Final Glomerular filtration rate/1.73 sq M.predicted [Volume Rate/Area] in Serum, Plasma or Blood by Creatinine-based formula (CKD-EPI) 04/03/2024 08:38:51 57 Below low normal >=60 (mL/min) Final eGFR is calculated based on the CKD-EPI 2020 equation. Sodium 04/03/2024 08:38:51 141 135-146 (m mol/L) Final Potassium 04/03/2024 08:38:51 4.8 3.5-5.1 (m mol/L) Final Cl 04/03/2024 08:38:51 101 98-107 (mm ol/L) Final CO2 04/03/2024 08:38:51 27 22-32 (mmo l/L) Final Anion gap 04/03/2024 08:38:51 13 7-15 (mmol /L) Final Glucose 04/03/2024 08:38:51 157 Above high normal 70 -120 (mg/dL) Final Albumin 04/03/2024 08:38:51 4.5 3.8-5.0 (g /dL) Final AST (Aspartate aminotransferase) 04/03/2024 08:38:51 15 10-50 (U/L) Fin al Alk Phos 04/03/2024 08:38:51 81 35-130 (U/ L) Final Bilirubin, Total 04/03/2024 08:38:51 0.5 <=1 .2 (mg/dL) Final Calcium 04/03/2024 08:38:51 10.4 Above high normal 8. 4-10.2 (mg/dL) Final Protein 04/03/2024 08:38:51 7.0 6.0-8.3 (g /dL) Final ALT (Alanine aminotransferase) 04/03/2024 08:38:51 19 10-50 (U/L) Jermain renee Performing Location [facility] [address] [place] [address]
--- OUTSIDE RECORDS SUMMARY | 2024-04-26 14:32 | External Medical Summary ---
Author Name Unknown Address Unknown Organization K01:[facility] - [address] [place] [address] Laboratory Report Ordering Provider Test Date Status TREMAYNE BARCENAS 04/03/2024 08:38:51 Final Observation Date Value Abnormality Reference (Units ) Status HbA1C 04/03/2024 08:38:51 6.2 Above high normal 4. 0-5.6 (%) Final The use of HbA1c to monitor glycemic status is based on normal hemoglobin and HbA composition. This test should not be used in patients with abnormal hemoglobin that affects the half life of the red blood cell or the in vivo glycation rates. Glucose, estimated average 04/03/2024 08:38:51 131 Above high normal <126 (mg/dL) Jermain renee Performing Location [facility] - [address] [place] [address]
--- OUTSIDE RECORDS SUMMARY | 2024-04-26 14:32 | External Medical Summary | Summary of Care ---
Author Name Unknown Organization [facility] Address [address] [place] [address] Phone [phone] Care Team Providers Care Clinical Research Associate Name Role Phone Joy Hope MD Primary Care Provider + Encounter Details Date Type Department Care Team (Late st Contact Info) Description 03/28/2024 Orders Only PATIENT PORTAL DO NOT DELETE THIS DEPT USED BY [place] [id number] Allergies No known active allergiesdocumented as of this encounter (statuses as of 03/28/2024) Medications ASPIRIN 81 MG PO TABSIndications:ta kes [...] as of this encounter (statuses as of 03/28/2024) Active Problems Problem Noted Date Diagnosed Date [...] as of this encounter (statuses as of 03/28/2024) Resolved Problems Problem Noted Date Diagnosed Date [...] as of this encounter (statuses as of 03/28/2024) Immunizations Name Administration Dates Next Due COVID-19 mRNA, LNP-s, No Pre serve, 2-Dose Series ([employer]) 01/14/2021,05/17/2020,04/19/2020 COVID-19, LNP-s, No Preserve , Dylan-sucrose, Ages 12+ ([employer]) 09/27/2021 COVID-19, MRNA-LNP, 24-25, P R, 30MCG/0.3ML, IM, 12YRS AND ABOVE ([facility]) 01/02/2024 COVID-19, MRNA-LNP, PF, 30 M CG/0.3 mL, 12 YRS AND ABOVE, IM ([facility]) 01/30/2023 Covid-19, Mrna, Lnp-s, Pf, B ivalent, 30 Mcg, IM, 12 yrs and above ([employer]) 01/17/2022 Hepatitis B, 20+ yrs 09/04/2016,05/13/2016,04/14 PPD 04/07/2016 Pneumococcal Conjugate Vacc, 13 Valent (Prevnar) 07/27/2016 Pneumococcal Conjugate Vacci ne, 20-valent ([id number]) 09/25/2023 Pneumococcal Polysaccharide PPV23 (Pneumovax) 07/18/2018,05/26/2008 RSV [...] 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 Not on file Not on file documented as of this encounter Plan of Treatment Upcoming Encounters Date Type Department Care Team (Latest Contact Info) Description 04/03/2024 9:20 AM EST Office Visit General Internal Medicine [place] [address] [place] [address] Joy Hope MD [address] [place] [address] 04/08/2024 9:30 AM EST Office Visit Cardiology, [facility] [address] [place] [address] Batsheva Rutledge CRNP [address] [place] [address] 04/24/2024 8:45 AM EST Hem/Onc Treatment Hematology/Oncology Treatment, [place] [address] [facility], [place] [phone] Kimberley, Chair 2 Hem Onc Scenery [address] [place] [address] 05/21/2024 8:45 AM EDT Hem/Onc Treatment Hematology/Oncology Treatment, [place] [address] [facility], [place] [phone] Kimberley, Chair 2 Hem Onc Scenery [address] [place] [address] 07/23/2024 3:20 PM EDT Office Visit Gastroenterology, [facility] [address] [place] [address] Chauncey Rodriguez MD [address] [place] [address] 09/03/2024 9:30 AM EDT Hospital Encounter ENDO OSSC, Endoscopy Room [facility] [address] [place] [phone] Chauncey Rodriguez MD [address] [place] [address] 09/03/2024 9:30 AM EDT - 09/03/2024 10:00 AM EDT Surgery ENDO OSSC, Endoscopy Room [facility] [address] [place] [phone] Chauncey Rodriguez MD [address] [place] [address] COLONOSCOPY FLEXIBLE PROXIMAL DIAGNOSTIC Scheduled Procedures Name Priority Associated Diagnoses Date/Ti [...] Additional history exists Lipid Panel 09/12/2028 09/13/2023, 050 11/2022, 09/20/2021, Additional history exists Hepatitis B [...] this encounter Medical Devices Implanted Type Area Senior Caregiver Device Identifier Shelf Expiration Date Model / Serial / Lot Clip Quick 2.8mm 230cm - [id number] Implanted:Qty: 1 on 02/23/2020 by Chauncey Rodriguez MD at ENDOSCOPY [facility] Colon [employer] [id number] / / documented as of this encounter Care Teams Clinical Research Associate Relationship Specialty Start Date End Date Joy Hope MD 200 [facility] [place] [address] PCP - General Internal Medicine 01/05/17 documented as of this encounter
--- OUTSIDE RECORDS SUMMARY | 2024-04-26 14:32 | External Medical Summary ---
Author Name Unknown Address Unknown Organization K01:[facility] - [address] [place] [address] Laboratory Report Ordering Provider Test Date Status RICHARD OTERO 04/03/2024 08:38:51 Final Observation Date Value Abnormality Reference (Units ) Status CRP, low-sensitivity 04/03/2024 08:38:51 <3 <=5 (mg/L) Final Performing Location [facility] [address] [facility] [address]
--- OUTSIDE RECORDS SUMMARY | 2024-04-26 14:33 | External Medical Summary | Summary of Care ---
Author Name Unknown Organization [facility] Address [address] [place] [address] Phone [phone] Care Team Providers Care Assembly Line Brazer Name Role Phone Swapna Hope MD Primary Care Provider + Reason for Visit * Reason Comments Medication Refill Encounter Details Date Type Department Care Team (Late st Contact Info) Description 03/25/2024 Refill General Internal Medicine [facility] [place] [address] [facility] [place] [address] Swapna Hope MD 200 [place] [address] Type 2 diabetes mellitus with hemoglobin A1c goal of less than 7.0% ([facility]) Allergies No known active allergiesdocumented as of this encounter (statuses as of 03/25/2024) Medications ASPIRIN 81 MG PO TABSIndications:t akes [...] hemoglobin A1c goal of less than 7.0% ([facility]) USE UP TO 4 TIMES DAILY FOR TESTING BLOOD SUGAR 100 Strip 5 10/26/2022 11:41 AM EDT 3 Active Terazosin HCl 10 MG Oral CapsuleIndication [...] 3 02/26/2024 12:11 PM EST 4 Active Enalapril Maleate 20 MG Oral Tablet (Vasotec)Indicati ons:HTN, goal below 140/90 Take 1 Tablet by mouth in the morning. 120 Tablet 3 02/26/2024 12:11 PM EST 4 [...] EVENING MEALS. 400 Tablet 1 5 Active metFORMIN HCl 500 MG Oral Tablet (Glucophage)Indic ations:Type 2 diabetes mellitus with hemoglobin A1c goal of less than 7.0% (HCC) TAKE TWO TABLETS BY MOUTH TWICE A DAY WITH MORNING AND EVENING MEALS. 360 Tablet 1 12/27/2023 7:09 AM EDT 4 03/25/19 25 Discontinu ed(Refill) documented as of this encounter (statuses as of 03/25/2024) Active Problems Problem Noted Date Diagnosed Date [...] as of this encounter (statuses as of 03/25/2024) Resolved Problems Problem Noted Date Diagnosed Date [...] as of this encounter (statuses as of 03/25/2024) Immunizations Name Administration Dates Next Due COVID-19 mRNA, LNP-s, No Pre serve, 2-Dose Series (6Sense) 01/14/2021,05/17/2020,04/19/2020 COVID-19, LNP-s, No Preserve , Dylan-sucrose, Ages 12+ (6Sense) 09/27/2021 COVID-19, MRNA-LNP, 24-25, P R, 30MCG/0.3ML, IM, 12YRS AND ABOVE (6Sense-ComirnatKeyCAPTCHA) 01/02/2024 COVID-19, MRNA-LNP, PF, 30 M CG/0.3 mL, 12 YRS AND ABOVE, IM ([employer]OS Systems-Mobi TechirnatKeyCAPTCHA) 01/30/2023 Covid-19, Mrna, Lnp-s, Pf, B ivalent, 30 Mcg, IM, 12 yrs and above ([employer]Sense) 01/17/2022 Hepatitis B, 20+ yrs 09/04/2016,05/13/2016,04/14 PPD 04/07/2016 Pneumococcal Conjugate Vacc, 13 Valent (Prevnar) 07/27/2016 Pneumococcal Conjugate Vacci ne, 20-valent ([id number]) 09/25/2023 Pneumococcal Polysaccharide PPV23 (Pneumovax) 07/18/2018,05/26/2008 RSV [...] 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 on file Not on file Not on file documented as of this encounter Miscellaneous Notes * Telephone Encounter - Maulik Cantrell [facility] - 03/25/2024 3:26 PM ESTSigned Prescriptions: Disp Refills metFORMIN HCl 500 MG Oral Tablet (Glucopha*400 Ta*1 Sig: TAKE TWO TABLETS BY MOUTH TWICE A DAY WITH MORNING AND EVENING MEALS.Authorizing Provider: SWAPNA HOPE User: MAULIK CANTRELL documented in this encounter Plan of Treatment Upcoming Encounters Date Type Department Care Team (Late st Contact Info) Description 03/26/2024 8:45 AM EST Hem/Onc Treatment [facility]ematology[facility], [place] [facility] [phone] Kimberley, Chair 2 Hem Onc [address] [place] [address] 04/03/2024 9:20 AM EST Office Visit General Internal Medicine [facility] [address] [facility] [place] [address] Swapna Hope MD [address] [facility] [place] [address] 04/08/2024 9:30 AM EST Office Visit Cardiology, [facility] 132 [facility] [place] [address] Batsheva Rutledge CRNP [address] [place] [address] 04/24/2024 8:45 AM EST Hem/Onc Treatment Hematology/Oncology Treatment, [place] [address] [place] [phone] Kimberley, Chair 2 Hem Onc [address] [place] [address] 05/21/2024 8:45 AM EDT Hem/Onc Treatment Hematology/Oncology Treatment, [place] [address] [place] [phone] Kimberley, Chair 2 Hem Onc [address] [place], [place] [address] 07/23/2024 3:20 PM EDT Office Visit Gastroenterology, [facility] [address] [place] [address] Chauncey Rodriguez MD [address] [place] [address] Scheduled Procedures Name Priority Associated Diagnoses Date/Ti [...] this encounter Medical Devices Implanted Type Area Reaming Machine Operator For Plastic Device Identifier Shelf Expiration Date Model / Serial / Lot Clip Quick 2.8mm 230cm - [id number] Implanted:Qty: 1 on 02/23/2020 by Chauncey Rodriguez MD at ENDOSCOPY [facility] Colon [employer] [facility] [id number] / / documented as of this encounter Visit Diagnoses Diagnosis Type 2 diabetes mellitus with hemoglobin A1c goal of less than 7.0% (HCC) documented in this encounter Care Teams Assembly Line Brazer Relationship Specialty Start Date End Date Swapna Hope MD [address] [place] [address] PCP - General Internal Medicine 01/05/17 documented as of this encounter
--- OUTSIDE RECORDS SUMMARY | 2024-04-26 14:33 | External Medical Summary | Summary of Care ---
Author Name Unknown Organization [facility] Address [address] [place] [address] Phone [phone] Care Team Providers Care Solid Waste Landfill Technician Name Role Phone Joy Hope MD Primary Care Provider + Reason for Visit * Reason Onset Date Comments Pre Cert/Prior Auth 03/12/2024 Encounter Details Date Type Department Care Team (Late st Contact Info) Description 03/12/2024 Telephone Gastroenterology, [facility] [address] [place] [address] Chauncey Rodriguez MD [address] [place] [address] Pre Cert/Prior Auth Allergies No known active allergiesdocumented as of this encounter (statuses as of 03/25/2024) Medications ASPIRIN 81 MG PO TABSIndications:ta kes [...] hemoglobin A1c goal of less than 7.0% ([facility]) USE UP TO 4 TIMES [...] 3 09/27/2023 2:27 PM EDT 4 Active metFORMIN HCl 500 MG Oral Tablet (Glucophage)Indica tions:Type 2 diabetes mellitus with hemoglobin A1c goal of less than 7.0% (HCC) TAKE TWO TABLETS BY MOUTH TWICE A DAY WITH MORNING AND EVENING MEALS. 360 Tablet 1 12/27/2023 7:09 AM EDT 4 10/03/19 25 Active Potassium Chloride Eulalia ER 20 MEQ [...] 1 01/09/2024 6:38 PM EST 4 Active documented as of this encounter (statuses [...] mRNA, LNP-s, No Pre serve, 2-Dose Series ([employer] 01/14/2021,05/17/2020,04/19/2020 COVID-19, LNP-s, No Preserve , Dylan-sucrose, Ages 12+ ([employer].) 09/27/2021 COVID-19, MRNA-LNP, 24-25, P R, 30MCG/0.3ML, IM, 12YRS AND ABOVE (Intention TechnologyPANTA Systems) 01/02/2024 COVID-19, MRNA-LNP, PF, 30 M CG/0.3 mL, 12 YRS AND ABOVE, IM (TaodyneirnatImpactGames) 01/30/2023 Covid-19, Mrna, Lnp-s, Pf, B ivalent, 30 Mcg, IM, 12 yrs and above ([employer].) 01/17/2022 Diptheria/Tetanus (Adult) 06/15/1998,03/05/1989 06/15/2008 Hepatitis B, 20+ yrs 09/04/2016,05/13/2016,04/14 PPD 04/07/2016 Pneumococcal Conjugate Vacc, 13 Valent (Prevnar) 07/27/2016 Pneumococcal Conjugate Vacci ne, 20-valent ([id number]) 09/25/2023 Pneumococcal Polysaccharide PPV23 (Pneumovax) 07/18/2018,05/26/2008,04/02/2008(Defe rred: [...] 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 * Telephone Encounter - Kaylyn Henderson OSA - 03/24/2024 1:59 PM EST Pt is requesting a call back regarding update on authorization. Please call pt back. * Telephone Encounter - Rica Feldman CPhT - 03/24/2024 1:55 PM EST Pt returning call from Gastro office, transferred to office for further assistance. Thank you, Rica Feldman CPhT Press Assistant II [facility] ([facility] 03/24/2024,1:56 PM * Telephone Encounter - Teodoro Castillo RPh - 03/24/2024 1:40 PM EST The patient's next infusion is during the current valid auth dates. The pre-cert team works a queueand will work the re-authorization prior to the infusion due in April. * Telephone Encounter - Bella Bacon LPN - 03/12/2024 11:37 AM EST Gastro Pre-Cert Request Specialty Medication: Yes. Medication/Disease State Information: Medication: Vedolizumab (Entyvio) Maintenance: 300mg IV every 4 weeks Diagnosis (including ICD-10): Crohn's disease K50.90. Specialty medication - route to [id number]. Referral to pharmacist for: co-management. Office Information: Prescriber: Chauncey Rodriguez MD Current auth exp 03/30/2024. Next injection is 03/26/2024 Next appt is 07/23/2024 documented in this encounter Plan of Treatment Upcoming Encounters Date Type Department Care Team (Late st Contact Info) Description 03/26/2024 8:45 AM EST Hem/Onc Treatment Hematology/Oncology Treatment, [address] [phone] Kimberley, Chair 2 Hem Onc [address] [place] [address] 04/03/2024 9:20 AM EST Office Visit General Internal Medicine [address] [place] [address] Joy Hope MD [address] [place] [address] [place] [address] 04/08/2024 9:30 AM EST Office Visit Cardiology, [facility] [address] [facility] [address] Batsheva Rutledge CRNP [facility] [place] [address] 04/24/2024 8:45 AM EST Hem/Onc Treatment Hematology/Oncology Treatment, [address] [phone] Kimberley, Chair 2 Hem Onc [address] [place] [address] 07/23/2024 3:20 PM EDT Office Visit Gastroenterology, [facility] [address] [place] [address] Chauncey Rodriguez MD [address] [place] [address] Scheduled Procedures Name Priority Associated Diagnoses Date/Ti [...] this encounter Medical Devices Implanted Type Area Raymond Mill Operator Device Identifier Shelf Expiration Date Model / Serial / Lot Clip Quick 2.8mm 230cm - [id number] Implanted:Qty: 1 on 02/23/2020 by Chauncey Rodriguez MD at ENDOSCOPY [facility] Colon [id number] HX-.A / / documented as of this encounter Care Teams Solid Waste Landfill Technician Relationship Specialty Start Date End Date Joy Hope MD 200 [facility] [place] [address] PCP - General Internal Medicine 01/05/17 documented as of this encounter
--- OUTSIDE RECORDS SUMMARY | 2024-04-26 14:33 | External Medical Summary | Summary of Care ---
Author Name Unknown Organization [facility] Address [address] [place] [address] Phone [phone] Care Team Providers Care Client Operations Manager Name Role Phone Joy Hope MD Primary Care Provider + Encounter Details Date Type Department Care Team (Late st Contact Info) Description 03/26/2024 Telephone Hematology/Oncology [facility] [address] [place] [address] Chauncey Rodriguez MD [address] [place] [address] Allergies No known active allergiesdocumented [...] hemoglobin A1c goal of less than 7.0% ([facility]) USE UP TO 4 TIMES DAILY [...] hemoglobin A1c goal of less than 7.0% ([facility]) TAKE ONE TABLET BY MOUTH IN THE [...] mRNA, LNP-s, No Pre serve, 2-Dose Series ([employer]) 01/14/2021,05/17/2020,04/19/2020 COVID-19, LNP-s, No Preserve , Dylan-sucrose, Ages 12+ ([employer]) 09/27/2021 COVID-19, MRNA-LNP, 24-25, P R, 30MCG/0.3ML, IM, 12YRS AND ABOVE ([employer]) 01/02/2024 COVID-19, MRNA-LNP, PF, 30 M CG/0.3 mL, 12 YRS AND ABOVE, IM (Wipit) 01/30/2023 Covid-19, Mrna, Lnp-s, Pf, B ivalent, 30 Mcg, IM, 12 yrs and above ([employer]) 01/17/2022 Diptheria/Tetanus (Adult) 06/15/1998,03/05/1989 06/15/2008 Hepatitis B, 20+ yrs 09/04/2016,05/13/2016,04/14 PPD 04/07/2016 Pneumococcal Conjugate Vacc, 13 Valent (Prevnar) 07/27/2016 Pneumococcal Conjugate Vacci ne, 20-valent ([id number]) 09/25/2023 Pneumococcal Polysaccharide PPV23 (Pneumovax) 07/18/2018,05/26/2008,04/02/2008(Defe rred: [...] 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 Routing to ,[facility],Provider. " Pt is scheduled 04/24 for next Entyvio. documented in this encounter Plan of Treatment Upcoming Encounters Date Type Department Care Team (Late st Contact Info) Description 04/03/2024 9:20 AM EST Office Visit General Internal Medicine [facility] 200 [facility] [place] [address] Joy Hope MD 200 [facility] [place] [address] 04/08/2024 9:30 AM EST Office Visit Cardiology, [facility] [address] [place] [address] Batsheva Rutledge CRNP [address] [place] [address] 04/24/2024 8:45 AM EST Hem/Onc Treatment Hematology/Oncology Treatment, [place] 200 [facility] [place] [phone] Kimberley, Chair 2 Hem Onc [address] [place] [address] 05/21/2024 8:45 AM EDT Hem/Onc Treatment Hematology/Oncology Treatment, [place] [address] [place] [phone] Kimberley, Chair 2 Hem Onc [address] [place] [address] 07/23/2024 3:20 PM EDT Office Visit Gastroenterology, [facility] [address] [place] [address] Chauncey Rodriguez MD [address] [place] [address] Scheduled Procedures Name Priority Associated Diagnoses Date/Ti [...] this encounter Medical Devices Implanted Type Area Software Development Intern Device Identifier Shelf Expiration Date Model / Serial / Lot Clip Quick 2.8mm 230cm - [id number] Implanted:Qty: 1 on 02/23/2020 by Chauncey Rodriguez MD at ENDOSCOPY [facility] Colon [employer] HX-.A / / documented as of this encounter Care Teams Client Operations Manager Relationship Specialty Start Date End Date Joy Hope MD 200 [place] [address] PCP - General Internal Medicine 01/05/17 documented as of this encounter
--- OUTSIDE RECORDS SUMMARY | 2024-04-26 14:33 | External Medical Summary | Summary of Care ---
Author Name Unknown Organization [facility] Address [address] [place] [address] Phone [phone] Care Team Providers Care Apartment Community Assistant Manager Name Role Phone Joy Hope MD Primary Care Provider + Encounter Details Date Type Department Care Team (Late st Contact Info) Description 03/26/2024 Telephone Hematology/Oncology [facility] [address] [place] [address] Chauncey Rodriguez MD [address] [place] [address] Allergies No known active allergiesdocumented [...] A1c goal of less than 7.0% ([facility]) USE UP TO 4 TIMES DAILY FOR [...] A1c goal of less than 7.0% ([facility]) TAKE ONE TABLET BY MOUTH IN THE [...] mRNA, LNP-s, No Pre serve, 2-Dose Series ([employer]) 01/14/2021,05/17/2020,04/19/2020 COVID-19, LNP-s, No Preserve , Dylan-sucrose, Ages 12+ ([employer]) 09/27/2021 COVID-19, MRNA-LNP, 24-25, P R, 30MCG/0.3ML, IM, 12YRS AND ABOVE ([employer]) 01/02/2024 COVID-19, MRNA-LNP, PF, 30 M CG/0.3 mL, 12 YRS AND ABOVE, IM ([employer]) 01/30/2023 Covid-19, Mrna, Lnp-s, Pf, B ivalent, 30 Mcg, IM, 12 yrs and above ([employer]) 01/17/2022 Diptheria/Tetanus (Adult) 06/15/1998,03/05/1989 06/15/2008 Hepatitis B, 20+ yrs 09/04/2016,05/13/2016,04/14 PPD 04/07/2016 Pneumococcal Conjugate Vacc, 13 Valent (Prevnar) 07/27/2016 Pneumococcal Conjugate Vacci ne, 20-valent ([id number]) 09/25/2023 Pneumococcal Polysaccharide PPV23 (Pneumovax) 07/18/2018,05/26/2008,04/02/2008(Defe rred: [...] 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 Patient is not scheduled for follow up with your office until July. * Telephone Encounter - Bella Bacon LPN - 03/26/2024 10:13 AM EST Teodoro Castillo [facility] 03/24/24 1:42 PM Note The patient's next [...] to obtain a new auth. Routing to ,[facility],Provider. " Pt is scheduled 04/24 for next Entyvio. documented in this encounter Plan of Treatment Upcoming Encounters Date Type Department Care Team (Late st Contact Info) Description 04/03/2024 9:20 AM EST Office Visit General Internal Medicine [facility] Kimberley [place] [address] [place] [address] [address] Joy Hope MD [address] [place] [address] [place] [address] 04/08/2024 9:30 AM EST Office Visit Cardiology, [facility] 132 [facility] [place] [address] Batsheva Rutledge CRNP [address] [place] [address] 04/24/2024 8:45 AM EST Hem/Onc Treatment Hematology/Oncology Treatment, [place] [address] [place], [place] [phone] Kimberley, Chair 2 Hem Onc [facility] 200 [facility] [place] [address] 05/21/2024 8:45 AM EDT Hem/Onc Treatment Hematology/Oncology Treatment, [place] [address] [facility] [phone] Kimberley, Chair 2 Hem Onc [facility] 200 [facility] [place] [address] 07/23/2024 3:20 PM EDT Office Visit Gastroenterology, [facility] [address] [place] [address] Chauncey Rodriguez MD [address] [place] [address] Scheduled Procedures Name Priority Associated Diagnoses Date/Ti [...] this encounter Medical Devices Implanted Type Area Metallurgical Laboratory Assistant Device Identifier Shelf Expiration Date Model / Serial / Lot Clip Quick 2.8mm 230cm - [id number] Implanted:Qty: 1 on 02/23/2020 by Chauncey Rodriguez MD at ENDOSCOPY [facility] Colon [employer] [id number] / / documented as of this encounter Care Teams Apartment Community Assistant Manager Relationship Specialty Start Date End Date Joy Hope MD 200 [facility] [place] [address] PCP - General Internal Medicine 01/05/17 documented as of this encounter
--- OUTSIDE RECORDS SUMMARY | 2024-04-26 14:33 | External Medical Summary | Summary of Care ---
Author Name Unknown Organization [facility] Address [address] [place] [address] Phone [phone] Care Team Providers Care Custom Feed Mill Operator Name Role Phone Joy Hope MD Primary Care Provider + Encounter Details Date Type Department Care Team (Late st Contact Info) Description 03/25/2024 Orders Only Gastroenterology, [facility] [place] [address] Chauncey Rodriguez MD 132 [facility] [place] [address] Allergies No known active allergiesdocumented as of [...] A1c goal of less than 7.0% ([facility]) USE UP TO 4 TIMES DAILY FOR [...] EVENING MEALS. 400 Tablet 1 5 Active documented as of this encounter [...] mRNA, LNP-s, No Pre serve, 2-Dose Series ([employer]) 01/14/2021,05/17/2020,04/19/2020 COVID-19, LNP-s, No Preserve , Dylan-sucrose, Ages 12+ (Pfizer) 09/27/2021 COVID-19, MRNA-LNP, 24-25, P R, 30MCG/0.3ML, IM, 12YRS AND ABOVE ([facility]) 01/02/2024 COVID-19, MRNA-LNP, PF, 30 M CG/0.3 mL, 12 YRS AND ABOVE, IM ([facility]) 01/30/2023 Covid-19, Mrna, Lnp-s, Pf, B ivalent, 30 Mcg, IM, 12 yrs and above (iSTAR) 01/17/2022 Hepatitis B, 20+ yrs 09/04/2016,05/13/2016,04/14 PPD 04/07/2016 Pneumococcal Conjugate Vacc, 13 Valent (Prevnar) 07/27/2016 Pneumococcal Conjugate Vacci ne, 20-valent ([id number]) 09/25/2023 Pneumococcal Polysaccharide PPV23 (Pneumovax) 07/18/2018,05/26/2008 RSV [...] 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 Not on file Not on file documented as of this encounter Plan of Treatment Upcoming Encounters Date Type Department Care Team (Late st Contact Info) Description 03/26/2024 8:45 AM EST Hem/Onc Treatment Hematology/Oncology Treatment, [place] 200 [facility], [place] [phone] Kimberley, Chair 2 Hem Onc [address] [place], [place] [address] 04/03/2024 9:20 AM EST Office Visit General Internal Medicine [facility] [place] 200 [facility] [place] [address] Joy Hope MD 200 [facility] [place], [place] [address] 04/08/2024 9:30 AM EST Office Visit Cardiology, [facility] [address] [employer] [place] [address] Batsheva Rutledge CRNP [address] [place] [address] 04/24/2024 8:45 AM EST Hem/Onc Treatment Hematology/Oncology Treatment[address], [place] [phone] Kimberley, Chair 2 Hem Onc [address] [place], [place] [address] 05/21/2024 8:45 AM EDT Hem/Onc Treatment Hematology/Oncology Treatment[address], [place] [phone] Kimberley, Chair 2 Hem Onc [address] [place], [place] [address] 07/23/2024 3:20 PM EDT Office Visit Gastroenterology, [facility] [address] [place] [address] Chauncey Rodriguez MD [address] [place] [address] Scheduled Procedures Name Priority Associated Diagnoses Date/Ti [...] Additional history exists Lipid Panel 09/12/2028 09/13/2023, 0 11/2022, 09/20/2021, Additional history exists Hepatitis B [...] this encounter Medical Devices Implanted Type Area Orthotist Prosthetist Device Identifier Shelf Expiration Date Model / Serial / Lot Clip Quick 2.8mm 230cm - [id number] Implanted:Qty: 1 on 02/23/2020 by Chauncey Rodriguez MD at END[facility]COPY [facility] Colon [employer] [id number].A / / documented as of this encounter Care Teams Custom Feed Mill Operator Relationship Specialty Start Date End Date Joy Hope MD 200 [facility] [place] [address] PCP - General Internal Medicine 01/05/17 documented as of this encounter
--- OUTSIDE RECORDS SUMMARY | 2024-04-26 14:33 | External Medical Summary | Summary of Care ---
Author Name Unknown Organization [facility] Address [address] [place] [address] Phone [phone] Care Team Providers Care Sound Designer Name Role Phone Joy Hope MD Primary Care Provider + Encounter Details Date Type Department Care Team (Late st Contact Info) Description 03/25/2024 Orders Only [facility]astroenterology, [facility] [place] [address] Chauncey Rodriguez MD [address] [facility] [place] [address] Allergies No known active allergiesdocumented as of [...] goal of less than 7.0% ([facility]) USE UP TO 4 TIMES DAILY FOR [...] mRNA, LNP-s, No Pre serve, 2-Dose Series (GoodGuide) 01/14/2021,05/17/2020,04/19/2020 COVID-19, LNP-s, No Preserve , Dylan-sucrose, Ages 12+ (Pfizer) 09/27/2021 COVID-19, MRNA-LNP, 24-25, P R, 30MCG/0.3ML, IM, 12YRS AND ABOVE (fl[facility] HospitalREEL Qualified) 01/02/2024 COVID-19, MRNA-LNP, PF, 30 M CG/0.3 mL, 12 YRS AND ABOVE, IM (ClavisterCarondelet HealthDeep Nines) 01/30/2023 Covid-19, Mrna, Lnp-s, Pf, B ivalent, 30 Mcg, IM, 12 yrs and above (GoodGuide) 01/17/2022 Hepatitis B, 20+ yrs 09/04/2016,05/13/2016,04/14 PPD 04/07/2016 Pneumococcal Conjugate Vacc, 13 Valent (Prevnar) 07/27/2016 Pneumococcal Conjugate Vacci ne, 20-valent ([id number]) 09/25/2023 Pneumococcal Polysaccharide PPV23 (Pneumovax) 07/18/2018,05/26/2008 RSV [...] 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 Not on file Not on file documented as of this encounter Plan of Treatment Upcoming Encounters Date Type Department Care Team (Late st Contact Info) Description 03/26/2024 8:45 AM EST Hem/Onc Treatment Hematology/Oncology Treatment, [place] [address] [facility], [place] [phone] Kimberley, Chair 2 Hem Onc [address] [place], [place] [address] 04/03/2024 9:20 AM EST Office Visit General Internal Medicine [facility] [place] [address] [place] [address] Joy Hope MD [address] [facility] [place], [place] [address] 04/08/2024 9:30 AM EST Office Visit Cardiology, [facility] [address] [place] [address] Batsheva Rutledge CRNP [address] [place] [address] 04/24/2024 8:45 AM EST Hem/Onc Treatment Hematology/Oncology Treatment[address], [place] [phone] Kimberley, Chair 2 Hem Onc [address] [place], [place] [address] 05/21/2024 8:45 AM EDT Hem/Onc Treatment Hematology/Oncology Treatment[address], [place] [phone] Kimberley, Chair 2 Hem Onc [address] [place], [place] [address] 07/23/2024 3:20 PM EDT Office Visit Gastroenterology, [facility] [address] [place] [address] Chauncey Rodriguez MD [address] [place] [address] Scheduled Procedures Name Priority Associated Diagnoses Date/Ti [...] this encounter Medical Devices Implanted Type Area Aerodynamics Engineer Device Identifier Shelf Expiration Date Model / Serial / Lot Clip Quick 2.8mm 230cm - [id number] Implanted:Qty: 1 on 02/23/2020 by Chauncey Rodriguez MD at ENDOSCOPY [facility] Colon [employer] [id number].A / / documented as of this encounter Care Teams Sound Designer Relationship Specialty Start Date End Date Joy Hope MD 200 [place] [address] PCP - General Internal Medicine 01/05/17 documented as of this encounter
--- OUTSIDE RECORDS SUMMARY | 2024-04-26 14:33 | External Medical Summary | Summary of Care ---
Author Name Unknown Organization [facility] Address [address] [place] [address] Phone [phone] Care Team Providers Care Digital Field Service Technician Name Role Phone Joy Hope MD Primary Care Provider + Encounter Details Date Type Department Care Team (Late st Contact Info) Description 03/26/2024 Telephone Hematology/Oncology [facility] [address] [place] [address] Chauncey Rodriguez MD [address] [place] [address] Allergies No known active allergiesdocumented [...] hemoglobin A1c goal of less than 7.0% ([facility]) USE UP TO 4 [...] hemoglobin A1c goal of less than 7.0% ([facility]) TAKE ONE TABLET BY [...] mRNA, LNP-s, No Pre serve, 2-Dose Series (Optimal+) 01/14/2021,05/17/2020,04/19/2020 COVID-19, LNP-s, No Preserve , Dylan-sucrose, Ages 12+ (Optimal+) 09/27/2021 COVID-19, MRNA-LNP, 24-25, P R, 30MCG/0.3ML, IM, 12YRS AND ABOVE (TerranovaMaxTraffic) 01/02/2024 COVID-19, MRNA-LNP, PF, 30 M CG/0.3 mL, 12 YRS AND ABOVE, IM (Standard Treasury) 01/30/2023 Covid-19, Mrna, Lnp-s, Pf, B ivalent, 30 Mcg, IM, 12 yrs and above (Optimal+) 01/17/2022 Hepatitis B, 20+ yrs 09/04/2016,05/13/2016,04/14 PPD 04/07/2016 Pneumococcal Conjugate Vacc, 13 Valent (Prevnar) 07/27/2016 Pneumococcal Conjugate Vacci ne, 20-valent ([id number]) 09/25/2023 Pneumococcal Polysaccharide PPV23 (Pneumovax) 07/18/2018,05/26/2008 RSV [...] 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 Rodriguez- MAGGIE regarding Entyvio auth. "Patient has not been seen in over a year. We will need updated clinicals in order to obtain a new auth. Routing to TOMMY,JONATHAN,Provider. " Pt is scheduled 04/24 for next Entyvio. documented in this encounter Plan of Treatment Upcoming Encounters Date Type Department Care Team (Late st Contact Info) Description 04/03/2024 9:20 AM EST Office Visit General Internal Medicine [facility] [address] [place] [address] Joy Hope MD [address] [facility] [place] [address] 04/08/2024 9:30 AM EST Office Visit Cardiology, [facility] [address] [place] [address] Batsheva Rutledge CRNP [address] [place] [address] 04/24/2024 8:45 AM EST Hem/Onc Treatment Hematology/Oncology Treatment, [address], [place] [phone] Kimberley, Chair 2 Hem Onc [address] [place] [address] 05/21/2024 8:45 AM EDT Hem/Onc Treatment Hematology/Oncology Treatment, [address], [place] [phone] Kimberley, Chair 2 Hem Onc [address] [place] [address] 07/23/2024 3:20 PM EDT Office Visit Gastroenterology, [facility] [address] [place] [address] Chauncey Rodriguez MD [address] [place] [address] Scheduled Procedures Name Priority Associated Diagnoses Date/Ti [...] this encounter Medical Devices Implanted Type Area Rocket Motor Mechanic Device Identifier Shelf Expiration Date Model / Serial / Lot Clip Quick 2.8mm 230cm - [id number] Implanted:Qty: 1 on 02/23/2020 by Chauncey Rodriguez MD at ENDOSCOPY [facility] Colon Real Time Tomography [facility]-202.A / / documented as of this encounter Care Teams Digital Field Service Technician Relationship Specialty Start Date End Date Joy Hope MD [address] [place] [address] PCP - General Internal Medicine 01/05/17 documented as of this encounter
--- OUTSIDE RECORDS SUMMARY | 2024-04-26 14:33 | External Medical Summary | Summary of Care ---
Author Name Unknown Organization [facility] Address [address] [place] [address] Phone [phone] Care Team Providers Care Petroleum Refining Equipment Operator Name Role Phone Joy Hope MD Primary Care Provider + Encounter Details Date Type Department Care Team (Late st Contact Info) Description 03/26/2024 Telephone Hematology/Oncology [facility] [address] [place] [address] Chauncey Rodriguez MD [address] [place] [address] Allergies No known active allergiesdocumented [...] goal of less than 7.0% ([facility]) USE UP TO 4 TIMES DAILY [...] goal of less than 7.0% ([facility]) TAKE ONE TABLET BY MOUTH IN [...] mRNA, LNP-s, No Pre serve, 2-Dose Series ([employer]) 01/14/2021,05/17/2020,04/19/2020 COVID-19, LNP-s, No Preserve , Dylan-sucrose, Ages 12+ ([employer]) 09/27/2021 COVID-19, MRNA-LNP, 24-25, P R, 30MCG/0.3ML, IM, 12YRS AND ABOVE ([email or web address].re) 01/02/2024 COVID-19, MRNA-LNP, PF, 30 M CG/0.3 mL, 12 YRS AND ABOVE, IM (vLine) 01/30/2023 Covid-19, Mrna, Lnp-s, Pf, B ivalent, 30 Mcg, IM, 12 yrs and above ([employer]) 01/17/2022 Diptheria/Tetanus (Adult) 06/15/1998,03/05/1989 06/15/2008 Hepatitis B, 20+ yrs 09/04/2016,05/13/2016,04/14 PPD 04/07/2016 Pneumococcal Conjugate Vacc, 13 Valent (Prevnar) 07/27/2016 Pneumococcal Conjugate Vacci ne, 20-valent ([id number]) 09/25/2023 Pneumococcal Polysaccharide PPV23 (Pneumovax) 07/18/2018,05/26/2008,04/02/2008(Defe rred: [...] 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 Patient is not scheduled for follow up with your office until July. * Telephone Encounter - Bella aBcon LPN - 03/26/2024 10:13 AM EST Teodoro Castillo [facility] 03/24/24 1:42 PM Note The patient's next [...] to obtain a new auth. Routing to ,[facility],Provider. " Pt is scheduled 04/24 for next Entyvio. documented in this encounter Plan of Treatment Upcoming Encounters Date Type Department Care Team (Late st Contact Info) Description 04/03/2024 9:20 AM EST Office Visit General Internal Medicine [facility] [place] [address] [place] [address] Joy Hope MD [address] [place] [address] 04/08/2024 9:30 AM EST Office Visit Cardiology, [facility] [address] [facility] [place] [address] Batsheva Rutledge CRNP [address] [place] [address] 04/24/2024 8:45 AM EST Hem/Onc Treatment Hematology/Oncology Treatment, [place] [address] [place], [place] [phone] Kimberley, Chair 2 Hem Onc [facility] 200 [facility] [place] [address] 05/21/2024 8:45 AM EDT Hem/Onc Treatment Hematology/Oncology Treatment, [place] [address] [facility] [phone] Kimberley, Chair 2 Hem Onc [facility] 200 [facility] [place] [address] 07/23/2024 3:20 PM EDT Office Visit Gastroenterology, [facility] [address] [place] [address] Chauncey Rodriguez MD [address] [place] [address] Scheduled Procedures Name Priority Associated Diagnoses Date/Ti [...] this encounter Medical Devices Implanted Type Area Bleacher Kraft Pulp Device Identifier Shelf Expiration Date Model / Serial / Lot Clip Quick 2.8mm 230cm - [id number] Implanted:Qty: 1 on 02/23/2020 by Chauncey Rodriguez MD at ENDOSCOPY [facility] Colon [employer] [id number].A / / documented as of this encounter Care Teams Petroleum Refining Equipment Operator Relationship Specialty Start Date End Date Joy Hope MD 200 [place] [address] PCP - General Internal Medicine 01/05/17 documented as of this encounter
--- OUTSIDE RECORDS SUMMARY | 2024-04-26 14:33 | External Medical Summary | Summary of Care ---
Author Name Unknown Organization [facility] Address [address] [place] [address] Phone [phone] Care Team Providers Care Manager Registration Name Role Phone Joy Hope MD Primary Care Provider + Reason for Visit * Reason Comments Infusion Entyvio * Episode Based Medications (Routine) - Authorized Specialty Diagnoses / Procedures Referred By Rasheed t Referred To Contact Diagnoses Crohn's disease of both small and large intestine without complication (HCC) Procedures VEDOLIZUMAB, PER 1 MG, INJ Chauncey Rodriguez MD [address] [place] [address] Phone: tel: fax: Hematology/Oncology Treatment, [place] DEPT CLOSED - 01/16/23 [address] [place] [address] Phone: tel: fax: Referral ID Status Reason Start Date Expiration Date V isits Requested Visits Authorized [id number] Authorized 03/30/2023 03/30/2024 99 99 Encounter Details Date Type Department Care Team (Latest Contact Info) Description 03/26/2024 8:45 AM EST Hem/Onc Treatment Hematology/Oncology Treatment, [place] [address] [place] [address] Kimberley, [...] of less than 7.0% ([facility]) USE UP TO 4 TIMES DAILY FOR [...] Active Atorvastatin Calcium 40 MG Oral Tablet (Lipitor)Silvero ns:Dyslipidemia, goal LDL below 100 Take 1 [...] mRNA, LNP-s, No Pre serve, 2-Dose Series (Cherry Bird) 01/14/2021,05/17/2020,04/19/2020 COVID-19, LNP-s, No Preserve , Dylan-sucrose, Ages 12+ ([employer]) 09/27/2021 COVID-19, MRNA-LNP, 24-25, P R, 30MCG/0.3ML, IM, 12YRS AND ABOVE (Ocean Power TechnologiesirCrowd Fusion) 01/02/2024 COVID-19, MRNA-LNP, PF, 30 M CG/0.3 mL, 12 YRS AND ABOVE, IM (Touch PaymentsirCrowd Fusion) 01/30/2023 Covid-19, Mrna, Lnp-s, Pf, B ivalent, 30 Mcg, IM, 12 yrs and above (Cherry Bird) 01/17/2022 Hepatitis B, 20+ yrs 09/04/2016,05/13/2016,04/14 PPD 04/07/2016 Pneumococcal Conjugate Vacc, 13 Valent (Prevnar) 07/27/2016 Pneumococcal Conjugate Vacci ne, 20-valent ([id number]) 09/25/2023 Pneumococcal Polysaccharide PPV23 (Pneumovax) 07/18/2018,05/26/2008 RSV [...] 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 file [...] State [place] [address] [place] [address] Joy Hope MD [address] [place] [address] 04/08/2024 9:30 AM EST Office Visit Cardiology, [facility] [place] [address] Batsheva Rutledge CRNP [address] [place] [address] 04/24/2024 8:45 AM EST Hem/Onc Treatment Hematology/Oncology Treatment, [place] 200 [place] [phone] Kimberley, Chair 2 Hem Onc [place] [address] [place] [address] 05/21/2024 8:45 AM EDT Hem/Onc Treatment Hematology/Oncology [facility], [place] [facility] [phone] Kimberley, Chair 2 Hem Onc [address] [place] [address] 07/23/2024 3:20 PM EDT Office Visit Gastroenterology, [facility] [address] [place] [address] Chauncey Rodriguez MD [address] [facility] [place] [address] Scheduled Procedures Name Priority Associated Diagnoses Date/Ti [...] this encounter Medical Devices Implanted Type Area Lead Cashier Device Identifier Shelf Expiration Date Model / Serial / Lot Clip Quick 2.8mm 230cm - [id number] Implanted:Qty: 1 on 02/23/2020 by Chauncey Rodriguez MD at ENDOSCOPY [facility] Colon [employer] [id number] / / documented as of this encounter Visit Diagnoses Diagnosis Crohn's disease of both small and large intestine without complication (HCC)- [facility] enteritis of small intestine with large intestine documented in this encounter Administered Medications Active Administered Medications - up to 3 most recent administrations Medication Order MAR Action Action Date Dose Rate Site diphenhydrAMINE (Benadryl) inj 50 mg 50 mg, IV Push, ONCE PRN Other, Hypersensitivity Reaction, Starting on Sun03/26/24 at 0829, Until Sun03/27/24 at 0828, For 24 hoursIndications:Crohn's disease of both small and large intestine without complication (HCC) EPINEPHrine 1 MG/ML inj 0.3 mg 0.3 mg, Intramuscular, ONCE PRN Other, Hypersensitivity Reaction or Anaphylaxis, Starting on Sun03/26/24 at 0829, Until Sun03/27/24 at 0828, For 24 hoursIndications:Crohn's disease of both small and large intestine without complication (HCC) hEParin 100 UNIT/ML Lock Flush inj 500 Units 500 Units (5 mL), IV Lock, PRN Other, IV Flush, Starting on Sun03/26/24 at 0829, Until Sun03/27/24 at 0828, For 24 hours, Do not flush if lock, PICC, or central line not in place; IV infusing or unable to flush.Indications:Crohn's disease of both small and large intestine without complication (HCC) Hydrocortisone Sod Suc (PF) (Solu-Cortef) inj 100 mg 100 mg, IV Push, ONCE PRN Other, Hypersensitivity Reaction, Starting on Sun03/26/24 at 0829, Until Sun03/27/24 at 0828, For 24 hoursIndications:Crohn's disease of both small and large intestine without complication (HCC) NSS infusion 500 mL, Intravenous, at 50 mL/hr, CONTINUOUS, Starting on Sun03/26/24 at 0930, Until Sun03/26/24 at 1929Indications:Crohn's disease of both small and large intestine without complication (HCC) Start Infusion 03/26/2024 8:42 AM EST 500 mL 50 mL/hr sodium chloride 0.9 % flush central line 10 mL 10 mL, IV Push, PRN Other, IV Flush, Starting on Sun03/26/24 at 0829, Until Virginie 03/27/24 at 0828, For 24 hours, Do not flush if lock, PICC, or central line not in place; IV infusing or unable to flush.Indications:Crohn's disease of both small and large intestine without complication (HCC) Inactive Administered Medications - up to 3 most recent administrations Medication Order MAR Action Action Date Dose Rate Site Vedolizumab (Entyvio) 300 mg in NSS 250 mL infusion 300 mg, IV Piggyback, ONCE, 1 dose, On Sun03/26/24 at 0915, Administer over 30 Minutes, Flush with 30 mL of NSS after infusion.Indications:Crohn' s disease of both small and large intestine without complication (HCC) Start Infusion 03/26/2024 9:02 AM EST 300 mg 520 mL/hr documented in this encounter Care Teams Manager Registration Relationship Specialty Start Date End Date Joy Hope MD 200 [facility] [place] [address] PCP - General Internal Medicine 01/05/17 documented as of this encounter
--- OUTSIDE RECORDS SUMMARY | 2024-04-26 14:33 | External Medical Summary | Summary of Care ---
Author Name Unknown Organization [facility] Address [address] [place] [address] Phone [phone] Care Team Providers Care Drink Waiter Name Role Phone Joy Hope MD Primary Care Provider + Encounter Details Date Type Department Care Team (Late st Contact Info) Description 03/26/2024 Telephone Hematology/Oncology [facility] [address] [place] [address] Chauncey Rodriguez MD [address] [place] [address] Allergies No known active allergiesdocumented [...] hemoglobin A1c goal of less than 7.0% ([facility]) USE UP TO 4 TIMES DAILY FOR [...] hemoglobin A1c goal of less than 7.0% ([facility]) TAKE ONE TABLET BY MOUTH IN THE [...] mRNA, LNP-s, No Pre serve, 2-Dose Series ([employer]) 01/14/2021,05/17/2020,04/19/2020 COVID-19, LNP-s, No Preserve , Dylan-sucrose, Ages 12+ ([employer]ideology) 09/27/2021 COVID-19, MRNA-LNP, 24-25, P R, 30MCG/0.3ML, IM, 12YRS AND ABOVE (Moki - formerly MokiMobilityNexGen Energy) 01/02/2024 COVID-19, MRNA-LNP, PF, 30 M CG/0.3 mL, 12 YRS AND ABOVE, IM (Pearescope) 01/30/2023 Covid-19, Mrna, Lnp-s, Pf, B ivalent, 30 Mcg, IM, 12 yrs and above ([employer]ideology) 01/17/2022 Diptheria/Tetanus (Adult) 06/15/1998,03/05/1989 06/15/2008 Hepatitis B, 20+ yrs 09/04/2016,05/13/2016,04/14 PPD 04/07/2016 Pneumococcal Conjugate Vacc, 13 Valent (Prevnar) 07/27/2016 Pneumococcal Conjugate Vacci ne, 20-valent ([id number]) 09/25/2023 Pneumococcal Polysaccharide PPV23 (Pneumovax) 07/18/2018,05/26/2008,04/02/2008(Defe rred: [...] 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 Routing to ,[facility],Provider. " Pt is scheduled 04/24 for next Entyvio. documented in this encounter Plan of Treatment Upcoming Encounters Date Type Department Care Team (Late st Contact Info) Description 04/03/2024 9:20 AM EST Office Visit General Internal Medicine [facility] [address] [facility] [place] [address] Joy Hope MD [address] [facility] [place] [address] 04/08/2024 9:30 AM EST Office Visit Cardiology, [facility] [address] [place] [address] Batsheva Rutledge CRNP [address] [place] [address] 04/24/2024 8:45 AM EST Hem/Onc Treatment Hematology/Oncology Treatment, [place] 200 [facility] [place] [phone] Kimberley, Chair 2 Hem Onc [place] [address] [place] [address] 05/21/2024 8:45 AM EDT Hem/Onc Treatment Hematology/Oncology Treatment, [place] [address] [place] [phone] Kimberley, Chair 2 Hem Onc [place] [address] [place] [address] 07/23/2024 3:20 PM EDT Office Visit Gastroenterology, [facility] [address] [place] [address] Chauncey Rodriguez MD [address] [place] [address] Scheduled Procedures Name Priority Associated Diagnoses Date/Ti [...] this encounter Medical Devices Implanted Type Area Credit Underwriter Device Identifier Shelf Expiration Date Model / Serial / Lot Clip Quick 2.8mm 230cm - [id number] Implanted:Qty: 1 on 02/23/2020 by Chauncey Rodriguez MD at ENDOSCOPY [facility] Colon [employer] HX-.A / / documented as of this encounter Care Teams Drink Waiter Relationship Specialty Start Date End Date Joy Hope MD 200 [facility] [place] [address] PCP - General Internal Medicine 01/05/17 documented as of this encounter
--- OUTSIDE RECORDS SUMMARY | 2024-04-26 14:33 | External Medical Summary | Summary of Care ---
Author Name Unknown Organization [facility] Address [address] [place] [address] Phone [phone] Care Team Providers Care Advertising Material Distributor Name Role Phone Joy Hope MD Primary Care Provider + Reason for Visit * Reason Comments Infusion Entyvio * Episode Based Medications (Routine) - Authorized Specialty Diagnoses / Procedures Referred By Rasheed t Referred To Contact Diagnoses Crohn's disease of both small and large intestine without complication (HCC) Procedures VEDOLIZUMAB, PER 1 MG, INJ Chauncey Rodriguez MD [address] [place] [address] Phone: tel: fax: Hematology/Oncology Treatment, [place] DEPT CLOSED - 01/16/23 [address] [place] [address] Phone: tel: fax: Referral ID Status Reason Start Date Expiration Date V isits Requested Visits Authorized [id number] Authorized 03/30/2023 03/30/2024 99 99 Encounter Details Date Type Department Care Team (Latest Contact Info) Description 03/26/2024 8:45 AM EST Hem/Onc Treatment Hematology/Oncology Treatment, [place] [address] [place] [address] Kimberley, [...] hemoglobin A1c goal of less than 7.0% ([facility]) USE UP TO 4 TIMES [...] mRNA, LNP-s, No Pre serve, 2-Dose Series (Modern Feed) 01/14/2021,05/17/2020,04/19/2020 COVID-19, LNP-s, No Preserve , Dylan-sucrose, Ages 12+ (Modern Feed) 09/27/2021 COVID-19, MRNA-LNP, 24-25, P R, 30MCG/0.3ML, IM, 12YRS AND ABOVE ([employer]) 01/02/2024 COVID-19, MRNA-LNP, PF, 30 M CG/0.3 mL, 12 YRS AND ABOVE, IM (Your[employer]irAsempra [employer]) 01/30/2023 Covid-19, Mrna, Lnp-s, Pf, B ivalent, 30 Mcg, IM, 12 yrs and above (Modern Feed) 01/17/2022 Hepatitis B, 20+ yrs 09/04/2016,05/13/2016,04/14 PPD 04/07/2016 Pneumococcal Conjugate Vacc, 13 Valent (Prevnar) 07/27/2016 Pneumococcal Conjugate Vacci ne, 20-valent ([id number]) 09/25/2023 Pneumococcal Polysaccharide PPV23 (Pneumovax) 07/18/2018,05/26/2008 RSV [...] 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 [...] State [place] [address] [place] [address] Joy Hope MD [address] [place] [address] 04/08/2024 9:30 AM EST Office Visit Card[facility], [facility] [place] [address] Batsheva Rutledge CRNP [address] [place] [address] 04/24/2024 8:45 AM EST Hem/Onc Treatment Hematology/Oncology Treatment, [place] [address] [place] [phone] Kimberley, Chair 2 Hem Onc Scen[address] [place] [address] 05/21/2024 8:45 AM EDT Hem/Onc Treatment Hematology[facility], [place] [address] [facility] [phone] Kimberley, Chair 2 Hem Onc Scen[address] [place] [address] 07/23/2024 3:20 PM EDT Office Visit Gastroenterology, [facility] [address] [place] [address] Chauncey Rodriguez MD 132 [facility] [place] [address] Scheduled Procedures Name Priority Associated Diagnoses Date/Ti [...] this encounter Medical Devices Implanted Type Area Hospital Chief Financial Officer Device Identifier Shelf Expiration Date Model / Serial / Lot Clip Quick 2.8mm 230cm - [id number] Implanted:Qty: 1 on 02/23/2020 by Chauncey Rodriguez MD at ENDOSCOPY [facility] Colon [employer] [id number] / / documented as of [...] mL/hr documented in this encounter Care Teams Advertising Material Distributor Relationship Specialty Start Date End Date Joy Hope MD 200 [facility] [place] [address] PCP - General Internal Medicine 01/05/17 documented as of this encounter
--- OUTSIDE RECORDS SUMMARY | 2024-04-26 14:34 | External Medical Summary | Summary of Care ---
Author Name Unknown Organization [facility] Address [address] [place] [address] Phone [phone] Care Team Providers Care Bus Starter Name Role Phone Joy Hope MD Primary Care Provider + Reason for Visit * Reason Onset Date Comments Pre Cert/Prior Auth 03/12/2024 Encounter Details Date Type Department Care Team (Late st Contact Info) Description 03/12/2024 Telephone Gastroenterology, [facility] [address] [place] [address] Chauncey Rodriguez MD [address] [place] [address] Pre Cert/Prior Auth Allergies No known active allergiesdocumented as of this encounter (statuses as of 03/24/2024) Medications ASPIRIN 81 MG PO TABSIndications:ta kes [...] hemoglobin A1c goal of less than 7.0% ([facility]) USE UP TO 4 TIMES DAILY FOR [...] as of this encounter (statuses as of 03/24/2024) Active Problems Problem Noted Date Diagnosed Date [...] as of this encounter (statuses as of 03/24/2024) Resolved Problems Problem Noted Date Diagnosed Date [...] as of this encounter (statuses as of 03/24/2024) Immunizations Name Administration Dates Next Due COVID-19 mRNA, LNP-s, No Pre serve, 2-Dose Series ([employer]) 01/14/2021,05/17/2020,04/19/2020 COVID-19, LNP-s, No Preserve , Dylan-sucrose, Ages 12+ ([employer]) 09/27/2021 COVID-19, MRNA-LNP, 24-25, P R, 30MCG/0.3ML, IM, 12YRS AND ABOVE (LieboAF83) 01/02/2024 COVID-19, MRNA-LNP, PF, 30 M CG/0.3 mL, 12 YRS AND ABOVE, IM (Lookingglass [employer] SolutionsirAF83) 01/30/2023 Covid-19, Mrna, Lnp-s, Pf, B ivalent, 30 Mcg, IM, 12 yrs and above ([employer]) 01/17/2022 Hepatitis B, 20+ yrs 09/04/2016,05/13/2016,04/14 PPD 04/07/2016 Pneumococcal Conjugate Vacc, 13 Valent (Prevnar) 07/27/2016 Pneumococcal Conjugate Vacci ne, 20-valent ([id number]) 09/25/2023 Pneumococcal Polysaccharide PPV23 (Pneumovax) 07/18/2018,05/26/2008 RSV [...] 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 Medication/Disease State Information: Medication: Vedolizumab (Entyvio) Maintenance: 300mg IV every 4 weeks Diagnosis (including ICD-10): Crohn's disease K50.90. Specialty medication - route to [id number]. Referral to pharmacist for: co-management. Office Information: Prescriber: Chauncey Rodriguez MD Current auth exp 03/30/2024. Next injection is 03/26/2024 Next appt is 07/23/2024 documented in this encounter Plan of Treatment Upcoming Encounters Date Type Department Care Team (Late st Contact Info) Description 03/26/2024 8:45 AM EST Hem/Onc Treatment Hematology/Oncology Treatment, [address] [place] [phone] Kimberley, Chair [address] [place] [address] 04/03/2024 9:20 AM EST Office Visit General Internal Medicine [address] [place] [address] Joy Hope MD [address] [place] [address] [place] [address] 04/08/2024 9:30 AM EST Office Visit Cardiology, [facility] [address] [place] [address] Batsheva Rutledge CRNP [address] [place] [address] 04/24/2024 8:45 AM EST Hem/Onc Treatment [address]ematology/[address], [address] [phone] Kimberley, Chair 2 Hem Onc Scen[address] [place] [address] 07/23/2024 3:20 PM EDT Office Visit Gastroenterology, [facility] [address] [place] [address] Chauncey Rodriguez MD [address] [place] [address] Scheduled Procedures Name Priority Associated Diagnoses Date/Ti [...] this encounter Medical Devices Implanted Type Area Self Propelled Dredge Operator Device Identifier Shelf Expiration Date Model / Serial / Lot Clip Quick 2.8mm 230cm - [id number] Implanted:Qty: 1 on 02/23/2020 by Chauncey Rodriguez MD at ENDOSCOPY [facility] Colon [employer] [id number] / / documented as of this encounter Care Teams Bus Starter Relationship Specialty Start Date End Date Joy Hope MD 200 [place] [place] [address] PCP - General Internal Medicine 01/05/17 documented as of this encounter
--- OUTSIDE RECORDS SUMMARY | 2024-04-26 14:34 | External Medical Summary | Summary of Care ---
Author Name Unknown Organization [facility] Address [address] [place] [address] Phone [phone] Care Team Providers Care Internet Marketing Strategist Name Role Phone Joy Hope MD Primary Care Provider + Reason for Visit * Reason Comments Infusion Entyvio * Episode Based Medications (Routine) - Authorized Specialty Diagnoses / Procedures Referred By Rasheed t Referred To Contact Diagnoses Crohn's disease of both small and large intestine without complication (HCC) Procedures VEDOLIZUMAB, PER 1 MG, INJ Chauncey Rodriguez MD [address] [place] [address] Phone: tel: fax: Hematology/Oncology Treatment, [place] DEPT CLOSED - 01/16/23 [address] [place] [address] Phone: tel: fax: Referral ID Status Reason Start Date Expiration Date V isits Requested Visits Authorized [id number] Authorized 03/30/2023 03/30/2024 99 99 Encounter Details Date Type Department Care Team (Latest Contact Info) Description 02/28/2024 8:30 AM EST Hem/Onc Treatment Hematology/Oncology Treatment, [place] [address] [place] [address] Kimberley, Chair 9 Hem Onc Sc[address] [place] [address] Crohn's disease of both small and large intestine without complication (HCC)* Allergies No known active allergiesdocumented as of this encounter (statuses as of 02/28/2024) Medications ASPIRIN 81 MG PO TABSIndications:ta kes [...] hemoglobin A1c goal of less than 7.0% ([facility]) USE UP TO 4 TIMES DAILY [...] mouth in the morning. 90 Tablet 3 12/18/2023 5:58 PM EDT 4 Active Furosemide 40 MG Oral Tablet [...] Tablet in the evening. 270 Tablet 3 12/18/2023 5:58 PM EDT 4 Active glipiZIDE 5 MG Oral Tablet [...] as of this encounter (statuses as of 02/28/2024) Active Problems Problem Noted Date Diagnosed Date [...] as of this encounter (statuses as of 02/28/2024) Resolved Problems Problem Noted Date Diagnosed Date [...] as of this encounter (statuses as of 02/28/2024) Immunizations Name Administration Dates Next Due COVID-19 mRNA, LNP-s, No Pre serve, 2-Dose Series ([employer]) 01/14/2021,05/17/2020,04/19/2020 COVID-19, LNP-s, No Preserve , Dylan-sucrose, Ages 12+ (Pfizer) 09/27/2021 COVID-19, MRNA-LNP, 24-25, P R, 30MCG/0.3ML, IM, 12YRS AND ABOVE ([employer]Force-[facility]) 01/02/2024 COVID-19, MRNA-LNP, PF, 30 M CG/0.3 mL, 12 YRS AND ABOVE, IM ([employer]unes.[employer]-Comirnaty) 01/30/2023 Covid-19, Mrna, Lnp-s, Pf, B ivalent, 30 Mcg, IM, 12 yrs and above ([employer]) 01/17/2022 Hepatitis B, 20+ yrs 09/04/2016,05/13/2016,04/14 PPD 04/07/2016 Pneumococcal Conjugate Vacc, 13 Valent (Prevnar) 07/27/2016 Pneumococcal Conjugate Vacci ne, 20-valent ([id number]) 09/25/2023 Pneumococcal Polysaccharide PPV23 (Pneumovax) 07/18/2018,05/26/2008 RSV [...] 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 PIV removed intact. Pt to return in 4 weeks. Discharged in stable condition. * Haleigh Ann LPN - 02/28/2024 8:28 AM EST 0810: Pt arrived for Entyvio infusion. PIV in R metacarpal. Pt tolerated well. VSS. Patient instructed on use of heat and massage functions where applicable. Patient shown how to operate the heat function of the chair and to alert nursing staff if the chair feels too warm. Patient instructed on therisk of potential savage while using the heat function. Pt has no complaints at this time. documented in this encounter Plan of Treatment Upcoming Encounters Date Type Department Care Team (Late st Contact Info) Description 03/26/2024 8:45 AM EST Hem/Onc Treatment Hematology/Oncology Treatment[address] [place] [phone] Park, Chair 2 Hem Onc [address] [address] 04/03/2024 9:20 AM EST Office Visit General Internal Medicine [address] [address] Joy Hope MD [address] [place] [address] [place] [address] 04/08/2024 9:30 AM EST Office Visit Cardiology, [facility] [address] [facility] [place] [address] Batsheva Rutledge CRNP [facility] [address] [address] 04/24/2024 8:45 AM EST Hem/Onc Treatment Hematology/[address]cology [address] [phone] Kimberley, Chair 2 Hem Onc [address] [address] 07/23/2024 3:20 PM EDT Office Visit Gastroenterology, [facility] [address] [place] [address] Chauncey Rodriguez MD [address] [place] [address] Scheduled Procedures Name Priority Associated Diagnoses Date/Ti [...] this encounter Medical Devices Implanted Type Area Building Maintenance Worker Device Identifier Shelf Expiration Date Model / Serial / Lot Clip Quick 2.8mm 230cm - [id number] Implanted:Qty: 1 on 02/23/2020 by Chauncey Rodriguez MD at ENDOSCOPY [facility] [email or web address] [facility] [id number]-UR.A / / documented as of this encounter [...] ONCE PRN Other, Hypersensitivity Reaction, Starting on Sun02/28/24 at 0800, Until Sun02/29/24 at 0759, For 24 hoursIndications:Crohn's disease of both small and large intestine without complication (HCC) EPINEPHrine 1 MG/ML inj 0.3 mg 0.3 mg, Intramuscular, ONCE PRN Other, Hypersensitivity Reaction or Anaphylaxis, Starting on Sun02/28/24 at 0800, Until Sun02/29/24 at 0759, For 24 hoursIndications:Crohn's disease of both small and large intestine without complication (HCC) hEParin 100 UNIT/ML Lock Flush inj 500 Units 500 Units (5 mL), IV Lock, PRN Other, IV Flush, Starting on Sun02/28/24 at 0800, Until Sun02/29/24 at 0759, For 24 hours, Do not flush if lock, PICC, or central line not in place; IV infusing or unable to flush.Indications:Crohn's disease of both small and large intestine without complication (HCC) Hydrocortisone Sod Suc (PF) (Solu-Cortef) inj 100 mg 100 mg, IV Push, ONCE PRN Other, Hypersensitivity Reaction, Starting on Sun02/28/24 at 0800, Until Sun02/29/24 at 0759, For 24 hoursIndications:Crohn's disease of both small and large intestine without complication (HCC) NSS infusion 500 mL, Intravenous, at 50 mL/hr, CONTINUOUS, Starting on Sun02/28/24 at 0915, Until Sun02/28/24 at 1914Indications:Crohn's disease of both small and large intestine without complication (HCC) Start Infusion 02/28/2024 8:12 AM EST 500 mL 50 mL/hr sodium chloride 0.9 % flush central line 10 mL 10 mL, IV Push, PRN Other, IV Flush, Starting on Sun02/28/24 at 0800, Until Sun02/29/24 at 0759, For 24 hours, Do not flush if [...] mg, IV Piggyback, ONCE, 1 dose, On Sun02/28/24 at 0945, Administer over 30 Minutes, Flush with 30 mL of NSS after infusion.Indications:Crohn' s disease of both small and large intestine without complication (HCC) Start Infusion 02/28/2024 9:04 AM EST 300 mg 520 mL/hr documented in this encounter Care Teams Internet Marketing Strategist Relationship Specialty Start Date End Date Joy Hope MD 200 [place] [address] PCP - General Internal Medicine 01/05/17 documented as of this encounter
--- OUTSIDE RECORDS SUMMARY | 2024-04-26 14:34 | External Medical Summary | Summary of Care ---
Author Name Unknown Organization [facility] Address [address] [place] [address] Phone [phone] Care Team Providers Care Curriculum Counselor Name Role Phone Joy Hope MD Primary Care Provider + Reason for Visit * Reason Onset Date Comments Pre Cert/Prior Auth 03/12/2024 Encounter Details Date Type Department Care Team (Late st Contact Info) Description 03/12/2024 Telephone Gastroenterology, [facility] [address] [place] [address] Chauncey Rodriguez MD [address] [place] [address] Pre Cert/Prior Auth Allergies No known active allergiesdocumented as of this encounter (statuses as of 03/12/2024) Medications ASPIRIN 81 MG PO TABSIndications:ta kes [...] goal of less than 7.0% ([facility]) USE UP TO 4 TIMES [...] as of this encounter (statuses as of 03/12/2024) Active Problems Problem Noted Date Diagnosed Date [...] as of this encounter (statuses as of 03/12/2024) Resolved Problems Problem Noted Date Diagnosed Date [...] as of this encounter (statuses as of 03/12/2024) Immunizations Name Administration Dates Next Due COVID-19 mRNA, LNP-s, No Pre serve, 2-Dose Series ([employer]) 01/14/2021,05/17/2020,04/19/2020 COVID-19, LNP-s, No Preserve , Dylan-sucrose, Ages 12+ ([employer]) 09/27/2021 COVID-19, MRNA-LNP, 24-25, P R, 30MCG/0.3ML, IM, 12YRS AND ABOVE ([employer]) 01/02/2024 COVID-19, MRNA-LNP, PF, 30 M CG/0.3 mL, 12 YRS AND ABOVE, IM ([employer] Laboratoriesir[employer]) 01/30/2023 Covid-19, Mrna, Lnp-s, Pf, B ivalent, 30 Mcg, IM, 12 yrs and above ([employer]) 01/17/2022 Hepatitis B, 20+ yrs 09/04/2016,05/13/2016,04/14 PPD 04/07/2016 Pneumococcal Conjugate Vacc, 13 Valent (Prevnar) 07/27/2016 Pneumococcal Conjugate Vacci ne, 20-valent ([id number]) 09/25/2023 Pneumococcal Polysaccharide PPV23 (Pneumovax) 07/18/2018,05/26/2008 RSV [...] 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 Medication/Disease State Information: Medication: Vedolizumab (Entyvio) Maintenance: 300mg IV every 4 weeks Diagnosis (including ICD-10): Crohn's disease K50.90. Specialty medication - route to [id number]. Referral to pharmacist for: co-management. Office Information: Prescriber: Chauncey Rodriguez MD Current auth exp 03/30/2024. Next injection is 03/26/2024 Next appt is 07/23/2024 documented in this encounter Plan of Treatment Upcoming Encounters Date Type Department Care Team (Late st Contact Info) Description 03/26/2024 8:45 AM EST Hem/Onc Treatment Hematology/Oncology Treatment, [address] [place] [phone] Kimberley, Chair [address] [place] [address] 04/03/2024 9:20 AM EST Office Visit General Internal Medicine [address] [place] [address] Joy Hope MD [address] [place] [address] [place] [address] 04/08/2024 9:30 AM EST Office Visit Cardiology, [facility] [address] [place] [address] Batsheva Rutledge CRNP [address] [place] [address] 04/24/2024 8:45 AM EST Hem/Onc Treatment Hematology/Oncology Treatment, [address] [phone] Kimberley, Chair 2 Hem Onc [address] [place] [address] 07/23/2024 3:20 PM EDT Office Visit Gastroenterology, [facility] [address] [place] [address] Chauncey Rodriguez MD [address] [place] [address] Scheduled Procedures Name Priority Associated Diagnoses Date/Ti [...] this encounter Medical Devices Implanted Type Area Filtering Machine Tender Device Identifier Shelf Expiration Date Model / Serial / Lot Clip Quick 2.8mm 230cm - [id number] Implanted:Qty: 1 on 02/23/2020 by Chauncey Rodriguez MD at ENDOSCOPY [facility] [employer] [id number].A / / documented as of this encounter Care Teams Curriculum Counselor Relationship Specialty Start Date End Date Joy Hope MD [address] [place] [address] PCP - General Internal Medicine 01/05/17 documented as of this encounter
--- OUTSIDE RECORDS SUMMARY | 2024-04-26 14:34 | External Medical Summary | Summary of Care ---
Author Name Unknown Organization [facility] Address [address] [place] [address] Phone [phone] Care Team Providers Care Linux Unix Administrator Name Role Phone Joy Hope MD Primary Care Provider + Reason for Visit * Reason Onset Date Comments Pre Cert/Prior Auth 03/12/2024 Encounter Details Date Type Department Care Team (Late st Contact Info) Description 03/12/2024 Telephone Gastroenterology, [facility] [address] [place] [address] Chauncey Rodriguez MD [address] [place] [address] Pre Cert/Prior Auth Allergies No known active [...] hemoglobin A1c goal of less than 7.0% ([facility]) USE UP TO 4 TIMES DAILY FOR [...] mRNA, LNP-s, No Pre serve, 2-Dose Series (Novaliq) 01/14/2021,05/17/2020,04/19/2020 COVID-19, LNP-s, No Preserve , Dylan-sucrose, Ages 12+ (Novaliq) 09/27/2021 COVID-19, MRNA-LNP, 24-25, P R, 30MCG/0.3ML, IM, 12YRS AND ABOVE ([employer]) 01/02/2024 COVID-19, MRNA-LNP, PF, 30 M CG/0.3 mL, 12 YRS AND ABOVE, IM (ZeristairnatMIKA Audio) 01/30/2023 Covid-19, Mrna, Lnp-s, Pf, B ivalent, 30 Mcg, IM, 12 yrs and above (Novaliq) 01/17/2022 Diptheria/Tetanus (Adult) 06/15/1998,03/05/1989 06/15/2008 Hepatitis B, 20+ yrs 09/04/2016,05/13/2016,04/14 PPD 04/07/2016 Pneumococcal Conjugate Vacc, 13 Valent (Prevnar) 07/27/2016 Pneumococcal Conjugate Vacci ne, 20-valent ([id number]) 09/25/2023 Pneumococcal Polysaccharide PPV23 (Pneumovax) 07/18/2018,05/26/2008,04/02/2008(Defe rred: [...] encounter Miscellaneous Notes * Telephone Encounter - Teodoro Castillo RPh [...] disease K50.90. Specialty medication - route to [id number]. Referral to pharmacist for: co-management. Office Information: Prescriber: Chauncey Rodriguez MD Current auth exp 03/30/2024. Next injection is 03/26/2024 Next appt is 07/23/2024 documented in this encounter Plan of Treatment Upcoming Encounters Date Type Department Care Team (Late st Contact Info) Description 03/26/2024 8:45 AM EST Hem/Onc Treatment Hematology/Oncology Treatment, [place] [address] [facility] [place] [phone] Kimberley, Chair 2 Hem On[address] [place] [address] 04/03/2024 9:20 AM EST Office Visit General Internal Medicine [facility] [address] [place] [address] Joy Hope MD [address] [place] [address] 04/08/2024 9:30 AM EST Office Visit Cardiology, [facility] [address] [place] [address] Batsheva Rutledge CRNP [address] [place] [address] 04/24/2024 8:45 AM EST Hem/Onc Treatment Hematology/Oncology Treatment, [place] [address] [place] [phone] Kimberley, Chair 2 Hem Onc [address] [place] [address] 07/23/2024 3:20 PM EDT Office Visit Gastroenterology, [facility] [address] [place] [address] Chauncey Rodriguez MD [address] [place] [address] Scheduled Procedures Name Priority Associated Diagnoses Date/Ti [...] this encounter Medical Devices Implanted Type Area Contract Driver Device Identifier Shelf Expiration Date Model / Serial / Lot Clip Quick 2.8mm 230cm - [id number] Implanted:Qty: 1 on 02/23/2020 by Chauncey Rodriguez MD at ENDOSCOPY [facility] [employer] [id number] / / documented as of this encounter Care Teams Linux Unix Administrator Relationship Specialty Start Date End Date Joy Hope MD 200 [place] [address] PCP - General Internal Medicine 01/05/17 documented as of this encounter
--- OUTSIDE RECORDS SUMMARY | 2024-04-26 14:34 | External Medical Summary | Summary of Care ---
Author Name Unknown Organization [facility] Address [address] [place] [address] Phone [phone] Care Team Providers Care Systems Requirements Planner Name Role Phone Joy Hope MD Primary Care Provider + Reason for Visit * Reason Onset Date Comments Pre Cert/Prior Auth 03/12/2024 Encounter Details Date Type Department Care Team (Late st Contact Info) Description 03/12/2024 Telephone Gastroenterology, [facility] [address] [place] [address] Chauncey Rodriguez MD [address] [place] [address] Pre Cert/Prior Auth Allergies No known active [...] goal of less than 7.0% ([facility]) USE UP TO 4 TIMES [...] mRNA, LNP-s, No Pre serve, 2-Dose Series ([employer]) 01/14/2021,05/17/2020,04/19/2020 COVID-19, LNP-s, No Preserve , Dylan-sucrose, Ages 12+ ([employer] Publishing) 09/27/2021 COVID-19, MRNA-LNP, 24-25, P R, 30MCG/0.3ML, IM, 12YRS AND ABOVE (Digital DandelionM.dot) 01/02/2024 COVID-19, MRNA-LNP, PF, 30 M CG/0.3 mL, 12 YRS AND ABOVE, IM (Augmented Pixels COirnatUpper Street) 01/30/2023 Covid-19, Mrna, Lnp-s, Pf, B ivalent, 30 Mcg, IM, 12 yrs and above ([employer]) 01/17/2022 Diptheria/Tetanus (Adult) 06/15/1998,03/05/1989 06/15/2008 Hepatitis B, 20+ yrs 09/04/2016,05/13/2016,04/14 PPD 04/07/2016 Pneumococcal Conjugate Vacc, 13 Valent (Prevnar) 07/27/2016 Pneumococcal Conjugate Vacci ne, 20-valent ([id number]) 09/25/2023 Pneumococcal Polysaccharide PPV23 (Pneumovax) 07/18/2018,05/26/2008,04/02/2008(Defe rred: [...] 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 Thank you, Rica Feldman CPhT Business Asst II [facility] Services ([facility]) 03/24/2024,1:56 [...] disease K50.90. Specialty medication - route to [id number]. Referral to pharmacist for: co-management. Office Information: Prescriber: Chauncey Rodriguez MD Current auth exp 03/30/2024. Next injection is 03/26/2024 Next appt is 07/23/2024 documented in this encounter Plan of Treatment Upcoming Encounters Date Type Department Care Team (Late st Contact Info) Description 03/26/2024 8:45 AM EST Hem/Onc Treatment Hematology/[address] [phone] Kimberley, Chair 2 Hem Onc [address] [place] [address] 04/03/2024 9:20 AM EST Office Visit General Internal Medicine [address] [place] [address] Joy Hope MD [address] [place] [address] [place] [address] 04/08/2024 9:30 AM EST Office Visit Cardiology, [facility] [address] Batsheva Rutledge CRNP [facility] [place] [address] 04/24/2024 8:45 AM EST Hem/Onc Treatment Hematology/Oncology Treatment, [address] [phone] Kimberley, Chair 2 Hem Onc [address] [place] [address] 07/23/2024 3:20 PM EDT Office Visit Gastroenterology, [facility] [address] [place] [address] Chauncey Rodriguez MD [address] [place] [address] Scheduled Procedures Name Priority Associated Diagnoses Date/Ti [...] this encounter Medical Devices Implanted Type Area 8Th Grade Mathematics Teacher Device Identifier Shelf Expiration Date Model / Serial / Lot Clip Quick 2.8mm 230cm - [id number] Implanted:Qty: 1 on 02/23/2020 by Chauncey Rodriguez MD at ENDOSCOPY [facility] Colon [employer] HX-.[id number] / / documented as of this encounter Care Teams Systems Requirements Planner Relationship Specialty Start Date End Date Joy Hope MD [address] [facility] [place] [address] PCP - General Internal Medicine 01/05/17 documented as of this encounter
--- OUTSIDE RECORDS SUMMARY | 2024-04-26 14:34 | External Medical Summary | Summary of Care ---
Author Name Unknown Organization [facility] Address [address] [place] [address] Phone [phone] Care Team Providers Care Fuel Dock Attendant Name Role Phone Joy Hope MD Primary Care Provider + Reason for Visit * Reason Onset Date Comments Pre Cert/Prior Auth 03/12/2024 Encounter Details Date Type Department Care Team (Late st Contact Info) Description 03/12/2024 Telephone Gastroenterology, [facility] [address] [place] [address] Chauncey Rodriguez MD [address] [place] [address] Pre Cert/Prior Auth Allergies No known active [...] goal of less than 7.0% ([facility]) USE UP TO 4 TIMES DAILY FOR [...] mRNA, LNP-s, No Pre serve, 2-Dose Series (Buzz360) 01/14/2021,05/17/2020,04/19/2020 COVID-19, LNP-s, No Preserve , Dylan-sucrose, Ages 12+ (Buzz360) 09/27/2021 COVID-19, MRNA-LNP, 24-25, P R, 30MCG/0.3ML, IM, 12YRS AND ABOVE (ME911Surveypal) 01/02/2024 COVID-19, MRNA-LNP, PF, 30 M CG/0.3 mL, 12 YRS AND ABOVE, IM (NanophthalmicsirnatVisual TeleHealth Systems) 01/30/2023 Covid-19, Mrna, Lnp-s, Pf, B ivalent, 30 Mcg, IM, 12 yrs and above (Buzz360) 01/17/2022 Diptheria/Tetanus (Adult) 06/15/1998,03/05/1989 06/15/2008 Hepatitis B, 20+ yrs 09/04/2016,05/13/2016,04/14 PPD 04/07/2016 Pneumococcal Conjugate Vacc, 13 Valent (Prevnar) 07/27/2016 Pneumococcal Conjugate Vacci ne, 20-valent ([id number]) 09/25/2023 Pneumococcal Polysaccharide PPV23 (Pneumovax) 07/18/2018,05/26/2008,04/02/2008(Defe rred: [...] 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 Thank you, Rica Feldman CPhT Coordinator Of Evaluation II Centralized Clinical Pharmacy Services ([facility]PS) 03/24/2024,1:56 [...] disease K50.90. Specialty medication - route to [id number]. Referral to pharmacist for: co-management. Office Information: Prescriber: Chauncey Rodriguez MD Current auth exp 03/30/2024. Next injection is 03/26/2024 Next appt is 07/23/2024 documented in this encounter Plan of Treatment Upcoming Encounters Date Type Department Care Team (Late st Contact Info) Description 03/26/2024 8:45 AM EST Hem/Onc Treatment Hematology/Oncology Treatment, [place] [address] [place] [phone] Kimberley, Chair 2 Hem Onc [facility] 200 [facility], [place] [address] 04/03/2024 9:20 AM EST Office Visit General Internal Medicine [facility] [place] [address] [facility] [place] [address] Joy Hope MD 200 [facility] [place], [place] [address] 04/08/2024 9:30 AM EST Office Visit Cardiology, Health system [address] [place] [address] Batsheva Rutledge CRNP [address] [place] [address] 04/24/2024 8:45 AM EST [facility] [address] [facility], [place] [phone] Kimberley, Chair 2 Hem On[address] [place], [place] [address] 07/23/2024 3:20 PM EDT Office Visit Gastroenterology, [facility] [address] [place] [address] Chauncey Rodriguez MD [address] [place] [address] Scheduled Procedures Name Priority Associated Diagnoses Date/Ti [...] this encounter Medical Devices Implanted Type Area Title I Math Tutor Device Identifier Shelf Expiration Date Model / Serial / Lot Clip Quick 2.8mm 230cm - [id number] Implanted:Qty: 1 on 02/23/2020 by Chauncey Rodriguez MD at ENDOSCOPY [facility] Colon [employer] [id number] / / documented as of this encounter Care Teams Fuel Dock Attendant Relationship Specialty Start Date End Date Joy Hope MD 200 [place] [address] PCP - General Internal Medicine 01/05/17 documented as of this encounter
--- OUTSIDE RECORDS SUMMARY | 2024-04-26 14:34 | External Medical Summary | Summary of Care ---
Author Name Unknown Organization [facility] Address [address] [place] [address] Phone [phone] Care Team Providers Care Medical Device Sales Name Role Phone Joy Hope MD Primary Care Provider + Reason for Visit * Reason Onset Date Comments Pre Cert/Prior Auth 03/12/2024 Encounter Details Date Type Department Care Team (Late st Contact Info) Description 03/12/2024 Telephone Gastroenterology, [facility] [address] [place] [address] Chauncey Rodriguez MD [address] [place] [address] Pre Cert/Prior Auth Allergies No known active [...] A1c goal of less than 7.0% ([facility]) USE UP TO 4 TIMES DAILY [...] mRNA, LNP-s, No Pre serve, 2-Dose Series ([employer]) 01/14/2021,05/17/2020,04/19/2020 COVID-19, LNP-s, No Preserve , Dylan-sucrose, Ages 12+ ([employer]) 09/27/2021 COVID-19, MRNA-LNP, 24-25, P R, 30MCG/0.3ML, IM, 12YRS AND ABOVE (Onconova TherapeuticsThe RealReal) 01/02/2024 COVID-19, MRNA-LNP, PF, 30 M CG/0.3 mL, 12 YRS AND ABOVE, IM (AzoooirnatThinkspeed) 01/30/2023 Covid-19, Mrna, Lnp-s, Pf, B ivalent, 30 Mcg, IM, 12 yrs and above ([employer]) 01/17/2022 Diptheria/Tetanus (Adult) 06/15/1998,03/05/1989 06/15/2008 Hepatitis B, 20+ yrs 09/04/2016,05/13/2016,04/14 PPD 04/07/2016 Pneumococcal Conjugate Vacc, 13 Valent (Prevnar) 07/27/2016 Pneumococcal Conjugate Vacci ne, 20-valent ([id number]) 09/25/2023 Pneumococcal Polysaccharide PPV23 (Pneumovax) 07/18/2018,05/26/2008,04/02/2008(Defe rred: [...] 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 Specialty medication - route to [id number]. Referral to pharmacist for: co-management. Office Information: Prescriber: Chauncey Rodriguez MD Current auth exp 03/30/2024. Next injection is 03/26/2024 Next appt is 07/23/2024 documented in this encounter Plan of Treatment Upcoming Encounters Date Type Department Care Team (Late st Contact Info) Description 03/26/2024 8:45 AM EST Hem/Onc Treatment Hematology/Oncology Treatment, [place] [address] [facility] [place] [phone] Kimberley, Chair 2 Hem Onc [address] [place] [address] 04/03/2024 9:20 AM EST Office Visit General Internal Medicine [facility] [address] [place] [address] Joy Hope MD [address] [place] [address] 04/08/2024 9:30 AM EST Office Visit Cardiology, [facility] [address] [place] [address] Batsheva Rutledge CRNP [address] [place] [address] 04/24/2024 8:45 AM EST Hem/Onc Treatment Hematology/Oncology Treatment, [place] [address] [place] [phone] Kimberley, Chair 2 Hem Onc [address] [place] [address] 07/23/2024 3:20 PM EDT Office Visit Gastroenterology, [facility] [address] [place] [address] Chauncey Rodriguez MD [address] [place] [address] Scheduled Procedures Name Priority Associated Diagnoses Date/Ti [...] this encounter Medical Devices Implanted Type Area State Game Protector Device Identifier Shelf Expiration Date Model / Serial / Lot Clip Quick 2.8mm 230cm - [id number] Implanted:Qty: 1 on 02/23/2020 by Chauncey Rodriguez MD at [facility] Colon [employer] [id number] / / documented as of this encounter Care Teams Medical Device Sales Relationship Specialty Start Date End Date Joy Hope MD 200 [place] [address] PCP - General Internal Medicine 01/05/17 documented as of this encounter
--- OUTSIDE RECORDS SUMMARY | 2024-04-26 14:34 | External Medical Summary | Summary of Care ---
Author Name Unknown Organization [facility] Address [address] [place] [address] Phone [phone] Care Team Providers Care Power Tool Repair Technician Name Role Phone Joy Hope MD Primary Care Provider + Reason for Visit * Reason Onset Date Comments Pre Cert/Prior Auth 03/12/2024 Encounter Details Date Type Department Care Team (Late st Contact Info) Description 03/12/2024 Telephone Gastroenterology, [facility] [address] [place] [address] Chauncey Rodriguez MD [address] [place] [address] Pre Cert/Prior Auth Allergies No known active allergiesdocumented as of this encounter (statuses as of 03/19/2024) Medications ASPIRIN 81 MG PO TABSIndications:ta kes [...] hemoglobin A1c goal of less than 7.0% ([facility]) USE UP TO 4 TIMES DAILY FOR [...] as of this encounter (statuses as of 03/19/2024) Active Problems Problem Noted Date Diagnosed Date [...] as of this encounter (statuses as of 03/19/2024) Resolved Problems Problem Noted Date Diagnosed Date [...] as of this encounter (statuses as of 03/19/2024) Immunizations Name Administration Dates Next Due COVID-19 mRNA, LNP-s, No Pre serve, 2-Dose Series (K[employer]um) 01/14/2021,05/17/2020,04/19/2020 COVID-19, LNP-s, No Preserve , Dylan-sucrose, Ages 12+ (Kvantum) 09/27/2021 COVID-19, MRNA-LNP, 24-25, P R, 30MCG/0.3ML, IM, 12YRS AND ABOVE (Clay.ioXeros) 01/02/2024 COVID-19, MRNA-LNP, PF, 30 M CG/0.3 mL, 12 YRS AND ABOVE, IM (LE TOTEirXeros) 01/30/2023 Covid-19, Mrna, Lnp-s, Pf, B ivalent, 30 Mcg, IM, 12 yrs and above (Kvantum) 01/17/2022 Hepatitis B, 20+ yrs 09/04/2016,05/13/2016,04/14 PPD 04/07/2016 Pneumococcal Conjugate Vacc, 13 Valent (Prevnar) 07/27/2016 Pneumococcal Conjugate Vacci ne, 20-valent ([id number]) 09/25/2023 Pneumococcal Polysaccharide PPV23 (Pneumovax) 07/18/2018,05/26/2008 RSV [...] 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 Medication/Disease State Information: Medication: Vedolizumab (Entyvio) Maintenance: 300mg IV every 4 weeks Diagnosis (including ICD-10): Crohn's disease K50.90. Specialty medication - route to [id number]. Referral to pharmacist for: co-management. Office Information: Prescriber: Chauncey Rodriguez MD Current auth exp 03/30/2024. Next injection is 03/26/2024 Next appt is 07/23/2024 documented in this encounter Plan of Treatment Upcoming Encounters Date Type Department Care Team (Late st Contact Info) Description 03/26/2024 8:45 AM EST Hem/Onc Treatment Hematology/Oncology Treatment, [address] [place] [phone] Kimberley, Chair 2 Hem Onc [address] [place] [address] 04/03/2024 9:20 AM EST Office Visit General Internal Medicine [address] [place] [address] Joy Hope MD [address] [place] [address] [place] [address] 04/08/2024 9:30 AM EST Office Visit Cardiology, [facility] [address] [place] [address] Batsheva Rutledge CRNP [address] [place] [address] 04/24/2024 8:45 AM EST Hem/Onc Treatment Hematology/Oncology Treatment, [address] [phone] Kimberley, Chair 2 Hem Onc [address] [place] [address] 07/23/2024 3:20 PM EDT Office Visit Gastroenterology, [facility] [address] [place] [address] Chauncey Rodriguez MD [address] [place] [address] Scheduled Procedures Name Priority Associated Diagnoses Date/Ti [...] this encounter Medical Devices Implanted Type Area Casino Accountant Device Identifier Shelf Expiration Date Model / Serial / Lot Clip Quick 2.8mm 230cm - [id number] Implanted:Qty: 1 on 02/23/2020 by Chauncey Rodriguez MD at ENDOSCOPY [facility] Colon Ph[employer] INC [id number].A / / documented as of this encounter Care Teams Power Tool Repair Technician Relationship Specialty Start Date End Date Joy Hope MD [address] [facility] [place] [address] PCP - General Internal Medicine 01/05/17 documented as of this encounter
--- OUTSIDE RECORDS SUMMARY | 2024-04-26 14:34 | External Medical Summary | Summary of Care ---
Author Name Unknown Organization [facility] Address [address] [place] [address] Phone [phone] Care Team Providers Care Bedspread Folder Name Role Phone Joy Hope MD Primary Care Provider + Reason for Visit * Reason Comments Infusion Entyvio * Episode Based Medications (Routine) - Authorized Specialty Diagnoses / Procedures Referred By Rasheed t Referred To Contact Diagnoses Crohn's disease of both small and large intestine without complication (HCC) Procedures VEDOLIZUMAB, PER 1 MG, INJ Chauncey Rodriguez MD [address] [place] [address] Phone: tel: fax: Hematology/Oncology Treatment, [place] DEPT CLOSED - 01/16/23 [address] [place] [address] Phone: tel: fax: Referral ID Status Reason Start Date Expiration Date V isits Requested Visits Authorized [id number] Authorized 03/30/2023 03/30/2024 99 99 Encounter Details Date Type Department Care Team (Latest Contact Info) Description 02/28/2024 8:30 AM EST Hem/Onc Treatment Hematology/Oncology Treatment, [place] [address] [place] [phone] Kimberley, Chair 9 Hem Onc [address] [place] [address] Crohn's disease of both small and large intestine without complication (HCC)* Allergies No known active allergiesdocumented as of this encounter (statuses as of 03/13/2024) Medications ASPIRIN 81 MG PO TABSIndications:ta kes [...] A1c goal of less than 7.0% ([facility]) USE UP TO 4 [...] as of this encounter (statuses as of 03/13/2024) Active Problems Problem Noted Date Diagnosed Date [...] as of this encounter (statuses as of 03/13/2024) Resolved Problems Problem Noted Date Diagnosed Date [...] as of this encounter (statuses as of 03/13/2024) Immunizations Name Administration Dates Next Due COVID-19 mRNA, LNP-s, No Pre serve, 2-Dose Series ([place]) 01/14/2021,05/17/2020,04/19/2020 COVID-19, LNP-s, No Preserve , Dylan-sucrose, Ages 12+ (Pfizer) 09/27/2021 COVID-19, MRNA-LNP, 24-25, P R, 30MCG/0.3ML, IM, 12YRS AND ABOVE (Pfizer-Comirnaty) 01/02/2024 COVID-19, MRNA-LNP, PF, 30 M CG/0.3 mL, 12 YRS AND ABOVE, IM (PFIZER-Comirnaty) 01/30/2023 Covid-19, Mrna, Lnp-s, Pf, B ivalent, 30 Mcg, IM, 12 yrs and above ([place]) 01/17/2022 Hepatitis B, 20+ yrs 09/04/2016,05/13/2016,04/14 PPD 04/07/2016 Pneumococcal Conjugate Vacc, 13 Valent (Prevnar) 07/27/2016 Pneumococcal Conjugate Vacci ne, 20-valent ([id number]) 09/25/2023 Pneumococcal Polysaccharide PPV23 (Pneumovax) 07/18/2018,05/26/2008 RSV [...] 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 on 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 Not [...] 03/26/2024 8:45 AM EST Hem/Onc Treatment Hematology/Oncology Treatment[address] [place] [phone] [place], Chair 2 Hem Onc [address] [address] 04/03/2024 9:20 AM EST Office Visit General Internal Medicine [address] [place] [address] Joy Hope MD [address] [place] [address] [place] [address] 04/08/2024 9:30 AM EST Office Visit Cardiology, [facility] [address] [facility] [place] [address] Batsheva Rutledge CRNP [address] [facility] [place] [address] 04/24/2024 8:45 AM EST Hem/Onc Treatment Hematology/Oncology Treatment[address] [place] [phone] Kimberley, Chair 2 Hem Onc [address] [address] 07/23/2024 3:20 PM EDT Office Visit Gastroenterology, [facility] [address] [place] [address] Chauncey Rodriguez MD [address] [place] [address] Scheduled Procedures Name Priority Associated Diagnoses Date/Ti [...] this encounter Medical Devices Implanted Type Area Steam Meter Reader Device Identifier Shelf Expiration Date Model / Serial / Lot Clip Quick 2.8mm 230cm - [id number] Implanted:Qty: 1 on 02/23/2020 by Chauncey Rodriguez MD at ENDOSCOPY [facility] Colon PacerPro [facility] [id number] / / documented as of this encounter Visit Diagnoses Diagnosis Crohn's disease of both small and large intestine without complication (HCC)- Primary Regional enteritis of small intestine with large intestine documented in this encounter Administered Medications Inactive Administered Medications - up to 3 most recent administrations Medication Order MAR Action Action Date Dose Rate Site NSS infusion 500 mL, Intravenous, at 50 mL/hr, CONTINUOUS, Starting on Virginie 02/28/24 at 0915, Until Virginie 02/28/24 at 1411Indications:Crohn's disease of both small and large intestine without complication (HCC) Start Infusion 02/28/2024 8:12 AM EST 500 mL 50 mL/hr Vedolizumab (Entyvio) 300 mg in NSS 250 mL infusion 300 mg, IV Piggyback, ONCE, 1 dose, On Virginie 02/28/24 at 0945, Administer over 30 Minutes, Flush with 30 mL of NSS after infusion.Indications:Crohn' s disease of both small and large intestine without complication (HCC) Start Infusion 02/28/2024 9:04 AM EST 300 mg 520 mL/hr documented in this encounter Care Teams Bedspread Folder Relationship Specialty Start Date End Date Joy Hope MD [address] [facility] [place] [place] [address] PCP - General Internal Medicine 01/05/17 documented as of this encounter
--- OUTSIDE RECORDS SUMMARY | 2024-04-26 14:34 | External Medical Summary | Summary of Care ---
Author Name Unknown Organization [facility] Address [address] [place] [address] Phone [phone] Care Team Providers Care Enologist Name Role Phone Joy Hope MD Primary Care Provider + Reason for Visit * Reason Onset Date Comments Pre Cert/Prior Auth 03/12/2024 Encounter Details Date Type Department Care Team (Late st Contact Info) Description 03/12/2024 Telephone Gastroenterology, [facility] [address] [place] [address] Chauncey Rodriguez MD [address] [place] [address] Pre Cert/Prior Auth Allergies No known active [...] hemoglobin A1c goal of less than 7.0% ([facility]) USE UP TO 4 TIMES [...] mRNA, LNP-s, No Pre serve, 2-Dose Series (23andMe) 01/14/2021,05/17/2020,04/19/2020 COVID-19, LNP-s, No Preserve , Dylan-sucrose, Ages 12+ (23andMe) 09/27/2021 COVID-19, MRNA-LNP, 24-25, P R, 30MCG/0.3ML, IM, 12YRS AND ABOVE (Cynapsus TherapeuticsHango) 01/02/2024 COVID-19, MRNA-LNP, PF, 30 M CG/0.3 mL, 12 YRS AND ABOVE, IM (MyCheckirHango) 01/30/2023 Covid-19, Mrna, Lnp-s, Pf, B ivalent, 30 Mcg, IM, 12 yrs and above (23andMe) 01/17/2022 Hepatitis B, 20+ yrs 09/04/2016,05/13/2016,04/14 PPD 04/07/2016 Pneumococcal Conjugate Vacc, 13 Valent (Prevnar) 07/27/2016 Pneumococcal Conjugate Vacci ne, 20-valent ([id number]) 09/25/2023 Pneumococcal Polysaccharide PPV23 (Pneumovax) 07/18/2018,05/26/2008 RSV [...] disease K50.90. Specialty medication - route to [id number]. Referral to pharmacist for: co-management. Office Information: Prescriber: Chauncey Rodriguez MD Current auth exp 03/30/2024. Next injection is 03/26/2024 Next appt is 07/23/2024 documented in this encounter Plan of Treatment Upcoming Encounters Date Type Department Care Team (Late st Contact Info) Description 03/26/2024 8:45 AM EST Hem/Onc Treatment Hematology/Oncology Treatment, [address] [place] [phone] Kimberley, Chair 2 Hem Onc [address] [place] [address] 04/03/2024 9:20 AM EST Office Visit General Internal Medicine [address] [place] [address] Joy Hope MD [address] [place] [address] [place] [address] 04/08/2024 9:30 AM EST Office Visit Cardiology, [facility] [address] [place] [address] Batsheva Rutledge CRNP [address] [place] [address] 04/24/2024 8:45 AM EST Hem/Onc Treatment Hematology/Oncology Treatment, [address] [phone] Kimberley, Chair 2 Hem Onc [address] [place] [address] 07/23/2024 3:20 PM EDT Office Visit Gastroenterology, [facility] [address] [place] [address] Chauncey Rodriguez MD [address] [place] [address] Scheduled Procedures Name Priority Associated Diagnoses Date/Ti [...] this encounter Medical Devices Implanted Type Area Endodontist Device Identifier Shelf Expiration Date Model / Serial / Lot Clip Quick 2.8mm 230cm - [id number] Implanted:Qty: 1 on 02/23/2020 by Chauncey Rodriguez MD at ENDOSCOPY [facility] Colon [employer] [id number] / / documented as of this encounter Care Teams Enologist Relationship Specialty Start Date End Date Joy Hope MD 200 [facility] [place] [address] PCP - General Internal Medicine 01/05/17 documented as of this encounter
--- OUTSIDE RECORDS SUMMARY | 2024-04-26 14:34 | External Medical Summary | Summary of Care ---
Author Name Unknown Organization [facility] Address [address] [place] [address] Phone [phone] Care Team Providers Care Polymer Chemist Name Role Phone Joy Hope MD Primary Care Provider + Reason for Visit * Reason Onset Date Comments Pre Cert/Prior Auth 03/12/2024 Encounter Details Date Type Department Care Team (Late st Contact Info) Description 03/12/2024 Telephone Gastroenterology, [facility] [address] [place] [address] Chauncey Rodriguez MD [address] [place] [address] Pre Cert/Prior Auth Allergies No known active [...] hemoglobin A1c goal of less than 7.0% ([facility]) USE UP TO 4 TIMES DAILY [...] mRNA, LNP-s, No Pre serve, 2-Dose Series ([employer]) 01/14/2021,05/17/2020,04/19/2020 COVID-19, LNP-s, No Preserve , Dylan-sucrose, Ages 12+ ([employer]) 09/27/2021 COVID-19, MRNA-LNP, 24-25, P R, 30MCG/0.3ML, IM, 12YRS AND ABOVE ([employer]) 01/02/2024 COVID-19, MRNA-LNP, PF, 30 M CG/0.3 mL, 12 YRS AND ABOVE, IM ([employer] (HDS)irnatKeywee) 01/30/2023 Covid-19, Mrna, Lnp-s, Pf, B ivalent, 30 Mcg, IM, 12 yrs and above ([employer]) 01/17/2022 Diptheria/Tetanus (Adult) 06/15/1998,03/05/1989 06/15/2008 Hepatitis B, 20+ yrs 09/04/2016,05/13/2016,04/14 PPD 04/07/2016 Pneumococcal Conjugate Vacc, 13 Valent (Prevnar) 07/27/2016 Pneumococcal Conjugate Vacci ne, 20-valent ([id number]) 09/25/2023 Pneumococcal Polysaccharide PPV23 (Pneumovax) 07/18/2018,05/26/2008,04/02/2008(Defe rred: [...] 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 Please call pt back. * Telephone Encounter - Rica Feldman CPhT - 03/24/2024 1:55 PM EST Pt returning call from Gastro office, transferred to office for further assistance. Thank you, Rica Feldman CPhT Dustless Operator II [facility] ([facility]) 03/24/2024,1:56 [...] disease K50.90. Specialty medication - route to [id number]. Referral to pharmacist for: co-management. Office Information: Prescriber: Chauncey Rodriugez MD Current auth exp 03/30/2024. Next injection is 03/26/2024 Next appt is 07/23/2024 documented in this encounter Plan of Treatment Upcoming Encounters Date Type Department Care Team (Late st Contact Info) Description 03/26/2024 8:45 AM EST Hem/Onc Treatment Hematology/Oncology Treatment[address] [place] [phone] Kimberley, Chair 2 Hem On[address] [place] [address] 04/03/2024 9:20 AM EST Office Visit General Internal Medicine [address] [address] Joy Hope MD [address] [place] [address] [place] [address] 04/08/2024 9:30 AM EST Office Visit Cardiology, [facility] 132 [facility] [place] [address] Batsheva Rutledge CRNP [address] [facility] [place] [address] 04/24/2024 8:45 AM EST Hem/Onc Treatment Hematology/Oncology [address] [phone] Kimberley, Chair 2 Hem On[address] [place] [address] 07/23/2024 3:20 PM EDT Office Visit Gastroenterology, [facility] [address] [place] [address] Chauncey Rodriguez MD [address] [place] [address] Scheduled Procedures Name Priority Associated Diagnoses Date/Ti [...] encounter Medical Devices Implanted Type Area Concrete Building Assembler Device Identifier Shelf Expiration Date Model / Serial / Lot Clip Quick 2.8mm 230cm - [id number] Implanted:Qty: 1 on 02/23/2020 by Chauncey Rodriguez MD at ENDOSCOPY [facility] Colon [employer] [id number] / / documented as of this encounter Care Teams Polymer Chemist Relationship Specialty Start Date End Date Joy Hope MD 200 [facility] [place] [address] PCP - General Internal Medicine 01/05/17 documented as of this encounter
--- OUTSIDE RECORDS SUMMARY | 2024-04-26 14:34 | External Medical Summary | Summary of Care ---
Author Name Unknown Organization [facility] Address [address] [place] [address] Phone [phone] Care Team Providers Care Patent Legal Assistant Name Role Phone Joy Hope MD Primary Care Provider + Encounter Details Date Type Department Care Team (Late st Contact Info) Description 03/24/2024 Population Health External Data Unspecified Department Allergies No known active allergiesdocumented as of [...] of less than 7.0% ([facility]) TAKE TWO TABLETS BY MOUTH TWICE A [...] mRNA, LNP-s, No Pre serve, 2-Dose Series ([employer]) 01/14/2021,05/17/2020,04/19/2020 COVID-19, LNP-s, No Preserve , Dylan-sucrose, Ages 12+ ([employer]) 09/27/2021 COVID-19, MRNA-LNP, 24-25, P R, 30MCG/0.3ML, IM, 12YRS AND ABOVE ([facility]) 01/02/2024 COVID-19, MRNA-LNP, PF, 30 M CG/0.3 mL, 12 YRS AND ABOVE, IM ([employer]) 01/30/2023 Covid-19, Mrna, Lnp-s, Pf, B ivalent, 30 Mcg, IM, 12 yrs and above ([employer]) 01/17/2022 Hepatitis B, 20+ yrs 09/04/2016,05/13/2016,04/14 PPD 04/07/2016 Pneumococcal Conjugate Vacc, 13 Valent (Prevnar) 07/27/2016 Pneumococcal Conjugate Vacci ne, 20-valent ([id number]) 09/25/2023 Pneumococcal Polysaccharide PPV23 (Pneumovax) 07/18/2018,05/26/2008 RSV [...] 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 Not on file documented as of this encounter Plan of Treatment Upcoming Encounters Date Type Department Care Team (Late st Contact Info) Description 03/26/2024 8:45 AM EST Hem/Onc Treatment Hematology/Oncology Treatment, [place] [address] [place] [phone] [place], Chair 2 Hem Onc [place] [address] [place] [address] 04/03/2024 9:20 AM EST Office Visit General Internal Medicine [facility] [address] [place], [place] [address] Joy Hope MD 200 [facility] [place] [address] 04/08/2024 9:30 AM EST Office Visit Cardiology, [facility] [address] [place] [address] Batsheva Rutledge CRNP [address] [place] [address] 04/24/2024 8:45 AM EST Hem/Onc Treatment Hematology/Oncology Treatment, [place] [address] [place], [place] [phone] Kimberley, Chair 2 Hem Onc [address] [place] [address] 07/23/2024 3:20 PM EDT Office Visit Gastroenterology, [facility] [address] [place] [address] Chauncey Rodriguez MD [address] [place] [address] Scheduled Procedures Name Priority Associated Diagnoses Date/Ti [...] this encounter Medical Devices Implanted Type Area Irrigationist Device Identifier Shelf Expiration Date Model / Serial / Lot Clip Quick 2.8mm 230cm - [id number] Implanted:Qty: 1 on 02/23/2020 by Chauncey Rodriguez MD at ENDOSCOPY [facility] [address] [employer] [facility] [id number] / / documented as of this encounter Care Teams Patent Legal Assistant Relationship Specialty Start Date End Date Joy Hope MD [address] [facility] [place] [address] PCP - General Internal Medicine 01/05/17 documented as of this encounter
--- OUTSIDE RECORDS SUMMARY | 2024-04-26 14:35 | External Medical Summary | Summary of Care ---
Author Name Unknown Organization [facility] Address [address] [place] [address] Phone [phone] Care Team Providers Care Gambling Broker Name Role Phone Joy Hope MD Primary Care Provider + Reason for Visit * Reason Comments IV Therapy Entyvio * Episode Based Medications (Routine) - Authorized Specialty Diagnoses / Procedures Referred By Rasheed husain Referred To Contact Diagnoses Crohn's disease of both small and large intestine without complication (HCC) Procedures VEDOLIZUMAB, PER 1 MG, INJ Chauncey Rodriguez MD [address] [place] [address] Phone: tel: fax: Hematology/Oncology Treatment, [place] DEPT CLOSED - 01/16/23 [address] [place] [address] Phone: tel: fax: Referral ID Status Reason Start Date Expiration Date V isits Requested Visits Authorized [id number] Authorized 03/30/2023 03/30/2024 99 99 Encounter Details Date Type Department Care Team (Latest Contact Info) Description 12/05/2023 8:30 AM EDT Hem/Onc Treatment Hematology/Oncology Treatment, [place] [address] [place] [address] Kimberley, Chair 11 Hem Onc [address] [place] [address] Crohn's disease of both small and large intestine without complication ([facility])* Allergies No known active allergiesdocumented as of this encounter (statuses as of 01/16/2024) Medications ASPIRIN 81 MG PO TABSIndications:t akes [...] hemoglobin A1c goal of less than 7.0% ([facility]) USE UP TO 4 TIMES [...] TABLET BY MOUTH DAILY 45 Tablet 3 11/20/2023 6:41 PM EDT 4 08/21/19 25 Active Atenolol 100 MG Oral Tablet (Tenormin)Indicat ions:HTN, goal below 140/90 Take 1 Tablet by mouth in the morning. 90 Tablet 3 11/27/2023 6:30 PM EDT 4 Active Atorvastatin Calcium 40 MG Oral Tablet (Lipitor)Indicati ons:Dyslipidemia, goal LDL below 100 Take 1 Tablet by mouth every evening. 90 Tablet 3 11/27/2023 6:30 PM EDT 4 Active Enalapril Maleate 20 MG Oral Tablet (Vasotec)Indicati ons:HTN, goal below 140/90 Take 1 Tablet by mouth in the morning. 120 Tablet 3 11/27/2023 6:30 PM EDT 4 Active Felodipine ER 10 MG Oral [...] MINUTES BEFORE A MEAL. 90 Tablet 3 11/29/2023 7:18 AM EDT 4 11/28/19 25 Active Spironolactone 25 MG Oral Tablet (Aldactone)Indica tions:HTN, goal below 140/90 TAKE TWO TABLETS BY MOUTH EVERY DAY 180 Tablet 3 10/02/2023 4:55 PM EDT 3 01/08/20 24 Discontinu ed(Refill) documented as of this encounter (statuses as of 01/16/2024) Active Problems Problem Noted Date Diagnosed Date [...] as of this encounter (statuses as of 01/16/2024) Resolved Problems Problem Noted Date Diagnosed Date [...] as of this encounter (statuses as of 01/16/2024) Immunizations Name Administration Dates Next Due COVID-19 mRNA, LNP-s, No Pre serve, 2-Dose Series ([employer]) 01/14/2021,05/17/2020,04/19/2020 COVID-19, LNP-s, No Preserve , Dylan-sucrose, Ages 12+ (Pfizer) 09/27/2021 COVID-19, MRNA-LNP, PF, 30 M CG/0.3 mL, 12 YRS AND ABOVE, IM ([employer]Comirnaty) 01/30/2023 Covid-19, Mrna, Lnp-s, Pf, B ivalent, 30 Mcg, IM, 12 yrs and above ([employer]) 01/17/2022 Hepatitis B, 20+ yrs 09/04/2016,05/13/2016,04/14 PPD 04/07/2016 Pneumococcal Conjugate Vacc, 13 Valent (Prevnar) 07/27/2016 Pneumococcal Conjugate Vacci ne, 20-valent ([id number]) 09/25/2023 Pneumococcal Polysaccharide PPV23 (Pneumovax) 07/18/2018,05/26/2008 RSV Vac., Bivalent, Perfusio n F, Pf,0.5 Ml (Abrysvo) 01/30/2023 Seasonal Influenza Vac., MDV , IM, 0.5 mL (Fluzone) 12/12/2013,02/06/2013,11/07/2011,01/31,12/31/2009,12/10/2008,01/09/2008 ,01/31/2007,01/13/2006 Seasonal Influenza, PF, 6 M & above, [...] Smoking Tobacco: Former Cigars Smokeless Tobacco: Never Tobacco Cessation:Counseling Given: Not Answered Alcohol Use Standard Drinks/Week Comments No 0 [...] 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 Vital signs are stable. IV access successful at theright metacarpal vein. IV line flushed with ease; positive blood return; IV fluids connected and infusing. Call gonzalez within reach. Patient instructed on use of heat and massage functions where applicable. Patient shown how to operate the heat function of the chair and to alert nursing staff if the chair feels too warm. Patient instructed on the risk of potential savage while using the heat function. 0930 - Patient completed IV therapy. IV access was discontinued; site cleaned and bandaged. Patientdischarged in stable condition and will return in 4 weeks. documented in this encounter Plan of Treatment Upcoming Encounters Date Type Department Care Team (Late st Contact Info) Description 01/30/2024 8:30 AM EST Hem/Onc Treatment Hematology/Oncology Treatment, [place] [address] [place] [address] Kimberley, Chair 9 Hem Onc [place] [address] [place] [address] 04/03/2024 9:20 AM EST Office Visit General Internal Medicine [facility] [place] [address] [place] [address] Joy Hope MD [address] [facility] [place] [address] 04/08/2024 9:30 AM EST Office Visit Cardiology, [facility] [address] [place] [address] Batsheva Rutledge CRNP [address] [place] [address] Scheduled Procedures Name Priority Associated Diagnoses Date/Ti [...] exists Diabetic Eye Exam 01/06/2025 01/07/2024, , 01/04/2023, Additional history exists DTap/Tdap Vaccines (3 - Td or Tdap) 01/19/2028 01/18/2018, 01/09/2008, 06/15/1998, Additional history exists Lipid Panel 09/12/2028 09/13/2023, 11/2022, 09/20/2021, Additional history exists Hepatitis B Vaccine Completed 09/04/2016, 05/13/2016, 04/14/2016 Zoster Vaccines Completed 10/24/2019, 07/03, 10/21/2015 AAA Screening Completed 08/16/2020 RETIRED - COLONOSCOPY-EVERY 5 YRS AGES 18-100 Discontinued 08/22/2023, 08/22/2023, 07/14/2022, Additional history exists Pneumococcal Vaccine: 65+ Years Completed 09/25/2023, 07/18/2018, 07/27/2016, Additional history exists Influenza Vaccine (FLU shot) Completed 12/31/2023, 12/31/2023, 01/02/2023, Additional history exists HPV (Gardasil) Vaccine Aged Out No lo nger eligible based on patient's age to complete this topic MENINGOCOCCAL (MENACTRA/MENVEO) Aged Out No longer eligible based on patient's age to complete this topic documented as of this encounter Medical Devices Implanted Type Area Motor Driver Device Identifier Shelf Expiration Date Model / Serial / Lot Clip Quick 2.8mm 230cm - [id number] Implanted:Qty: 1 on 02/23/2020 by Chauncey Rodriguez MD at ENDOSCOPY [facility] Colon WIB INC [id number] / / documented as of [...] Intravenous, at 50 mL/hr, CONTINUOUS, Starting on Sun12/05/23 at 0915, Until Sun12/05/23 at 1340Indications:Crohn's disease of both small and large intestine without complication (HCC) Start Infusion 12/05/2023 8:22 AM EDT 500 mL 50 mL/hr Vedolizumab (Entyvio) 300 mg in NSS 250 mL infusion 300 mg, IV Piggyback, ONCE, 1 dose, On Sun12/05/23 at 0945, Administer over 30 Minutes, Flush with 30 mL of NSS after infusion.Indications:Crohn' s disease of both small and large intestine without complication (HCC) Start Infusion 12/05/2023 8:55 AM EDT 300 mg 520 mL/hr documented in this encounter Care Teams Gambling Broker Relationship Specialty Start Date End Date Joy Hope MD 200 [place] [address] PCP - General Internal Medicine 01/05/17 documented as of this encounter
--- OUTSIDE RECORDS SUMMARY | 2024-04-26 14:35 | External Medical Summary | Summary of Care ---
Author Name Unknown Organization [facility] Address [address] [place] [address] Phone [phone] Care Team Providers Care Lifts And Cranes Inspector Name Role Phone Joy Hope MD Primary Care Provider + Reason for Visit * Reason Comments Outpatient Testing Encounter Details Date Type Department Care Team (Late st Contact Info) Description 02/13/2024 9:30 AM EST Laboratory Laboratory, [facility] [address] [place] [phone] [facility] [address] [place] [address] Encounter for long-term (current) use of medications Allergies No known active allergiesdocumented as of this encounter (statuses as of 02/13/2024) Medications ASPIRIN 81 MG PO TABSIndications:ta kes [...] as of this encounter (statuses as of 02/13/2024) Active Problems Problem Noted Date Diagnosed Date [...] as of this encounter (statuses as of 02/13/2024) Resolved Problems Problem Noted Date Diagnosed Date [...] as of this encounter (statuses as of 02/13/2024) Immunizations Name Administration Dates Next Due COVID-19 mRNA, LNP-s, No Pre serve, 2-Dose Series ([employer]) 01/14/2021,05/17/2020,04/19/2020 COVID-19, LNP-s, No Preserve , Dylan-sucrose, Ages 12+ ([employer]) 09/27/2021 COVID-19, MRNA-LNP, 24-25, P R, 30MCG/0.3ML, IM, 12YRS AND ABOVE ([employer]) 01/02/2024 COVID-19, MRNA-LNP, PF, 30 M CG/0.3 mL, 12 YRS AND ABOVE, IM ([employer]) 01/30/2023 Covid-19, Mrna, Lnp-s, Pf, B ivalent, 30 Mcg, IM, 12 yrs and above ([employer]) 01/17/2022 Hepatitis B, 20+ yrs 09/04/2016,05/13/2016,04/14 PPD 04/07/2016 Pneumococcal Conjugate Vacc, 13 Valent (Prevnar) 07/27/2016 Pneumococcal Conjugate Vacci ne, 20-valent ([id number]) 09/25/2023 Pneumococcal Polysaccharide PPV23 (Pneumovax) 07/18/2018,05/26/2008 RSV [...] 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 Not on file Not on file documented as of this encounter Plan of Treatment Upcoming Encounters Date Type Department Care Team (Late st Contact Info) Description 02/28/2024 8:30 AM EST Hem/Onc Treatment Hematology/Oncology Treatment, [place] [address] [place] [phone] Kimberley, Chair 9 Hem Onc [facility] [address] [place] [address] 04/03/2024 9:20 AM EST Office Visit General Internal Medicine [facility] [place] [address] [place] [address] Joy Hope MD 200 [facility] [place] [address] 04/08/2024 9:30 AM EST Office Visit Cardiology, [facility] 132 [facility] [place] [address] Batsheva Rutledge CRNP [address] [place] [address] 07/23/2024 3:20 PM EDT Office Visit Gastroenterology, [facility] [address] [place] [address] Chauncey Rodriguez MD [facility] [place] [address] Pending Results Name Type Priority Associated Diagnoses Date /Time MAGNESIUM Lab Routine Encounter for long-term (current) use of medications 02/13/2024 9:09 AM EST Scheduled Procedures Name Priority Associated [...] this encounter Medical Devices Implanted Type Area Tool Clerk Device Identifier Shelf Expiration Date Model / Serial / Lot Clip Quick 2.8mm 230cm - [id number] Implanted:Qty: 1 on 02/23/2020 by Chauncey Rodriguez MD at ENDOSCOPY [facility] [id number] / / documented as of this encounter Visit Diagnoses Diagnosis Encounter for long-term (current) use of medications Encounter for long-term (current) use of other medications documented in this encounter Care Teams Lifts And Cranes Inspector Relationship Specialty Start Date End Date Joy Hope MD [address] [place] [address] PCP - General Internal Medicine 01/05/17 documented as of this encounter
--- OUTSIDE RECORDS SUMMARY | 2024-04-26 14:35 | External Medical Summary | Summary of Care ---
Author Name Unknown Organization [facility] Address [address] [place] [address] Phone [phone] Care Team Providers Care Control Panel Tester Name Role Phone Joy Hope MD Primary Care Provider + Encounter Details Date Type Department Care Team (Late st Contact Info) Description 02/25/2024 Orders Only Gastroenterology, [facility] [address] [place] [address] Chauncey Rodriguez MD 132 [facility] [place] [address] Allergies No known active allergiesdocumented as of this encounter (statuses as of 02/25/2024) Medications ASPIRIN 81 MG PO TABSIndications:ta kes [...] goal of less than 7.0% ([facility]) USE UP TO 4 TIMES DAILY FOR [...] goal of less than 7.0% ([facility]) TAKE TWO TABLETS BY MOUTH TWICE A [...] as of this encounter (statuses as of 02/25/2024) Active Problems Problem Noted Date Diagnosed Date [...] as of this encounter (statuses as of 02/25/2024) Resolved Problems Problem Noted Date Diagnosed Date [...] as of this encounter (statuses as of 02/25/2024) Immunizations Name Administration Dates Next Due COVID-19 mRNA, LNP-s, No Pre serve, 2-Dose Series ([employer]) 01/14/2021,05/17/2020,04/19/2020 COVID-19, LNP-s, No Preserve , Dylan-sucrose, Ages 12+ ([employer]) 09/27/2021 COVID-19, MRNA-LNP, 24-25, P R, 30MCG/0.3ML, IM, 12YRS AND ABOVE ([employer]kim[employer]) 01/02/2024 COVID-19, MRNA-LNP, PF, 30 M CG/0.3 mL, 12 YRS AND ABOVE, IM ([employer]) 01/30/2023 Covid-19, Mrna, Lnp-s, Pf, B ivalent, 30 Mcg, IM, 12 yrs and above ([employer]) 01/17/2022 Hepatitis B, 20+ yrs 09/04/2016,05/13/2016,04/14 PPD 04/07/2016 Pneumococcal Conjugate Vacc, 13 Valent (Prevnar) 07/27/2016 Pneumococcal Conjugate Vacci ne, 20-valent ([id number]) 09/25/2023 Pneumococcal Polysaccharide PPV23 (Pneumovax) 07/18/2018,05/26/2008 RSV [...] 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 Not on file Not on file documented as of this encounter Plan of Treatment Upcoming Encounters Date Type Department Care Team (Terri Contact Info) Description 02/28/2024 8:30 AM EST Hem/Onc Treatment Hematology/Oncology Treatment, [place] [address] [place], [place] [address] Kimberley, Chair 9 Hem Onc [place] [address] [place] [address] 04/03/2024 9:20 AM EST Office Visit General Internal Medicine [facility] [place] [address] [place] [address] Joy Hope MD 200 [facility] [place], [place] [address] 04/08/2024 9:30 AM EST Office Visit Cardiology, [facility] [address] [place] [address] Batsheva Rutledge CRNP 132 [facility] [place] [address] 07/23/2024 3:20 PM EDT Office Visit Gastroenterology, [facility] [address] [place] [address] Chaunecy Rodriguez MD [facility] [place] [address] Scheduled Procedures Name Priority Associated Diagnoses Date/Ti [...] this encounter Medical Devices Implanted Type Area Corporate Administrator Device Identifier Shelf Expiration Date Model / Serial / Lot Clip Quick 2.8mm 230cm - [id number] Implanted:Qty: 1 on 02/23/2020 by Chauncey Rodriguez MD at ENDOSCOPY [facility] Colon [employer] [facility] [id number] / / documented as of this encounter Care Teams Control Panel Tester Relationship Specialty Start Date End Date Joy Hope MD 200 [place] [address] PCP - General Internal Medicine 01/05/17 documented as of this encounter
--- OUTSIDE RECORDS SUMMARY | 2024-04-26 14:35 | External Medical Summary | Summary of Care ---
Author Name Unknown Organization [facility] Address [address] [place] [address] Phone [phone] Care Team Providers Care Exercise Instructor Name Role Phone Joy Hope MD Primary Care Provider + Encounter Details Date Type Department Care Team (Late st Contact Info) Description 02/05/2024 Orders Only PATIENT PORTAL DO NOT DELETE THIS DEPT USED BY [place] [id number] Allergies No known active allergiesdocumented as of this encounter (statuses as of 02/05/2024) Medications ASPIRIN 81 MG PO TABSIndications:ta kes [...] goal of less than 7.0% ([facility]) USE UP TO 4 TIMES DAILY FOR [...] goal of less than 7.0% ([facility]) TAKE TWO TABLETS BY MOUTH TWICE A [...] as of this encounter (statuses as of 02/05/2024) Active Problems Problem Noted Date Diagnosed Date [...] as of this encounter (statuses as of 02/05/2024) Resolved Problems Problem Noted Date Diagnosed Date [...] as of this encounter (statuses as of 02/05/2024) Immunizations Name Administration Dates Next Due COVID-19 mRNA, LNP-s, No Pre serve, 2-Dose Series ([employer]) 01/14/2021,05/17/2020,04/19/2020 COVID-19, LNP-s, No Preserve , Dylan-sucrose, Ages 12+ ([employer]) 09/27/2021 COVID-19, MRNA-LNP, 24-25, P R, 30MCG/0.3ML, IM, 12YRS AND ABOVE ([facility]) 01/02/2024 COVID-19, MRNA-LNP, PF, 30 M CG/0.3 mL, 12 YRS AND ABOVE, IM ([facility]) 01/30/2023 Covid-19, Mrna, Lnp-s, Pf, B ivalent, 30 Mcg, IM, 12 yrs and above ([employer]) 01/17/2022 Hepatitis B, 20+ yrs 09/04/2016,05/13/2016,04/14 PPD 04/07/2016 Pneumococcal Conjugate Vacc, 13 Valent (Prevnar) 07/27/2016 Pneumococcal Conjugate Vacci ne, 20-valent ([id number]) 09/25/2023 Pneumococcal Polysaccharide PPV23 (Pneumovax) 07/18/2018,05/26/2008 RSV [...] 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 Not on file Not on file documented as of this encounter Plan of Treatment Upcoming Encounters Date Type Department Care Team (Late st Contact Info) Description 02/28/2024 8:30 AM EST Hem/Onc Treatment Hematology/Oncology Treatment, [place] [address] [place] [address] Park, Chair 9 Hem Onc [facility] [address] [place] [address] 04/03/2024 9:20 AM EST Office Visit General Internal Medicine [facility] [place] [address] [place] [address] Joy Hope MD [address] [facility] [place] [address] 04/08/2024 9:30 AM EST Office Visit Cardiology, [facility] [address] [place] [address] Batsheva Rutledge CRNP [address] [place] [address] 07/23/2024 3:20 PM EDT Office Visit Gastroenterology, [facility] [address] [place] [address] Chauncey Rodriguez MD [address] [place] [address] Scheduled Procedures Name Priority Associated Diagnoses Date/Ti [...] this encounter Medical Devices Implanted Type Area Remote Sensing Research Scientist Device Identifier Shelf Expiration Date Model / Serial / Lot Clip Quick 2.8mm 230cm - [id number] Implanted:Qty: 1 on 02/23/2020 by Chauncey Rodriguez MD at ENDOSCOPY [facility] Colon [employer] [facility] [id number] / / documented as of this encounter Care Teams Exercise Instructor Relationship Specialty Start Date End Date Joy Hope MD [address] [place] [address] PCP - General Internal Medicine 01/05/17 documented as of this encounter
--- OUTSIDE RECORDS SUMMARY | 2024-04-26 14:35 | External Medical Summary | Summary of Care ---
Author Name Unknown Organization [facility] Address [address] [place] [address] Phone [phone] Care Team Providers Care International Account Executive Name Role Phone Joy Hope MD Primary Care Provider + Reason for Visit * Reason Comments Infusion Entyvio * Episode Based Medications (Routine) - Authorized Specialty Diagnoses / Procedures Referred By Rasheed t Referred To Contact Diagnoses Crohn's disease of both small and large intestine without complication (HCC) Procedures VEDOLIZUMAB, PER 1 MG, INJ Chauncey Rodriguez MD [address] [place] [address] Phone: tel: fax: Hematology/Oncology Treatment, [place] DEPT CLOSED - 01/16/23 [address] [place] [address] Phone: tel: fax: Referral ID Status Reason Start Date Expiration Date V isits Requested Visits Authorized [id number] Authorized 03/30/2023 03/30/2024 99 99 Encounter Details Date Type Department Care Team (Latest Contact Info) Description 01/03/2024 8:30 AM EDT Hem/Onc Treatment Hematology/Oncology Treatment, [place] [address] [place] [address] Kimberley, Chair 1 Hem Onc [place] [address] [place] [phone] Crohn's disease of both small and large intestine without complication ([facility])* Allergies No known active allergiesdocumented as of this encounter (statuses as of 02/04/2024) Medications ASPIRIN 81 MG PO TABSIndications:t akes [...] as of this encounter (statuses as of 02/04/2024) Active Problems Problem Noted Date Diagnosed Date [...] as of this encounter (statuses as of 02/04/2024) Resolved Problems Problem Noted Date Diagnosed Date [...] as of this encounter (statuses as of 02/04/2024) Immunizations Name Administration Dates Next Due COVID-19 mRNA, LNP-s, No Pre serve, 2-Dose Series ([employer]) 01/14/2021,05/17/2020,04/19/2020 COVID-19, LNP-s, No Preserve , Dylan-sucrose, Ages 12+ ([employer]) 09/27/2021 COVID-19, MRNA-LNP, 24-25, P R, 30MCG/0.3ML, IM, 12YRS AND ABOVE ([employer]) 01/02/2024 COVID-19, MRNA-LNP, PF, 30 M CG/0.3 mL, 12 YRS AND ABOVE, IM ([employer]Comirnaty) 01/30/2023 Covid-19, Mrna, Lnp-s, Pf, B ivalent, 30 Mcg, IM, 12 yrs and above ([employer]) 01/17/2022 Hepatitis B, 20+ yrs 09/04/2016,05/13/2016,04/14 PPD 04/07/2016 Pneumococcal Conjugate Vacc, 13 Valent (Prevnar) 07/27/2016 Pneumococcal Conjugate Vacci ne, 20-valent ([id number]) 09/25/2023 Pneumococcal Polysaccharide PPV23 (Pneumovax) 07/18/2018,05/26/2008 RSV [...] 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 PIV removed intact. Pt to return in 4 weeks. Discharged in stable condition. * Haleigh Ann LPN - 01/03/2024 8:26 AM EDT 0820: Pt arrived for Entyvio infusion. PIV in [...] 8:30 AM EST Hem/Onc Treatment Hematology/Oncology Treatment, [place] [address] [place] [phone] Kimberley, Chair 9 Hem Onc [facility] [address] [facility] [place] [address] 04/03/2024 9:20 AM EST Office Visit General Internal Medicine [facility] [place] [address] [facility] [place] [address] Joy Hope MD 200 [facility] [place] [address] 04/08/2024 9:30 AM EST Office Visit Cardiology, [facility] [address] [place] [address] Batsheva Rutledge CRNP [address] [place] [address] 07/23/2024 3:20 PM EDT Office Visit Gastroenterology, [facility] [address] [place] [address] Chauncey Rodriguez MD [address] [place] [address] Scheduled Procedures Name Priority Associated Diagnoses Date/Ti me COLONOSCOPY FLEXIBLE PROXIMA L DIAGNOSTIC Recall IBD (inflammatory bowel disease) Health Maintenance Due Date Last Done Comments Cologuard 06/30/2000 Fecal Occult Blood Test 06/30/2000 Sigmoidoscopy 06/30/2000 Adult Wellness Visit 06/30/2021 Depression Screening 03/23/2023 03/23/2022 COVID-19 Vaccine ( season) 2024 01/02/2024, 01/30/2023, 01/17/2022, Additional history exists HbA1c 03/15/2024 09/13/2023, 010 06/2023, 07/11/2022, Additional history exists Diabetic Foot [...] this encounter Medical Devices Implanted Type Area Hydrochloric Area Supervisor Device Identifier Shelf Expiration Date Model / Serial / Lot Clip Quick 2.8mm 230cm - [id number] Implanted:Qty: 1 on 02/23/2020 by Chauncey Rodriguez MD at ENDOSCOPY [facility] Colon [employer] [id number] / / documented as of [...] Intravenous, at 50 mL/hr, CONTINUOUS, Starting on Sun01/03/24 at 0915, Until Sun01/03/24 at 1330Indications:Crohn's disease of both small and large intestine without complication (HCC) Start Infusion 01/03/2024 8:23 AM EDT 500 mL 50 mL/hr Vedolizumab (Entyvio) 300 mg in NSS 250 mL infusion 300 mg, IV Piggyback, ONCE, 1 dose, On Virginie 01/03/24 at 0945, Administer over 30 Minutes, Flush with 30 mL of NSS after infusion.Indications:Crohn' s disease of both small and large intestine without complication (HCC) Start Infusion 01/03/2024 8:51 AM EDT 300 mg 520 mL/hr documented in this encounter Care Teams International Account Executive Relationship Specialty Start Date End Date Joy Hope MD [address] [facility] [place] [address] PCP - General Internal Medicine 01/05/17 documented as of this encounter
--- OUTSIDE RECORDS SUMMARY | 2024-04-26 14:35 | External Medical Summary ---
Author Name Unknown Address Unknown Organization K01:[facility] [address] [place] [address] Laboratory Report Ordering Provider Test Date Status DARRYL REYES 02/13/2024 09:09:59 Final Observation Date Value Abnormality Reference (Units ) Status Magnesium 02/13/2024 09:09:59 1.6 1.5-2.6 (m g/dL) Final Performing Location [facility] - [address] [place] [address]
--- OUTSIDE RECORDS SUMMARY | 2024-04-26 14:35 | External Medical Summary | Summary of Care ---
Author Name Unknown Organization [facility] Address [address] [place] [address] Phone [phone] Care Team Providers Care Site Supervisor Name Role Phone Joy Hope MD Primary Care Provider + Reason for Visit * Reason Comments IV Therapy Entyvio * Episode Based Medications (Routine) - Authorized Specialty Diagnoses / Procedures Referred By Rasheed husain Referred To Contact Diagnoses Crohn's disease of both small and large intestine without complication (HCC) Procedures VEDOLIZUMAB, PER 1 MG, INJ Chauncey Rodriguez MD [address] [place] [address] Phone: tel: fax: Hematology/Oncology Treatment, [place] DEPT CLOSED - 01/16/23 [address] [place] [address] Phone: tel: fax: Referral ID Status Reason Start Date Expiration Date V isits Requested Visits Authorized [id number] Authorized 03/30/2023 03/30/2024 99 99 Encounter Details Date Type Department Care Team (Latest Contact Info) Description 01/30/2024 8:30 AM EST Hem/Onc Treatment Hematology/Oncology Treatment, [place] [address] [place] [address] Kimberley, Chair 9 Hem Onc [place] [address] [place] [address] Crohn's disease of both small and large intestine without complication (HCC)* Allergies No known active allergiesdocumented as of this encounter (statuses as of 01/30/2024) Medications ASPIRIN 81 MG PO TABSIndications:ta kes [...] as of this encounter (statuses as of 01/30/2024) Active Problems Problem Noted Date Diagnosed Date [...] as of this encounter (statuses as of 01/30/2024) Resolved Problems Problem Noted Date Diagnosed Date [...] as of this encounter (statuses as of 01/30/2024) Immunizations Name Administration Dates Next Due COVID-19 mRNA, LNP-s, No Pre serve, 2-Dose Series ([employer]) 01/14/2021,05/17/2020,04/19/2020 COVID-19, LNP-s, No Preserve , Dylan-sucrose, Ages 12+ ([employer]) 09/27/2021 COVID-19, MRNA-LNP, 24-25, P R, 30MCG/0.3ML, IM, 12YRS AND ABOVE ([employer]-Comirnaty) 01/02/2024 COVID-19, MRNA-LNP, PF, 30 M CG/0.3 mL, 12 YRS AND ABOVE, IM (P[employer]ER-Comirnaty) 01/30/2023 Covid-19, Mrna, Lnp-s, Pf, B ivalent, 30 Mcg, IM, 12 yrs and above ([employer]) 01/17/2022 Hepatitis B, 20+ yrs 09/04/2016,05/13/2016,04/14 PPD 04/07/2016 Pneumococcal Conjugate Vacc, 13 Valent (Prevnar) 07/27/2016 Pneumococcal Conjugate Vacci ne, 20-valent ([id number]) 09/25/2023 Pneumococcal Polysaccharide PPV23 (Pneumovax) 07/18/2018,05/26/2008 RSV [...] Sign Reading Time Taken Comments Blood Pressure 149/88 01/30/2024 8:00 AM EST Pulse 57 01/30/2024 8:00 AM EST Temperature 36.5 C (97.7 F) 01/30/2024 8:00 AM ES T Respiratory Rate 16 01/30/2024 8:00 AM EST Oxygen Saturation 95% 01/30/2024 8:00 AM EST Inhaled Oxygen Concentration - - Weight - - Height - - Body Mass Index - - documented in this encounter Nursing Notes * Ela Cartagena LPN - 01/30/2024 8:01 AM EST Patient arrived Chair 7 for IV therapy [facility]. Vital signs are stable. IV access successful at theright metacarpal vein; positive blood return; IV line flushed with ease; IV fluids connected and infusing. Call gonzalez within reach. [phone] Patient completed IV therapy. IV access discontinued; site cleaned and bandaged. Patient instructed to remove Coban wrap after 20 minutes. Patient will return on February 27. Patient discharged in stable condition. documented in this encounter Plan of Treatment Upcoming Encounters Date Type Department Care Team (Late st Contact Info) Description 02/28/2024 8:30 AM EST Hem/Onc Treatment Hematology/Oncology Treatment, [place] [address] [place] [phone] Kimberley, Chair 9 Hem Onc [place] [address] [facility] [place] [address] 04/03/2024 9:20 AM EST Office Visit General Internal Medicine [facility] [place] [address] [place] [address] Joy Hope MD [address] [facility] [place] [address] 04/08/2024 9:30 AM EST Office Visit Cardiology, [facility] [address] [place] [address] Batsheva Rutledge CRNP [address] [place] [address] 07/23/2024 3:20 PM EDT Office Visit Gastroenterology, [facility] [address] [place] [address] Chauncey Rodriguez MD [address] [place] [address] Scheduled Procedures Name Priority Associated Diagnoses Date/Ti [...] this encounter Medical Devices Implanted Type Area Photographer Still Device Identifier Shelf Expiration Date Model / Serial / Lot Clip Quick 2.8mm 230cm - [id number] Implanted:Qty: 1 on 02/23/2020 by Chauncey Rodriguez MD at ENDOSCOPY [facility] Colon [employer] [facility] [id number] / / documented as of [...] ONCE PRN Other, Hypersensitivity Reaction, Starting on Sun01/30/24 at 0746, Until Sun01/31/24 at 0745, For 24 hoursIndications:Crohn's disease of both small and large intestine without complication (HCC) EPINEPHrine 1 MG/ML inj 0.3 mg 0.3 mg, Intramuscular, ONCE PRN Other, Hypersensitivity Reaction or Anaphylaxis, Starting on Sun01/30/24 at 0746, Until Sun01/31/24 at 0745, For 24 hoursIndications:Crohn's disease of both small and large intestine without complication (HCC) hEParin 100 UNIT/ML Lock Flush inj 500 Units 500 Units (5 mL), IV Lock, PRN Other, IV Flush, Starting on Sun01/30/24 at 0746, Until Sun01/31/24 at 0745, For 24 hours, Do not flush if lock, PICC, or central line not in place; IV infusing or unable to flush.Indications:Crohn's disease of both small and large intestine without complication (HCC) Hydrocortisone Sod Suc (PF) (Solu-Cortef) inj 100 mg 100 mg, IV Push, ONCE PRN Other, Hypersensitivity Reaction, Starting on Sun01/30/24 at 0746, Until Virginie 01/31/24 at 0745, For 24 hoursIndications:Crohn's disease of both small and large intestine without complication (HCC) NSS infusion 500 mL, Intravenous, at 50 mL/hr, CONTINUOUS, Starting on Sun01/30/24 at 0900, Until Sun01/30/24 at 1859Indications:Crohn's disease of both small and large intestine without complication (HCC) Start Infusion 01/30/2024 8:03 AM EST 500 mL 50 mL/hr sodium chloride 0.9 % flush central line 10 mL 10 mL, IV Push, PRN Other, IV Flush, Starting on Sun01/30/24 at 0746, Until Virginie 01/31/24 at 0745, For 24 hours, Do not flush if [...] mg, IV Piggyback, ONCE, 1 dose, On Sun01/30/24 at 0830, Administer over 30 Minutes, Flush with 30 mL of NSS after infusion.Indications:Crohn' s disease of both small and large intestine without complication (HCC) Start Infusion 01/30/2024 8:41 AM EST 300 mg 510 mL/hr documented in this encounter Care Teams Site Supervisor Relationship Specialty Start Date End Date Joy Hope MD [address] [facility] [address] PCP - General Internal Medicine 01/05/17 documented as of this encounter
--- OUTSIDE RECORDS SUMMARY | 2024-04-26 14:35 | External Medical Summary ---
Author Name Unknown Address Unknown Organization K09:[facility] [place] [address] Laboratory Report Ordering Provider Test Date Status KRISTIN WILKINS 01/30/2024 07:40:43 Final Observation Date Value Abnormality Reference (Units ) Status Magnesium 01/30/2024 07:40:43 1.4 Below low normal 1.5 -2.6 (mg/dL) Final Performing Location [facility] [place] [address]
--- OUTSIDE RECORDS SUMMARY | 2024-04-26 14:35 | External Medical Summary | Summary of Care ---
Author Name Unknown Organization [facility] Address [address] [place] [address] Phone [phone] Care Team Providers Care Machine Stuffer Automatic Name Role Phone Joy Hope MD Primary Care Provider + Encounter Details Date Type Department Care Team (Late st Contact Info) Description 02/22/2024 Orders Only Hematology/Oncology Treatment, [place] [address] [place] [address] Chauncey Rodriguez MD [address] [place] [address] Allergies No known active allergiesdocumented as of this encounter (statuses as of 02/22/2024) Medications ASPIRIN 81 MG PO TABSIndications:ta kes [...] 7.0% ([facility]) TAKE TWO TABLETS BY MOUTH TWICE A [...] as of this encounter (statuses as of 02/22/2024) Active Problems Problem Noted Date Diagnosed Date [...] as of this encounter (statuses as of 02/22/2024) Resolved Problems Problem Noted Date Diagnosed Date [...] as of this encounter (statuses as of 02/22/2024) Immunizations Name Administration Dates Next Due COVID-19 mRNA, LNP-s, No Pre serve, 2-Dose Series ([employer]) 01/14/2021,05/17/2020,04/19/2020 COVID-19, LNP-s, No Preserve , Dylan-sucrose, Ages 12+ (Pfizer) 09/27/2021 COVID-19, MRNA-LNP, 24-25, P R, 30MCG/0.3ML, IM, 12YRS AND ABOVE ([facility]) 01/02/2024 COVID-19, MRNA-LNP, PF, 30 M CG/0.3 mL, 12 YRS AND ABOVE, IM ([employer]) 01/30/2023 Covid-19, Mrna, Lnp-s, Pf, B ivalent, 30 Mcg, IM, 12 yrs and above ([employer]) 01/17/2022 Hepatitis B, 20+ yrs 09/04/2016,05/13/2016,04/14 PPD 04/07/2016 Pneumococcal Conjugate Vacc, 13 Valent (Prevnar) 07/27/2016 Pneumococcal Conjugate Vacci ne, 20-valent ([id number]) 09/25/2023 Pneumococcal Polysaccharide PPV23 (Pneumovax) 07/18/2018,05/26/2008 RSV [...] 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 Not on file Not on file documented as of this encounter Plan of Treatment Upcoming Encounters Date Type Department Care Team (Late st Contact Info) Description 02/28/2024 8:30 AM EST Hem/Onc Treatment Hematology/Oncology Treatment, [place] [address] [place] [phone] Kimberley, Chair 9 Hem Onc [facility] [address] [facility] [place] [address] 04/03/2024 9:20 AM EST Office Visit General Internal Medicine [facility] [place] [address] [facility] [place] [address] Joy Hope MD [address] [facility] [place] [address] 04/08/2024 9:30 AM EST Office Visit Cardiology, [facility] [address] [place] [address] Batsheva Rutledge CRNP [address] [place] [address] 07/23/2024 3:20 PM EDT Office Visit Gastroenterology, [facility] [address] [place] [address] Chauncey Rodriguez MD [address] [place] [address] Scheduled Procedures Name Priority Associated Diagnoses Date/Ti [...] this encounter Medical Devices Implanted Type Area Electrician Deck Device Identifier Shelf Expiration Date Model / Serial / Lot Clip Quick 2.8mm 230cm - [id number] Implanted:Qty: 1 on 02/23/2020 by Chauncey Rodriguez MD at ENDOSCOPY [facility] Colon [employer] [id number] / / documented as of this encounter Care Teams Machine Stuffer Automatic Relationship Specialty Start Date End Date Joy Hope MD [address] [facility] [place] [address] PCP - General Internal Medicine 01/05/17 documented as of this encounter
--- OUTSIDE RECORDS SUMMARY | 2024-04-26 14:35 | External Medical Summary | Summary of Care ---
Author Name Unknown Organization [facility] Address [address] [place] [address] Phone [phone] Care Team Providers Care Lead Former Name Role Phone Joy Hope MD Primary Care Provider + Reason for Visit * Reason Comments Outpatient Testing Encounter Details Date Type Department Care Team (Late st Contact Info) Description 01/30/2024 7:40 AM EST Laboratory Laboratory [address] [place] [address] [place] [phone] [place], Lab Scenery [address] [place] [address] Encounter for long-term (current) use of medications [...] less than 7.0% ([facility]) USE UP TO 4 TIMES DAILY FOR [...] mRNA, LNP-s, No Pre serve, 2-Dose Series ([employer]) 01/14/2021,05/17/2020,04/19/2020 COVID-19, LNP-s, No Preserve , Dylan-sucrose, Ages 12+ ([employer]) 09/27/2021 COVID-19, MRNA-LNP, 24-25, P R, 30MCG/0.3ML, IM, 12YRS AND ABOVE ([employer] Box[employer]) 01/02/2024 COVID-19, MRNA-LNP, PF, 30 M CG/0.3 mL, 12 YRS AND ABOVE, IM ([employer]) 01/30/2023 Covid-19, Mrna, Lnp-s, Pf, B ivalent, 30 Mcg, IM, 12 yrs and above ([employer]) 01/17/2022 Hepatitis B, 20+ yrs 09/04/2016,05/13/2016,04/14 PPD 04/07/2016 Pneumococcal Conjugate Vacc, 13 Valent (Prevnar) 07/27/2016 Pneumococcal Conjugate Vacci ne, 20-valent ([id number]) 09/25/2023 Pneumococcal Polysaccharide PPV23 (Pneumovax) 07/18/2018,05/26/2008 RSV [...] 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 [place] [phone] Kimberley, Chair [address] [place] [address] Crohn's disease of both small and large intestine without complication (HCC)* 02/28/2024 8:30 AM EST Hem/Onc Treatment Hematology/Oncolog y Treatment, [place] [facility] [phone] Kimberley, Chair 9 Hem Onc [address] [place] [address] 04/03/2024 9:20 AM EST Office Visit General Internal Medicine [facility] 200 [facility] [place] [address] Joy Hope MD 200 [facility] [place] [address] 04/08/2024 9:30 AM EST Office Visit Cardiology, [facility] [address] [place] [address] Batsheva Rutledge CRNP 132 [facility] [place] [address] 07/23/2024 3:20 PM EDT Office Visit Gastroenterology, [facility] [address] [place] [address] Chauncey Rodriguez MD [address] [place] [address] Pending Results Name Type Priority Associated Diagnoses Date /Time MAGNESIUM Lab Routine Encounter for long-term (current) use of medications 01/30/2024 7:40 AM EST Scheduled Procedures Name Priority Associated [...] this encounter Medical Devices Implanted Type Area Refinery Operator Device Identifier Shelf Expiration Date Model / Serial / Lot Clip Quick 2.8mm 230cm - [id number] Implanted:Qty: 1 on 02/23/2020 by Chauncey Rodriguez MD at ENDOSCOPY [facility] HX-.[id number] / / documented as of this encounter Visit Diagnoses Diagnosis Crohn's disease of both small and large intestine without complication (HCC)- [facility] enteritis of small intestine with large intestine Encounter for long-term (current) use of medications Encounter for long-term (current) use of other medications documented in this encounter Care Teams Lead Former Relationship Specialty Start Date End Date Joy Hope MD [address] [place] [address], [place] [address] PCP - General Internal Medicine 01/05/17 documented as of this encounter
--- OUTSIDE RECORDS SUMMARY | 2024-04-26 14:35 | External Medical Summary | Summary of Care ---
Author Name Unknown Organization [facility] Address [address] [place] [address] Phone [phone] Care Team Providers Care Superintendent Police Name Role Phone Joy Hope MD Primary Care Provider + Reason for Visit * Reason Comments IV Therapy Entyvio * Episode Based Medications (Routine) - Authorized Specialty Diagnoses / Procedures Referred By Rasheed husain Referred To Contact Diagnoses Crohn's disease of both small and large intestine without complication (HCC) Procedures VEDOLIZUMAB, PER 1 MG, INJ Chauncey Rodriguez MD [address] [place] [address] Phone: tel: fax: Hematology/Oncology Treatment, [place] DEPT CLOSED - 01/16/23 [address] [place] [address] Phone: tel: fax: Referral ID Status Reason Start Date Expiration Date V isits Requested Visits Authorized [id number] Authorized 03/30/2023 03/30/2024 99 99 Encounter Details Date Type Department Care Team (Latest Contact Info) Description 01/30/2024 8:30 AM EST Hem/Onc Treatment Hematology/Oncology Treatment, [place] [address] [place] [address] Kimberley, Chair 9 Hem Onc [place] [address] [place] [address] Crohn's disease of both small and large intestine without complication (HCC)* Allergies No known active allergiesdocumented as of this encounter (statuses as of 02/11/2024) Medications ASPIRIN 81 MG PO TABSIndications:ta kes [...] hemoglobin A1c goal of less than 7.0% ([facility]) USE UP TO 4 TIMES DAILY [...] as of this encounter (statuses as of 02/11/2024) Active Problems Problem Noted Date Diagnosed Date [...] as of this encounter (statuses as of 02/11/2024) Resolved Problems Problem Noted Date Diagnosed Date [...] as of this encounter (statuses as of 02/11/2024) Immunizations Name Administration Dates Next Due COVID-19 mRNA, LNP-s, No Pre serve, 2-Dose Series ([employer]) 01/14/2021,05/17/2020,04/19/2020 COVID-19, LNP-s, No Preserve , Dylan-sucrose, Ages 12+ (Pfizer) 09/27/2021 COVID-19, MRNA-LNP, 24-25, P R, 30MCG/0.3ML, IM, 12YRS AND ABOVE ([employer]-Comirnaty) 01/02/2024 COVID-19, MRNA-LNP, PF, 30 M CG/0.3 mL, 12 YRS AND ABOVE, IM (P[employer]ER-Comirnaty) 01/30/2023 Covid-19, Mrna, Lnp-s, Pf, B ivalent, 30 Mcg, IM, 12 yrs and above ([employer]) 01/17/2022 Hepatitis B, 20+ yrs 09/04/2016,05/13/2016,04/14 PPD 04/07/2016 Pneumococcal Conjugate Vacc, 13 Valent (Prevnar) 07/27/2016 Pneumococcal Conjugate Vacci ne, 20-valent ([id number]) 09/25/2023 Pneumococcal Polysaccharide PPV23 (Pneumovax) 07/18/2018,05/26/2008 RSV [...] 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. Vital signs are stable. IV access [...] Description 02/13/2024 9:30 AM EST Laboratory Laboratory, [facility] [address] [place] [phone] Nan Koenig [facility] [address] [place] [address] 02/28/2024 8:30 AM EST [facility] [address] [place] [phone] Kimberley, Chair 9 [facility]c [facility] [place] [address] 04/03/2024 9:20 AM EST Office Visit General Internal Medicine [facility] [address] [place] [address] Joy Hope MD 200 [facility] [place] [address] 04/08/2024 9:30 AM EST Office Visit Cardiology, [facility] [address] [place] [address] Batsheva Rutledge CRNP [address] [place] [address] 07/23/2024 3:20 PM EDT Office Visit Gastroenterology, [facility] [address] [place] [address] Chauncey Rodriguez MD [address] [place] [address] Scheduled Procedures Name Priority Associated Diagnoses Date/Ti [...] this encounter Medical Devices Implanted Type Area Nuclear Radiologist Device Identifier Shelf Expiration Date Model / Serial / Lot Clip Quick 2.8mm 230cm - [id number] Implanted:Qty: 1 on 02/23/2020 by Chauncey Rodriguez MD at ENDOSCOPY [facility] Colon [employer] [id number] / / documented as of [...] on Sun01/30/24 at 0900, Until Sun01/30/24 at 1320Indications:Crohn's disease of both small and large intestine without complication (HCC) Start Infusion 01/30/2024 8:03 AM EST 500 mL 50 mL/hr Vedolizumab [...] mL/hr documented in this encounter Care Teams Superintendent Police Relationship Specialty Start Date End Date Joy Hope MD [address] [place] [address] PCP - General Internal Medicine 01/05/17 documented as of this encounter
--- OUTSIDE RECORDS SUMMARY | 2024-04-26 14:35 | External Medical Summary | Summary of Care ---
Author Name Unknown Organization [facility] Address [address] [place] [address] Phone [phone] Care Team Providers Care Jack Spinner Name Role Phone Joy Hope MD Primary Care Provider + Reason for Visit * Reason Comments Outpatient Testing Encounter Details Date Type Department Care Team (Late st Contact Info) Description 01/30/2024 7:40 AM EST Laboratory Laboratory [address] [place] [address] [place] [phone] [place], Lab Scenery [address] [place] [address] Encounter for long-term (current) use of medications [...] goal of less than 7.0% ([facility]) USE UP TO 4 TIMES DAILY [...] mRNA, LNP-s, No Pre serve, 2-Dose Series ([employer]) 01/14/2021,05/17/2020,04/19/2020 COVID-19, LNP-s, No Preserve , Dylan-sucrose, Ages 12+ ([employer]) 09/27/2021 COVID-19, MRNA-LNP, 24-25, P R, 30MCG/0.3ML, IM, 12YRS AND ABOVE ([employer] Window ProductionsirnatCentrafuse) 01/02/2024 COVID-19, MRNA-LNP, PF, 30 M CG/0.3 mL, 12 YRS AND ABOVE, IM ([employer]) 01/30/2023 Covid-19, Mrna, Lnp-s, Pf, B ivalent, 30 Mcg, IM, 12 yrs and above ([employer]) 01/17/2022 Hepatitis B, 20+ yrs 09/04/2016,05/13/2016,04/14 PPD 04/07/2016 Pneumococcal Conjugate Vacc, 13 Valent (Prevnar) 07/27/2016 Pneumococcal Conjugate Vacci ne, 20-valent ([id number]) 09/25/2023 Pneumococcal Polysaccharide PPV23 (Pneumovax) 07/18/2018,05/26/2008 RSV [...] 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 on 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 Not on file documented as of this encounter Plan of Treatment Upcoming Encounters Date Type Department Care Team (Late st Contact Info) Description 02/28/2024 8:30 AM EST Hem/Onc Treatment Hematology/Oncology Treatment, [place] [address] [place], [place] [phone] Kimberley, Chair 9 Hem Onc [place] 200 [facility] [place] [address] 04/03/2024 9:20 AM EST Office Visit General Internal Medicine [facility] [place] [address] [place] [address] Joy Hope MD 200 [facility] [place] [address] 04/08/2024 9:30 AM EST Office Visit Cardiology, [facility] [address] [place] [address] Batsheva Rutledge CRNP [address] [place] [address] 07/23/2024 3:20 PM EDT Office Visit Gastroenterology, [facility] [address] [place] [address] Chauncey Rodriguez MD [address] [place] [address] Scheduled Procedures Name Priority Associated Diagnoses Date/Ti [...] this encounter Medical Devices Implanted Type Area Cash Van Salesperson Device Identifier Shelf Expiration Date Model / Serial / Lot Clip Quick 2.8mm 230cm - [id number] Implanted:Qty: 1 on 02/23/2020 by Chauncey Rodriguez MD at ENDOSCOPY [facility] Colon [employer] [id number] / / documented as of this encounter Procedures Procedure Name Priority Date/Time Associated Diagnosis Comments MAGNESIUM Routine 01/30/2024 7:40 AM EST Encounter for long-term (current) use of medications documented in this encounter Results * (ABNORMAL) MAGNESIUM (01/30/2024 7:40 AM EST) Magnesium 1.4(L) 1.5 - 2.6 mg/dL 01/30/2024 9:30 AM EST [facility] 56-02 Blood Venous blood specimen / Unknown Venipuncture / Unknown 01/30/2024 7:40 AM EST 01/30/2024 7:40 AM EST Bruce Henriquez [facility] LAB BLOOD ORDERABLES Claudette l Result [facility] 56-02 200 [place] [address] documented in this encounter Visit Diagnoses Diagnosis Encounter for long-term (current) use of medications Encounter for long-term (current) use of other medications documented in this encounter Care Teams Jack Spinner Relationship Specialty Start Date End Date [facility] 200 [facility] [address] PCP - General Internal Medicine 01/05/17 documented as of this encounter
--- OUTSIDE RECORDS SUMMARY | 2024-04-26 14:35 | External Medical Summary | Summary of Care ---
Author Name Unknown Organization [facility] Address [address] [place] [address] Phone [phone] Care Team Providers Care Human Resources Associate Name Role Phone Joy Hope MD Primary Care Provider + Encounter Details Date Type Department Care Team (Late st Contact Info) Description 01/30/2024 Telephone Centralized Clinical Pharmacy Services, [facility] [address] [place] [address] [place] [address] Jude Cornell, [address] [place] [address] Allergies No known active allergiesdocumented as of [...] goal of less than 7.0% ([facility]) USE UP TO 4 TIMES DAILY [...] mRNA, LNP-s, No Pre serve, 2-Dose Series ([employer]) 01/14/2021,05/17/2020,04/19/2020 COVID-19, LNP-s, No Preserve , Dylan-sucrose, Ages 12+ ([employer]) 09/27/2021 COVID-19, MRNA-LNP, 24-25, P R, 30MCG/0.3ML, IM, 12YRS AND ABOVE ([employer] 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 Unfortunately there is no prior results to compare to in [facility], care everywhere, and nor is there any lab results in scans. Will have patient repeat Mag level in~ 2 weeks to reassess and establish a pattern/trend. Patient Phone Numbers Called patient, no answer. [email or web address] message sent reviewing the above. Jude Cornell [facility], Pharm D Clinical Pharmacist [facility] ([facility]) 01/30/2024, 1:36 PM [phone] documented in this encounter Plan of Treatment Upcoming Encounters Date Type Department Care Team (Late st Contact Info) Description 02/28/2024 8:30 AM EST Hem/Onc Treatment Hematology/Oncology Treatment, [address] [place] [phone] Kimberley, Chair 9 Hem Onc [address] [address] 04/03/2024 9:20 AM EST Office Visit General Internal Medicine [address] [place] [address] Joy Hope MD 200 [place] [address] 04/08/2024 9:30 AM EST Office Visit Cardiology, [facility] [address] [place] [address] Batsheva Rutledge CRNP [address] [place] [address] 07/23/2024 3:20 PM EDT Office Visit Gastroenterology, [facility] [address] [place] [address] Chauncey Rodriguez MD [address] [place] [address] Scheduled Orders Name Type Priority Associated Diagnoses Orde r Schedule MAGNESIUM Lab Routine Encounter for long-term (current) use of medications Expected: 01/30/2024, Expires: 01/29/2025 Scheduled Procedures Name Priority Associated Diagnoses Date/Ti [...] this encounter Medical Devices Implanted Type Area Administrative And Program Specialist Device Identifier Shelf Expiration Date Model / Serial / Lot Clip Quick 2.8mm 230cm - [id number] Implanted:Qty: 1 on 02/23/2020 by Chauncey Rodriguez MD at ENDOSCOPY [facility] Colon [employer] HX-.A / / documented as of this encounter Visit Diagnoses Diagnosis Encounter for long-term (current) use of medications- Primary Encounter for long-term (current) use of other medications documented in this encounter Care Teams Human Resources Associate Relationship Specialty Start Date End Date Joy Hope MD [address] [place] [address] PCP - General Internal Medicine 01/05/17 documented as of this encounter
--- OUTSIDE RECORDS SUMMARY | 2024-04-26 14:36 | External Medical Summary | Summary of Care ---
Author Name Unknown Organization [facility] Address [address] [place] [address] Phone [phone] Care Team Providers Care Case Technician Name Role Phone Joy Hope MD Primary Care Provider + Reason for Visit * Reason Comments Medication Refill Encounter Details Date Type Department Care Team (Late st Contact Info) Description 01/08/2024 Refill Cardiology, [facility] [address] [facility] [place] [address] Rey Mujica MD [address] [place] [address] Encounter for long-term (current) use of medications*; HTN, goal below 140/90 Allergies No known active allergiesdocumented as of this encounter (statuses as of 01/09/2024) Medications Medication Sig Dispensed Refills Start Date End Date Status ASPIRIN 81 MG PO TABSIndications:brodie es in the evening Take by mouth. Indications: takes in the evening 34 5 09/10/2005 Active GLUCOSAMINE COMPLEX PO TABS Take 1 Tablet by mouth 2 times a day. Active Cholecalciferol (VITAMIN D) 1000 units TabletIndications:t akes in the evening Take 2 Tablets by mouth in the morning. 07/13/2017 Active omeprazole (PRILOSEC) 20 MG CPDR Take 1 Cap by mouth daily. 90 Cap 1 07/13/2017 Active Vedolizumab 300 MG Intravenous Solution Reconstituted (Entyvio) 300 mg every month 1 Each 12 05/04/2020 Active Ferrous Sulfate 325 (65 Fe) MG Oral Tablet Take 1 Tablet by mouth every other day. Active OneTouch Ultra In Vitro Strip (Glucose Blood)Indications:T ype 2 diabetes mellitus with hemoglobin A1c goal of less than 7.0% (HCC) USE UP TO 4 TIMES DAILY FOR TESTING BLOOD SUGAR 100 Strip 5 10/18/2022 Active Terazosin HCl 10 MG Oral CapsuleIndications: HTN, goal below 140/90 TAKE ONE CAPSULE BY MOUTH AT BEDTIME 90 Capsule 3 07/25/2023 07/24/2024 Active Chlorthalidone 25 MG Oral Tablet (Hygroton)Indicatio ns:HTN, goal below 140/90 TAKE ONE-HALF TABLET BY MOUTH DAILY 45 Tablet 3 08/21/2023 08/20/2024 Active Atenolol 100 MG Oral Tablet (Tenormin)Indicatio ns:HTN, goal below 140/90 Take 1 Tablet by mouth in the morning. 90 Tablet 3 09/27/2023 Active Atorvastatin Calcium 40 MG Oral Tablet (Lipitor)Indication s:Dyslipidemia, goal LDL below 100 Take 1 Tablet by mouth every evening. 90 Tablet 3 09/27/2023 Active Enalapril Maleate 20 MG Oral Tablet (Vasotec)Indication s:HTN, goal below 140/90 Take 1 Tablet by mouth in the morning. 120 Tablet 3 09/27/2023 Active Felodipine ER 10 MG Oral Tablet Extended Release 24 Hour (Plendil)Indication s:HTN, goal below 140/90 Take 1 Tablet by mouth in the morning. 90 Tablet 3 09/27/2023 Active Furosemide 40 MG Oral Tablet (Lasix)Indications: Generalized edema TAKE ONE TABLET BY MOUTH DAILY NEEDED FOR FLUID RETENTION. 90 Tablet 3 09/27/2023 Active metFORMIN HCl 500 MG Oral Tablet (Glucophage)Indicat ions:Type 2 diabetes mellitus with hemoglobin A1c goal of less than 7.0% ([facility]) TAKE TWO TABLETS BY MOUTH TWICE A DAY WITH MORNING AND EVENING MEALS. 360 Tablet 1 10/03/2023 10/02/2024 Active Potassium Chloride Eulalia ER 20 MEQ Oral Tablet Extended ReleaseIndications: HTN, goal below 140/90 Take 1 Tablet by mouth in the morning and 1 Tablet at noon and 1 Tablet in the evening. 270 Tablet 3 10/09/2023 Active glipiZIDE 5 MG Oral Tablet (Glucotrol)Indicati ons:Type 2 diabetes mellitus with hemoglobin A1c goal of less than 7.0% (HCC) TAKE ONE TABLET BY MOUTH IN THE MORNING 30 MINUTES BEFORE A MEAL. 90 Tablet 3 11/28/2023 11/27/2024 Active Spironolactone 25 MG Oral Tablet (Aldactone)Indicati ons:HTN, goal below 140/90 TAKE TWO TABLETS BY MOUTH EVERY DAY 180 Tablet 1 01/09/2024 Active Spironolactone 25 MG Oral Tablet (Aldactone)Indicati ons:HTN, goal below 140/90 TAKE TWO TABLETS BY MOUTH EVERY DAY 180 Tablet 3 01/04/2023 01/08/2024 Discontinue d(Refill) documented as of this encounter (statuses as of 01/09/2024) Active Problems Problem Noted Date Diagnosed Date [...] 35.0 to 39.9 with serious comorbidity 05/31/2009 Overview: Per Obesity Taxonomy ICD-10 update of inactive diagnosis DYSLIPIDEMIA, GOAL LDL BELOW 100 02/15/2009 Overview: Per Lipid Taxonomy. Type 2 diabetes mellitus wit h hemoglobin A1c goal of less than 7.0% 12/31/2008 Overview: Per Diabetes Taxonomy. ICD-10 update of inactive term Adjustment disorder with depressed mood 04/02/19 09 documented as of this encounter (statuses as of 01/09/2024) Resolved Problems Problem Noted Date Diagnosed Date Resolved Date Edema 11/07/2011 01/05/2017 HTN, GOAL BELOW 140/80 10/23/201106/09 Overview: Per HTN Protocol #27. Acute sinusitis 12/18/2010 08/01/2011 Cellulitis of leg 07/27/2010 08/01/2011 Cellulitis of leg 07/25/2010 08/01/2011 HTN, GOAL BELOW 130/80 03/31/200910/25 Overview: Per HTN Taxonomy. Type 2 diabetes mellitus wit h hemoglobin A1c goal of less than 7.0% 01/09/2008 04/02/2008 Overview: Resolved per Duplicate Protocol #2. ICD-10 update of inactive term ADVANCE DIRECTIVE INFORMATION 10/05/2007 01/05/2017 Overview: Pt declines booklet. States he has one, will need to provide copy Type 2 diabetes mellitus wit h hemoglobin A1c goal of less than 7.0% 03/13/2007 12/31/2008 Overview: Per Diabetes Taxonomy. ICD-10 update of inactive term Benign neoplasm of colon 04/13/2006 Overview: Dx on colonoscopy Bx-repeat colonoscopy in 3 years Benign neoplasm of colon 04/13/200605/2016 Overview: Dx on colonoscopy Bx-repeat colonoscopy in 3 years OBESITY, UNSPECIFIED 04/15/2004 010 Overview: Per Obesity Taxonomy HTN, goal below 140/90 01/13/199903/31 Overview: Per HTN Taxonomy. PURE HYPERCHOLESTEROLEM 01/13/199902/02 Overview: Per Lipid Taxonomy. documented as of this encounter (statuses as of 01/09/2024) Immunizations Name Administration Dates Next Due COVID-19 mRNA, LNP-s, No Pre serve, 2-Dose Series ([employer]) 01/14/2021,05/17/2020,04/19/2020 COVID-19, LNP-s, No Preserve , Dylan-sucrose, Ages 12+ ([employer]) 09/27/2021 COVID-19, MRNA-LNP, 24-25, P R, 30MCG/0.3ML, IM, 12YRS AND ABOVE ([employer]-[facility]) 01/02/2024 COVID-19, MRNA-LNP, PF, 30 M CG/0.3 mL, 12 YRS AND ABOVE, IM ([employer]) 01/30/2023 Covid-19, Mrna, Lnp-s, Pf, B ivalent, 30 Mcg, IM, 12 yrs and above (Pfizer) 01/17/2022 Hepatitis B, 20+ yrs 09/04/2016,05/13/2016,04/14 PPD 04/07/2016 Pneumococcal Conjugate Vacc, 13 Valent (Prevnar) 07/27/2016 Pneumococcal Conjugate Vacci ne, 20-valent ([id number]) 09/25/2023 Pneumococcal Polysaccharide PPV23 (Pneumovax) 07/18/2018,05/26/2008 RSV [...] Assigned at Male 07/18/2018 8:49 AM EDT Gender Identity Male 07/18/2018 8:49 AM EDT Sexual Orientation Straight 07/18/2018 8: 49 AM EDT Job Start Date Occupation Industry Not on file Not on file Not on file documented as of this encounter Miscellaneous Notes * Telephone Encounter - Franky Foster RPh - 01/09/2024 4:26 PM ESTSigned Prescriptions: Disp Refills Spironolactone 25 MG Oral Tablet (Aldacton*180 Ta*1 Sig: TAKE TWO TABLETS BY MOUTH EVERY DAY Authorizing Provider: BATSHEVA BRYANT Ordering User: FRANKY FOSTER * Telephone Encounter - Franky Foster RPh - 01/09/2024 4:23 PM EST Magnesium lab ordered for next routine lab work. Franky Foster RPh [facility] Clinical Pharmacist Cardiology Department [phone] 01/09/2024,4:24 PM * Telephone Encounter - Malka Conti CPhT - 01/09/2024 12:15 PM EST MO to check on status of spironolactone. Thank you, Malka Conti CPhT II [facility] 01/09/2024, 12:15 PM * Telephone Encounter - Hanna Wall - 01/08/2024 3:13 PM ESTPending Prescriptions: Disp Refills Spironolactone 25 MG Oral Tablet (Aldacton*180 Ta*3 Sig: TAKE TWO TABLETS BY MOUTH EVERY DAY * Telephone Encounter - Hanna Wall - 01/08/2024 3:12 PM EST Did you pend patient's preferred pharmacy and medication before forwarding?yes Pharmacy: [facility] Pending Prescriptions: Disp Refills Spironolactone 25 MG Oral Tablet (Aldacto*180 Ta*3 Sig: TAKE TWO TABLETS BY MOUTH EVERY DAY Last Visit: 09/27/2023 (in office), Visit date not found (telemedicine) Next Visit: 04/08/2024 If no future appointments scheduled, and last appointment is greater than a year ago, please schedule patient for a follow-up appointment Last date the medication was ordered: 01/04/2023 Is this request for a controlled substance?No Urine Drug Screen:No results found. However, due to the size of the patient record, not all encounters were searched. Please check Results Review for a complete set of results. Patient Phone Numbers Labs: Lab Results Component Value Date/Time CREAT 1.2 09/13/2023 09:50 AM CREAT 1.1 03/26/2020 09:57 AM POTASSIUM 4.8 09/13/2023 09:50 AM POTASSIUM 3.6 03/26/2020 09:57 AM TSH 2.46 12/25/2008 12:53 PM LDL 68 09/13/2023 09:50 AM LDL 59 07/11/2022 10:30 AM LDL 80 02/03/2020 09:01 AM LDL 185. (HH) 03/14/1996 10:13 AM ALT 16 09/13/2023 09:50 AM ALT 50 02/03/2020 09:01 AM HGBA1C 6.3 (H) 09/13/2023 09:50 AM HGBA1C 8.1 (H) 02/03/2020 09:01 AM documented in this encounter Plan of Treatment Upcoming Encounters Date Type Department Care Team (Late st Contact Info) Description 01/30/2024 8:30 AM EST Hem/Onc Treatment Hematology/Oncology Treatment, [place] [address] [facility] [address] [place] [phone] Kimberley, Chair 9 Hem Onc [facility] [address] [facility] [place] [address] 04/03/2024 9:20 AM EST Office Visit General Internal Medicine [facility] [place] [address] [place] [address] Joy Hope MD [address] [facility] [place] [address] 04/08/2024 9:30 AM EST Office Visit Cardiology, [facility] [address] [facility] [place] [address] Batsheva Bryant CRNP [address] [place] [address] Scheduled Orders Name Type Priority Associated Diagnoses Orde r Schedule MAGNESIUM Lab Routine Encounter for long-term (current) use of medications Expected: 01/09/2024 (Approximate), Expires: 01/08/2025 Scheduled Procedures Name Priority Associated Diagnoses Date/Ti [...] exists Influenza Vaccine (FLU shot) Completed 12/31/2023, 01/02/2023, 12/20/2021, Additional history exists HPV (Gardasil) Vaccine Aged Out No lo nger eligible based on patient's age to complete this topic MENINGOCOCCAL (MENACTRA/MENVEO) Aged Out No longer eligible based on patient's age to complete this topic documented as of this encounter Medical Devices Implanted Type Area Line Erector Device Identifier Shelf Expiration Date Model / Serial / Lot Clip Quick 2.8mm 230cm - [id number] Implanted:Qty: 1 on 02/23/2020 by Chauncey Rodriguez MD at ENDOSCOPY [facility] [employer] [facility] [id number] / / documented as of this encounter Visit Diagnoses Diagnosis Encounter for long-term (current) use of medications- Primary Encounter for long-term (current) use of other medications HTN, goal below 140/90 Unspecified essential hypertension documented in this encounter Care Teams Case Technician Relationship Specialty Start Date End Date Joy Hope MD [address] [place] [address] PCP - General Internal Medicine 01/05/17 documented as of this encounter
--- OUTSIDE RECORDS SUMMARY | 2024-04-26 14:36 | External Medical Summary | Summary of Care ---
Author Name Unknown Organization [facility] Address [address] [place] [address] Phone [phone] Care Team Providers Care Medical Billing Coordinator Name Role Phone Joy Hope MD Primary Care Provider + Reason for Visit * Reason Onset Date Comments Medication Administration 12/31/2023 Flu an d/or Pneumo Inj Encounter Details Date Type Department Care Team (Late st Contact Info) Description 12/31/2023 10:40 AM EDT Immunization Ancillary [facility] [address] [place] [address] Sp, [facility] [address] [place] [address] Need for prophylactic vaccination and inoculation against influenza* Allergies No known active allergiesdocumented as of this encounter (statuses as of 12/31/2023) Medications Medication Sig Dispensed Refills Start Date End Date Status ASPIRIN 81 MG PO TABSIndications:takes in the evening Take by mouth. Indications: takes in the evening 34 5 09/10/2005 Active GLUCOSAMINE COMPLEX PO TABS Take 1 Tablet by mouth 2 times a day. Active Cholecalciferol (VITAMIN D) 1000 units TabletIndications:brodie es in the evening Take 2 Tablets by [...] Active OneTouch Ultra In Vitro Strip (Glucose Blood)Indications:Typ e 2 diabetes mellitus with hemoglobin A1c goal of less than 7.0% ([facility]) USE UP TO 4 TIMES DAILY FOR TESTING BLOOD SUGAR 100 Strip 5 10/18/2022 Active Spironolactone 25 MG Oral Tablet (Aldactone)Indication s:HTN, goal below 140/90 TAKE TWO TABLETS BY MOUTH EVERY DAY 180 Tablet 3 01/04/2023 Active Terazosin HCl 10 MG Oral CapsuleIndications:HT N, goal below 140/90 TAKE ONE CAPSULE BY MOUTH AT BEDTIME 90 Capsule 3 07/25/2023 07/24/2024 Active Chlorthalidone 25 MG Oral Tablet (Hygroton)Indications :HTN, goal below 140/90 TAKE ONE-HALF TABLET BY MOUTH DAILY 45 Tablet 3 08/21/2023 08/20/2024 Active Atenolol 100 MG Oral Tablet (Tenormin)Indications :HTN, goal below 140/90 Take 1 Tablet by mouth in the morning. 90 Tablet 3 09/27/2023 Active Atorvastatin Calcium 40 MG Oral Tablet (Lipitor)Indications: Dyslipidemia, goal LDL below 100 Take 1 Tablet by mouth every evening. 90 Tablet 3 09/27/2023 Active Enalapril Maleate 20 MG Oral Tablet (Vasotec)Indications: HTN, goal below 140/90 Take 1 Tablet by mouth in the morning. 120 Tablet 3 09/27/2023 Active Felodipine ER 10 MG Oral Tablet Extended Release 24 Hour (Plendil)Indications: HTN, goal below 140/90 Take 1 Tablet by mouth in the morning. 90 Tablet 3 09/27/2023 Active Furosemide 40 MG Oral Tablet (Lasix)Indications:Ge neralized edema TAKE ONE TABLET BY MOUTH DAILY NEEDED FOR FLUID RETENTION. 90 Tablet 3 09/27/2023 Active metFORMIN HCl 500 MG Oral Tablet (Glucophage)Indicatio ns:Type 2 diabetes mellitus with hemoglobin A1c goal of less than 7.0% ([facility]) TAKE TWO TABLETS BY MOUTH TWICE A DAY WITH MORNING AND EVENING MEALS. 360 Tablet 1 10/03/2023 10/02/2024 Active Potassium Chloride Eulalia ER 20 MEQ Oral Tablet Extended ReleaseIndications:HT N, goal below 140/90 Take 1 Tablet by mouth in the morning and 1 Tablet at noon and 1 Tablet in the evening. 270 Tablet 3 10/09/2023 Active glipiZIDE 5 MG Oral Tablet (Glucotrol)Indication s:Type 2 diabetes mellitus with hemoglobin A1c goal of less than 7.0% (HCC) TAKE ONE TABLET BY MOUTH IN THE MORNING 30 MINUTES BEFORE A MEAL. 90 Tablet 3 11/28/2023 11/27/2024 Active documented as of this encounter (statuses as of 12/31/2023) Active Problems Problem Noted Date Diagnosed Date [...] as of this encounter (statuses as of 12/31/2023) Resolved Problems Problem Noted Date Diagnosed Date [...] as of this encounter (statuses as of 12/31/2023) Immunizations Name Administration Dates Next Due COVID-19 mRNA, LNP-s, No Pre serve, 2-Dose Series ([employer]) 01/14/2021,05/17/2020,04/19/2020 COVID-19, LNP-s, No Preserve , Dylan-sucrose, Ages 12+ (Pfizer) 09/27/2021 COVID-19, MRNA-LNP, 23-24, P F, 30 MCG/0.3 mL, 12 YRS AND ABOVE, IM ([facility]) 01/30/2023 Covid-19, Mrna, Lnp-s, Pf, B ivalent, 30 Mcg, IM, 12 yrs and above (Pfizer) 01/17/2022 Hepatitis B, 20+ yrs 09/04/2016,05/13/2016,04/14 PPD 04/07/2016 Pneumococcal Conjugate Vacc, 13 Valent (Prevnar) 07/27/2016 Pneumococcal Conjugate Vacci ne, 20-valent ([id number]) 09/25/2023 Pneumococcal Polysaccharide PPV23 (Pneumovax) 07/18/2018,05/26/2008 RSV [...] as of this encounter Progress Notes * Elizabeth Garber LPN - 12/31/2023 10:25 AM EDT PRE - ADMINISTRATION DOCUMENTATION Are you experiencing any cold symptoms or fever? No Have you had Guillain-Bradford Syndrome (an illness that causes paralysis) within the last 6 weeks? No Have you had the flu shot in the past? YES Have you ever had a reaction to the flu shot? No Elizabeth Garber LPN, 12/31/2023 10:25 AM Immunization Administration Documentation Time Out Procedure Performed: Yes Patient Identified (Ask Name/Date of ): Yes Does the patient have a fever greater than 101 degrees today? No Patient allergic to latex? No VFC Stock: No Immunization(s) verified: Yes, Immunization Name: Flu, VIS Sheet(s) given: Yes Verified Side and Site: Yes Verified Shot(s) with Parent(s)/Patient: Yes documented in this encounter Plan of Treatment Upcoming Encounters Date Type Department Care Team (Late st Contact Info) Description 01/02/2024 1:15 PM EDT Immunization [facility] [address] [place] [address] [facility]x Koenigid19 [facility] [address] [place] [address] 01/03/2024 8:30 AM EDT Hem/Onc Treatment Hematology/Oncology Treatment, [place] [address] [place] [phone] Kimberley, Chair 1 Hem Onc [facility] [address] [place] [address] 04/03/2024 9:20 AM EST Office Visit General Internal Medicine [facility] [place] [address] [place] [address] Joy Hope MD [address] [facility] [place] [address] 04/08/2024 9:30 AM EST Office Visit Cardiology, [facility] [address] [place] [address] Batsheva Rutledge CRNP [address] [place] [address] Scheduled Procedures Name Priority Associated Diagnoses Date/Ti me COLONOSCOPY FLEXIBLE PROXIMA L DIAGNOSTIC Recall IBD (inflammatory bowel disease) Health Maintenance Due Date Last Done Comments Cologuard 06/30/2000 Fecal Occult Blood Test 06/30/2000 Sigmoidoscopy 06/30/2000 Adult Wellness Visit 06/30/2021 Depression Screening 03/23/2023 03/23/2022 COVID-19 Vaccine ( season) 2023 01/30/2023, 01/17/2022, 09/27/2021, Additional history exists Diabetic Eye Exam 01/05/2024 01/04/2023, , 01/04/2023, Additional history exists HbA1c 03/15/2024 09/13/2023, 06/2023, 07/11/2022, Additional history exists Diabetic Foot Exam 03/27/2024 03/27/2023, 0 03/23/2022, 03/22/2021, Additional history exists Colonoscopy 08/21/2024 08/22/2023, 08/03, 07/14/2022, Additional history exists Colorectal Cancer Screening 08/21/2024 Albumin/Creatinine Ratio 09/12/2024 024, 07/11/2022, 03/22/2021, Additional history exists B-12 09/12/2024 09/13/2023, 03/05, 03/22/2021, Additional history exists GFR 09/12/2024 09/13/2023, 06/2023, 08/15/2022, Additional history exists DTap/Tdap Vaccines (3 - [...] this encounter Medical Devices Implanted Type Area Manager Zone Device Identifier Shelf Expiration Date Model / Serial / Lot Clip Quick 2.8mm 230cm - [id number] Implanted:Qty: 1 on 02/23/2020 by Chauncey Rodriguez MD at [facility] [id number] / / documented as of this encounter Visit Diagnoses Diagnosis Need for prophylactic vaccination and inoculation against influenza- Primary documented in this encounter Care Teams Medical Billing Coordinator Relationship Specialty Start Date End Date Joy Hope MD [address] [facility] [place] [address] PCP - General Internal Medicine 01/05/17 documented as of this encounter
--- OUTSIDE RECORDS SUMMARY | 2024-04-26 14:36 | External Medical Summary | Summary of Care ---
Author Name Unknown Organization [facility] Address [address] [place] [address] Phone [phone] Care Team Providers Care Tabulating Clerk Name Role Phone Joy Hope MD Primary Care Provider + Reason for Visit * Reason Comments Infusion Entyvio * Episode Based Medications (Routine) - Authorized Specialty Diagnoses / Procedures Referred By Rasheed t Referred To Contact Diagnoses Crohn's disease of both small and large intestine without complication (HCC) Procedures VEDOLIZUMAB, PER 1 MG, INJ Chauncey Rodriguez MD [address] [place] [address] Anc Hem/Onc [place] DEPT CLOSED - 01/16/23 [address] [place] [address] Referral ID Status Reason Start Date Expiration Date V isits Requested Visits Authorized [id number] Authorized 03/30/2023 03/30/2024 99 99 Encounter Details Date Type Department Care Team (Latest Contact Info) Description 01/03/2024 8:30 AM EDT Hem/Onc Treatment Hematology/Oncology Treatment, [place] [address] [place] [address] Kimberley, Chair 1 Hem Onc [place] [address] [facility] [place] [address] Crohn's disease of both small and large [...] Tablet by mouth every other day. Active [employer] Ultra In Vitro Strip (Glucose Blood)Indications:Typ e [...] mRNA, LNP-s, No Pre serve, 2-Dose Series ([employer]) 01/14/2021,05/17/2020,04/19/2020 COVID-19, LNP-s, No Preserve , Dylan-sucrose, Ages 12+ ([employer]) 09/27/2021 COVID-19, MRNA-LNP, 24-25, P R, 30MCG/0.3ML, IM, 12YRS AND ABOVE ([facility]) 01/02/2024 COVID-19, MRNA-LNP, PF, 30 M CG/0.3 mL, 12 YRS AND ABOVE, IM ([facility]) 01/30/2023 Covid-19, Mrna, Lnp-s, Pf, B ivalent, 30 Mcg, IM, 12 yrs and above ([employer]) 01/17/2022 Hepatitis B, 20+ yrs 09/04/2016,05/13/2016,04/14 PPD 04/07/2016 Pneumococcal Conjugate Vacc, 13 Valent (Prevnar) 07/27/2016 Pneumococcal Conjugate Vacci ne, 20-valent ([id number]) 09/25/2023 Pneumococcal Polysaccharide PPV23 (Pneumovax) 07/18/2018,05/26/2008 RSV [...] 8:30 AM EST Hem/Onc Treatment Hematology/Oncology Treatment, [place] [address] [facility] [address] [place] [phone] Kimberley, Chair 9 Hem Onc [facility] [address] [place] [address] 04/03/2024 9:20 AM EST Office Visit General Internal Medicine [facility] [place] [address] [place] [address] Joy Hope MD [address] [facility] [place] [address] 04/08/2024 9:30 AM EST Office Visit Cardiology, [facility] [address] [place] [address] Batsheva Rutledge, KENNY [address] [place] [address] Scheduled Procedures Name Priority Associated Diagnoses Date/Ti [...] this encounter Medical Devices Implanted Type Area Packing House Laborer Device Identifier Shelf Expiration Date Model / Serial / Lot Clip Quick 2.8mm 230cm - [id number] Implanted:Qty: 1 on 02/23/2020 by Chauncey Rodriguez MD at ENDOSCOPY [facility] Colon [employer] [id number] / / documented as of [...] on Sun01/03/24 at 0915, Until Sun01/03/24 at 1330 Start Infusion 01/03/2024 8:23 AM EDT 500 mL 50 mL/hr Vedolizumab (Entyvio) 300 mg in NSS 250 mL infusion 300 mg, IV Piggyback, ONCE, 1 dose, On Sun01/03/24 at 0945, Administer over 30 Minutes, Flush with 30 mL of NSS after infusion. Start Infusion 01/03/2024 8:51 AM EDT 300 mg 520 mL /hr documented in this encounter Care Teams Tabulating Clerk Relationship Specialty Start Date End Date Joy Hope MD [address] [place] [address] PCP - General Internal Medicine 01/05/17 documented as of this encounter
--- OUTSIDE RECORDS SUMMARY | 2024-04-26 14:36 | External Medical Summary | Summary of Care ---
Author Name Unknown Organization [facility] Address [address] [place] [address] Phone [phone] Care Team Providers Care Engineering Teacher Name Role Phone Joy Hope MD Primary Care Provider + Reason for Visit * Reason Comments Medication Refill Encounter Details Date Type Department Care Team (Late st Contact Info) Description 12/25/2023 Refill Card[facility], [facility] [place] [address] Rey Mujica MD [address] [place] [address] HTN, goal below 140/90 Allergies No known active allergiesdocumented as of this encounter (statuses as of 12/28/2023) Medications Medication Sig Dispensed Refills Start Date [...] than 7.0% ([facility]) TAKE TWO TABLETS BY MOUTH TWICE A [...] as of this encounter (statuses as of 12/28/2023) Active Problems Problem Noted Date Diagnosed Date [...] as of this encounter (statuses as of 12/28/2023) Resolved Problems Problem Noted Date Diagnosed Date [...] as of this encounter (statuses as of 12/28/2023) Immunizations Name Administration Dates Next Due COVID-19 mRNA, LNP-s, No Pre serve, 2-Dose Series ([employer]) 01/14/2021,05/17/2020,04/19/2020 COVID-19, LNP-s, No Preserve , Dylan-sucrose, Ages 12+ (Pfizer) 09/27/2021 COVID-19, MRNA-LNP, 23-24, P F, 30 MCG/0.3 mL, 12 YRS AND ABOVE, IM (PFIZER-Comirnaty) 01/30/2023 Covid-19, Mrna, Lnp-s, Pf, B ivalent, 30 Mcg, IM, 12 yrs and above ([employer]) 01/17/2022 Diptheria/Tetanus (Adult) 06/15/1998,03/05/1989 06/15/2008 Hepatitis B, 20+ yrs 09/04/2016,05/13/2016,04/14 PPD 04/07/2016 Pneumococcal Conjugate Vacc, 13 Valent (Prevnar) 07/27/2016 Pneumococcal Conjugate Vacci ne, 20-valent ([id number]) 09/25/2023 Pneumococcal Polysaccharide PPV23 (Pneumovax) 07/18/2018,05/26/2008,04/02/2008(Defe rred: Patient Refused) RSV Vac., Bivalent, Perfusio n F, Pf,0.5 Ml (Abrysvo) 01/30/2023 Seasonal Influenza Vac., MDV , IM, 0.5 mL (Fluzone) 12/12/2013,02/06/2013,11/07/2011,01/04,12/31/2009,12/10/2008,01/09/20 08,01/31/2007,01/13/2006,01/19/2005,1 03/15/2002,12/24/2001,01/03/2001,01/1301/14/2004 Seasonal Influenza, PF, 6 M & above, [...] as of this encounter Miscellaneous Notes * Addendum Note - Malka Alatorre CPhT - 12/28/2023 8:54 AM EDTAddended by: MALKA ALATORRE on: 12/28/2023 08:54 AM Modules accepted: Orders * Telephone Encounter - Malka Alatorre CPhT - 12/28/2023 8:53 AM EDT Did you pend patient's preferred pharmacy and medication before forwarding?yes Pharmacy: [facility] Pending Prescriptions: Disp Refills Spironolactone 25 MG Oral Tablet (Aldacto*180 Ta*3 Sig: TAKE TWO TABLETS BY MOUTH EVERY DAY Last Visit: 09/27/2023 (in office), Visit date not found (telemedicine) Next Visit: 04/08/2024 If no future appointments scheduled, and last appointment is greater than a year ago, please schedule patient for a follow-up appointment Last date the medication was ordered: 01/04/23 Is this request for a controlled substance?No [...] AM HGBA1C 8.1 (H) 02/03/2020 09:01 AM * Telephone Encounter - Malka Alatorre CPhT - 12/28/2023 8:52 AM EDTNo prescriptions requested or ordered in this encounter * Telephone Encounter - Hanna Wall - 12/25/2023 4:38 PM EDTPending Prescriptions: Disp Refills Spironolactone 25 MG Oral Tablet (Aldacton*180 Ta*3 Sig: TAKE TWO TABLETS BY MOUTH EVERY DAY * Telephone Encounter - Hanna Wall - 12/25/2023 4:37 PM EDT Did you pend patient's preferred pharmacy and medication before forwarding?yes Pharmacy: [facility] Pending Prescriptions: Disp Refills [...] Care Team (Late st Contact Info) Description 01/03/2024 8:30 AM EDT Hem/Onc Treatment Hematology/Oncology Treatment, [place] [address] [place], [place] [address] Kimberley, Chair 1 Hem Onc [address] [facility] [address] 04/03/2024 9:20 AM EST Office Visit General Internal Medicine [facility] [place] [address] [place] [address] Joy Hope MD 200 [facility] [place] [address] 04/08/2024 9:30 AM EST Office Visit Cardiology, [facility] [address] [place] [address] Batsheva Rutledge CRNP [address] [facility] [place] [address] Scheduled Procedures Name Priority Associated Diagnoses Date/Ti me COLONOSCOPY FLEXIBLE PROXIMA L DIAGNOSTIC Recall IBD (inflammatory bowel disease) Health Maintenance Due Date Last Done Comments Cologuard 06/30/2000 Fecal Occult Blood Test 06/30/2000 Sigmoidoscopy 06/30/2000 Adult Wellness Visit 06/30/2021 Depression Screening 03/23/2023 03/23/2022 COVID-19 Vaccine ( season) 2023 01/30/2023, 01/17/2022, 09/27/2021, Additional history exists Influenza Vaccine (FLU shot) (#1) 2023 01/02/2023, 12/20/2021, 11/26/2020, Additional history exists Diabetic Eye Exam 01/05/2024 [...] Completed 09/25/2023, 07/18/2018, 07/27/2016, Additional history exists HPV (Gardasil) Vaccine Aged Out No lo nger eligible based on patient's age to complete this topic MENINGOCOCCAL (MENACTRA/MENVEO) Aged Out No longer eligible based on patient's age to complete this topic documented as of this encounter Medical Devices Implanted Type Area Tile Molder Hand Device Identifier Shelf Expiration Date Model / Serial / Lot Clip Quick 2.8mm 230cm - [id number] Implanted:Qty: 1 on 02/23/2020 by Chauncey Rodriguez MD at ENDOSCOPY [facility] [employer] [facility] [id number]-.[id number] / / documented as of this encounter Visit Diagnoses Diagnosis HTN, goal below 140/90 Unspecified essential hypertension documented in this encounter Care Teams Engineering Teacher Relationship Specialty Start Date End Date Joy Hope MD [address] [place] [address] PCP - General Internal Medicine 01/05/17 documented as of this encounter
--- OUTSIDE RECORDS SUMMARY | 2024-04-26 14:36 | External Medical Summary | Summary of Care ---
Author Name Unknown Organization [facility] Address [address] [place] [address] Phone [phone] Care Team Providers Care Speech Language Specialist Name Role Phone Joy Hope MD Primary Care Provider + Reason for Visit * Reason Comments Medication Refill Encounter Details Date Type Department Care Team (Late st Contact Info) Description 01/01/2024 [facility]ill Card[facility], [facility] [place] [address] Rey Mujica MD [address] [place] [address] HTN, goal below 140/90 Allergies No known active allergiesdocumented as of this encounter (statuses as of 01/01/2024) Medications Medication Sig Dispensed Refills Start Date [...] than 7.0% ([facility]) TAKE TWO TABLETS BY MOUTH TWICE A [...] as of this encounter (statuses as of 01/01/2024) Active Problems Problem Noted Date Diagnosed Date [...] as of this encounter (statuses as of 01/01/2024) Resolved Problems Problem Noted Date Diagnosed Date [...] as of this encounter (statuses as of 01/01/2024) Immunizations Name Administration Dates Next Due COVID-19 mRNA, LNP-s, No Pre serve, 2-Dose Series (travelfox) 01/14/2021,05/17/2020,04/19/2020 COVID-19, LNP-s, No Preserve , Dylan-sucrose, Ages 12+ (Pfizer) 09/27/2021 COVID-19, MRNA-LNP, 23-24, P F, 30 MCG/0.3 mL, 12 YRS AND ABOVE, IM (PFIZER-Comirnaty) 01/30/2023 Covid-19, Mrna, Lnp-s, Pf, B ivalent, 30 Mcg, IM, 12 yrs and above (travelfox) 01/17/2022 Hepatitis B, 20+ yrs 09/04/2016,05/13/2016,04/14 PPD 04/07/2016 Pneumococcal Conjugate Vacc, 13 Valent (Prevnar) 07/27/2016 Pneumococcal Conjugate Vacci ne, 20-valent ([id number]) 09/25/2023 Pneumococcal Polysaccharide PPV23 (Pneumovax) 07/18/2018,05/26/2008 RSV [...] encounter Miscellaneous Notes * Telephone Encounter - Chen Wall - 01/01/2024 5:44 PM EDTRefused Prescriptions: Disp Refills Spironolactone 25 MG Oral Tablet (Aldacton*180 Ta*3 Sig: TAKE TWO TABLETS BY MOUTH EVERY DAYRefused By: CHEN WALLReason for Refusal: Duplicate Request------ documented in this encounter Plan of Treatment Upcoming Encounters Date Type Department Care Team (Late st Contact Info) Description 01/02/2024 1:15 PM EDT Immunization [facility] [address] [place] [address] Tomi Koenig [facility] [place] [address] 01/03/2024 8:30 AM EDT Hem/Onc Treatment Hematology/Oncology Treatment, [place] [address] [place] [id number] Kimberley, Chair 1 Hem Onc [facility] [address] [place] [address] 04/03/2024 9:20 AM EST Office Visit General Internal Medicine [facility] [place] [address] [place] [address] Joy Hope MD 200 [facility] [place] [address] 04/08/2024 9:30 AM EST Office Visit Cardiology, [facility] [address] [facility] [place] [address] Batsheva Rutledge CRNP [address] [place] [address] Scheduled Procedures Name Priority Associated Diagnoses Date/Ti [...] this encounter Medical Devices Implanted Type Area Condenser Tester Device Identifier Shelf Expiration Date Model / Serial / Lot Clip Quick 2.8mm 230cm - [id number] Implanted:Qty: 1 on 02/23/2020 by Chauncey Rodriguez MD at ENDOSCOPY [facility] Colon [employer] [facility] HX-.[id number] / / documented as of this encounter Visit Diagnoses Diagnosis HTN, goal below 140/90 Unspecified essential hypertension documented in this encounter Care Teams Speech Language Specialist Relationship Specialty Start Date End Date Joy Hope MD [address] [place] [address] PCP - General Internal Medicine 01/05/17 documented as of this encounter
--- OUTSIDE RECORDS SUMMARY | 2024-04-26 14:36 | External Medical Summary | Summary of Care ---
Author Name Unknown Organization [facility] Address [address] [place] [address] Phone [phone] Care Team Providers Care Spool Cleaner Name Role Phone Joy Hope MD Primary Care Provider + Reason for Visit * Reason Comments Infusion Entyvio * Episode Based Medications (Routine) - Authorized Specialty Diagnoses / Procedures Referred By Rasheed t Referred To Contact Diagnoses Crohn's disease of both small and large intestine without complication (HCC) Procedures VEDOLIZUMAB, PER 1 MG, INJ Chauncey Rodriguez MD [address] [place] [address] Anc Hem/Onc [facility] [facility] DEPT CLOSED - 01/16/23 [address] [place] [address] Referral ID Status Reason Start Date Expiration Date V isits Requested Visits Authorized [id number] Authorized 03/30/2023 03/30/2024 99 99 Encounter Details Date Type Department Care Team (Latest Contact Info) Description 01/03/2024 8:30 AM EDT Hem/Onc Treatment Hematology/Oncology Treatment, [place] [address] [place] [address] Kimberley, Chair 1 Hem Onc [address] [facility] [place] [address] Crohn's disease of both small and large intestine without complication (HCC)* Allergies No known active allergiesdocumented as of this encounter (statuses as of 01/03/2024) Medications Medication Sig Dispensed Refills Start Date [...] Tablet by mouth every other day. Active Ampla Pharmaceuticalsuch Ultra In Vitro Strip (Glucose Blood)Indications:Typ e 2 diabetes mellitus with hemoglobin A1c goal of less than 7.0% ([facility]) USE UP TO 4 TIMES DAILY [...] as of this encounter (statuses as of 01/03/2024) Active Problems Problem Noted Date Diagnosed Date [...] as of this encounter (statuses as of 01/03/2024) Resolved Problems Problem Noted Date Diagnosed Date [...] as of this encounter (statuses as of 01/03/2024) Immunizations Name Administration Dates Next Due COVID-19 mRNA, LNP-s, No Pre serve, 2-Dose Series ([employer]) 01/14/2021,05/17/2020,04/19/2020 COVID-19, LNP-s, No Preserve , Dylan-sucrose, Ages 12+ (V[employer]Text) 09/27/2021 COVID-19, MRNA-LNP, 23-24, P F, 30 MCG/0.3 mL, 12 YRS AND ABOVE, IM ([employer]) 01/30/2023 COVID-19, MRNA-LNP, 24-25, P R, 30MCG/0.3ML, IM, 12YRS AND ABOVE ([email or web address]) 01/02/2024 Covid-19, Mrna, Lnp-s, Pf, B ivalent, 30 Mcg, IM, 12 yrs and above ([employer]Text) 01/17/2022 Hepatitis B, 20+ yrs 09/04/2016,05/13/2016,04/14 PPD 04/07/2016 Pneumococcal Conjugate Vacc, 13 Valent (Prevnar) 07/27/2016 Pneumococcal Conjugate Vacci ne, 20-valent ([id number]) 09/25/2023 Pneumococcal Polysaccharide PPV23 (Pneumovax) 07/18/2018,05/26/2008 RSV [...] 8:30 AM EST Hem/Onc Treatment Hematology/Oncology Treatment, [place] [address] [facility] [address] [place] [phone] Kimberley, Chair 9 Hem Onc [facility] [address] [facility] [place] [address] 04/03/2024 9:20 AM EST Office Visit General Internal Medicine [facility] [place] [address] [facility] [place] [address] Joy Hope MD 200 [facility] [place] [address] 04/08/2024 9:30 AM EST Office Visit Cardiology, [facility] [place] [address] Batsheva Rutledge CRNP [address] [place] [address] Scheduled Procedures Name Priority Associated Diagnoses Date/Ti me COLONOSCOPY FLEXIBLE PROXIMA L DIAGNOSTIC Recall IBD (inflammatory bowel disease) Health Maintenance Due Date Last Done Comments Cologuard 06/30/2000 Fecal Occult Blood Test 06/30/2000 Sigmoidoscopy 06/30/2000 Adult Wellness Visit 06/30/2021 Depression Screening 03/23/2023 03/23/2022 Diabetic Eye Exam 01/05/2024 01/04/2023, , 01/04/2023, [...] 09/13/2023, 0 06/2023, 08/15/2022, Additional history exists DTap/Tdap Vaccines [...] Completed 12/31/2023, 01/02/2023, 12/20/2021, Additional history exists COVID-19 Vaccine Completed 01/02/2024, , 01/17/2022, Additional history exists HPV (Gardasil) Vaccine Aged Out No lo nger eligible based on patient's age to complete this topic MENINGOCOCCAL (MENACTRA/MENVEO) Aged Out No longer eligible based on patient's age to complete this topic documented as of this encounter Medical Devices Implanted Type Area Ticket Sorter Device Identifier Shelf Expiration Date Model / Serial / Lot Clip Quick 2.8mm 230cm - [id number] Implanted:Qty: 1 on 02/23/2020 by Chauncey Rodriguez MD at ENDOSCOPY [facility] [employer] [facility] [id number] / / [...] ONCE PRN Other, Hypersensitivity Reaction, Starting on Sun01/03/24 at 0813, Until Sun01/04/24 at 0812, For 24 hours EPINEPHrine 1 MG/ML inj 0.3 mg 0.3 mg, Intramuscular, ONCE PRN Other, Hypersensitivity Reaction or Anaphylaxis, Starting on Sun01/03/24 at 0813, Until Sun01/04/24 at 0812, For 24 hours hEParin 100 UNIT/ML Lock Flush inj 500 Units 500 Units (5 mL), IV Lock, PRN Other, IV Flush, Starting on Sun01/03/24 at 0813, Until Sun01/04/24 at 0812, For 24 hours, Do not flush if lock, PICC, or central line not in place; IV infusing or unable to flush. Hydrocortisone Sod Suc (PF) (Solu-Cortef) inj 100 mg 100 mg, IV Push, ONCE PRN Other, Hypersensitivity Reaction, Starting on Virginie 01/03/24 at 0813, Until Sun01/04/24 at 0812, For 24 hours NSS infusion 500 mL, Intravenous, at 50 mL/hr, CONTINUOUS, Starting on Virginie 01/03/24 at 0915, Until Virginie 01/03/24 at 1914 Start Infusion 01/03/2024 8:23 AM EDT 500 mL 50 mL/hr sodium chloride 0.9 % flush central line 10 mL 10 mL, IV Push, PRN Other, IV Flush, Starting on Virginie 01/03/24 at 0813, Until Sun01/04/24 at 0812, For 24 hours, Do not flush if lock, PICC, or central line not in place; IV infusing or unable to flush. Inactive Administered Medications - up to 3 [...] /hr documented in this encounter Care Teams Spool Cleaner Relationship Specialty Start Date End Date Joy Hope MD 200 [place] [address] PCP - General Internal Medicine 01/05/17 documented as of this encounter
--- OUTSIDE RECORDS SUMMARY | 2024-04-26 14:36 | External Medical Summary | Summary of Care ---
Author Name Unknown Organization [facility] Address [address] [place] [address] Phone [phone] Care Team Providers Care School Librarian Name Role Phone Swapna Hope MD Primary Care Provider + Reason for Visit * Reason Comments Medication Refill Encounter Details Date Type Department Care Team (Late st Contact Info) Description 11/27/2023 Refill General Internal Medicine [facility] 200 [facility] [place] [address] Swapna Hope MD [address] [place] [address] Type 2 diabetes mellitus with hemoglobin A1c goal of less than 7.0% ([facility]) Allergies No known active allergiesdocumented as of this encounter (statuses as of 11/28/2023) Medications Medication Sig Dispensed Refills Start Date [...] A1c goal of less than 7.0% ([facility]) USE UP TO 4 TIMES DAILY FOR TESTING BLOOD SUGAR 100 Strip 5 10/18/2022 Active Spironolactone 25 MG Oral Tablet (Aldactone)Indicati ons:HTN, goal below 140/90 TAKE TWO TABLETS BY MOUTH EVERY DAY 180 Tablet 3 01/04/2023 Active Terazosin HCl 10 MG Oral CapsuleIndications: [...] A1c goal of less than 7.0% ([facility]) TAKE TWO TABLETS BY MOUTH TWICE A [...] MEAL. 90 Tablet 3 11/28/2023 11/27/2024 Active glipiZIDE 5 MG Oral Tablet (Glucotrol)Indicati ons:Type 2 diabetes mellitus with hemoglobin A1c goal of less than 7.0% (HCC) TAKE ONE TABLET BY MOUTH IN THE MORNING 30 MINUTES BEFORE A MEAL. 90 Tablet 09/05/2023 11/27/2023 Discontinue d(Refill) documented as of this encounter (statuses as of 11/28/2023) Active Problems Problem Noted Date Diagnosed Date [...] as of this encounter (statuses as of 11/28/2023) Resolved Problems Problem Noted Date Diagnosed Date [...] as of this encounter (statuses as of 11/28/2023) Immunizations Name Administration Dates Next Due COVID-19 mRNA, LNP-s, No Pre serve, 2-Dose Series ([employer]) 01/14/2021,05/17/2020,04/19/2020 COVID-19, LNP-s, No Preserve , Dylan-sucrose, Ages 12+ ([employer]) 09/27/2021 COVID-19, MRNA-LNP, 23-24, P F, 30 MCG/0.3 mL, 12 YRS AND ABOVE, IM (PFIZER-Comirnat) 01/30/2023 Covid-19, Mrna, Lnp-s, Pf, B ivalent, 30 Mcg, IM, 12 yrs and above (Pfizer) 01/17/2022 Hepatitis B, 20+ yrs 09/04/2016,05/13/2016,04/14 PPD 04/07/2016 Pneumococcal Conjugate Vacc, 13 Valent (Prevnar) 07/27/2016 Pneumococcal Conjugate Vacci ne, 20-valent ([id number]) 09/25/2023 Pneumococcal Polysaccharide PPV23 (Pneumovax) 07/18/2018,05/26/2008 RSV Vac., Bivalent, Perfusio n F, Pf,0.5 Ml (Abrysvo) 01/30/2023 Seasonal Influenza, PF, 6 M & above, IM , (FluLaval or Fluzone) 12/05/2019,11/28/2018,12/08/2017,12/19 Seasonal Influenza, Quadriva lent Hd (Fluzone Hd) 01/02/2023,12/20/2021,11/26/2020 Seasonal Influenza, Quadriva lent, No Preserve, IM 12/17/2015,12/22/2014 Seasonal Influenza, Trivalen t, (IIV3), with Preserv, (Fluzone) 12/12/2013,02/06/2013,11/07/2011,01/31,12/31/2009,12/10/2008,01/09/2008 ,01/31/2007,01/13/2006 TD, Preservative Free 01/18/2018 TDAP, Age 7 [...] encounter Miscellaneous Notes * Telephone Encounter - Javy Barajas RPh - 11/28/2023 3:06 PM EDT Signed Prescriptions: Disp Refills glipiZIDE 5 MG Oral Tablet (Glucotrol) 90 Tab*3 Sig: TAKE ONE TABLET BY MOUTH IN THE MORNING 30 MINUTES BEFORE A MEAL.Authorizing Provider: SWAPNA HOPE User: JAVY BARAJAS documented in this encounter Plan of Treatment Upcoming Encounters Date Type Department Care Team (Late st Contact Info) Description 12/05/2023 8:30 AM EDT Hem/Onc Treatment Hematology/Oncology Treatment, [place] [address] [place] [address] Kimberley, Chair 11 Hem Onc [facility] [address] [facility] [place] [address] 04/03/2024 9:20 AM EST Office Visit General Internal Medicine [facility] [place] [address] [place] [address] Swapna Hope MD [address] [place] [address] 04/08/2024 9:30 AM EST Office Visit Cardiology, [facility] [address] [facility] [place] [address] Batsheva Rutledge CRNP [address] [place] [address] Scheduled Procedures Name Priority Associated Diagnoses Date/Ti me COLONOSCOPY FLEXIBLE PROXIMA L DIAGNOSTIC Recall IBD (inflammatory bowel disease) Health Maintenance Due Date Last Done Comments Cologuard 06/30/2000 Fecal Occult Blood Test 06/30/2000 Sigmoidoscopy 06/30/2000 Adult Wellness Visit 06/30/2021 Depression Screening 03/23/2023 03/23/2022 *NEPHROLOGY REFERRAL DUE TO RESISTANT HTN 09/28/2023 COVID-19 Vaccine ( season) 2023 01/30/2023, 01/17/2022, [...] this encounter Medical Devices Implanted Type Area Goat Farmer Device Identifier Shelf Expiration Date Model / Serial / Lot Clip Quick 2.8mm 230cm - [id number] Implanted:Qty: 1 on 02/23/2020 by Chauncey Rodriguez MD at ENDOSCOPY [facility] [employer] HX-.A / / documented as of this encounter Visit Diagnoses Diagnosis Type 2 diabetes mellitus with hemoglobin A1c goal of less than 7.0% (HCC) documented in this encounter Care Teams School Librarian Relationship Specialty Start Date End Date Swapna Hope MD [address] [place] [address] PCP - General Internal Medicine 01/05/17 documented as of this encounter
--- OUTSIDE RECORDS SUMMARY | 2024-04-26 14:36 | External Medical Summary | Summary of Care ---
Author Name Unknown Organization [facility] Address [address] [place] [address] Phone [phone] Care Team Providers Care Dry Pan Operator Name Role Phone Joy Hope MD Primary Care Provider + Reason for Visit * Reason Comments Medication Refill Encounter Details Date Type Department Care Team (Late st Contact Info) Description 12/25/2023 Refill Cardiology, [facility] [place] [address] Rey Mujica MD [address] [place] [address] HTN, goal below 140/90 Allergies No known [...] A1c goal of less than 7.0% ([facility]) TAKE TWO TABLETS BY MOUTH [...] mRNA, LNP-s, No Pre serve, 2-Dose Series (HengZhi) 01/14/2021,05/17/2020,04/19/2020 COVID-19, LNP-s, No Preserve , Dylan-sucrose, Ages 12+ (Pfizer) 09/27/2021 COVID-19, MRNA-LNP, 23-24, P F, 30 MCG/0.3 mL, 12 YRS AND ABOVE, IM (PFIZER-Comirnaty) 01/30/2023 Covid-19, Mrna, Lnp-s, Pf, B ivalent, 30 Mcg, IM, 12 yrs and above (HengZhi) 01/17/2022 Diptheria/Tetanus (Adult) 06/15/1998,03/05/1989 06/15/2008 Hepatitis B, 20+ yrs 09/04/2016,05/13/2016,04/14 PPD 04/07/2016 Pneumococcal Conjugate Vacc, 13 Valent (Prevnar) 07/27/2016 Pneumococcal Conjugate Vacci ne, 20-valent ([id number]) 09/25/2023 Pneumococcal Polysaccharide PPV23 (Pneumovax) 07/18/2018,05/26/2008,04/02/2008(Defe rred: [...] preferred pharmacy and medication before forwarding?yes Pharmacy: [facility] Pending Prescriptions: Disp Refills [...] preferred pharmacy and medication before forwarding?yes Pharmacy: [facility] Pending Prescriptions: Disp Refills [...] 8:30 AM EDT Hem/Onc Treatment Hematology/Oncology Treatment, [place] [address] [place] [address] Kimberley, Chair 1 Hem Onc [place] 200 [facility] [place] [address] 04/03/2024 9:20 AM EST Office Visit General Internal Medicine [facility] [place] [address] [place] [address] Joy Hope MD 200 [facility] [place] [address] 04/08/2024 9:30 AM EST Office Visit Cardiology, [facility] [address] [place] [address] Batsheva Rutledge CRNP [address] [facility] [place] [address] Scheduled Procedures Name Priority Associated Diagnoses Date/Ti [...] this encounter Medical Devices Implanted Type Area Physical Therapy Coordinator Device Identifier Shelf Expiration Date Model / Serial / Lot Clip Quick 2.8mm 230cm - [id number] Implanted:Qty: 1 on 02/23/2020 by Chauncey Rodriguez MD at ENDOSCOPY [facility] Colon [employer] [facility] HX-.A / / documented as of this encounter Visit Diagnoses Diagnosis HTN, goal below 140/90 Unspecified essential hypertension documented in this encounter Care Teams Dry Pan Operator Relationship Specialty Start Date End Date Joy Hope MD [address] [place] [address] PCP - General Internal Medicine 01/05/17 documented as of this encounter
--- OUTSIDE RECORDS SUMMARY | 2024-04-26 14:36 | External Medical Summary | Summary of Care ---
Author Name Unknown Organization [facility] Address [address] [place] [address] Phone [phone] Care Team Providers Care Olericulture Professor Name Role Phone Joy Hope MD Primary Care Provider + Encounter Details Date Type Department Care Team (Late st Contact Info) Description 01/08/2024 Orders Only General Internal Medicine [facility] [address] [facility] [place] [address] Joy Hope MD [address] [place] [address] Allergies No known active allergiesdocumented as of this encounter (statuses as of 01/08/2024) Medications Medication Sig Dispensed Refills Start Date [...] goal of less than 7.0% ([facility]) USE UP TO 4 TIMES [...] goal of less than 7.0% ([facility]) TAKE TWO TABLETS BY MOUTH [...] as of this encounter (statuses as of 01/08/2024) Active Problems Problem Noted Date Diagnosed Date [...] as of this encounter (statuses as of 01/08/2024) Resolved Problems Problem Noted Date Diagnosed Date [...] as of this encounter (statuses as of 01/08/2024) Immunizations Name Administration Dates Next Due COVID-19 mRNA, LNP-s, No Pre serve, 2-Dose Series (Video[employer]ie) 01/14/2021,05/17/2020,04/19/2020 COVID-19, LNP-s, No Preserve , Dylan-sucrose, Ages 12+ (VideoGenie) 09/27/2021 COVID-19, MRNA-LNP, 24-25, P R, 30MCG/0.3ML, IM, 12YRS AND ABOVE ([email or web address]) 01/02/2024 COVID-19, MRNA-LNP, PF, 30 M CG/0.3 mL, 12 YRS AND ABOVE, IM (PeerMeirnatBrakeQuotes.com) 01/30/2023 Covid-19, Mrna, Lnp-s, Pf, B ivalent, 30 Mcg, IM, 12 yrs and above (Pfizer) 01/17/2022 Hepatitis B, 20+ yrs 09/04/2016,05/13/2016,04/14 PPD 04/07/2016 Pneumococcal Conjugate Vacc, 13 Valent (Prevnar) 07/27/2016 Pneumococcal Conjugate Vacci ne, 20-valent ([id number]) 09/25/2023 Pneumococcal Polysaccharide PPV23 (Pneumovax) 07/18/2018,05/26/2008 RSV [...] 8:30 AM EST Hem/Onc Treatment Hematology/Oncology Treatment, [place] [address] [facility] [place] [phone] Kimber[place], Chair 9 Hem On[address] [place] [address] 04/03/2024 9:20 AM EST Office Visit General Internal Medicine [facility] [place] [address] [facility] [place] [address] Joy Hope MD [address] [facility] [place] [address] 04/08/2024 9:30 AM EST Office Visit Cardiology, [facility] [address] [place] [address] Batsheva Rutledge CRNP [address] [place] [address] Scheduled Procedures Name Priority Associated Diagnoses Date/Ti [...] this encounter Medical Devices Implanted Type Area [place] Bailiff Device Identifier Shelf Expiration Date Model / Serial / Lot Clip Quick 2.8mm 230cm - [id number] Implanted:Qty: 1 on 02/23/2020 by Chauncey Rodriguez MD at ENDOSCOPY [facility] [id number]-UR.A / / documented as of this encounter Procedures Procedure Name Priority Date/Time Associated Diagnosis Comments DIABETIC EYE EXAM Routine 01/07/2024 documented in this encounter Results * DIABETIC EYE EXAM (01/07/2024) 01/07/2024 History Per Patient OTHER OUTSIDE LAB (SEE SCANNED REPORT) documented in this encounter Care Teams Olericulture Professor Relationship Specialty Start Date End Date Joy Hope MD [address] [place] [address] PCP - General Internal Medicine 01/05/17 documented as of this encounter
--- OUTSIDE RECORDS SUMMARY | 2024-04-26 14:36 | External Medical Summary | Summary of Care ---
Author Name Unknown Organization [facility] Address [address] [place] [address] Phone [phone] Care Team Providers Care Patient Safety Coordinator Name Role Phone Joy Hope MD Primary Care Provider + Reason for Visit * Reason Comments IV Therapy Entyvio * Episode Based Medications (Routine) - Authorized Specialty Diagnoses / Procedures Referred By Rasheed husain Referred To Contact Diagnoses Crohn's disease of both small and large intestine without complication (HCC) Procedures VEDOLIZUMAB, PER 1 MG, INJ Chauncey Rodriguez MD [address] [place] [address] Anc Hem/Onc [place] DEPT CLOSED - 01/16/23 [address] [place] [address] Referral ID Status Reason Start Date Expiration Date V isits Requested Visits Authorized [id number] Authorized 03/30/2023 03/30/2024 99 99 Encounter Details Date Type Department Care Team (Latest Contact Info) Description 12/05/2023 8:30 AM EDT Hem/Onc Treatment Hematology/Oncology Treatment, [place] [address] [place] [address] Kimber[place], Chair 11 Hem Onc [address] [place] [address] Crohn's disease of both small and large intestine without complication (HCC)* Allergies No known active allergiesdocumented as of this encounter (statuses as of 12/05/2023) Medications Medication Sig Dispensed Refills Start Date [...] Tablet by mouth every other day. Active Bio[employer] Systemsuch Ultra In Vitro Strip (Glucose Blood)Indications:Typ e 2 diabetes mellitus with hemoglobin A1c goal of less than 7.0% ([facility]) USE UP TO 4 TIMES DAILY FOR [...] as of this encounter (statuses as of 12/05/2023) Active Problems Problem Noted Date Diagnosed Date [...] as of this encounter (statuses as of 12/05/2023) Resolved Problems Problem Noted Date Diagnosed Date [...] as of this encounter (statuses as of 12/05/2023) Immunizations Name Administration Dates Next Due COVID-19 mRNA, LNP-s, No Pre serve, 2-Dose Series ([employer]finder) 01/14/2021,05/17/2020,04/19/2020 COVID-19, LNP-s, No Preserve , Dylan-sucrose, Ages 12+ (Pfizer) 09/27/2021 COVID-19, MRNA-LNP, 23-24, P F, 30 MCG/0.3 mL, 12 YRS AND ABOVE, IM ([facility]) 01/30/2023 Covid-19, Mrna, Lnp-s, Pf, B ivalent, 30 Mcg, IM, 12 yrs and above (ABPathfinder) 01/17/2022 Hepatitis B, 20+ yrs 09/04/2016,05/13/2016,04/14 PPD 04/07/2016 Pneumococcal Conjugate Vacc, 13 Valent (Prevnar) 07/27/2016 Pneumococcal Conjugate Vacci ne, 20-valent ([id number]) 09/25/2023 Pneumococcal Polysaccharide PPV23 (Pneumovax) 07/18/2018,05/26/2008 RSV [...] Patient arrived Chair 7 for IV therapy Entyvio. Vital signs are stable. IV access successful [...] 8:30 AM EDT Hem/Onc Treatment Hematology/Oncology Treatment, [place] 200 [facility] [place] [phone] [place], Chair 11 Hem Onc [address] [place] [address] 04/03/2024 9:20 AM EST Office Visit General Internal Medicine [facility] [address] [place] [address] Joy Hope MD 200 [facility] [place] [address] 04/08/2024 9:30 AM EST Office Visit Cardiology, [facility] [address] [place] [address] Batsheva Rutledge CRNP [address] [place] [address] Scheduled Procedures Name Priority Associated Diagnoses Date/Ti [...] 01/04/2023, Additional history exists HbA1c 03/15/2024 09/13/2023, 0 [...] this encounter Medical Devices Implanted Type Area Landcare Facilitator Device Identifier Shelf Expiration Date Model / Serial / Lot Clip Quick 2.8mm 230cm - [id number] Implanted:Qty: 1 on 02/23/2020 by Chauncey Rodriguez MD at ENDOSCOPY [facility] [employer] [facility] [id number] [...] ONCE PRN Other, Hypersensitivity Reaction, Starting on Sun12/05/23 at 0812, Until Virginie 12/06/23 at 0811, For 24 hours EPINEPHrine 1 MG/ML inj 0.3 mg 0.3 mg, Intramuscular, ONCE PRN Other, Hypersensitivity Reaction or Anaphylaxis, Starting on Sun12/05/23 at 0812, Until Virginie 10 at 0811, For 24 hours hEParin 100 UNIT/ML Lock Flush inj 500 Units 500 Units (5 mL), IV Lock, PRN Other, IV Flush, Starting on Sun12/05/23 at 0812, Until Virginie 10 at 0811, For 24 hours, Do not flush if lock, PICC, or central line not in place; IV infusing or unable to flush. Hydrocortisone Sod Suc (PF) (Solu-Cortef) inj 100 mg 100 mg, IV Push, ONCE PRN Other, Hypersensitivity Reaction, Starting on Sun12/05/23 at 0812, Until Virginie 10 at 0811, For 24 hours NSS infusion 500 mL, Intravenous, at 50 mL/hr, CONTINUOUS, Starting on Sun12/05/23 at 0915, Until Sun12/05/23 at 1914 Start Infusion 12/05/2023 8:22 AM EDT 500 mL 50 mL/hr sodium chloride 0.9 % flush central line 10 mL 10 mL, IV Push, PRN Other, IV Flush, Starting on Sun12/05/23 at 0812, Until Virginie 12/06/23 at 0811, For 24 hours, Do not flush if [...] mL of NSS after infusion. Start Infusion 12/05/2023 8:55 AM EDT 300 mg 520 mL /hr documented in this encounter Care Teams Patient Safety Coordinator Relationship Specialty Start Date End Date Joy Hope MD [address] [place] [address] PCP - General Internal Medicine 01/05/17 documented as of this encounter
--- OUTSIDE RECORDS SUMMARY | 2024-04-26 14:36 | External Medical Summary | Summary of Care ---
Author Name Unknown Organization [facility] Address [address] [place] [address] Phone [phone] Care Team Providers Care Microsoft Access Developer Name Role Phone Joy Hope MD Primary Care Provider + Reason for Visit * Reason Comments Infusion Entyvio * Episode Based Medications (Routine) - Authorized Specialty Diagnoses / Procedures Referred By Rasheed t Referred To Contact Diagnoses Crohn's disease of both small and large intestine without complication (HCC) Procedures VEDOLIZUMAB, PER 1 MG, INJ Chauncey Rodriguez MD [address] [place] [address] Anc Hem/Onc [address] DEPT CLOSED - 01/16/23 [address] [place] [address] Referral ID Status Reason Start Date Expiration Date V isits Requested Visits Authorized [id number] Authorized 03/30/2023 03/30/2024 99 99 Encounter Details Date Type Department Care Team (Latest Contact Info) Description 11/08/2023 8:30 AM EDT Hem/Onc Treatment Hematology/Oncology Treatment, [place] [address] [place] [address] [place], Chair 11 Hem Onc [address] 200 [facility] [place] [address] Crohn's disease of both small and large intestine without complication (HCC)* Allergies No known active allergiesdocumented as of this encounter (statuses as of 12/18/2023) Medications Medication Sig Dispensed Refills Start Date [...] as of this encounter (statuses as of 12/18/2023) Active Problems Problem Noted Date Diagnosed Date [...] as of this encounter (statuses as of 12/18/2023) Resolved Problems Problem Noted Date Diagnosed Date [...] as of this encounter (statuses as of 12/18/2023) Immunizations Name Administration Dates Next Due COVID-19 mRNA, LNP-s, No Pre serve, 2-Dose Series ([employer]) 01/14/2021,05/17/2020,04/19/2020 COVID-19, LNP-s, No Preserve , Dylan-sucrose, Ages 12+ (Pfizer) 09/27/2021 COVID-19, MRNA-LNP, 23-24, P F, 30 MCG/0.3 mL, 12 YRS AND ABOVE, IM ([facility] [facility]) 01/30/2023 Covid-19, Mrna, Lnp-s, Pf, B ivalent, 30 Mcg, IM, 12 yrs and above ([employer]) 01/17/2022 Hepatitis B, 20+ yrs 09/04/2016,05/13/2016,04/14 PPD 04/07/2016 Pneumococcal Conjugate Vacc, 13 Valent (Prevnar) 07/27/2016 Pneumococcal Conjugate Vacci ne, 20-valent ([id number]) 09/25/2023 Pneumococcal Polysaccharide PPV23 (Pneumovax) 07/18/2018,05/26/2008 RSV [...] Sign Reading Time Taken Comments Blood Pressure 137/76 11/08/2023 8:34 AM EDT Pulse 60 11/08/2023 8:34 AM EDT Temperature 36.1 C (96.9 F) 11/08/2023 8:34 AM ED T Respiratory Rate 18 11/08/2023 8:34 AM EDT Oxygen Saturation 94% 11/08/2023 8:34 AM EDT Inhaled Oxygen Concentration - - Weight - - Height - - Body Mass Index - - documented in this encounter Nursing Notes * Haleigh Ann LPN - 11/08/2023 8:34 AM EDT 0820: Pt arrived for Entyvio infusion. PIV in R metacarpal. Pt tolerated well. VSS. No complaints at this time. Patient instructed on use of heat and massage functions where applicable. Patient shown how to operate the heat function of the chair and to alert nursing staff if the chair feels too warm. Patient instructed on the risk of potential savage while using the heat function. 0940: Pt tolerated Entyvio infusion well. PIV removed intact. Pt to return in 4 weeks. Discharged in stable condition. documented in this encounter Plan of Treatment Upcoming Encounters Date Type Department Care Team (Late st Contact Info) Description 01/03/2024 8:30 AM EDT Hem/Onc Treatment Hematology/Oncology Treatment, [place] 200 [place] [phone] [place], Chair 11 Hem Onc [address] [place] [address] 04/03/2024 9:20 AM EST Office Visit General Internal Medicine [facility] [address] [place] [address] Joy Hope MD 200 [facility] [place] [address] 04/08/2024 9:30 AM EST Office Visit Cardiology, [facility] [address] [place] [address] Batsheva Rutledge CRNP [address] [place] [address] Scheduled Procedures Name Priority Associated Diagnoses Date/Ti [...] 01/04/2023, Additional history exists HbA1c 03/15/2024 09/13/2023, 010 06/2023, 07/11/2022, Additional history exists Diabetic Foot Exam 03/27/2024 03/27/2023, 0 03/23/2022, 03/22/2021, Additional history exists Colonoscopy 08/21/2024 08/22/2023, 08/03, 07/14/2022, Additional history exists Colorectal Cancer Screening 08/21/2024 Albumin/Creatinine Ratio 09/12/2024 024, 07/11/2022, 03/22/2021, Additional history exists B-12 09/12/2024 09/13/2023, 03/05, 03/22/2021, Additional history exists GFR 09/12/2024 09/13/2023, 010 06/2023, 08/15/2022, Additional history exists DTap/Tdap Vaccines [...] this encounter Medical Devices Implanted Type Area Hand Thermal Cutter Device Identifier Shelf Expiration Date Model / Serial / Lot Clip Quick 2.8mm 230cm - [id number] Implanted:Qty: 1 on 02/23/2020 by Chauncey Rodriguez MD at ENDOSCOPY [facility] Colon [employer] [id number] / / documented as of [...] at 50 mL/hr, CONTINUOUS, Starting on Virginie 11/08/23 at 0915, Until Virginie 11/08/23 at 1357 Start Infusion 11/08/2023 8:25 AM EDT 500 mL 50 mL/hr Vedolizumab (Entyvio) 300 mg in NSS 250 mL infusion 300 mg, IV Piggyback, ONCE, 1 dose, On Virginie 11/08/23 at 0945, Administer over 30 Minutes, Flush with 30 mL of NSS after infusion. Start Infusion 11/08/2023 9:05 AM EDT 300 mg 520 mL/hr documented in this encounter Care Teams Microsoft Access Developer Relationship Specialty Start Date End Date Joy Hope MD [address] [place] [address] PCP - General Internal Medicine 01/05/17 documented as of this encounter
--- OUTSIDE RECORDS SUMMARY | 2024-04-26 14:36 | External Medical Summary | Summary of Care ---
Author Name Unknown Organization [facility] Address [address] [place] [address] Phone [phone] Care Team Providers Care Crusher And Blender Operator Name Role Phone Joy Hope MD Primary Care Provider + Encounter Details Date Type Department Care Team (Late st Contact Info) Description 01/15/2024 Orders Only PATIENT PORTAL DO NOT DELETE THIS DEPT USED BY [place] [id number] Allergies No known active allergiesdocumented as of this encounter (statuses as of 01/15/2024) Medications ASPIRIN 81 MG PO TABSIndications:ta kes [...] hemoglobin A1c goal of less than 7.0% ([facility]) USE UP TO 4 TIMES DAILY FOR TESTING BLOOD SUGAR 100 Strip 5 10/26/2022 11:41 AM EDT 3 Active Terazosin HCl 10 MG Oral CapsuleIndications :HTN, goal below 140/90 TAKE ONE CAPSULE BY MOUTH AT BEDTIME 90 Capsule 3 10/23/2023 5:23 PM EDT 4 07/25/19 25 Active Chlorthalidone 25 MG [...] hemoglobin A1c goal of less than 7.0% ([facility]) TAKE TWO TABLETS BY MOUTH [...] as of this encounter (statuses as of 01/15/2024) Active Problems Problem Noted Date Diagnosed Date [...] as of this encounter (statuses as of 01/15/2024) Resolved Problems Problem Noted Date Diagnosed Date [...] as of this encounter (statuses as of 01/15/2024) Immunizations Name Administration Dates Next Due COVID-19 mRNA, LNP-s, No Pre serve, 2-Dose Series ([employer]) 01/14/2021,05/17/2020,04/19/2020 COVID-19, LNP-s, No Preserve , Dylan-sucrose, Ages 12+ ([employer]) 09/27/2021 COVID-19, MRNA-LNP, 24-25, P R, 30MCG/0.3ML, IM, 12YRS AND ABOVE ([facility]) 01/02/2024 COVID-19, MRNA-LNP, PF, 30 M CG/0.3 mL, 12 YRS AND ABOVE, IM (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 Not on file Not on file documented as of this encounter Plan of Treatment Upcoming Encounters Date Type Department Care Team (Late st Contact Info) Description 01/30/2024 8:30 AM EST Hem/Onc Treatment Hematology/Oncology Treatment, [place] [address] [place] [address] [place], Chair 9 Hem Onc [facility] 200 [facility] [place] [address] 04/03/2024 9:20 AM EST Office Visit General Internal Medicine [facility] [address] [place] [address] Joy Hope MD [address] [place] [address] 04/08/2024 9:30 AM EST Office Visit Cardiology, [facility] [address] [place] [address] Batsheva Rutledge CRNP [address] [place] [address] Scheduled Procedures Name Priority Associated Diagnoses Date/Ti [...] this encounter Medical Devices Implanted Type Area Ballroom Dance Instructor Device Identifier Shelf Expiration Date Model / Serial / Lot Clip Quick 2.8mm 230cm - [id number] Implanted:Qty: 1 on 02/23/2020 by Chauncey Rodriguez MD at ENDOSCOPY [facility] [employer] [id number] / / documented as of this encounter Care Teams Crusher And Blender Operator Relationship Specialty Start Date End Date Joy Hope MD 200 [facility] [place] [address] PCP - General Internal Medicine 01/05/17 documented as of this encounter
--- OUTSIDE RECORDS SUMMARY | 2024-04-26 14:37 | External Medical Summary | Summary of Care ---
Author Name Unknown Organization [facility] Address [address] [place] [address] Phone [phone] Care Team Providers Care Sheeter Machine Operator Name Role Phone Joy Hope MD Primary Care Provider + Encounter Details Date Type Department Care Team (Late st Contact Info) Description 08/13/2023 Telephone OR [facility], Operating Room [facility] [address] [place] [phone] Chauncey Rodriguez MD [address] [place] [address] Allergies No known active allergiesdocumented as of this encounter (statuses as of 11/12/2023) Medications Medication Sig Dispensed Refills Start Date [...] Tablet by mouth every other day. Active XinguoduTouch Ultra In Vitro Strip (Glucose Blood)Indications:Typ e 2 diabetes mellitus with hemoglobin A1c goal of less than 7.0% ([facility]) USE UP TO 4 TIMES DAILY FOR TESTING BLOOD SUGAR 100 Strip 5 10/18/2022 Active Spironolactone 25 MG Oral Tablet (Aldactone)Indication s:HTN, goal below 140/90 TAKE TWO TABLETS BY MOUTH EVERY DAY 180 Tablet 3 01/04/2023 Active Terazosin HCl 10 MG Oral CapsuleIndications:HT N, goal below 140/90 TAKE ONE CAPSULE BY MOUTH AT BEDTIME 90 Capsule 3 07/25/2023 07/24/2024 Active documented as of this encounter (statuses as of 11/12/2023) Active Problems Problem Noted Date Diagnosed Date [...] as of this encounter (statuses as of 11/12/2023) Resolved Problems Problem Noted Date Diagnosed Date [...] as of this encounter (statuses as of 11/12/2023) Immunizations Name Administration Dates Next Due COVID-19 mRNA, LNP-s, No Pre serve, 2-Dose Series (Coinapult) 01/14/2021,05/17/2020,04/19/2020 COVID-19, LNP-s, No Preserve , Dylan-sucrose, Ages 12+ (Coinapult) 09/27/2021 COVID-19, MRNA-LNP, 23-24, P F, 30 MCG/0.3 mL, 12 YRS AND ABOVE, IM (PFIZER-Comirnaty) 01/30/2023 Covid-19, Mrna, Lnp-s, Pf, B ivalent, 30 Mcg, IM, 12 yrs and above (Pfizer) 01/17/2022 Hepatitis B, 20+ yrs 09/04/2016,05/13/2016,04/14 PPD 04/07/2016 Pneumococcal Conjugate Vacc, 13 Valent (Prevnar) 07/27/2016 Pneumococcal Polysaccharide PPV23 (Pneumovax) 07/18/2018,05/26/2008 RSV Vac., [...] encounter Miscellaneous Notes * Telephone Encounter - Hilary Mandujano RN - 08/13/2023 10:41 AM EDT Attempted to call for pre anesthesia evaluation. No answer. Voice mail left requesting return call documented in this encounter Plan of Treatment Upcoming Encounters Date Type Department Care Team (Late st Contact Info) Description 12/05/2023 8:30 AM EDT Hem/Onc Treatment Hematology/Oncology Treatment, [place] [address] [facility] [place] [phone] [place], Chair 11 Hem Onc [place] [address] [place] [address] 04/03/2024 9:20 AM EST Office Visit General Internal Medicine [facility] [place] [address] [place] [address] Joy Hope MD [address] [facility] [place] [address] 04/08/2024 9:30 AM EST Office Visit Cardiology, [facility] [address] [place] [address] Batsheva Rutledge CRNP [address] [place] [id number] Scheduled Procedures Name Priority Associated Diagnoses Date/Ti [...] this encounter Medical Devices Implanted Type Area Room Service Food Server Device Identifier Shelf Expiration Date Model / Serial / Lot Clip Quick 2.8mm 230cm - [id number] Implanted:Qty: 1 on 02/23/2020 by Chauncey Rodriguez MD at ENDOSCOPY [facility] Colon [employer] [id number]-.[id number] / / documented as of this encounter Care Teams Sheeter Machine Operator Relationship Specialty Start Date End Date Joy Hope MD [address] [facility] [place] [address] PCP - General Internal Medicine 01/05/17 documented as of this encounter
--- OUTSIDE RECORDS SUMMARY | 2024-04-26 14:37 | External Medical Summary | Summary of Care ---
Author Name Unknown Organization [facility] Address [address] [place] [address] Phone [phone] Care Team Providers Care Creative Writing English Professor Name Role Phone Joy Hope MD Primary Care Provider + Reason for Visit * Reason Comments Infusion Entyvio * Episode Based Medications (Routine) - Authorized Specialty Diagnoses / Procedures Referred By Rasheed t Referred To Contact Diagnoses Crohn's disease of both small and large intestine without complication (HCC) Procedures VEDOLIZUMAB, PER 1 MG, INJ Chauncey Rodriguez MD [address] [place] [address] Anc Hem/Onc [facility] DEPT CLOSED - 01/16/23 [address] [place] [address] Referral ID Status Reason Start Date Expiration Date V isits Requested Visits Authorized [id number] Authorized 03/30/2023 03/30/2024 99 99 Encounter Details Date Type Department Care Team (Latest Contact Info) Description 11/08/2023 8:30 AM EDT Hem/Onc Treatment Hematology/Oncology Treatment, [place] [address] [place] [address] [place], Chair 11 Hem Onc [address] [facility] [place] [address] Crohn's disease of both small and large intestine without complication (HCC)* Allergies No known active allergiesdocumented as of this encounter (statuses as of 11/08/2023) Medications Medication Sig Dispensed Refills Start Date [...] DAILY 45 Tablet 3 08/21/2023 08/20/2024 Active glipiZIDE 5 MG Oral Tablet (Glucotrol)Indication s:Type 2 diabetes mellitus with hemoglobin A1c goal of less than 7.0% (HCC) TAKE ONE TABLET BY MOUTH IN THE MORNING 30 MINUTES BEFORE A MEAL. 90 Tablet 09/05/2023 09/04/2024 Active Atenolol 100 MG Oral Tablet (Tenormin)Indications [...] the evening. 270 Tablet 3 10/09/2023 Active documented as of this encounter (statuses as of 11/08/2023) Active Problems Problem Noted Date Diagnosed Date [...] as of this encounter (statuses as of 11/08/2023) Resolved Problems Problem Noted Date Diagnosed Date [...] as of this encounter (statuses as of 11/08/2023) Immunizations Name Administration Dates Next Due COVID-19 mRNA, LNP-s, No Pre serve, 2-Dose Series (Identropy) 01/14/2021,05/17/2020,04/19/2020 COVID-19, LNP-s, No Preserve , Dylan-sucrose, Ages 12+ (Pfizer) 09/27/2021 COVID-19, MRNA-LNP, 23-24, P F, 30 MCG/0.3 mL, 12 YRS AND ABOVE, IM ([facility] 01/30/2023 Covid-19, Mrna, Lnp-s, Pf, B ivalent, 30 Mcg, IM, 12 yrs and above (Identropy) 01/17/2022 Hepatitis B, 20+ yrs 09/04/2016,05/13/2016,04/14 PPD 04/07/2016 Pneumococcal Conjugate Vacc, 13 Valent (Prevnar) 07/27/2016 Pneumococcal Conjugate Vacci ne, 20-valent ([id number]) 09/25/2023 Pneumococcal Polysaccharide PPV23 (Pneumovax) 07/18/2018,05/26/2008 RSV [...] 8:30 AM EDT Hem/Onc Treatment Hematology/Oncology Treatment, [place] [address] [place] [phone] [place], Chair 11 Hem Onc [address] [place] [address] 04/03/2024 9:20 AM EST Office Visit General Internal Medicine [facility] [address] [place] [address] Joy Hope MD 200 [facility] [place] [address] 04/08/2024 9:30 AM EST Office Visit Cardiology, [facility] [address] [place] [address] Batsheva Rutledge CRNP [address] [place] [address] Scheduled Procedures Name Priority Associated Diagnoses Date/Ti [...] this encounter Medical Devices Implanted Type Area Reinforced Ironworker Device Identifier Shelf Expiration Date Model / Serial / Lot Clip Quick 2.8mm 230cm - [id number] Implanted:Qty: 1 on 02/23/2020 by Chauncey Rodriguez MD at ENDOSCOPY [facility] Colon [employer] [id number] / / documented as of [...] ONCE PRN Other, Hypersensitivity Reaction, Starting on Sun11/08/23 at 0813, Until Sun11/09/23 at 0812, For 24 hours EPINEPHrine 1 MG/ML inj 0.3 mg 0.3 mg, Intramuscular, ONCE PRN Other, Hypersensitivity Reaction or Anaphylaxis, Starting on Sun11/08/23 at 0813, Until Sun11/09/23 at 0812, For 24 hours hEParin 100 UNIT/ML Lock Flush inj 500 Units 500 Units (5 mL), IV Lock, PRN Other, IV Flush, Starting on Sun11/08/23 at 0813, Until Sun11/09/23 at 0812, For 24 hours, Do not flush if lock, PICC, or central line not in place; IV infusing or unable to flush. Hydrocortisone Sod Suc (PF) (Solu-Cortef) inj 100 mg 100 mg, IV Push, ONCE PRN Other, Hypersensitivity Reaction, Starting on Sun11/08/23 at 0813, Until Sun11/09/23 at 0812, For 24 hours NSS infusion 500 mL, Intravenous, at 50 mL/hr, CONTINUOUS, Starting on Sun11/08/23 at 0915, Until Sun11/08/23 at 1914 Start Infusion 11/08/2023 8:25 AM EDT 500 mL 50 mL/hr sodium chloride 0.9 % flush central line 10 mL 10 mL, IV Push, PRN Other, IV Flush, Starting on Virginie 11/08/23 at 0813, Until Sun11/09/23 at 0812, For 24 hours, Do not [...] mL/hr documented in this encounter Care Teams Creative Writing English Professor Relationship Specialty Start Date End Date Joy Hope MD 200 [place] [address] PCP - General Internal Medicine 01/05/17 documented as of this encounter
--- OUTSIDE RECORDS SUMMARY | 2024-04-26 14:37 | External Medical Summary | Summary of Care ---
Author Name Unknown Organization [facility] Address [address] [place] [address] Phone [phone] Care Team Providers Care Parts Processor Name Role Phone Joy Hope MD Primary Care Provider + Reason for Visit * Reason Comments IV Therapy Entyvio * Episode Based Medications (Routine) - Authorized Specialty Diagnoses / Procedures Referred By Rasheed husain Referred To Contact Diagnoses Crohn's disease of both small and large intestine without complication (HCC) Procedures VEDOLIZUMAB, PER 1 MG, INJ Chauncey Rodriguez MD [address] [place] [address] Anc Hem/Onc [facility] DEPT CLOSED - 01/16/23 [address] [place] [phone] Referral ID Status Reason Start Date Expiration Date V isits Requested Visits Authorized [id number] Authorized 03/30/2023 03/30/2024 99 99 Encounter Details Date Type Department Care Team (Latest Contact Info) Description 10/11/2023 8:30 AM EDT Hem/Onc Treatment Hematology/Oncology Treatment, [place] [address] [place] [address] [place], Chair 11 Hem Onc [address] [place] [address] Crohn's disease of both small and large intestine without complication (HCC)* Allergies No known active allergiesdocumented as of this encounter (statuses as of 11/11/2023) Medications Medication Sig Dispensed Refills Start Date [...] as of this encounter (statuses as of 11/11/2023) Active Problems Problem Noted Date Diagnosed Date [...] as of this encounter (statuses as of 11/11/2023) Resolved Problems Problem Noted Date Diagnosed Date [...] as of this encounter (statuses as of 11/11/2023) Immunizations Name Administration Dates Next Due COVID-19 mRNA, LNP-s, No Pre serve, 2-Dose Series (EndoSphere) 01/14/2021,05/17/2020,04/19/2020 COVID-19, LNP-s, No Preserve , Dylan-sucrose, Ages 12+ (Pfizer) 09/27/2021 COVID-19, MRNA-LNP, 23-24, P F, 30 MCG/0.3 mL, 12 YRS AND ABOVE, IM ([facility]) 01/30/2023 Covid-19, Mrna, Lnp-s, Pf, B ivalent, 30 Mcg, IM, 12 yrs and above (EndoSphere) 01/17/2022 Hepatitis B, 20+ yrs 09/04/2016,05/13/2016,04/14 PPD 04/07/2016 Pneumococcal Conjugate Vacc, 13 Valent (Prevnar) 07/27/2016 Pneumococcal Conjugate Vacci ne, 20-valent ([id number]) 09/25/2023 Pneumococcal Polysaccharide PPV23 (Pneumovax) 07/18/2018,05/26/2008 RSV [...] Sign Reading Time Taken Comments Blood Pressure 153/84 10/11/2023 8:33 AM EDT Pulse 54 10/11/2023 8:33 AM EDT Temperature 36.6 C (97.9 F) 10/11/2023 8:33 AM ED T Respiratory Rate 16 10/11/2023 8:33 AM EDT Oxygen Saturation 95% 10/11/2023 8:33 AM EDT Inhaled Oxygen Concentration - - Weight - - Height - - Body Mass Index - - documented in this encounter Nursing Notes * Ela Cartagena LPN - 10/11/2023 8:34 AM EDT Patient arrived Chair 7 for [...] potential savage while using the heat function. 09:15am - Patient completed IV therapy Entyvio. IV access discontinued; site was cleaned and bandaged. Patient will return in 4 weeks. Patient discharged in stable condition. documented in this encounter Plan of Treatment Upcoming Encounters Date Type Department Care Team (Late st Contact Info) Description 12/05/2023 8:30 AM EDT Hem/Onc Treatment Hematology/Oncology Treatment, [place] [address] [place] [phone] [place], Chair 11 Hem Onc [address] [place] [address] 04/03/2024 9:20 AM EST Office Visit General Internal Medicine [facility] [address] [place] [address] Joy Hope MD [address] [facility] [place] [address] 04/08/2024 9:30 AM EST Office Visit Cardiology, [facility] [address] [place] [address] Batsheva Rutledge CRNP [address] [place] [address] Scheduled Procedures Name Priority Associated Diagnoses Date/Ti [...] this encounter Medical Devices Implanted Type Area Oil Dipper Device Identifier Shelf Expiration Date Model / Serial / Lot Clip Quick 2.8mm 230cm - [id number] Implanted:Qty: 1 on 02/23/2020 by Chauncey Rodriguez MD at ENDOSCOPY [facility] Colon [employer] [id number] / / documented as of [...] at 50 mL/hr, CONTINUOUS, Starting on Virginie 10/11/23 at 0915, Until Virginie 10/11/23 at 1328 Start Infusion 10/11/2023 8:31 AM EDT 500 mL 50 mL/hr Vedolizumab (Entyvio) 300 mg in NSS 250 mL infusion 300 mg, IV Piggyback, ONCE, 1 dose, On Virginie 10/11/23 at 0945, Administer over 30 Minutes Start Infusion 10/11/2023 8:42 AM EDT 300 mg 520 mL/hr documented in this encounter Care Teams Parts Processor Relationship Specialty Start Date End Date Jyo Hope MD [address] [place] [address] PCP - General Internal Medicine 01/05/17 documented as of this encounter
--- OUTSIDE RECORDS SUMMARY | 2024-04-26 14:37 | External Medical Summary | Summary of Care ---
Author Name Unknown Organization [facility] Address [address] [place] [address] Phone [phone] Care Team Providers Care Fire Extinguisher Charger Name Role Phone Joy Hope MD Primary Care Provider + Encounter Details Date Type Department Care Team (Late st Contact Info) Description 11/02/2023 Orders Only [facility]astroenterology, [facility] [place] [address] Chauncey Rodriguez MD [address] [facility] [place] [address] Allergies No known active allergiesdocumented as of this encounter (statuses as of 11/02/2023) Medications Medication Sig Dispensed Refills Start Date [...] as of this encounter (statuses as of 11/02/2023) Active Problems Problem Noted Date Diagnosed Date [...] as of this encounter (statuses as of 11/02/2023) Resolved Problems Problem Noted Date Diagnosed Date [...] as of this encounter (statuses as of 11/02/2023) Immunizations Name Administration Dates Next Due COVID-19 mRNA, LNP-s, No Pre serve, 2-Dose Series ([employer]) 01/14/2021,05/17/2020,04/19/2020 COVID-19, LNP-s, No Preserve , Dylan-sucrose, Ages 12+ (Pfizer) 09/27/2021 COVID-19, MRNA-LNP, 23-24, P F, 30 MCG/0.3 mL, 12 YRS AND ABOVE, IM (LineMetrics-Comirnaty) 01/30/2023 Covid-19, Mrna, Lnp-s, Pf, B ivalent, 30 Mcg, IM, 12 yrs and above ([employer]rogmetrics) 01/17/2022 Hepatitis B, 20+ yrs 09/04/2016,05/13/2016,04/14 PPD 04/07/2016 Pneumococcal Conjugate Vacc, 13 Valent (Prevnar) 07/27/2016 Pneumococcal Conjugate Vacci ne, 20-valent ([id number]) 09/25/2023 Pneumococcal Polysaccharide PPV23 (Pneumovax) 07/18/2018,05/26/2008 RSV [...] Care Team (Late st Contact Info) Description 11/08/2023 8:30 AM EDT Hem/Onc Treatment [facility] [place] [facility] [phone] [place], Chair [address] Hem On[address] [place] [address] 04/03/2024 9:20 AM EST Office Visit General Internal Medicine [facility] [place] [address] [place] [place] [address] Joy Hope MD 200 [facility] [place] [address] 04/08/2024 9:30 AM EST Office Visit Cardiology, [facility] [address] [place] [address] Batsheva Rutledge CRNP [address] [place] [address] Scheduled Procedures Name Priority Associated Diagnoses Date/Ti me COLONOSCOPY FLEXIBLE PROXIMA L DIAGNOSTIC Recall IBD (inflammatory bowel disease) Health Maintenance Due Date Last Done Comments Cologuard 06/30/2000 Fecal Occult Blood Test 06/30/2000 Sigmoidoscopy 06/30/2000 Adult Wellness Visit 06/30/2021 Depression Screening 03/23/2023 03/23/2022 COVID-19 Vaccine ( season) 2023 01/30/2023, 01/17/2022, 09/27/2021, Additional history exists *NEPHROLOGY REFERRAL DUE TO RESISTANT HTN 09/28/2023 Influenza Vaccine (FLU shot) (#1) 2023 01/02/2023, [...] this encounter Medical Devices Implanted Type Area Photographic Equipment Assembler Device Identifier Shelf Expiration Date Model / Serial / Lot Clip Quick 2.8mm 230cm - [id number] Implanted:Qty: 1 on 02/23/2020 by Chauncey Rodriguez MD at ENDOSCOPY [facility] Colon [employer] [id number] / / documented as of this encounter Care Teams Fire Extinguisher Charger Relationship Specialty Start Date End Date Joy Hope MD [address] [facility] [place] [address] PCP - General Internal Medicine 01/05/17 documented as of this encounter
--- NOTE | 2024-04-26 14:38 | Emergency Department Note ---
Impression & Plan Cerebrovascular accident, HTN (hypertension), Influenza A ED Provider Note Provider: Shamar James MD CHIEF COMPLAINT: Strokelike symptoms HISTORY OF PRESENT ILLNESS: Patient is a 68-year-old gentleman history of diabetes, hypertension, Crohn's disease presenting here today reporting strokelike symptoms developing since this morning. Patient evidently developed around 11:00pm last night a bit of a headache. Headache mild at this time. Mild cough started last night. This morning states he had some numbness left side of his face around 8 AM. Has had some coughing. Within the last hour his left hand became numb had some difficulty moving it. States his speech feels just a little bit slurred and agrees. No history of similar. The development of these symptoms came here for further evaluation according to . Patient is on low-dose aspirin. No history of stroke reported. No trauma or syncope reported. No denture 100.9F earlier and had some cough cold symptoms last evening. They thought he might just have a cold or something going on until things evolved today. Did take his medicines but is on multiple blood pressure medications. Patient denies any nausea, vomiting, or dizziness. PAST MEDICAL HISTORY: As noted above MEDICATIONS: Reviewed home medication list SOCIAL HISTORY: PHYSICAL EXAM: GENERAL: alert and oriented in no acute distress on stretcher Head: normocephalic and atraumatic EYES: No injection, discharge or icterus. PERRL, EOMI. NECK: Trachea midline. Supple. ENT: Mucous membranes pink and moist. Pharynx without erythema or exudate. LUNGS: Airway patent. No retractions. Breath sounds clear with good air entry bilaterally. HEART: Regular rate and rhythm. No chest wall tenderness ABDOMEN: Soft and non-tender, without guarding or rebound. SKIN: Acyanotic, warm, dry, without rashes EXTREMITIES: Without swelling, tenderness or deformity NEUROLOGICAL: Ambulatory. Diminished sensation of the left cheek as well as in the left hand. Intact sensation left forearm and left forehead and right face. Decree strength of the left hand stonework tracer minimal at all but movement of left upper arm and wrist okay. No numbness or weakness appreciable in the lower extremities. Very slight left facial droop. Mildly slurred speech but no aphasia. EK bpm sinus rhythm with PAC. No acute ST segment elevation or depression with a QTc of 422. CONTINUOUS CARDIAC MONITORING: was ordered and showed a heart rate of 60s bpm in normal sinus rhythm Patient's laboratory studies and imaging reviewed. Differential includes Infection, dehydration, metabolic abnormality, hypo/hyperglycemia, electrolyte disturbance, anemia, hypoxia, cardiac sources, intracerebral event, toxicologic, neurologic, as well as other pathologies. IMPRESSION/MEDICAL DECISION MAKING: Patient hypertensive upon arrival. Immediately taken to CT for imaging. Patient with some left hand as well as left face deficits. On low-dose aspirin already but does have risk factors for vascular disease/CVA. Outside the time window for thrombolytics as headache developed 11 PM last night and initial numbness started around 8 AM this morning to the face. Significant deficits of the left hand noted. Is hypertensive here. CT and CT angiograms were obtained again and respiratory viral panel basic labs sent. CT head per radiology report shows no acute cranial abnormality. CT angiogram head and neck per radiology report shows no acute vascular abnormality such as aneurysm or occlusion. Will allow permissive hypertensive given concern for possible stroke. Blood work here shows no leukocytosis. No severe anemia. No severe electrolyte abnormalities noted with a mildly low magnesium 1.4. 1 dose of IV magnesium ordered. No significant renal dysfunction. No transaminitis. Respiratory viral panel returns positive for influenza A. Likely explains his slight headache and cough and mild fever earlier. Discussed with patient staying for further evaluation and stroke workup. Patient's systolic blood pressure is just above 220s, given a small on hydralazine with his relative bradycardia in the 60s. Will give aspirin and Plavix as I am very concerned he had a stroke. No other acute intervention however seems to be indicated at this point. Hospitalist team contacted. MRI ordered by them later returned positive as the patient is boarding here in the ER I did make them aware as radiology contacted me. Did let the night hospitalist know as well. Blood pressure is improving. Little bit of movement now both the left thumb as well as left index finger. DIAGNOSIS: CVA, hypertension, cough, hypomagnesemia DISPOSITION: Hospitalist will evaluate Patient was agreeable with this plan. Past Med/Surg History Problem List (Updated 04/26/24 @ 20:34 by Shamar James M.D.) Influenza A (Acute) Cerebrovascular accident (Acute) Influenza A DM II (diabetes mellitus, type II), controlled Fracture of distal fibula (Acute) Pancolitis SIERRA (acute kidney injury) Diabetes mellitus (Chronic) HTN (hypertension) (Chronic) Crohn's disease (regional enteritis) Surgical History (Updated 04/26/24 @ 16:29 by Gayle Easton PA-C) Hx of esophagogastroduodenoscopy Hx of colonoscopy Family History (Updated 04/26/24 @ 16:28 by Gayle Easton PA-C) Father Heart disease Mother Hypertension Diabetes Other Kidney disease Social History (Updated 04/26/24 @ 16:29 by Gayle Easton PA-C) Smoking Status: Former smoker Tobacco Type: Cigars Hx Alcohol Use: Yes Hx Substance Use: No Preferred Language: Amharic Feels Safe at Home: Yes Allergies Allergies Allergy/AdvReac Type Severity Reaction Status Date / Time No Known Allergies Allergy Unverified 04/26/24 16:31 Home Meds Home Medications Medication Instructions Recorded Confirmed aspirin 81 mg tablet,delayed 81 mg PO QPM 04/26/24 04/26/24 release atenolol 100 mg tablet 100 mg PO QAM 04/26/24 04/26/24 atorvastatin 40 mg tablet 40 mg PO QPM 04/26/24 04/26/24 chlorthalidone 25 mg tablet 12.5 mg PO QAM 04/26/24 04/26/24 cyanocobalamin (vitamin B-12) 500 500 mcg PO 3XWK 04/26/24 04/26/24 mcg tablet (Vitamin B-12) enalapril maleate 20 mg tablet 20 mg PO AMHS 04/26/24 04/26/24 ergocalciferol (vitamin D2) 1,250 1,250 mcg PO WK 04/26/24 04/26/24 mcg (50,000 unit) capsule (Vitamin D2) felodipine 10 mg tablet,extended 10 mg PO QAM 04/26/24 04/26/24 release 24 hr ferrous sulfate 325 mg (65 mg 325 mg PO UD 04/26/24 04/26/24 iron) tablet furosemide 40 mg tablet 40 mg PO DAILY PRN Fluid Retention 04/26/24 04/26/24 glipizide 5 mg tablet 5 mg PO QPM 04/26/24 04/26/24 metformin 500 mg tablet 1,000 mg PO BIDM 04/26/24 04/26/24 omeprazole 20 mg tablet,delayed 20 mg PO DAILY 04/26/24 04/26/24 release potassium chloride 20 mEq 20 meq PO TID 04/26/24 04/26/24 tablet,extended release(part/cryst) spironolactone 25 mg tablet 50 mg PO QAM 04/26/24 04/26/24 terazosin 10 mg capsule 10 mg PO HS 04/26/24 04/26/24 vedolizumab 300 mg intravenous 300 mg IV MONTHLY 04/26/24 04/26/24 solution (Entyvio) Results & Data (ED) Vital Signs Vital Signs - 24 hr 04/26/24 14:32 04/26/24 15:04 04/26/24 15:09 Temperature 36.6 C Temperature Source Temporal Artery Scan Pulse Rate 64 64 Pulse Rate [Apical] Pulse Rhythm [Apical] Pulse Strength [Apical] Respiratory Rate 20 Respiratory Effort / Characteristics Respiratory Depth Respiratory Pattern Blood Pressure 221/121 H Blood Pressure [Right Arm] Blood Pressure Mean 154 Blood Pressure Mean [Right Arm] Blood Pressure Position [Right Arm] Pulse Oximetry 96 Oxygen Delivery Method Room Air Room Air Sepsis Recent Fever Within 48 Hours No Sepsis New/Unexplained Change in Mental Status N/A Sepsis Action Taken by Nursing No Action Required 04/26/24 15:09 04/26/24 17:00 Temperature Temperature Source Pulse Rate Pulse Rate [Apical] 62 69 Pulse Rhythm [Apical] Regular Pulse Strength [Apical] Normal Respiratory Rate 18 24 Respiratory Effort / Characteristics Non-Labored Non-Labored Respiratory Depth Normal Normal Respiratory Pattern Regular Blood Pressure Blood Pressure [Right Arm] 204/106 H 222/110 H Blood Pressure Mean Blood Pressure Mean [Right Arm] 138 147 Blood Pressure Position [Right Arm] Lying Pulse Oximetry 96 95 Oxygen Delivery Method Room Air Room Air Sepsis Recent Fever Within 48 Hours Sepsis New/Unexplained Change in Mental Status Sepsis Action Taken by Nursing Laboratory Data 04/26/24 14:58 04/26/24 14:58 Lab Results 04/26/24 04/26/24 04/26/24 Range/Units 14:58 15:18 15:25 WBC 5.70 (4.8-10.8) K/ul RBC 4.35 L (4.70-6.10) M/uL Hgb 13.1 L (14.0-18.0) g/dl POC Hgb 12.9 L (14.0-18.0) g/dl Hct 38.2 L (42.0-52.0) % POC Hct 38 L (42-52) % MCV 87.8 (80.0-100.0) fL MCH 30.1 (25.0-34.0) pg MCHC 34.3 (32.0-36.0) g/dL RDW Std Deviation 41.0 (36.4-46.3) fL RDW Coeff of Annmarie 12.7 (11.5-14.5) % Plt Count 184 (130-400) K/uL MPV 10.8 (9.4-12.4) fL Immature Gran % (Auto) 0.2 % Neut % (Auto) 70.6 % Lymph % (Auto) 15.3 % [place] % (Auto) 10.9 % Eos % (Auto) 2.5 % Baso % (Auto) 0.5 % Neut # (Auto) 4.03 (1.40-6.50) K/uL Lymph # (Auto) 0.87 L (1.20-3.40) K/uL [place] # (Auto) 0.62 H (0.11-0.59) K/uL Eos # (Auto) 0.14 (0.00-0.50) K/uL Baso # (Auto) 0.03 (0.00-0.20) K/uL Immature Gran # (Auto) 0.01 (0.01-0.20) K/uL PT 10.9 (9.0-12.0) Seconds INR 1.0 (0.9-1.1) APTT 27 (21-31) Seconds PTT Ratio 1.0 POC Sodium 133 L (135-144) mmol/L Sodium 134 L (136-145) mmol/L POC Potassium 3.7 (3.3-5.0) mmol/L Potassium 3.8 (3.5-5.1) mmol/L POC Chloride 100 L (101-112) mmol/L Chloride 100 (98-107) mmol/L Carbon Dioxide 27 (21-32) mmol/L POC Total CO2 21 L (24-31) mmol/L Anion Gap 7 (3-11) POC Anion Gap 18.0 (16-25) mmol/L POC BUN 15 (7-18) mg/dl BUN 17 (6-23) mg/dl Creatinine 1.19 (0.6-1.4) mg/dl POC Creatinine 1.4 H (0.6-1.3) mg/dl Est Cr Clr Drug Dosing 73.0 ml/min eGFR 66.54 BUN/Creatinine Ratio 14.3 (10-20) Glucose 119 H (70-99(Fasting)) mg/dl POC Glucose (other) 118 H (70-99) mg/dl Calcium 9.3 (8.6-10.3) mg/dl POC Ioniz Calcium Basil 1.10 L (1.12-1.32) mmol/l Magnesium 1.4 L (1.7-2.4) mg/dl Total Bilirubin 0.9 (0.2-1.0) mg/dl AST 11 L (13-39) U/L ALT 16 (7-52) U/L Alkaline Phosphatase 52 (34-104) U/L Troponin I High Sens 15.3 (0-20) pg/ml Total Protein 6.5 (6.0-8.3) gm/dl Albumin 4.0 (3.4-5.0) gm/dl Globulin 2.5 (2.5-4.0) gm/dl Albumin/Globulin Ratio 1.6 (0.9-2) Urine Color Urine Appearance (Clear) Urine pH (4.5-7.5) Ur Specific [place] (1.000-1.030) Urine Protein (Negative) Urine Glucose (UA) (Negative) Urine Ketones (Negative) Urine Blood (Negative) Urine Nitrite (Negative) Urine Bilirubin (Negative) Urine Urobilinogen (Negative) Ur Leukocyte Esterase (Negative) Urine WBC (Auto) (0-5) /hpf Urine RBC (Auto) (0-2) /hpf U Hyaline Cast (Auto) (0-2) /lpf U Epithel Cells (Auto) (0-2) /hpf Urine Bacteria (Auto) (None Seen) Adenovirus (PCR) Not Detected (NotDetected) B. pertussis DNA (PCR) Not Detected (NotDetected) B.parapertussis DNA PCR Not Detected (NotDetected) C. pneumoniae DNA (PCR) Not Detected (NotDetected) Coronavirus OC43 (PCR) Not Detected (NotDetected) Coronavirus HKU1 (PCR) Not Detected (NotDetected) Coronavirus 229E (PCR) Not Detected (NotDetected) SARS-CoV-2 (PCR) Not Detected (NotDetected) Coronavirus NL63 (PCR) Not Detected (NotDetected) Human Metapneumovir PCR Not Detected (NotDetected) Influenza A (H3) PCR DETECTED A (NotDetected) Influenza Type B (PCR) Not Detected (NotDetected) M. pneumoniae (PCR) Not Detected (NotDetected) Parainfluenza 1 (PCR) Not Detected (NotDetected) Parainfluenza 2 (PCR) Not Detected (NotDetected) Parainfluenza 3 (PCR) Not Detected (NotDetected) Parainfluenza 4 (PCR) Not Detected (NotDetected) RSV (PCR) Not Detected (NotDetected) Entero/Rhino (PCR) Not Detected (NotDetected) Blood Type B Positive Antibody Screen NEGATIVE 04/26/24 Range/Units 16:16 WBC (4.8-10.8) K/ul RBC (4.70-6.10) M/uL Hgb (14.0-18.0) g/dl POC Hgb (14.0-18.0) g/dl Hct (42.0-52.0) % POC Hct (42-52) % MCV (80.0-100.0) fL MCH (25.0-34.0) pg MCHC (32.0-36.0) g/dL RDW Std Deviation (36.4-46.3) fL RDW Coeff of Annmarie (11.5-14.5) % Plt Count (130-400) K/uL MPV (9.4-12.4) fL Immature Gran % (Auto) % Neut % (Auto) % Lymph % (Auto) % [place] % (Auto) % Eos % (Auto) % Baso % (Auto) % Neut # (Auto) (1.40-6.50) K/uL Lymph # (Auto) (1.20-3.40) K/uL [place] # (Auto) (0.11-0.59) K/uL Eos # (Auto) (0.00-0.50) K/uL Baso # (Auto) (0.00-0.20) K/uL Immature Gran # (Auto) (0.01-0.20) K/uL PT (9.0-12.0) Seconds INR (0.9-1.1) APTT (21-31) Seconds PTT Ratio POC Sodium (135-144) mmol/L Sodium (136-145) mmol/L POC Potassium (3.3-5.0) mmol/L Potassium (3.5-5.1) mmol/L POC Chloride (101-112) mmol/L Chloride (98-107) mmol/L Carbon Dioxide (21-32) mmol/L POC Total CO2 (24-31) mmol/L Anion Gap (3-11) POC Anion Gap (16-25) mmol/L POC BUN (7-18) mg/dl BUN (6-23) mg/dl Creatinine (0.6-1.4) mg/dl POC Creatinine (0.6-1.3) mg/dl Est Cr Clr Drug Dosing ml/min eGFR BUN/Creatinine Ratio (10-20) Glucose (70-99(Fasting)) mg/dl POC Glucose (other) (70-99) mg/dl Calcium (8.6-10.3) mg/dl POC Ioniz Calcium Basil (1.12-1.32) mmol/l Magnesium (1.7-2.4) mg/dl Total Bilirubin (0.2-1.0) mg/dl AST (13-39) U/L ALT (7-52) U/L Alkaline Phosphatase (34-104) U/L Troponin I High Sens (0-20) pg/ml Total Protein (6.0-8.3) gm/dl Albumin (3.4-5.0) gm/dl Globulin (2.5-4.0) gm/dl Albumin/Globulin Ratio (0.9-2) Urine Color Yellow Urine Appearance Clear (Clear) Urine pH 7.0 (4.5-7.5) Ur Specific [place] > 1.045 H (1.000-1.030) Urine Protein Trace H (Negative) Urine Glucose (UA) Negative (Negative) Urine Ketones Negative (Negative) Urine Blood Negative (Negative) Urine Nitrite Negative (Negative) Urine Bilirubin Negative (Negative) Urine Urobilinogen Negative (Negative) Ur Leukocyte Esterase Negative (Negative) Urine WBC (Auto) 0-5 (0-5) /hpf Urine RBC (Auto) 0-2 (0-2) /hpf U Hyaline Cast (Auto) 0-2 (0-2) /lpf U Epithel Cells (Auto) 0-2 (0-2) /hpf Urine Bacteria (Auto) None Seen (None Seen) Adenovirus (PCR) (NotDetected) B. pertussis DNA (PCR) (NotDetected) B.parapertussis DNA PCR (NotDetected) C. pneumoniae DNA (PCR) (NotDetected) Coronavirus OC43 (PCR) (NotDetected) Coronavirus HKU1 (PCR) (NotDetected) Coronavirus 229E (PCR) (NotDetected) SARS-CoV-2 (PCR) (NotDetected) Coronavirus NL63 (PCR) (NotDetected) Human Metapneumovir PCR (NotDetected) Influenza A (H3) PCR (NotDetected) Influenza Type B (PCR) (NotDetected) M. pneumoniae (PCR) (NotDetected) Parainfluenza 1 (PCR) (NotDetected) Parainfluenza 2 (PCR) (NotDetected) Parainfluenza 3 (PCR) (NotDetected) Parainfluenza 4 (PCR) (NotDetected) RSV (PCR) (NotDetected) Entero/Rhino (PCR) (NotDetected) Blood Type Antibody Screen Administered Medications Acetaminophen (Acetaminophen 325 Mg Tab) 650 mg PO Q4H PRN PRN Reason: Moderate Pain (Scale 4, 5, 6) Stop: 05/26/24 18:23 Last Admin: 04/26/24 18:56 Dose: 650 mg Documented By: KAILA Enalapril Maleate (Enalapril Maleate 10 Mg Tab) 20 mg PO AMHS CONCEPCIÓN Stop: 05/26/24 18:44 Last Admin: 04/26/24 19:58 Dose: 20 mg Documented By: KAILA Hydralazine HCl (Hydralazine Hcl 20 Mg/Ml Vial) 5 mg IV Q6H PRN PRN Reason: Hypertension Stop: 05/26/24 18:23 Last Admin: 04/26/24 19:50 Dose: 5 mg Documented By: CINDA Ondansetron HCl (Ondansetron Inj 2 Mg/Ml 2 Ml Vial) 4 mg IV Q4H PRN PRN Reason: Nausea And Vomiting Stop: 05/26/24 18:23 Last Admin: 04/26/24 18:56 Dose: 4 mg Documented By: KAILA Terazosin HCl (Terazosin Hcl 5 Mg Cap) 10 mg PO HS CONCEPCIÓN Stop: 05/26/24 18:44 Last Admin: 04/26/24 19:59 Dose: 10 mg Documented By: KAILA Discontinued Medications Aspirin (Aspirin 81 Mg Chew) 324 mg PO NOW STA Stop: 04/26/24 16:11 Last Admin: 04/26/24 16:21 Dose: 324 mg Documented By: KAILA Atorvastatin Calcium (Atorvastatin 40 Mg Tab) 40 mg PO ONCE ONE Stop: 04/26/24 17:31 Last Admin: 04/26/24 18:41 Dose: 40 mg Documented By: KAILA Clopidogrel Bisulfate (Clopidogrel Bisulfate 300 Mg Tab) 300 mg PO NOW STA Stop: 04/26/24 16:11 Last Admin: 04/26/24 16:21 Dose: 300 mg Documented By: KAILA Hydralazine HCl (Hydralazine Hcl 20 Mg/Ml Vial) 5 mg IV NOW ONE Stop: 04/26/24 16:11 Last Admin: 04/26/24 16:21 Dose: 5 mg Documented By: KAILA Hydralazine HCl (Hydralazine Hcl 20 Mg/Ml Vial) 5 mg IV NOW ONE Stop: 04/26/24 16:54 Last Admin: 04/26/24 17:01 Dose: 5 mg Documented By: KAILA Magnesium Sulfate/Dextrose (Magnesium Sulfate / D5w) 1 gm in 100 mls @ 100 mls/hr IV NOW STA Stop: 04/26/24 16:58 Last Infusion: 04/26/24 17:31 Dose: Infused Documented By: Admin: 04/26/24 16:20 Dose: 100 mls/hr Documented By: KAILA Ioversol (Optiray 320 125ml) 119 ml IV ONCE ONE Stop: 04/26/24 14:47 Last Admin: 04/26/24 14:46 Dose: 119 ml Documented By: DOTTIE Imaging Data Radiologist's Impression: Head CT 04/26/24 14:39 CT head without contrast History: Weakness Comparison: None Technique: Using multidetector thin collimation helical acquisition technique, axial, coronal and sagittal CT images from the skull base to the vertex were obtained without intravenous contrast. Dose reduction techniques were achieved by using automatic exposure control and/or adjustment of mA and/or kV according to patient size and/or use of iterative reconstruction technique. Findings: No intracranial hemorrhage, mass-effect, or midline shift. The ventricles are proportionate to the cerebral sulci. The donis to white matter differentiation of the cerebral hemispheres is preserved. The basal cisterns are patent. The visualized paranasal sinuses are clear. Mastoid air cells are clear. Impression: No acute intracranial pathology. Electronically signed by Javy Cartagena 04-26-2024 3:11 PM Head CTA 04/26/24 14:[address] without contrast CT angiogram of the neck CT angiogram of the brain with contrast Provided History: Neuro deficit Comparison: None Technique: HEAD CT: Using multidetector thin collimation helical acquisition technique, axial, coronal and sagittal CT images from the skull base to the vertex were obtained without intravenous contrast. HEAD and NECK CTA: During rapid bolus intravenous injection of nonionic contrast material, axial images were obtained using thin collimation multidetector helical technique from the base of the neck through the of vertex of the head. This CT angiogram data was reconstructed at thin intervals with mild overlap. 3D reconstructions were obtained. The axial source images, multiplanar reformations, 3D reconstructions in both maximum intensity projection display and volume rendered models were reviewed. Dose reduction techniques were achieved by using automatic exposure control and/or adjustment of mA and/or kV according to patient size and/or use of iterative reconstruction technique. Findings: Head CT: There is no intracranial hemorrhage, mass effect, or midline shift. Donis/white matter differentiation in both cerebral hemispheres is preserved. Ventricles are proportionate to the cerebral sulci. Head CTA demonstrates no aneurysm or stenosis of the major intracranial arteries. Neck CTA demonstrates no stenosis of the major cervical arteries. Mild calcification at the carotid bulbs bilaterally without associated stenosis. The origins of the great vessels from the aortic arch are patent. The normal distal right internal carotid artery measures 5 mm. The normal distal left internal carotid artery measures 5 mm. No mass is noted within the visualized portions of the cervical soft tissues or lung apices. Impression: 1. Head CTA demonstrates no aneurysm or stenosis of the major intracranial arteries, 2. Neck CTA demonstrates no stenosis of the major cervical arteries. 3. No intracranial hemorrhage on the noncontrast head CT. Electronically signed by Javy Cartagena 04-26-2024 3:11 PM Neck CTA 04/26/24 14:[address] without contrast CT angiogram of the neck CT angiogram of the brain with contrast Provided History: Neuro deficit Comparison: None Technique: HEAD CT: Using multidetector thin collimation helical acquisition technique, axial, coronal and sagittal CT images from the skull base to the vertex were obtained without intravenous contrast. HEAD and NECK CTA: During rapid bolus intravenous injection of nonionic contrast material, axial images were obtained using thin collimation multidetector helical technique from the base of the neck through the of vertex of the head. This CT angiogram data was reconstructed at thin intervals with mild overlap. 3D reconstructions were obtained. The axial source images, multiplanar reformations, 3D reconstructions in both maximum intensity projection display and volume rendered models were reviewed. Dose reduction techniques were achieved by using automatic exposure control and/or adjustment of mA and/or kV according to patient size and/or use of iterative reconstruction technique. Findings: Head CT: There is no intracranial hemorrhage, mass effect, or midline shift. Donis/white matter differentiation in both cerebral hemispheres is preserved. Ventricles are proportionate to the cerebral sulci. Head CTA demonstrates no aneurysm or stenosis of the major intracranial arteries. Neck CTA demonstrates no stenosis of the major cervical arteries. Mild calcification at the carotid bulbs bilaterally without associated stenosis. The origins of the great vessels from the aortic arch are patent. The normal distal right internal carotid artery measures 5 mm. The normal distal left internal carotid artery measures 5 mm. No mass is noted within the visualized portions of the cervical soft tissues or lung apices. Impression: 1. Head CTA demonstrates no aneurysm or stenosis of the major intracranial arteries, 2. Neck CTA demonstrates no stenosis of the major cervical arteries. 3. No intracranial hemorrhage on the noncontrast head CT. Electronically signed by Javy Cartagena 04-26-2024 3:11 PM Discharge Plan Visit Data Chief Complaint: Stroke/CVA Symptoms Stated Complaint: FACE NUMBNESS, CAN'T USE L HAND, SOUNDS SLURRED ED Provider: Shamar James Discharge Problem: Cerebrovascular accident, HTN (hypertension), Influenza A Patient Disposition: Admitted As Inpatient Discharge Instructions Interventions: ED Discharge Assessment Last Done: 04/26/24 18:25
[2024-04-26] MEDS: OPTIRAY 320 125ml IV ONE (14:46)
--- NOTE | 2024-04-26 15:11 | CT Scan Report ---
Head CT without contrast CT angiogram of the neck CT angiogram of the brain with contrast Provided History: Neuro deficit Comparison: None Technique: HEAD CT: Using multidetector thin collimation helical acquisition technique, axial, coronal and sagittal CT images from the skull base to the vertex were obtained without intravenous contrast. HEAD and NECK CTA: During rapid bolus intravenous injection of nonionic contrast material, axial images were obtained using thin collimation multidetector helical technique from the base of the neck through the of vertex of the head. This CT angiogram data was reconstructed at thin intervals with mild overlap. 3D reconstructions were obtained. The axial source images, multiplanar reformations, 3D reconstructions in both maximum intensity projection display and volume rendered models were reviewed. Dose reduction techniques were achieved by using automatic exposure control and/or adjustment of mA and/or kV according to patient size and/or use of iterative reconstruction technique. Findings: Head CT: There is no intracranial hemorrhage, mass effect, or midline shift. Donis/white matter differentiation in both cerebral hemispheres is preserved. Ventricles are proportionate to the cerebral sulci. Head CTA demonstrates no aneurysm or stenosis of the major intracranial arteries. Neck CTA demonstrates no stenosis of the major cervical arteries. Mild calcification at the carotid bulbs bilaterally without associated stenosis. The origins of the great vessels from the aortic arch are patent. The normal distal right internal carotid artery measures 5 mm. The normal distal left internal carotid artery measures 5 mm. No mass is noted within the visualized portions of the cervical soft tissues or lung apices. Impression: 1. Head CTA demonstrates no aneurysm or stenosis of the major intracranial arteries, 2. Neck CTA demonstrates no stenosis of the major cervical arteries. 3. No intracranial hemorrhage on the noncontrast head CT. Electronically signed by Javy Cartagena 04-26-2024 3:11 PM
--- NOTE | 2024-04-26 15:11 | CT Scan Report ---
CT head without contrast History: Weakness Comparison: None Technique: Using multidetector thin collimation helical acquisition technique, axial, coronal and sagittal CT images from the skull base to the vertex were obtained without intravenous contrast. Dose reduction techniques were achieved by using automatic exposure control and/or adjustment of mA and/or kV according to patient size and/or use of iterative reconstruction technique. Findings: No intracranial hemorrhage, mass-effect, or midline shift. The ventricles are proportionate to the cerebral sulci. The real to white matter differentiation of the cerebral hemispheres is preserved. The basal cisterns are patent. The visualized paranasal sinuses are clear. Mastoid air cells are clear. Impression: No acute intracranial pathology. Electronically signed by Javy Cartagena 04-26-2024 3:11 PM
[2024-04-26 15:31] LABS: iSTAT Creatinine 1.4 mg/dl (0.6-1.3); iSTAT Hemoglobin 12.9 g/dl (14.0-18.0); iSTAT Ionized Calcium 1.1 mmol/l (1.12-1.32); iSTAT Potassium 3.7 mmol/L (3.3-5.0)
[2024-04-26 15:40] LABS: Basophils # (auto) 0.03 K/uL (0.00-0.20); Basophils % (auto) 0.5 %; Eosinophils # (auto) 0.14 K/uL (0.00-0.50); Eosinophils % (auto) 2.5 %; Hematocrit (blood only) 38.2 % (42.0-52.0); Hemoglobin 13.1 g/dl (14.0-18.0); Immature Granulocytes # (auto) 0.01 K/uL (0.01-0.20); Immature Granulocytes % (auto) 0.2 %; Lymphocytes # (auto) 0.87 K/uL (1.20-3.40); Lymphocytes % (auto) 15.3 %; Mean Corpuscular Hemoglobin 30.1 pg (25.0-34.0); Mean Corpuscular Hgb Conc 34.3 g/dL (32.0-36.0); Mean Corpuscular Volume 87.8 fL (80.0-100.0); Mean Platelet Volume 10.8 fL (9.4-12.4); Monocytes # (auto) 0.62 K/uL (0.11-0.59); Monocytes % (auto) 10.9 %; Neutrophils # (auto) 4.03 K/uL (1.40-6.50); Neutrophils % (auto) 70.6 %; Platelet Count 184 K/uL (130-400); RDW Coefficient of Variation 12.7 % (11.5-14.5); Red Blood Count 4.35 M/uL (4.70-6.10)
[2024-04-26 15:51] LABS: Albumin Globulin Ratio 1.6 (0.9-2); BUN Creatinine Ratio 14.3 (10-20); Bilirubin,Total 0.9 mg/dl (0.2-1.0); Calcium 9.3 mg/dl (8.6-10.3); Globulin 2.5 gm/dl (2.5-4.0); Magnesium 1.4 mg/dl (1.7-2.4); Potassium 3.8 mmol/L (3.5-5.1); Total Protein 6.5 gm/dl (6.0-8.3)
[2024-04-26 15:57] LABS: Troponin I High Sensitivity 15.3 pg/ml (0-20)
[2024-04-26 16:09] LABS: Partial Thromboplastin Time 27 Seconds (21-31); Prothrombin Time 10.9 Seconds (9.0-12.0)
[2024-04-26 16:15] LABS: Adenovirus PCR Not Detected (NotDetected); Bordetella parapertussis PCR Not Detected (NotDetected); Bordetella pertussis PCR Not Detected (NotDetected); Chlamydia pneumoniae PCR Not Detected (NotDetected); Coronavirus 229E PCR Not Detected (NotDetected); Coronavirus CoV-2 (COVID19)PCR Not Detected (NotDetected); Coronavirus HKU1 PCR Not Detected (NotDetected); Coronavirus NL63 PCR Not Detected (NotDetected); Coronavirus OC43PCR Not Detected (NotDetected); Human Metapneumovirus PCR Not Detected (NotDetected); Influenza A (H3) PCR DETECTED (NotDetected); Influenza B PCR Not Detected (NotDetected); Mycoplasma pneumoniae PCR Not Detected (NotDetected); Parainfluenza Virus 1 PCR Not Detected (NotDetected); Parainfluenza Virus 2 PCR Not Detected (NotDetected); Parainfluenza Virus 3 PCR Not Detected (NotDetected); Parainfluenza Virus 4 PCR Not Detected (NotDetected); Respiratory Syncytial VirusPCR Not Detected (NotDetected); Rhinovirus/Enterovirus PCR Not Detected (NotDetected)
[2024-04-26] MEDS: MAGNESIUM SULFATE / D5W 1 GM/100 ML BAG IV STA (16:20)
[2024-04-26] MEDS: CLOPIDOGREL BISULFATE 300 MG TAB PO STA (16:21)
[2024-04-26] MEDS: ASPIRIN 81 MG CHEW PO STA (16:21)
[2024-04-26] MEDS: hydrALAZINE HCL 20 MG/ML VIAL IV ONE ×2 (16:21→17:01)
--- NOTE | 2024-04-26 16:31 | History & Physical Report ---
Date of Service April 26, 2024 Assessment & Plan (1) Stroke-like symptoms: (2) HTN (hypertension): (3) Diabetes mellitus: (4) Crohn's disease (regional enteritis): (5) Influenza A: Plan Possible TIA Left Facial numbness Left-sided hand numbness and weakness Slurred speech Left-sided facial droop - Observation MedSurg with telemetry - Given full dose aspirin and Plavix loaded in the ER, cont asa 81 mg daily and plavix 75 mg daily - Atorvastatin 40 mg daily increased to 80 mg daily for plaque stabilization - Stroke order set completed, no indication for thrombolytic - CT head reviewed and is negative - MRI brain wo contrast ordered - Tele-neurology was not contacted by the ER - will consult Neuro - Will allow permissive hypertension with SBP 140-170, required dose of hydralazine here for BP 204/106 x 2, follow - PT/OT consults placed, bedside swallow to be performed. If passes allow diet. Speech therapy consulted. - If negative MRI then would consider Guillain Rosepine with hx of viral infection, numbness, weakness. pt is vaccinated for flu/ pneumonia/covid in Jan 2024. HTN HLD - Home meds include atenolol 100 mg QAM, chlorthalidone 12.5 QAM, enalapril 20 mg BID, spironolactone 50 mg QAM, terazosin 10 mg HS, felodipine 10 mg QAM - Pt took morning medications as scheduled today. - Cont IV hydralazine 5 mg IV prn Q6H for SBP > 180 or DBP > 110 Hypomagnesemia - 1.4 in the ER, given 1 g IV replacement Influenza A + -Cough, low-grade fever, placed in droplet precautions, supportive care -No increased O2 requirements, not on any supplemental O2 at baseline -May use DuoNebs as needed, Tessalon Perles prn - Tamiflu 75 mg BID DM type II -Last A1c 6.2 on 04/03/2024 -ISS with Accu-Cheks ACHS - Hold metformin, glipizide GERD -Continue PPI DVT ppx: teds, scds Lines: PIV x 1 FEN/GI: HH/DM diet CODE:Full Dispo: From home, likely to remain in the hospital x 1-2 days I spent a total of 77 minutes with greater than 50% of that time face to face with the patient, personally reviewing all current laboratories, imaging studies, past medication reconciliation, outpatient chart review, and discussion with specialists to collaborate care for the patient excluding time spent in the performance of separately billed services or time spent by another provider/QHP. Please see attending documentation for corrections and/or additions. History of Present Illness Chief Complaint: Weakness Primary Care Provider: Joy Hope MD This is a 68-year-old male with PMHx of DM type II, HTN, HLD, Crohn's disease, GERD, adjustment disorder with depressed mood who presents to the hospital with acute onset of weakness. Patient awoke this morning and noticed left-sided facial numbness and droop, left-sided hand numbness and weakness with difficulty moving his fingers. He is still having difficulty with movement and strength of nurse liaison with the left hand. There is no more numbness. He had some slurred speech which is slightly better at this point, family states is is nearly at his baseline. At bedside is the patients , son and grandson who support the history. He also notes had developed a cough, low-grade fever last evening. He is found to be influenza A positive with workup here. They state they have been babysitting their 5-year-old grandson who was also diagnosed with the flu on Sunday earlier last week. In the ER stroke workup was initiated due to symptoms of weakness, CT head and neck are negative. He is found to be influenza A positive. Magnesium 1.4 on admission which is being replaced with 1 G IV. Other electrolytes are within normal limits. Allergies Allergy/AdvReac Type Severity Reaction Status Date / Time No Known Allergies Allergy Unverified 04/26/24 16:31 Home Medications Medication Instructions Recorded Confirmed Type aspirin 81 mg tablet,delayed 81 mg PO QPM 04/26/24 04/26/24 History release atenolol 100 mg tablet 100 mg PO QAM 04/26/24 04/26/24 History atorvastatin 40 mg tablet 40 mg PO QPM 04/26/24 04/26/24 History chlorthalidone 25 mg tablet 12.5 mg PO QAM 04/26/24 04/26/24 History cyanocobalamin (vitamin B-12) 500 500 mcg PO 3XWK 04/26/24 04/26/24 History mcg tablet (Vitamin B-12) enalapril maleate 20 mg tablet 20 mg PO AMHS 04/26/24 04/26/24 History ergocalciferol (vitamin D2) 1,250 1,250 mcg PO WK 04/26/24 04/26/24 History mcg (50,000 unit) capsule (Vitamin D2) felodipine 10 mg tablet,extended 10 mg PO QAM 04/26/24 04/26/24 History release 24 hr ferrous sulfate 325 mg (65 mg 325 mg PO UD 04/26/24 04/26/24 History iron) tablet furosemide 40 mg tablet 40 mg PO DAILY PRN Fluid Retention 04/26/24 04/26/24 History glipizide 5 mg tablet 5 mg PO QPM 04/26/24 04/26/24 History metformin 500 mg tablet 1,000 mg PO BIDM 04/26/24 04/26/24 History omeprazole 20 mg tablet,delayed 20 mg PO DAILY 04/26/24 04/26/24 History release potassium chloride 20 mEq 20 meq PO TID 04/26/24 04/26/24 History tablet,extended release(part/cryst) spironolactone 25 mg tablet 50 mg PO QAM 04/26/24 04/26/24 History terazosin 10 mg capsule 10 mg PO HS 04/26/24 04/26/24 History vedolizumab 300 mg intravenous 300 mg IV MONTHLY 04/26/24 04/26/24 History solution (Entyvio) Past Med/Surg History Problem List (Updated 04/26/24 @ 17:22 by Gayle Easton PA-C) Influenza A DM II (diabetes mellitus, type II), controlled Stroke-like symptoms (Acute) Fracture of distal fibula (Acute) Pancolitis SIERRA (acute kidney injury) Diabetes mellitus (Chronic) HTN (hypertension) (Chronic) Crohn's disease (regional enteritis) Surgical History (Updated 04/26/24 @ 16:29 by Gayle Easton PA-C) Hx of esophagogastroduodenoscopy Hx of colonoscopy Family History (Updated 04/26/24 @ 16:28 by Gayle Easton PA-C) Father Heart disease Mother Hypertension Diabetes Other Kidney disease Social History (Updated 04/26/24 @ 16:29 by LOUIE AguilarC) Smoking Status: Former smoker Tobacco Type: Cigars Hx Alcohol Use: Yes Hx Substance Use: No Preferred Language: Slovenian Feels Safe at Home: Yes Review of Systems Review of Systems: Constitutional: + Fever, + sweats and chills Eyes: No diplopia, no worsening or blurred vision ENT: normal hearing, no trouble swallowing. + left sided facial droop and numbness per HPI Respiratory: + Dry cough, no sputum, dyspnea at rest or on exertion Cardiovascular: No chest pain, tightness or palpitations Abdomen: No pain, nausea, vomiting, diarrhea or constipation Musculoskeletal: No joint pain, calf pain, swelling Neurologic: + Left hand weakness and numbness, numbness is gone but weakness persists at time of my visit, otherwise no weakness, numbness/tingling, or balance problems Psychiatric: No anxiety or depression Skin: No rash or itch Physical Exam Physical Exam: General: awake, alert, no apparent distress, overweight white male Head: Normocephalic, atraumatic ENT: PERRL, EOMI, no pharyngeal exudate, mucous membranes moist, + left-sided facial droop Chest: on room air, + faint rales, dry cough, no wheezes or rhonchi Cardiac: Regular rate and rhythm, no murmur, no JVD, normal peripheral pulses, good capillary refill Abdominal: NABS x 4 quadrants, soft, nondistended, nontender to palpation, no rebound or guarding Extremities: Normal inspection, no peripheral edema or erythema, calfs nontender to palpation Psych: Normal mood and affect Neuro: AAO x 3, patient is able to follow all commands, cranial nerves II through XII intact, negative pronator drift, +has difficulty performing rapid alternating movements with the left hand due to weakness, left nurse liaison strength rated a 4/5 compared to the right which is 5/5, also shoulder flexion rated 4/5 on the left compared to 5/5 on the right, is able to do [id number] testing, speech is fairly clear, no peripheral sensory deficits Results & Data Results & Data Vital Signs (Past 12 Hours) Vital Signs Temp Pulse Pulse Resp BP BP Pulse Ox 04/26/24 15:09 62 18 204/106 H 96 04/26/24 15:09 04/26/24 15:04 64 04/26/24 14:32 36.6 C 64 20 221/121 H 96 O2 Del Method 04/26/24 15:09 Room Air 04/26/24 15:09 Room Air 04/26/24 15:04 04/26/24 14:32 Room Air Laboratory Results 04/26/24 04/26/24 04/26/24 15:25 15:18 14:58 WBC 5.70 RBC 4.35 L Hgb 13.1 L POC Hgb 12.9 L Hct 38.2 L POC Hct 38 L MCV 87.8 MCH 30.1 MCHC 34.3 RDW Std Deviation 41.0 RDW Coeff of Annmarie 12.7 Plt Count 184 MPV 10.8 Immature Gran % (Auto) 0.2 Neut % (Auto) 70.6 Lymph % (Auto) 15.3 [place] % (Auto) 10.9 Eos % (Auto) 2.5 Baso % (Auto) 0.5 Neut # (Auto) 4.03 Lymph # (Auto) 0.87 L [place] # (Auto) 0.62 H Eos # (Auto) 0.14 Baso # (Auto) 0.03 Immature Gran # (Auto) 0.01 PT 10.9 INR 1.0 APTT 27 PTT Ratio 1.0 POC Sodium 133 L Sodium 134 L POC Potassium 3.7 Potassium 3.8 POC Chloride 100 L Chloride 100 Carbon Dioxide 27 POC Total CO2 21 L Anion Gap 7 POC Anion Gap 18.0 POC BUN 15 BUN 17 Creatinine 1.19 POC Creatinine 1.4 H Est Cr Clr Drug Dosing 73.0 eGFR 66.54 BUN/Creatinine Ratio 14.3 Glucose 119 H POC Glucose (other) 118 H Calcium 9.3 POC Ioniz Calcium Basil 1.10 L Magnesium 1.4 L Total Bilirubin 0.9 AST 11 L ALT 16 Alkaline Phosphatase 52 Troponin I High Sens 15.3 Total Protein 6.5 Albumin 4.0 Globulin 2.5 Albumin/Globulin Ratio 1.6 Adenovirus (PCR) Not Detected B. pertussis DNA (PCR) Not Detected B.parapertussis DNA PCR Not Detected C. pneumoniae DNA (PCR) Not Detected Coronavirus OC43 (PCR) Not Detected Coronavirus HKU1 (PCR) Not Detected Coronavirus 229E (PCR) Not Detected SARS-CoV-2 (PCR) Not Detected Coronavirus NL63 (PCR) Not Detected Human Metapneumovir PCR Not Detected Influenza A (H3) PCR DETECTED A Influenza Type B (PCR) Not Detected M. pneumoniae (PCR) Not Detected Parainfluenza 1 (PCR) Not Detected Parainfluenza 2 (PCR) Not Detected Parainfluenza 3 (PCR) Not Detected Parainfluenza 4 (PCR) Not Detected RSV (PCR) Not Detected Entero/Rhino (PCR) Not Detected Diagnostic Findings Head CT 04/26/24 14:39 CT head without contrast History: Weakness Comparison: None Technique: Using multidetector thin collimation helical acquisition technique, axial, coronal and sagittal CT images from the skull base to the vertex were obtained without intravenous contrast. Dose reduction techniques were achieved by using automatic exposure control and/or adjustment of mA and/or kV according to patient size and/or use of iterative reconstruction technique. Findings: No intracranial hemorrhage, mass-effect, or midline shift. The ventricles are proportionate to the cerebral sulci. The donis to white matter differentiation of the cerebral hemispheres is preserved. The basal cisterns are patent. The visualized paranasal sinuses are clear. Mastoid air cells are clear. Impression: No acute intracranial pathology. Electronically signed by Javy Cartagena 04-26-2024 3:11 PM Head CTA 04/26/24 14:[address] without contrast CT angiogram of the neck CT angiogram of the brain with contrast Provided History: Neuro deficit Comparison: None Technique: HEAD CT: Using multidetector thin collimation helical acquisition technique, axial, coronal and sagittal CT images from the skull base to the vertex were obtained without intravenous contrast. HEAD and NECK CTA: During rapid bolus intravenous injection of nonionic contrast material, axial images were obtained using thin collimation multidetector helical technique from the base of the neck through the of vertex of the head. This CT angiogram data was reconstructed at thin intervals with mild overlap. 3D reconstructions were obtained. The axial source images, multiplanar reformations, 3D reconstructions in both maximum intensity projection display and volume rendered models were reviewed. Dose reduction techniques were achieved by using automatic exposure control and/or adjustment of mA and/or kV according to patient size and/or use of iterative reconstruction technique. Findings: Head CT: There is no intracranial hemorrhage, mass effect, or midline shift. Donis/white matter differentiation in both cerebral hemispheres is preserved. Ventricles are proportionate to the cerebral sulci. Head CTA demonstrates no aneurysm or stenosis of the major intracranial arteries. Neck CTA demonstrates no stenosis of the major cervical arteries. Mild calcification at the carotid bulbs bilaterally without associated stenosis. The origins of the great vessels from the aortic arch are patent. The normal distal right internal carotid artery measures 5 mm. The normal distal left internal carotid artery measures 5 mm. No mass is noted within the visualized portions of the cervical soft tissues or lung apices. Impression: 1. Head CTA demonstrates no aneurysm or stenosis of the major intracranial arteries, 2. Neck CTA demonstrates no stenosis of the major cervical arteries. 3. No intracranial hemorrhage on the noncontrast head CT. Electronically signed by Javy Cartagena 04-26-2024 3:11 PM Neck CTA 04/26/24 14:[address] without contrast CT angiogram of the neck CT angiogram of the brain with contrast Provided History: Neuro deficit Comparison: None Technique: HEAD CT: Using multidetector thin collimation helical acquisition technique, axial, coronal and sagittal CT images from the skull base to the vertex were obtained without intravenous contrast. HEAD and NECK CTA: During rapid bolus intravenous injection of nonionic contrast material, axial images were obtained using thin collimation multidetector helical technique from the base of the neck through the of vertex of the head. This CT angiogram data was reconstructed at thin intervals with mild overlap. 3D reconstructions were obtained. The axial source images, multiplanar reformations, 3D reconstructions in both maximum intensity projection display and volume rendered models were reviewed. Dose reduction techniques were achieved by using automatic exposure control and/or adjustment of mA and/or kV according to patient size and/or use of iterative reconstruction technique. Findings: Head CT: There is no intracranial hemorrhage, mass effect, or midline shift. Donis/white matter differentiation in both cerebral hemispheres is preserved. Ventricles are proportionate to the cerebral sulci. Head CTA demonstrates no aneurysm or stenosis of the major intracranial arteries. Neck CTA demonstrates no stenosis of the major cervical arteries. Mild calcification at the carotid bulbs bilaterally without associated stenosis. The origins of the great vessels from the aortic arch are patent. The normal distal right internal carotid artery measures 5 mm. The normal distal left internal carotid artery measures 5 mm. No mass is noted within the visualized portions of the cervical soft tissues or lung apices. Impression: 1. Head CTA demonstrates no aneurysm or stenosis of the major intracranial arteries, 2. Neck CTA demonstrates no stenosis of the major cervical arteries. 3. No intracranial hemorrhage on the noncontrast head CT. Electronically signed by Cartagena Wilderrobinson 04-26-2024 3:11 PM ECG Additional Comments: Reviewed personally NSR, showing PACs, QTc 422. Code Status & VTE Plan Code Status Full code - discussed with pt at bedside Supervising Physician Co-Signing Physician Notes Pt seen and examined by me, care coordinated w/ G. ESSENCE Easton, pls refer to her note above for further detail. 68 yo M with DM type II, HTN, HLD, Crohn's disease, GERD, adjustment disorder with depressed mood who presents with acute onset of weakness - left-sided facial numbness and droop, left-sided hand numbness and weakness with difficulty moving his fingers. He had some slurred speech which is better/resolved now. Family present at the bedside, and confirms the history. He also notes had developed a cough, low-grade fever last evening. He is found to be influenza A positive. In the ED, CT head and neck are negative. Pt is awake, alert, able to answer questions. + Left sided facial droop, speech clear. LUE weakness noted compared to RUE. LE b/l moves without noted weakness. Will obtain brain MRI, and consult with neurology. BP elevated and received 5 iv hydralazine, will give another dose as BP > 200. Cont. to closely monitor. MD Meka
[2024-04-26 16:48] LABS: Appearance Urine Clear (Clear); Bacteria Urine Automated None Seen (None Seen); Bilirubin Urine Negative (Negative); Blood Urine Negative (Negative); Cast Urine Automated 0-2 /lpf (0-2); Color Urine Yellow; Epithelial Cell Urine Auto 0-2 /hpf (0-2); Glucose Urine UA Negative (Negative); Ketones Urine Negative (Negative); Leukocyte Esterase Urine Negative (Negative); Nitrite Urine Negative (Negative); Protein Urine Trace (Negative); RBC Urine Automated 0-2 /hpf (0-2); Specific Gravity Urine > 1.045 (1.000-1.030); Urobilinogen Urine Negative (Negative); WBC Urine Automated 0-5 /hpf (0-5)
[2024-04-26] MEDS ORDERED: GLUCAGON FOR INJ 1 MG VIAL SQ PRN (18:24)
[2024-04-26] MEDS ORDERED: GLUCOSE 10 TAB/TUBE PO PRN (18:24)
[2024-04-26] MEDS ORDERED: DEXTROSE 50% 50 ML SYRINGE IV PRN (18:24)
[2024-04-26] MEDS ORDERED: ALBUT/IPRATROP 3MG/0.5MG NEB 3 ML VIAL NEB PRN (18:24)
[2024-04-26] MEDS ORDERED: CARBOHYDRATES FOR HYPOGLYCEMIA PO PRN (18:24)
[2024-04-26] MEDS ORDERED: PHARMACIST DISCHARGE MED REC CONSULT PRN (18:24)
[2024-04-26] MEDS ORDERED: BENZONATATE 100 MG CAPSULE PO PRN (18:24)
[2024-04-26] MEDS ORDERED: GLUCOSE 40% GEL 15 GM TUBE PO PRN (18:24)
[2024-04-26] MEDS: ATORVASTATIN 40 MG TAB PO ONE (18:41)
[2024-04-26] MEDS: ONDANSETRON INJ 2 MG/ML 2 ML VIAL IV PRN (18:56)
[2024-04-26] MEDS: ACETAMINOPHEN 325 MG TAB PO PRN (18:56)
[2024-04-26] MEDS: hydrALAZINE HCL 20 MG/ML VIAL IV PRN (19:50)
[2024-04-26] MEDS: ENALAPRIL MALEATE 10 MG TAB PO SCH (19:58)
[2024-04-26] MEDS: TERAZOSIN HCL 5 MG CAP PO SCH (19:59)
--- NOTE | 2024-04-26 20:03 | Magnetic Resonance Report ---
MRI BRAIN WITHOUT CONTRAST TECHNIQUE: An MRI examination of the brain was performed utilizing sagittal and axial T1-weighted images as well as axial T2-weighted, FLAIR, gradient echo and diffusion-weighted images. INDICATION: Stroke COMPARISON: Brain CT and CTA head and neck from the same day. FINDINGS: There are scattered acute to subacute infarctions involving the right precentral gyrus and the motor cortex. Additional scattered acute to subacute infarctions in the right parietal lobe. The ventricular, sulcal and cisternal spaces are normal in caliber. There is no evidence of intracranial mass lesion, hydrocephalus, infarct, extra-axial fluid collection, restricted diffusion or parenchymal hemorrhage. Periventricular and subcortical white matter T2/FLAIR hyperintense foci are nonspecific but are typically seen in the setting of chronic small vessel ischemic changes. The cerebellar tonsils are normal in position. The pituitary gland is not enlarged. No intraorbital soft tissue mass lesion is observed. The visualized paranasal sinuses are aerated. Mastoids are aerated. 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 Additional scattered acute to subacute infarctions in the right parietal lobe. Notification to clinician of alert: Kenneth Talbot was notified about above findings by phone on April 26, 2024 at 8:02 PM by Cristi Hickman MD. Readback confirmation was obtained. Electronically signed by Cristi Hickman 04-26-2024 8:02 PM
[2024-04-26] MEDS: guaiFENesin 600 MG TABCR PO SCH (21:47)
[2024-04-26] MEDS: OSELTAMIVIR PHOSPHATE 75 MG CAP PO SCH (21:47)
[2024-04-26] MEDS: INSULIN ASPART PER UNIT CHARGE SC SCH (21:48)
[2024-04-27] MEDS ORDERED: PROMETHAZINE 12.5 MG/50.5 ML BAG IV PRN (00:05)
[2024-04-27] MEDS: ACETAMINOPHEN 1,000 MG/100 ML VIAL IV STA (00:22)
[2024-04-27] MEDS: PROMETHAZINE 12.5 MG/50.5 ML BAG IV STA (00:23)
[2024-04-27] MEDS: hydrALAZINE HCL 20 MG/ML VIAL IV ONE (00:36)
[2024-04-27 04:42] LABS: Basophils # (auto) 0.02 K/uL (0.00-0.20); Basophils % (auto) 0.4 %; Eosinophils # (auto) 0.01 K/uL (0.00-0.50); Eosinophils % (auto) 0.2 %; Hematocrit (blood only) 35.6 % (42.0-52.0); Hemoglobin 12.2 g/dl (14.0-18.0); Immature Granulocytes # (auto) 0.01 K/uL (0.01-0.20); Immature Granulocytes % (auto) 0.2 %; Lymphocytes # (auto) 0.61 K/uL (1.20-3.40); Lymphocytes % (auto) 10.8 %; Mean Corpuscular Hemoglobin 29.8 pg (25.0-34.0); Mean Corpuscular Hgb Conc 34.3 g/dL (32.0-36.0); Mean Corpuscular Volume 86.8 fL (80.0-100.0); Mean Platelet Volume 10.8 fL (9.4-12.4); Monocytes # (auto) 0.57 K/uL (0.11-0.59); Monocytes % (auto) 10.1 %; Neutrophils # (auto) 4.41 K/uL (1.40-6.50); Neutrophils % (auto) 78.3 %; Platelet Count 157 K/uL (130-400); RDW Coefficient of Variation 12.9 % (11.5-14.5); RDW Standard Deviation 40.9 fL (36.4-46.3); White Blood Count 5.63 K/ul (4.8-10.8)
[2024-04-27 04:50] LABS: BUN Creatinine Ratio 12.5 (10-20); Chol HDL Ratio 2.4 (0-5); Creatinine Clr Calc Pharmacy 67.9 ml/min; Magnesium 1.5 mg/dl (1.7-2.4); Phosphorus 4.1 mg/dl (2.5-4.9); Potassium 3.3 mmol/L (3.5-5.1)
[2024-04-27] MEDS: ATENOLOL 25 MG TABLET PO SCH (08:38)
[2024-04-27] MEDS ORDERED: ATENOLOL 50 MG TABLET PO SCH (09:00)
[2024-04-27] MEDS: ATORVASTATIN 40 MG TAB PO SCH (09:27)
[2024-04-27] MEDS: PANTOprazole 40 MG TAB PO SCH (09:27)
[2024-04-27] MEDS: ASPIRIN 81 MG ECTAB PO SCH (09:27)
[2024-04-27] MEDS: CLOPIDOGREL BISULFATE 75 MG TAB PO SCH (09:28)
[2024-04-27 10:05] LABS: Estimated Average Glucose 126 mg/dl
--- NOTE | 2024-04-27 10:17 | Neurology Consultation ---
Date of Consultation April 27, 2024 Assessment & Plan (1) Right sided cerebral hemisphere cerebrovascular accident: Scattered diffusion restriction and he has within the right hemisphere, differential diagnosis includes atheroembolic versus cardioembolic. CTA with known stenotic atherosclerotic disease Plan Agree to continue aspirin 81 mg in addition to Plavix 75 mg. For at least 21 days Increase atorvastatin to 80 mg. Follow-up telemetry to rule out paroxysmal A-fib, total echocardiogram. The patient will need a Zio patch upon discharge. As per the family's preference they would like to be referred to outpatient [facility] telestroke clinic for a follow-up after discharge Telehealth Consultation Telehealth Information Telehealth Information: I performed this visit using a real-time telehealth connection between my location and the patients location ([facility]). After connecting through interactive tele-video, patient was identified by name and date of and/or wristband check.Patient (or authorized healthcare electroplating sales representative) was informed that this was a telemedicine visit and it was being conducted confidentially over secure lines. My office door was closed and no one else was present in the room with me.Patient (or authorized healthcare electroplating sales representative) provided consent to proceed with the visit, expressed an understanding of privacy and security of the telemedicine visit, and gave permission to have a hospital electroplating sales representative in the room in order to assist with the visit and to conduct portions of the visit, as needed. I informed the patient (or authorized healthcare electroplating sales representative) that I reviewed their record and presented the opportunity for them to ask any questions regarding the visit today. The patient agreed to participate. History of Present Illness Reason for Consultation: Left sided weakness Requesting Physician: Keren Gustafson MD Attending Physician: Keren Gustafson MD History of Present Illness 68-year-old male patient with PMH of HTN type II DM, HLP, chron's disease, depression with adjustment disorder, presented to the hospital with left facial numbness and droop left-sided hand numbness and weakness since he woke up yesterday. This happened in the setting of cough and fever the patient was found to be influenza A+. The patient was on aspirin at home in addition to Entyvio for his Crohn's disease. Allergies Allergy/AdvReac Type Severity Reaction Status Date / Time No Known Allergies Allergy Unverified 04/26/24 16:31 Home Medications Medication Instructions Recorded Confirmed Type aspirin 81 mg tablet,delayed 81 mg PO QPM 04/26/24 04/26/24 History release atenolol 100 mg tablet 100 mg PO QAM 04/26/24 04/26/24 History atorvastatin 40 mg tablet 40 mg PO QPM 04/26/24 04/26/24 History chlorthalidone 25 mg tablet 12.5 mg PO QAM 04/26/24 04/26/24 History cyanocobalamin (vitamin B-12) 500 500 mcg PO 3XWK 04/26/24 04/26/24 History mcg tablet (Vitamin B-12) enalapril maleate 20 mg tablet 20 mg PO AMHS 04/26/24 04/26/24 History ergocalciferol (vitamin D2) 1,250 1,250 mcg PO WK 04/26/24 04/26/24 History mcg (50,000 unit) capsule (Vitamin D2) felodipine 10 mg tablet,extended 10 mg PO QAM 04/26/24 04/26/24 History release 24 hr ferrous sulfate 325 mg (65 mg 325 mg PO UD 04/26/24 04/26/24 History iron) tablet furosemide 40 mg tablet 40 mg PO DAILY PRN Fluid Retention 04/26/24 04/26/24 History glipizide 5 mg tablet 5 mg PO QPM 04/26/24 04/26/24 History metformin 500 mg tablet 1,000 mg PO BIDM 04/26/24 04/26/24 History omeprazole 20 mg tablet,delayed 20 mg PO DAILY 04/26/24 04/26/24 History release potassium chloride 20 mEq 20 meq PO TID 04/26/24 04/26/24 History tablet,extended release(part/cryst) spironolactone 25 mg tablet 50 mg PO QAM 04/26/24 04/26/24 History terazosin 10 mg capsule 10 mg PO HS 04/26/24 04/26/24 History vedolizumab 300 mg intravenous 300 mg IV MONTHLY 04/26/24 04/26/24 History solution (Entyvio) Patient History Surgical History (Updated 04/26/24 @ 16:29 by Gayle Easton PA-C) Hx of esophagogastroduodenoscopy Hx of colonoscopy Family History (Updated 04/26/24 @ 16:28 by Gayle Easton PA-C) Father Heart disease Mother Hypertension Diabetes Other Kidney disease Social History (Updated 04/26/24 @ 16:29 by Gayle Easton PA-C) Smoking Status: Never smoker Tobacco Type: Cigars Do You Dip or Chew Tobacco: No; Hx Alcohol Use: Yes Hx Substance Use: No Preferred Language: Qatari Communication Ability: Effective Fruit Grader Required: No Beliefs That Will Affect Care: None Current Living Situation: Spouse Feels Safe at Home: Yes Safety Concerns: Feels Safe At This Time Assistive Devices: Glasses Review of Systems Constitutional: Patient denies weight loss, fever, chills, and night sweats Eyes: Patient denies change in vision, tearing, pain, and redness ENT: Patient denies pain, bleeding, rhinorrhea, and dysphagia Cardiovascular: Patient denies chest pain, palpitation, dyspnea at rest, and dyspnea with exertion Respiratory: Patient denies shortness of breath, +cough,No wheezing, GI: Patient denies reflux, pain, constipation, and diarrhea Skin: Patient denies rash, dryness, and itching Allergies/Immune System: Patient denies rhinorrhea, seasonal allergies, reaction to current MEDS, and joint swelling Endocrine: Patient denies weight loss, weight gain, temperature intolerance, and excessive thirst Neurological: All negative unless mentioned in the HPI Physical Exam General Constitutional: Appearance normally developed Head and face: normocephalic and atraumatic Eyes: no ptosis, no anisocoria, and no dysconjugate gaze Respiratory: normal effort Cardiovascular: regular rhythm and regular rate Abdomen: non distended Skin: no rashes, lesions, or ulcers noted Psychiatric: normal judgement and insight, normal mood, and normal affect NEUROLOGIC EXAMINATION: Mental Status:alert, oriented to time, place, person, normal recent memory, normal remote memory, normal attention span, normal concentration, normal language and normal fund of knowledge Cranial Nerves: CN 2 - no visual defect on confrontation and pupils round, equal, reactive to light CN 3, 4, 6 - extra-ocular movements intact and no nystagmus CN 5 - facial sensation intact CN 7 - no facial asymmetry CN 8 - intact hearing CN 9, 10 - palate symmetric, normal gag CN 11 - good shoulder shrug CN 12 - tongue midline MOTOR: Strength was at least antigravity throughout, Pronator drift was absent and There were no abnormal movements SENSATION: intact and symmetric to pinprick, light touch, vibration and joint position GAIT: stable, no ataxia and can perform tandem walking COORDINATION: no ataxia with finger to nose testing and heel to barroso testing REFLEXES: cannot assess over telemedicine NIH Stroke Scale: 1a. Level of Consciousness: alert = 0 1b. LOC Questions: (month, age): both correct = 0 1c. LOC Commands (open and close eyes, make fist and let go using non-paretic hand): obeys both correctly = 0 2. Best Gaze (eyes open and patient follows examiner's finger or face): normal = 0 3. Visual (visual threat or finger counting in each quadrant): no loss = 0 4. Facial Palsy (show teeth, raise eye brows and squeeze eyes shut, or grimace symmetry in a comatose patient): mild facial asymmetry = 1 5a. Motor Arm (extend arm (palms down) to 90 degrees and score drift/movement (10 seconds) - Left: mild drift = 1 5b. Motor Arm: (extend arm (palms down) to 90 degrees and score drift/movement (10 seconds) - Right: no drift = 0 6a. Motor Leg (elevate leg 30 degrees and score drift/ movement (5 seconds) - Left: no drift = 0 6b. Motor Leg (elevate leg 30 degrees and score drift/ movement (5 seconds) - Right: no drift = 0 7. Limb Ataxia (finger to nose, heel down barroso): absent = 0 8. Sensory (pin prick to face, arm, trunk and leg, compare side to side): normal = 0 9. Best Language: no aphasia = 0 10. Dysarthria (evaluate speech clarity by patient repeating listed words): normal articulation = 0 11. Extinction and Inattention: no neglect = 0 Total: 2 Results & Data Vital Signs (Past 12 Hours) Vital Signs Temp Pulse Pulse Resp BP BP Pulse Ox 04/27/24 08:42 73 26 H 96 04/27/24 08:30 198/109 H 04/27/24 08:06 71 17 182/88 H 95 04/27/24 07:30 75 30 H 179/88 H 93 04/27/24 07:29 76 04/27/24 07:00 75 24 185/87 H 93 04/27/24 06:57 75 31 H 93 04/27/24 06:30 75 23 186/86 H 93 04/27/24 06:00 66 24 197/99 H 96 04/27/24 06:00 67 22 197/99 H 94 04/27/24 04:30 72 22 187/91 H 94 04/27/24 03:37 37.3 C 72 20 140/73 94 04/27/24 03:30 77 24 140/73 94 04/27/24 03:02 76 22 184/93 H 94 04/27/24 02:02 78 19 163/90 H 93 04/27/24 01:30 76 26 H 134/100 94 04/27/24 00:30 75 28 H 196/104 H 91 04/27/24 00:24 25 H 191/96 H 90 04/26/24 23:40 82 28 H 200/108 H 94 04/26/24 23:39 37.7 C H 74 25 H 200/108 H 94 04/26/24 23:00 61 24 132/70 98 04/26/24 22:40 74 24 177/92 H 92 04/26/24 22:30 71 31 H 92 04/26/24 22:30 179/93 H 04/26/24 22:30 179/93 H 04/26/24 22:27 75 24 94 04/26/24 22:18 75 28 H 91 O2 Del Method O2 Flow Rate 04/27/24 08:42 Room Air 04/27/24 08:30 04/27/24 08:06 Room Air 04/27/24 07:30 Room Air 04/27/24 07:29 04/27/24 07:00 04/27/24 06:57 04/27/24 06:30 04/27/24 06:00 04/27/24 06:00 04/27/24 04:30 04/27/24 03:37 Nasal Cannula 2 04/27/24 03:30 04/27/24 03:02 04/27/24 02:02 04/27/24 01:30 04/27/24 00:30 04/27/24 00:24 04/26/24 23:40 04/26/24 23:39 04/26/24 23:00 Room Air 04/26/24 22:40 04/26/24 22:30 04/26/24 22:30 04/26/24 22:30 04/26/24 22:27 04/26/24 22:18 Laboratory Results Laboratory Results - last 24 hr 04/26/24 04/26/24 04/26/24 14:58 15:18 15:25 WBC 5.70 RBC 4.35 L Hgb 13.1 L POC Hgb 12.9 L Hct 38.2 L POC Hct 38 L MCV 87.8 MCH 30.1 MCHC 34.3 RDW Std Deviation 41.0 RDW Coeff of Annmarie 12.7 Plt Count 184 MPV 10.8 Immature Gran % (Auto) 0.2 Neut % (Auto) 70.6 Lymph % (Auto) 15.3 [place] % (Auto) 10.9 Eos % (Auto) 2.5 Baso % (Auto) 0.5 Neut # (Auto) 4.03 Lymph # (Auto) 0.87 L [place] # (Auto) 0.62 H Eos # (Auto) 0.14 Baso # (Auto) 0.03 Immature Gran # (Auto) 0.01 PT 10.9 INR 1.0 APTT 27 PTT Ratio 1.0 POC Sodium 133 L Sodium 134 L POC Potassium 3.7 Potassium 3.8 POC Chloride 100 L Chloride 100 Carbon Dioxide 27 POC Total CO2 21 L Anion Gap 7 POC Anion Gap 18.0 POC BUN 15 BUN 17 Creatinine 1.19 POC Creatinine 1.4 H Est Cr Clr Drug Dosing 73.0 eGFR 66.54 BUN/Creatinine Ratio 14.3 Glucose 119 H POC Glucose POC Glucose (other) 118 H Estimat Average Glucose Hemoglobin A1c Calcium 9.3 POC Ioniz Calcium Basil 1.10 L Phosphorus Magnesium 1.4 L Total Bilirubin 0.9 AST 11 L ALT 16 Alkaline Phosphatase 52 Troponin I High Sens 15.3 Total Protein 6.5 Albumin 4.0 Globulin 2.5 Albumin/Globulin Ratio 1.6 Triglycerides Cholesterol LDL Cholesterol, Calc VLDL Cholesterol, Calc HDL Cholesterol Cholesterol/HDL Ratio Urine Color Urine Appearance Urine pH Ur Specific [place] Urine Protein Urine Glucose (UA) Urine Ketones Urine Blood Urine Nitrite Urine Bilirubin Urine Urobilinogen Ur Leukocyte Esterase Urine WBC (Auto) Urine RBC (Auto) U Hyaline Cast (Auto) U Epithel Cells (Auto) Urine Bacteria (Auto) Adenovirus (PCR) Not Detected B. pertussis DNA (PCR) Not Detected B.parapertussis DNA PCR Not Detected C. pneumoniae DNA (PCR) Not Detected Coronavirus OC43 (PCR) Not Detected Coronavirus HKU1 (PCR) Not Detected Coronavirus 229E (PCR) Not Detected SARS-CoV-2 (PCR) Not Detected Coronavirus NL63 (PCR) Not Detected Human Metapneumovir PCR Not Detected Influenza A (H3) PCR DETECTED A Influenza Type B (PCR) Not Detected M. pneumoniae (PCR) Not Detected Parainfluenza 1 (PCR) Not Detected Parainfluenza 2 (PCR) Not Detected Parainfluenza 3 (PCR) Not Detected Parainfluenza 4 (PCR) Not Detected RSV (PCR) Not Detected Entero/Rhino (PCR) Not Detected Blood Type B Positive Antibody Screen NEGATIVE 04/26/24 04/27/24 04/27/24 16:16 02:35 04:05 WBC 5.63 RBC 4.10 L Hgb 12.2 L POC Hgb Hct 35.6 L POC Hct MCV 86.8 MCH 29.8 MCHC 34.3 RDW Std Deviation 40.9 RDW Coeff of Annmarie 12.9 Plt Count 157 MPV 10.8 Immature Gran % (Auto) 0.2 Neut % (Auto) 78.3 Lymph % (Auto) 10.8 Ows[place] % (Auto) 10.1 Eos % (Auto) 0.2 Baso % (Auto) 0.4 Neut # (Auto) 4.41 Lymph # (Auto) 0.61 L [place] # (Auto) 0.57 Eos # (Auto) 0.01 Baso # (Auto) 0.02 Immature Gran # (Auto) 0.01 PT INR APTT PTT Ratio POC Sodium Sodium 133 L POC Potassium Potassium 3.3 L POC Chloride Chloride 98 Carbon Dioxide 28 POC Total CO2 Anion Gap 7 POC Anion Gap POC BUN BUN 16 Creatinine 1.28 POC Creatinine Est Cr Clr Drug Dosing 67.9 eGFR 60.96 BUN/Creatinine Ratio 12.5 Glucose 134 H POC Glucose 134 H POC Glucose (other) Estimat Average Glucose 126 Hemoglobin A1c 6.0 H Calcium 9.0 POC Ioniz Calcium Basil Phosphorus 4.1 Magnesium 1.5 L Total Bilirubin AST ALT Alkaline Phosphatase Troponin I High Sens Total Protein Albumin Globulin Albumin/Globulin Ratio Triglycerides 50 Cholesterol 100 LDL Cholesterol, Calc 48 VLDL Cholesterol, Calc 10 HDL Cholesterol 42 Cholesterol/HDL Ratio 2.4 Urine Color Yellow Urine Appearance Clear Urine pH 7.0 Ur Specific [place] > 1.045 H Urine Protein Trace H Urine Glucose (UA) Negative Urine Ketones Negative Urine Blood Negative Urine Nitrite Negative Urine Bilirubin Negative Urine Urobilinogen Negative Ur Leukocyte Esterase Negative Urine WBC (Auto) 0-5 Urine RBC (Auto) 0-2 U Hyaline Cast (Auto) 0-2 U Epithel Cells (Auto) 0-2 Urine Bacteria (Auto) None Seen Adenovirus (PCR) B. pertussis DNA (PCR) B.parapertussis DNA PCR C. pneumoniae DNA (PCR) Coronavirus OC43 (PCR) Coronavirus HKU1 (PCR) Coronavirus 229E (PCR) SARS-CoV-2 (PCR) Coronavirus NL63 (PCR) Human Metapneumovir PCR Influenza A (H3) PCR Influenza Type B (PCR) M. pneumoniae (PCR) Parainfluenza 1 (PCR) Parainfluenza 2 (PCR) Parainfluenza 3 (PCR) Parainfluenza 4 (PCR) RSV (PCR) Entero/Rhino (PCR) Blood Type Antibody Screen 04/27/24 08:42 WBC RBC Hgb POC Hgb Hct POC Hct MCV MCH MCHC RDW Std Deviation RDW Coeff of Annmarie Plt Count MPV Immature Gran % (Auto) Neut % (Auto) Lymph % (Auto) [place] % (Auto) Eos % (Auto) Baso % (Auto) Neut # (Auto) Lymph # (Auto) [place] # (Auto) Eos # (Auto) Baso # (Auto) Immature Gran # (Auto) PT INR APTT PTT Ratio POC Sodium Sodium POC Potassium Potassium POC Chloride Chloride Carbon Dioxide POC Total CO2 Anion Gap POC Anion Gap POC BUN BUN Creatinine POC Creatinine Est Cr Clr Drug Dosing eGFR BUN/Creatinine Ratio Glucose POC Glucose 133 H POC Glucose (other) Estimat Average Glucose Hemoglobin A1c Calcium POC Ioniz Calcium Basil Phosphorus Magnesium Total Bilirubin AST ALT Alkaline Phosphatase Troponin I High Sens Total Protein Albumin Globulin Albumin/Globulin Ratio Triglycerides Cholesterol LDL Cholesterol, Calc VLDL Cholesterol, Calc HDL Cholesterol Cholesterol/HDL Ratio Urine Color Urine Appearance Urine pH Ur Specific [place] Urine Protein Urine Glucose (UA) Urine Ketones Urine Blood Urine Nitrite Urine Bilirubin Urine Urobilinogen Ur Leukocyte Esterase Urine WBC (Auto) Urine RBC (Auto) U Hyaline Cast (Auto) U Epithel Cells (Auto) Urine Bacteria (Auto) Adenovirus (PCR) B. pertussis DNA (PCR) B.parapertussis DNA PCR C. pneumoniae DNA (PCR) Coronavirus OC43 (PCR) Coronavirus HKU1 (PCR) Coronavirus 229E (PCR) SARS-CoV-2 (PCR) Coronavirus NL63 (PCR) Human Metapneumovir PCR Influenza A (H3) PCR Influenza Type B (PCR) M. pneumoniae (PCR) Parainfluenza 1 (PCR) Parainfluenza 2 (PCR) Parainfluenza 3 (PCR) Parainfluenza 4 (PCR) RSV (PCR) Entero/Rhino (PCR) Blood Type Antibody Screen Diagnostic Findings MRI of the brain showed scattered diffusion restriction of the right middle frontal cortex and parietal lobe. CTA head and neck showed scattered atherosclerotic disease with no significant stenosis , bilateral carotid for atherosclerosis and calcifications Medications Administered Home Medications Medication Instructions Recorded Confirmed Last Taken aspirin 81 mg tablet,delayed 81 mg PO QPM 04/26/24 04/26/24 Unknown release atenolol 100 mg tablet 100 mg PO QAM 04/26/24 04/26/24 Unknown atorvastatin 40 mg tablet 40 mg PO QPM 04/26/24 04/26/24 Unknown chlorthalidone 25 mg tablet 12.5 mg PO QAM 04/26/24 04/26/24 Unknown cyanocobalamin (vitamin B-12) 500 500 mcg PO 3XWK 04/26/24 04/26/24 Unknown mcg tablet (Vitamin B-12) enalapril maleate 20 mg tablet 20 mg PO AMHS 04/26/24 04/26/24 Unknown ergocalciferol (vitamin D2) 1,250 1,250 mcg PO WK 04/26/24 04/26/24 Unknown mcg (50,000 unit) capsule (Vitamin D2) felodipine 10 mg tablet,extended 10 mg PO QAM 04/26/24 04/26/24 Unknown release 24 hr ferrous sulfate 325 mg (65 mg 325 mg PO UD 04/26/24 04/26/24 Unknown iron) tablet furosemide 40 mg tablet 40 mg PO DAILY PRN Fluid Retention 04/26/24 04/26/24 Unknown glipizide 5 mg tablet 5 mg PO QPM 04/26/24 04/26/24 Unknown metformin 500 mg tablet 1,000 mg PO BIDM 04/26/24 04/26/24 Unknown omeprazole 20 mg tablet,delayed 20 mg PO DAILY 04/26/24 04/26/24 Unknown release potassium chloride 20 mEq 20 meq PO TID 04/26/24 04/26/24 Unknown tablet,extended release(part/cryst) spironolactone 25 mg tablet 50 mg PO QAM 04/26/24 04/26/24 Unknown terazosin 10 mg capsule 10 mg PO HS 04/26/24 04/26/24 Unknown vedolizumab 300 mg intravenous 300 mg IV MONTHLY 04/26/24 04/26/24 04/17/24 solution (Entyvio) Active Medications Generic Name Dose Route Start Last Admin Trade Name Fre PRN Reason Stop Dose Admin Acetaminophen 650 mg 04/26/24 18:24 04/26/24 18:56 Acetaminophen 325 Mg Tab PO 05/26/24 18:23 650 mg Q4H PRN Administration Moderate Pain (Scale 4, 5, 6) Aspirin 81 mg 04/27/24 09:00 04/27/24 09:27 Aspirin 81 Mg Ectab PO 05/27/24 08:59 81 mg QAM CONCEPCIÓN Administration Atenolol 25 mg 04/27/24 09:00 04/27/24 09:27 Atenolol 25 Mg Tablet PO 05/27/24 08:59 25 mg QAM CONCEPCIÓN Administration Atorvastatin Calcium 80 mg 04/27/24 09:00 04/27/24 09:27 Atorvastatin 40 Mg Tab PO 05/27/24 08:59 80 mg QAM CONCEPCIÓN Administration Clopidogrel Bisulfate 75 mg 04/27/24 09:00 04/27/24 09:28 Clopidogrel Bisulfate 75 Mg Tab PO 05/27/24 08:59 75 mg QAM CONCEPCIÓN Administration Enalapril Maleate 20 mg 04/26/24 18:45 04/26/24 19:58 Enalapril Maleate 10 Mg Tab PO 05/26/24 18:44 20 mg AMHS CONCEPCIÓN Administration Guaifenesin 600 mg 04/26/24 21:00 04/27/24 09:27 Guaifenesin 600 Mg Tabcr PO 05/26/24 20:59 600 mg Q12 CONCEPCIÓN Administration Hydralazine HCl 5 mg 04/26/24 18:24 04/27/24 06:35 Hydralazine Hcl 20 Mg/Ml Vial IV 05/26/24 18:23 5 mg Q6H PRN Administration Hypertension Insulin Aspart 0 units 04/26/24 21:00 04/27/24 09:32 Insulin Aspart Per Unit Charge SC 05/26/24 20:59 Not Given ACHS CONCEPCIÓN Ondansetron HCl 4 mg 04/26/24 18:24 04/27/24 08:07 Ondansetron Inj 2 Mg/Ml 2 Ml Vial IV 05/26/24 18:23 4 mg Q4H PRN Administration Nausea And Vomiting Oseltamivir Phosphate 75 mg 04/26/24 21:00 04/27/24 09:28 Oseltamivir Phosphate 75 Mg Cap PO 05/01/24 20:59 75 mg BID CONCEPCIÓN Administration Pantoprazole Sodium 40 mg 04/27/24 09:00 04/27/24 09:27 Pantoprazole 40 Mg Tab PO 05/27/24 08:59 40 mg DAILY CONCEPCIÓN Administration Terazosin HCl 10 mg 04/26/24 18:45 04/26/24 19:59 Terazosin Hcl 5 Mg Cap PO 05/26/24 18:44 10 mg HS CONCEPCIÓN Administration ECG Additional Comments: Sinus Rhythm with premature atrial contractions
--- NOTE | 2024-04-27 10:23 | Electrocardiogram Report ---
Test Reason : Blood Pressure : */* mmHG Vent. Rate : 64 BPM Atrial Rate : 64 BPM P-R Int : 162 ms QRS Dur : 92 ms QT Int : 410 ms P-R-T Axes : 54 17 5 degrees QTcB Int : 422 ms Sinus rhythm with Premature atrial complexes Otherwise normal ECG When compared with ECG of 16-Mar-2010 06:52, No significant change Confirmed by Padilla Canas ([id number]) on 04/27/2024 10:22:41 AM Referred By: REFERRED SELF Confirmed By: Padilla Canas
[2024-04-27] MEDS: POTASSIUM CHLORIDE CRTAB 20 MEQ TABCR PO STA (11:06)
[2024-04-27] MEDS: MAGNESIUM SULFATE / D5W 1 GM/100 ML BAG IV SCH (11:07)
--- NOTE | 2024-04-27 12:50 | Hospitalist Progress Note ---
Date of Service April 27, 2024 Assessment & Plan (1) Stroke-like symptoms: (2) HTN (hypertension): (3) Diabetes mellitus: (4) Crohn's disease (regional enteritis): (5) Influenza A: Plan 68 yo M w/ PMH of DM type II, HTN, HLD, Crohn's disease, GERD, adjustment disorder with depressed mood who presents to the hospital with acute onset of weakness. Patient awoke 04/26 AM and noticed left-sided facial numbness and droop, left-sided hand numbness and weakness with difficulty moving his fingers, slurred speech. 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 He is found to be influenza A positive with workup here. They state they have been babysitting their 5-year-old grandson who was also diagnosed with the flu on Sunday earlier last week. He is being managed for the following: Right sided cerebral hemisphere cerebrovascular accident Left Facial numbness Left-sided hand numbness and weakness Slurred speech Left-sided facial droop Patient presents with strokelike symptoms, see above. Admitting CT head, CTA head and CTA neck with no acute finding. MRI brain with scattered acute to subacute infarctions involving the right precentral gyrus over the motor cortex and in the right parietal lobe. Status post loading dose of aspirin and Plavix in the ED. Continue with DAPT for 21 days and then aspirin indefinitely. Avoid omeprazole while on Plavix. Lipid panel reviewed, f/u echo. Atorvastatin dose increased to 80 mg daily, continue. Neurology evaluated, Zio patch monitoring upon discharge. Follow-up with outpatient [facility] telestroke upon discharge. Resume home blood pressure medications gradually, improve blood pressure co ntrol. PT/OT. Speech therapy consulted. HTN HLD - Home meds include atenolol 100 mg QAM, chlorthalidone 12.5 QAM, enalapril 20 mg BID, spironolactone 50 mg QAM, terazosin 10 mg HS, felodipine 10 mg QAM - Status post permissive hypertension, gradually initiate home blood pressure medications. - Continue to monitor. Hypomagnesemia : Monitor and replete electrolytes. Influenza A +: Cough, low-grade fever EPIC WILLOW ANALYST, placed in droplet precautions, supportive care, Tamiflu. DuoNebs as needed, Tessalon Perles. Other chronic medical conditions: Continue with/resume home meds as and when able. T2DM: A1c 6.0 this admission. Continue with sliding scale insulin. GERD: Continue with PPI, avoid omeprazole while on Plavix. DVT prophylaxis: Heparin subcu CODE STATUS: Full code Disposition: PT/OT, likely DC tomorrow. Admission and Anticipated Discharge Date Admission Date: April 26, 2024 Subjective Patient was seen and examined at bedside. Patient was lying in bed, on 2 L oxygen via nasal cannula, NAD, resting comfortably. Patient's son at bedside who reports some improvement in his slurring speech. Patient denies any new neurological signs and symptoms, continues to have left facial droop and left upper extremity weakness. Patient reports no acute changes in his bowel or bladder habit, reports dry cough for 3 days. Physical Exam Physical Exam: General: awake, alert, no apparent distress, overweight white male Head: Normocephalic, atraumatic ENT: PERRL, EOMI, no pharyngeal exudate, mucous membranes moist, + left-sided facial droop Chest: on room air, + faint rales, dry cough, no wheezes or rhonchi Cardiac: Regular rate and rhythm, no murmur, no JVD, normal peripheral pulses, good capillary refill Abdominal: NABS x 4 quadrants, soft, nondistended, nontender to palpation, no rebound or guarding Extremities: Normal inspection, no peripheral edema or erythema, calfs nontender to palpation Psych: Normal mood and affect Neuro: AAO x 3, patient is able to follow all commands, cranial nerves II through XII intact, left plush weaver strength rated a 4/5 compared to the right which is 5/5, also shoulder flexion rated 4/5 on the left compared to 5/5 on the r ight, is able to do [id number] testing, speech is fairly clear with some stutter, no peripheral sensory deficits Results & Data Results & Data Vital Signs (Past 12 Hours) Vital Signs Temp Pulse Pulse Resp BP BP Pulse Ox 04/27/24 11:06 62 24 95 04/27/24 10:36 67 17 95 04/27/24 10:33 168/89 H 04/27/24 10:00 74 28 H 180/88 H 95 04/27/24 09:42 71 35 H 176/83 H 95 04/27/24 08:42 73 26 H 96 04/27/24 08:30 198/109 H 04/27/24 08:06 71 17 182/88 H 95 04/27/24 07:30 75 30 H 179/88 H 93 04/27/24 07:29 76 04/27/24 07:00 75 24 185/87 H 93 04/27/24 06:57 75 31 H 93 04/27/24 06:30 75 23 186/86 H 93 04/27/24 06:00 66 24 197/99 H 96 04/27/24 06:00 67 22 197/99 H 94 04/27/24 04:30 72 22 187/91 H 94 04/27/24 03:37 37.3 C 72 20 140/73 94 04/27/24 03:30 77 24 140/73 94 04/27/24 03:02 76 22 184/93 H 94 04/27/24 02:02 78 19 163/90 H 93 04/27/24 01:30 76 26 H 134/100 94 O2 Del Method O2 Flow Rate 04/27/24 11:06 Room Air 04/27/24 10:36 Room Air 04/27/24 10:33 04/27/24 10:00 Room Air 04/27/24 09:42 Room Air 04/27/24 08:42 Room Air 04/27/24 08:30 04/27/24 08:06 Room Air 04/27/24 07:30 Room Air 04/27/24 07:29 04/27/24 07:00 04/27/24 06:57 04/27/24 06:30 04/27/24 06:00 04/27/24 06:00 04/27/24 04:30 04/27/24 03:37 Nasal Cannula 2 04/27/24 03:30 04/27/24 03:02 04/27/24 02:02 04/27/24 01:30
[2024-04-27] MEDS: FELODIPINE 5 MG TABCR PO SCH (12:58)
[2024-04-28 06:26] LABS: Hematocrit (blood only) 36.4 % (42.0-52.0); Hemoglobin 12.6 g/dl (14.0-18.0); Mean Corpuscular Hemoglobin 30.1 pg (25.0-34.0); Mean Corpuscular Hgb Conc 34.6 g/dL (32.0-36.0); Mean Corpuscular Volume 87.1 fL (80.0-100.0); Mean Platelet Volume 10.4 fL (9.4-12.4); Platelet Count 152 K/uL (130-400); RDW Coefficient of Variation 12.7 % (11.5-14.5); RDW Standard Deviation 40.7 fL (36.4-46.3); Red Blood Count 4.18 M/uL (4.70-6.10); White Blood Count 4.59 K/ul (4.8-10.8)
[2024-04-28 06:48] LABS: Calcium 8.6 mg/dl (8.6-10.3); Magnesium 1.9 mg/dl (1.7-2.4); Potassium 2.8 mmol/L (3.5-5.1)
[2024-04-28] MEDS: SPIRONOLACTONE 25 MG TAB PO SCH (07:47)
[2024-04-28] MEDS: CHLORTHALIDONE 25 MG TAB PO SCH (07:47)
[2024-04-28] MEDS: POTASSIUM CHLORIDE / WTR 10 MEQ/100 ML PLCT IV SCH (09:01)
[2024-04-28] MEDS: POTASSIUM CHLORIDE CRTAB 20 MEQ TABCR PO SCH ×2 (09:02→21:37)
--- NOTE | 2024-04-28 12:33 | Hospitalist Progress Note ---
Date of Service April 28, 2024 Assessment & Plan (1) Stroke-like symptoms: (2) HTN (hypertension): (3) Diabetes mellitus: (4) Crohn's disease (regional enteritis): (5) Influenza A: Plan 68 yo M w/ PMH of DM type II, HTN, HLD, Crohn's disease, GERD, adjustment disorder with depressed mood who presents to the hospital with acute onset of weakness. Patient awoke 04/26 AM and noticed left-sided facial numbness and droop, left-sided hand numbness and weakness with difficulty moving his fingers, slurred speech. 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 He is found to be influenza A positive with workup here. They state they have been babysitting their 5-year-old grandson who was also diagnosed with the flu on Sunday earlier last week. He is being managed for the following: Right sided cerebral hemisphere cerebrovascular accident Left Facial numbness Left-sided hand numbness and weakness Slurred speech Left-sided facial droop Patient presents with strokelike symptoms, see above. Admitting CT head, CTA head and CTA neck with no acute finding. MRI brain with scattered acute to subacute infarctions involving the right precentral gyrus over the motor cortex and in the right parietal lobe. Status post loading dose of aspirin and Plavix in the ED. Continue with DAPT for 21 days and then aspirin indefinitely. Avoid omeprazole while on Plavix. Lipid panel reviewed, ECHO w/ EF of 55-60%, neg bubble study. LV wall motion and systolic fxn is normal. Atorvastatin dose increased to 80 mg daily, continue. Neurology evaluated, Zio patch monitoring upon discharge. Follow-up with outpatient [facility] telestroke upon discharge. c/w home BP meds, improve blood pressure control. PT/OT. Speech therapy consulted. HTN HLD - Home meds include atenolol 100 mg QAM, chlorthalidone 12.5 QAM, enalapril 20 mg BID, spironolactone 50 mg QAM, terazosin 10 mg HS, felodipine 10 mg QAM - c/w home meds, atenolol dose reduced to 25 mg QAM d/t dolly. - Continue to monitor. Hypomagnesemia : Monitor and replete electrolytes. 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 DuoNebs as needed, Tessalon Perlkyle. Other chronic medical conditions: Continue with/resume home meds as and when able. T2DM: A1c 6.0 this admission. Continue with sliding scale insulin. GERD: Continue with PPI, avoid omeprazole while on Plavix. DVT prophylaxis: Heparin subcu CODE STATUS: Full code Disposition: PT/OT, can DC to rehab. Admission and Anticipated Discharge Date Admission Date: April 26, 2024 Subjective Patient was seen and examined at bedside. Patient was sitting up in chair, on RA, NAD, resting comfortably. Patient denies any new neurological signs and symptoms, continues to have left facial droop and left upper extremity weakness which is somewhat improving per pt. His stuttering speech has improved today at bedside exam. Pt reports eating ok and moving bowels ok. Physical Exam Physical Exam: General: awake, alert, no apparent distress, overweight white male Head: Normocephalic, atraumatic ENT: PERRL, EOMI, no pharyngeal exudate, mucous membranes moist, + left-sided facial droop Chest: on room air, + faint rales, dry cough, no wheezes or rhonchi Cardiac: Regular rate and rhythm, no murmur, no JVD, normal peripheral pulses, good capillary refill Abdominal: NABS x 4 quadrants, soft, nondistended, nontender to palpation, no rebound or guarding Extremities: Normal inspection, no peripheral edema or erythema, calfs nontender to palpation Psych: Normal mood and affect Neuro: AAO x 3, patient is able to follow all commands, cranial nerves II through XII intact, left ingredient specialist strength rated a 4/5 compared to the right which is 5/5, also shoulder flexion rated 4/5 on the left compared to 5/5 on the right, is able to do [id number] testing, speech is fairly clear with minimal stutter, no peripheral sensory deficits Results & Data Results & Data Vital Signs (Past 12 Hours) Vital Signs Temp Pulse Resp BP Pulse Ox O2 Del Method O2 Flow Rate 04/28/24 11:14 36.8 C 56 L 19 128/76 96 Room Air 04/28/24 08:00 Nasal Cannula 2 04/28/24 07:35 36.9 C 55 L 19 189/92 H 98 Nasal Cannula 1.5 04/28/24 03:38 36.9 C 61 16 172/81 H 97 Nasal Cannula 2
[2024-04-29 07:18] VITALS: RESP 18; TEMP 98.2; O2SAT 95
[2024-04-29 08:44] LABS: Hematocrit (blood only) 38.9 % (42.0-52.0); Hemoglobin 13.6 g/dl (14.0-18.0); Mean Corpuscular Hemoglobin 30.3 pg (25.0-34.0); Mean Corpuscular Volume 86.6 fL (80.0-100.0); Mean Platelet Volume 10.5 fL (9.4-12.4); Platelet Count 177 K/uL (130-400); RDW Coefficient of Variation 12.7 % (11.5-14.5); RDW Standard Deviation 40.2 fL (36.4-46.3); Red Blood Count 4.49 M/uL (4.70-6.10); White Blood Count 4.71 K/ul (4.8-10.8)
[2024-04-29 09:05] LABS: BUN Creatinine Ratio 17.2 (10-20); Calcium 8.8 mg/dl (8.6-10.3); Creatinine Clr Calc Pharmacy 72.9 ml/min; Magnesium 1.7 mg/dl (1.7-2.4); Potassium 3.2 mmol/L (3.5-5.1)
[2024-04-29] MEDS: POTASSIUM CHLORIDE CRTAB 20 MEQ TABCR PO STA (10:05)
[2024-04-29 11:17] VITALS: BP 150/80
[2024-04-29] MEDS ORDERED: STROKE PATIENT DISCHARGE STA (12:16)
--- NOTE | 2024-04-29 12:20 | Discharge Summary ---
Date of Service April 29, 2024 Admission HPI Per Admitting Provider This is a 68-year-old male with PMHx of DM type II, HTN, HLD, Crohn's disease, GERD, adjustment disorder with depressed mood who presents to the hospital with acute onset of weakness. Patient awoke this morning and noticed left-sided facial numbness and droop, left-sided hand numbness and weakness with difficulty moving his fingers. He is still having difficulty with movement and strength of barber or beauty shop manager with the left hand. There is no more numbness. He had some slurred speech which is slightly better at this point, family states is is nearly at his baseline. At bedside is the patients , son and grandson who support the history. He also notes had developed a cough, low-grade fever last evening. He is found to be influenza A positive with workup here. They state they have been babysitting their 5-year-old grandson who was also diagnosed with the flu on Sunday earlier last week. In the ER stroke workup was initiated due to symptoms of weakness, CT head and neck are negative. He is found to be influenza A positive. Magnesium 1.4 on admission which is being replaced with 1 G IV. Other electrolytes are within normal limits. Admission Exam Per Admitting Provider General: awake, alert, no apparent distress, overweight white male Head: Normocephalic, atraumatic ENT: PERRL, EOMI, no pharyngeal exudate, mucous membranes moist, + left-sided facial droop Chest: on room air, + faint rales, dry cough, no wheezes or rhonchi Cardiac: Regular rate and rhythm, no murmur, no JVD, normal peripheral pulses, good capillary refill Abdominal: NABS x 4 quadrants, soft, nondistended, nontender to palpation, no rebound or guarding Extremities: Normal inspection, no peripheral edema or erythema, calfs nontender to palpation Psych: Normal mood and affect Neuro: AAO x 3, patient is able to follow all commands, cranial nerves II through XII intact, negative pronator drift, +has difficulty performing rapid alternating movements with the left hand due to weakness, left barber or beauty shop manager strength rated a 4/5 compared to the right which is 5/5, also shoulder flexion rated 4/5 on the left compared to 5/5 on the right, is able to do [id number] testing, speech is fairly clear, no peripheral sensory deficits Principal Diagnosis Right sided cerebral hemisphere cerebrovascular accident Left Facial numbness Left-sided hand numbness and weakness Slurred speech Left-sided facial droop Discharge Exam General: awake, alert, no apparent distress, overweight white male Head: Normocephalic, atraumatic ENT: PERRL, EOMI, no pharyngeal exudate, mucous membranes moist, + left-sided facial droop Chest: on room air, + faint rales, dry cough, no wheezes or rhonchi Cardiac: Regular rate and rhythm, no murmur, no JVD, normal peripheral pulses, good capillary refill Abdominal: NABS x 4 quadrants, soft, nondistended, nontender to palpation, no rebound or guarding Extremities: Normal inspection, no peripheral edema or erythema, calfs nontender to palpation Psych: Normal mood and affect Neuro: AAO x 3, patient is able to follow all commands, cranial nerves II through XII intact, left barber or beauty shop manager strength rated a 5/5 but slightly weaker than right, shoulder flexion rated 5/5 on the left but weaker than right, is able to do [id number] testing, speech is fairly clear with no stutter, no peripheral sensory deficits Discharge Data Allergies Allergy/AdvReac Type Severity Reaction Status Date / Time No Known Allergies Allergy Unverified 04/26/24 16:31 Consultations 04/26/24 16:13 ED Decision to Admit Stat 04/26/24 16:55 Consult Neurology Routine Ordered Studies 04/26/24 14:39 CT angio head w con Stat CT angio neck with con Stat CT head/brain wo con Stat 04/26/24 18:24 MR brain wo con Routine Hospital Course (1) Stroke-like symptoms: (2) HTN (hypertension): (3) Diabetes mellitus: (4) Crohn's disease (regional enteritis): (5) Influenza A: Plan 68 yo M w/ PMH of DM type II, HTN, HLD, Crohn's disease, GERD, adjustment disorder with depressed mood who presents to the hospital with acute onset of weakness. Patient awoke 04/26 AM and noticed left-sided facial numbness and droop, left-sided hand numbness and weakness with difficulty moving his fingers, slurred speech. He also reported dry cough for 2 days UPPER TIER. He is found to be influenza A positive with workup here. They state they have been babysitting their 5-year-old grandson who was also diagnosed with the flu on Sunday earlier last week. He was managed for the following: Right sided cerebral hemisphere cerebrovascular accident Left Facial numbness Left-sided hand numbness and weakness Slurred speech Left-sided facial droop Patient presents with strokelike symptoms, see above. Admitting CT head, CTA head and CTA neck with no acute finding. MRI brain with scattered acute to subacute infarctions involving the right precentral gyrus over the motor cortex and in the right parietal lobe. Status post loading dose of aspirin and Plavix in the ED. Continue with DAPT for 21 days and then aspirin indefinitely. Avoid omeprazole while on Plavix. Lipid panel reviewed, ECHO w/ EF of 55-60%, neg bubble study. LV wall motion and systolic fxn is normal. Atorvastatin dose increased to 80 mg daily, continue. Neurology evaluated, Zio patch monitoring upon discharge. Follow-up with outpatient [facility] telestroke upon discharge. c/w home BP meds, improve blood pressure control. Pt and his doesn't want rehab or HH, they want to go to OP PT/OT, hence script provided for pt and ot. HTN HLD - Home meds include atenolol 100 mg QAM, chlorthalidone 12.5 QAM, enalapril 20 mg BID, spironolactone 50 mg QAM, terazosin 10 mg HS, felodipine 10 mg QAM - c/w home meds, atenolol dose reduced to 25 mg QAM d/t dolly. - Continue to monitor. Hypomagnesemia : Monitor and replete electrolytes. Influenza A +: Cough, low-grade fever UPPER TIER, placed in droplet precautions, supportive care, c/w Tamiflu x 5d. DuoNebs as needed, Tessalon Perles. Other chronic medical conditions: Continue with/resume home meds as and when able. T2DM: A1c 6.0 this admission. Continue with sliding scale insulin. GERD: Continue with PPI, avoid omeprazole while on Plavix. DVT prophylaxis: Heparin subcu CODE STATUS: Full code Disposition: PT/OT, can DC to rehab. Patient is being discharged to home with family support and outpatient physical therapy and Occupational Therapy with following instructions at the point of discharge: Follow-up with your primary care physician within a week time and likely you will need labs CBC/CMP/magnesium/phosphorus. You were evaluated for right-sided stroke [left-sided weakness], you will be discharged on Plavix to complete 21 days therapy. Do not take omeprazole while on Plavix. You can utilize protonix or OTC famotidine instead per garden worker's recommendation. Continue with aspirin daily. Your atorvastatin dose has been increased to 80 mg daily. You will benefit from ongoing physical therapy and Occupational Therapy evaluation, continue to follow for that. You have been provided prescription for OP PT/OT eval. Follow-up with neurology in 2 to 4 weeks time upon discharge. You will benefit from Zio patch monitoring as an outpatient, coordinate with your PCP office to set up the test. Monitor your blood pressure twice a day, maintain a log to take to your primary care physician for ongoing evaluation/management of your blood pressure medication. Since your potassium were on the lower side despite you being on your home dose of potassium supplement. Recommend that you take 40 mEq potassium in the morning instead of 20 and keep the rest of the potassium doses same as prior i.e. --- 40 mEq in the morning, 20 mEq in the afternoon, 20 mEq in the night. Since your heart rate were on the lower side, your atenolol has been decreased to 25 mg daily from 100 mg QAM. You will be discharged on Tamiflu to complete the 5-day course. Take your medications as prescribed. Please make sure that you are able to get your medications today by calling your pharmacy before you leave the hospital so that your treatment continuity is not broken. Home Health Attestation I certify that this patient is under my care and that I, or a physicians hospital medical assistant working with me, had a face to-face encounter that meets the home health [id number] encounter requirements with this patient. The encounter with the patient was in whole, or in part, for the following medical condition, which is the primary reason for home health care (list medical condition): I certify that, based on my findings, the following services are medically necessary home health services: My clinical findings support the need for the above services because: Further, I certify that my clinical findings support that this patient is homebound (i.e. absences from home require considerable and taxing effort and are for medical reasons or amish services or infrequently or of short duration when for other reasons) because: Certification for Home Health Services: Based on the above findings, I certify that this patient is confined to the home and needs intermittent correction care, physical therapy and/or speech therapy or continues to need occupational therapy. The patient is under my care, and I have initiated the establishment of the plan of care. This patient will be followed by a physician who will periodically review the plan of care. Total Time Total Time Spent Total Time Spent (In Minutes): 40 Discharge Plan Discharge Items Patient Disposition: Home - Self-Care Reason For Visit: TIA Discharge Diagnosis: Right sided cerebral hemisphere cerebrovascular accident Left Facial numbness Left-sided hand numbness and weakness Slurred speech Left-sided facial droop Activity: As commented below Activity Comment: c/w outpatient PT/OT. Non-emergency contact: Primary Care Provider Call non-emergency contact if: you have any medication questions and your symptoms worsen Follow-up/Referrals: Joy Hope MD [Primary Care Provider] - (Date & Time 05/05/2024 1:40 PM Provider: Barry Gamble DO General Internal Medicine [facility] ) Diet: Carb Consistent or DM2 and Low Sodium (2gm) Addtl Attending Provider Instructions: Follow-up with your primary care physician within a week time and likely you will need labs CBC/CMP/magnesium/phosphorus. You were evaluated for right-sided stroke [left-sided weakness], you will be discharged on Plavix to complete 21 days therapy. Do not take omeprazole while on Plavix. You can utilize protonix or OTC famotidine instead per garden worker's recommendation. Continue with aspirin daily. Your atorvastatin dose has been increased to 80 mg daily. You will benefit from ongoing physical therapy and Occupational Therapy evalu ation, continue to follow for that. You have been provided prescription for OP PT/OT eval. Follow-up with neurology in 2 to 4 weeks time upon discharge. You will benefit from Zio patch monitoring as an outpatient, coordinate with your PCP office to set up the test. Monitor your blood pressure twice a day, maintain a log to take to your primary care physician for ongoing evaluation/management of your blood pressure medication. Since your potassium were on the lower side despite you being on your home dose of potassium supplement. Recommend that you take 40 mEq potassium in the morning instead of 20 and keep the rest of the potassium doses same as prior i.e. --- 40 mEq in the morning, 20 mEq in the afternoon, 20 mEq in the night. Since your heart rate were on the lower side, your atenolol has been decreased to 25 mg daily from 100 mg QAM. You will be discharged on Tamiflu to complete the 5-day course. Take your medications as prescribed. Please make sure that you are able to get your medications today by calling your pharmacy before you leave the hospital so that your treatment continuity is not broken. Pending Studies at Discharge: No Stand-Alone Forms: My [facility], Smoking Cessation Medications and DC Order Prescriptions: New oseltamivir [Tamiflu] 75 mg Capsule 75 mg PO BID 2 Days Qty: 4 0RF clopidogrel 75 mg Tablet 75 mg PO QAM 18 Days Qty: 18 0RF atenolol 25 mg Tablet 25 mg PO QAM Qty: 30 0RF atorvastatin 80 mg tablet 80 mg PO DAILY Qty: 30 0RF pantoprazole 40 mg Tablet,Delayed Release (Dr/Ec) 40 mg PO DAILY Qty: 30 0RF Continued spironolactone 25 mg tablet 50 mg PO QAM terazosin 10 mg capsule 10 mg PO HS metformin 500 mg tablet 1,000 mg PO BIDM Rx Instructions: take with morning and evening meals felodipine 10 mg tablet extended release 24 hr 10 mg PO QAM glipizide 5 mg tablet 5 mg PO QPM Rx Instructions: 30 minutes before a meal enalapril maleate 20 mg tablet 20 mg PO AMHS aspirin 81 mg Tablet,Delayed Release (Dr/Ec) 81 mg PO QPM furosemide 40 mg Tablet 40 mg PO DAILY PRN (Reason: Fluid Retention) chlorthalidone 25 mg tablet 12.5 mg PO QAM cyanocobalamin (vitamin B-12) [Vitamin B-12] 500 mcg Tablet 500 mcg PO [id number] Rx Instructions: T//SUN ergocalciferol (vitamin D2) [Vitamin D2] 1,250 mcg (50,000 unit) Capsule 1,250 mcg PO WK ferrous sulfate 325 mg (65 mg iron) Tablet 325 mg PO UD Rx Instructions: MWF Entyvio 300 mg Recon Soln 300 mg IV MONTHLY potassium chloride 20 mEq tablet,ER particles/crystals 20 meq PO TID Qty: 120 0RF Rx Instructions: take 2 tablet in morning, 1 at noon, 1 in evening Discontinued atorvastatin 40 mg tablet 40 mg PO QPM atenolol 100 mg tablet 100 mg PO QAM omeprazole 20 mg Tablet,Delayed Release (Dr/Ec) 20 mg PO DAILY Discharge Orders: Discharge Order (Routine); Ordered 04/29/24 Ordered By: Keren Leal/Other Patient Handouts: Managing Type 2 Diabetes Admission Data Admit Date/Time: 04/26/24 20:59 Attending Provider: Keren Gustafson Admit Provider: Cody Ackerman Primary Care Provider: Joy Hope Other Providers: Zac Shaw; Cody Ackerman
[2024-04-29 12:24] VITALS: PULSE 63
--- NOTE | 2024-05-01 10:51 | Pharmacy Report ---
Pharmacist Stroke Counseling - Date of Service May 01, 2024 - Scope: Pharmacy has been consulted to provide medication discharge counseling for this patient admitted with [ischemic stroke] [hemorrhagic stroke] [transient ischemic attack] as per the Pharmacist Discharge Counseling for Stroke Patients [facility]. - Medications on Discharge: Home Medications Medication Instructions Recorded Confirmed aspirin 81 mg tablet,delayed 81 mg PO QPM 04/26/24 04/26/24 release chlorthalidone 25 mg tablet 12.5 mg PO QAM 04/26/24 04/26/24 cyanocobalamin (vitamin B-12) 500 500 mcg PO 3XWK 04/26/24 04/26/24 mcg tablet (Vitamin B-12) enalapril maleate 20 mg tablet 20 mg PO AMHS 04/26/24 04/26/24 ergocalciferol (vitamin D2) 1,250 1,250 mcg PO WK 04/26/24 04/26/24 mcg (50,000 unit) capsule (Vitamin D2) felodipine 10 mg tablet,extended 10 mg PO QAM 04/26/24 04/26/24 release 24 hr ferrous sulfate 325 mg (65 mg 325 mg PO UD 04/26/24 04/26/24 iron) tablet furosemide 40 mg tablet 40 mg PO DAILY PRN Fluid Retention 04/26/24 04/26/24 glipizide 5 mg tablet 5 mg PO QPM 04/26/24 04/26/24 metformin 500 mg tablet 1,000 mg PO BIDM 04/26/24 04/26/24 spironolactone 25 mg tablet 50 mg PO QAM 04/26/24 04/26/24 terazosin 10 mg capsule 10 mg PO HS 04/26/24 04/26/24 vedolizumab 300 mg intravenous 300 mg IV MONTHLY 04/26/24 04/26/24 solution (Entyvio) New Rx's Medication Instructions Recorded atenolol 25 mg tablet 25 mg PO QAM #30 tabs 04/29/24 atorvastatin 80 mg tablet 80 mg PO DAILY #30 tabs 04/29/24 clopidogrel 75 mg tablet 75 mg PO QAM 18 days #18 tabs 04/29/24 pantoprazole 40 mg tablet,delayed 40 mg PO DAILY #30 tabs 04/29/24 release potassium chloride 20 mEq 20 meq PO TID #120 tabs 02/25/25 tablet,extended release(part/cryst) - Action: The above medications, specifically ones for stroke treatment/prophylaxis, have been reviewed in detail with the patient and/or patient financial service representative(s) prior to discharge. This includes indication, common adverse reactions, drug interactions, and medication administration. Medication counseling has been employed using the teach-back method to ensure understanding. - Outcome: The patient and/or patient financial service representative(s) have demonstrated understanding of the medications. Additional comments: Spoke with patient and with his permission to his , Sheyla about the changes made to his medications on discharge. She confirmed that they were able to miner pick all the prescriptions and that he has started taking them. Patient is aware that he is to only take clopidogrel for 21 days total and then continue with aspirin 81mg daily. Atorvastatin increased to 80mg (from 40mg). Patient also instructed to stop the omeprazole while he is on clopidogrel. Sheyla stated that she was aware and they did get the prescription for protonix to use instead. She also confirmed they are taking his blood pressure 3 times per day as instructed as his blood pressure medications were changed on discharge. Medications were reviewed including indications, directions, side effects, and when to contact their physician. Patient and expressed understanding and only concern was he was still exhibiting some flu symptoms (but with no SOB or chest pain). However, follow up appointment is scheduled for Sunday. Thank you for allowing pharmacy to be involved in the care of this patient. Please call [phone] with any additional questions
== END 2024-04-29 13:01 | disposition home or self-care (01) | DRG 65 ==
LOC: EDINP 14:23 → ED 14:23 → SUATTDRO 20:59 → 4W 04-27 18:00